=== PATIENT | female | born 1995 | race Caucasian/White ===

== ENCOUNTER 2019-08-19 11:27 | Emergency (ER) | payer OTHER ==
[~2019-08-19] VITALS: Ht 175.3 cm; Wt 136.4 kg
[2019-08-19] MEDS ORDERED: NORCO, ANEXSIA 5/325MG TABLET (HYDROcodone/ACETAMINOPHEN) PO ONE (13:15)
[2019-08-19] MEDS ORDERED: CYCLOBENZAPRINE 10 MG TAB PO ONE (13:15)
[2019-08-19] MEDS ORDERED: CYCL10TA PO (14:09)
[2019-08-19 14:18] VITALS: BP 132/75
== END 2019-08-19 14:18 | disposition home or self-care (01) ==
LOC: M ED 11:27
DX: M54.9 Dorsalgia, unspecified (principal); Z79.899 Other long term (current) drug therapy

== ENCOUNTER → 2019-11-21 | Outpatient (REF) | payer OTHER ==
[~2019-11-21] MED LIST: CYCL10TA PO
[2019-11-21 20:21] LABS: FREE T4 0.9 NG/DL (0.76-1.46); THYROID STIMULATING HORMONE 3.43 uIU/ML (0.358-3.740)
== END ==
LOC: M SFHCLERA 18:31
PROVIDERS: ATTEND Physician Assistant
DX: R68.89 Other general symptoms and signs (principal); R06.89 Other abnormalities of breathing
CPT/HCPCS: 71046; 84439; 84443; 93005; G0463

== ENCOUNTER → 2019-11-21 | Outpatient (CLI) | payer OTHER ==
--- NOTE | 2019-11-21 18:22 | REP ---
Clinical: Dyspnea . Comparison: None . Technique: PA and lateral. Findings: The mediastinum and cardiac silhouette are normal. The lung benitez are clear and without acute consolidation, effusion, or pneumothorax. The skeletal structures are intact and normal. Impression: 1. No acute cardiopulmonary process. Electronically Signed by Dakota Martinez MD 11/21/2019 06:13 P
== END ==
LOC: M LRY 17:52
PROVIDERS: ATTEND Physician Assistant
DX: R06.89 Other abnormalities of breathing (principal)

== ENCOUNTER 2020-04-13 10:15 | Emergency (ER) | payer OTHER ==
[~2020-04-13 10:15] MED LIST changes: +CYCL-707 PO; -CYCL10TA PO
[2020-05-23 11:38] LABS: CHLAMYDIA DNA AMPLIFICATION NEGATIVE (NEGATIVE); GC DNA AMPLIFICATION NEGATIVE (NEGATIVE)
[2020-06-03 10:35] LABS: BASO % 0.3 % (0.0-1.0); EOS # 0.2 10^3/uL (0.0-0.5); EOS % 1.4 % (0.0-3.0); HEMATOCRIT 40.4 % (36.0-47.0); HEMOGLOBIN 13.7 g/dl (12.0-15.5); LYMPH # 2.1 10^3/uL (1.5-5.0); LYMPH % 15.8 % (24.0-44.0); MEAN CORPUSCULAR HEMOGLOBIN 29.5 pg (27.0-33.0); MEAN CORPUSCULAR HGB CONC 33.9 g/dl (32.0-36.5); MEAN CORPUSCULAR VOLUME 86.9 fl (80.0-96.0); MONO # 0.9 10^3/uL (0.0-0.8); MONO % 6.6 % (0.0-5.0); NEUTROPHILS # 9.9 10^3/uL (1.5-8.5); NEUTROPHILS % 75.4 % (36.0-66.0); PLATELET COUNT, AUTOMATED 329 10^3/uL (150-450); RED BLOOD COUNT 4.65 10^6/uL (4.00-5.40); WHITE BLOOD COUNT 13.1 10^3/uL (4.0-10.0)
== END 2020-04-13 12:10 | disposition home or self-care (01) ==
LOC: M ED 10:15
DX: O20.0 Threatened abortion (principal); O26.851 Spotting complicating pregnancy, first trimester; O34.81 Maternal care for other abnormalities of pelvic organs, first trimester; Z3A.12 12 weeks gestation of pregnancy; Z79.899 Other long term (current) drug therapy

== ENCOUNTER → 2020-06-09 | Outpatient (CLI) | payer OTHER ==
--- NOTE | 2020-06-14 10:32 | REP ---
OBSTETRIC SONOGRAPHY HISTORY: Supervision of for anatomy. FINDINGS: Scanning through the gravid uterus demonstrates a viable single intrauterine gestation in a transverse head to the maternal left lie. A posterior grade 0 placenta is seen without evidence of previa. Three-vessel cord is observed. heart rate is recorded at 150 beats per minute. Amniotic fluid is subjectively normal. No abnormality is seen. face and profile nose and lips, four chamber heart and left ventricular outflow tract views are less than optimally seen due to position. The following additional anatomic structures are identified and felt to be unremarkable: cranium, intracranial anatomy, right ventricular outflow tract view, diaphragm, left-sided stomach, right and left kidney, urinary bladder, spine, upper and lower extremities. BIOMETRY CHART: BPD 4.6 cm 20 weeks 0 days Head circumference 17.1 cm 19 weeks 5 days Abdominal circumference 14.8 cm 20 weeks 0 days Femur length 3.3 cm 20 weeks 1 day Humeral length 3.1 cm 20 weeks 3 days AC/HC ratio 1.16 Normal Cephalic index 0.75 Normal Estimated weight 329 grams, 0 pounds 11 ounces, 43rd percentile for 20 weeks 1 day. IMPRESSION: Single live intrauterine gestation at 20 weeks 0 days by todays composite criteria. Estimated date of delivery (JANIS) by todays sonography 10/27/2020. anatomic survey incomplete regarding face and heart. Transverse lie. MTDD
== END ==
LOC: M WHC 13:52
PROVIDERS: ATTEND Obstetrics & Gynecology
DX: O32.2XX0 Maternal care for transverse and oblique lie, not applicable or unspecified (principal); Z36.89 Encounter for other specified antenatal screening; Z3A.20 20 weeks gestation of pregnancy

== ENCOUNTER → 2020-07-05 | Outpatient (CLI) | payer MEDICAID ==
--- NOTE | 2020-07-05 16:46 | REP ---
INDICATION: F/U ANATOMY - FACE AND HEART. COMPARISON: Comparison study June 09, 2020.. TECHNIQUE: Transabdominal obstetric sonography. FINDINGS: Scanning through the gravid uterus demonstrates a viable single intrauterine gestation in transverse, head to the maternal left lie. motion is observed and heart rate is recorded at 144 beats per minute. A posterior placenta is seen, grade 0, without evidence of placenta previa. Amniotic fluid is subjectively normal. Closed cervical length is measured at 3.1 cm transabdominally. No extrauterine abnormality is observed. The following anatomic structures are identified today and felt to be unremarkable: Face and profile nose and lips, four-chamber heart with left and right ventricular outflow tract views. Three-vessel cord is seen. In conjunction with the prior study, anatomic survey is felt to be complete.. Biometry chart: BPD 5.9 cm, 24 weeks 0 days Head circumference 21.7 cm, 23 weeks 5 days Abdominal circumference 19.1 cm, 23 weeks 6 days Femur length 4.2 cm, 23 weeks 6 days Humeral length 3.9 cm, 23 weeks 6 days HC/AC ratio normal 1.14 Cephalic index normal 0.75 Estimated weight 634 g, 1 lb 6 oz, 39th percentile for 23 weeks 6 days IMPRESSION: Viable single intrauterine gestation at 23 weeks 6 days by today's composite sonographic criteria. JANIS by today's sonography 10/26/2020. No complication identified. <Electronically signed by Arnaldo Mchugh > 07/05/20 [id number]
== END ==
LOC: M WHC 15:14
PROVIDERS: ATTEND Obstetrics & Gynecology
DX: Z34.82 Encounter for supervision of other normal pregnancy, second trimester (principal)

== ENCOUNTER → 2020-08-02 | Outpatient (CLI) | payer SELFPAY | LOC: M LABSMTC 13:45 | PROVIDERS: ATTEND Pediatrics | DX: Z20.828 Contact with and (suspected) exposure to other viral communicable diseases (principal) ==

== ENCOUNTER 2020-08-05 06:45 | Emergency (ER) | payer MEDICAID, OTHER ==
[~2020-08-05] VITALS: Ht 175.3 cm; Wt 137.7 kg
[2020-08-05] MEDS ORDERED: SODIUM CHLORIDE NASAL 0.65% SPRAY BTL (OCEAN) STA (07:27)
[2020-08-05] MEDS ORDERED: CETIRIZINE (ZyrTEC) 10 MG TAB PO ONE (07:30)
[2020-08-05] MEDS ORDERED: guaiFENesin 200 MG TAB PO ONE (07:45)
[2020-08-05 07:51] VITALS: O2SAT 98
[2020-08-05] MEDS ORDERED: NS 1,000 ML IV ONE (08:00)
[2020-08-05 08:19] LABS: BASO % 0.3 % (0.0-1.0); EOS # 0.4 10^3/uL (0.0-0.5); EOS % 2.2 % (0.0-3.0); HEMATOCRIT 38.1 % (36.0-47.0); HEMOGLOBIN 12.2 g/dl (12.0-15.5); LYMPH # 2.1 10^3/uL (1.5-5.0); LYMPH % 13.4 % (24.0-44.0); MEAN CORPUSCULAR HEMOGLOBIN 28.3 pg (27.0-33.0); MEAN CORPUSCULAR VOLUME 88.4 fl (80.0-96.0); MONO % 6.5 % (0.0-5.0); NEUTROPHILS % 76.8 % (36.0-66.0); PLATELET COUNT, AUTOMATED 322 10^3/uL (150-450); RED BLOOD COUNT 4.31 10^6/uL (4.00-5.40); WHITE BLOOD COUNT 15.6 10^3/uL (4.0-10.0)
[2020-08-05 08:50] LABS: BLOOD UREA NITROGEN 7 MG/DL (7-18); CALCIUM LEVEL 9.4 MG/DL (8.5-10.1); CARBON DIOXIDE LEVEL 22 MEQ/L (21-32); CHLORIDE LEVEL 108 MEQ/L (98-107); CK-MB VALUE MASS < 1.0 NG/ML (<3.6); CPK CREATINE PHOSPHOKINASE 44 U/L (26-192); CREATININE FOR GFR 0.44 MG/DL (0.55-1.30); GLOMERULAR FILTRATION RATE > 60.0 (>60); GLUCOSE, FASTING 86 MG/DL (70-100); MB/CK RELATIVE INDEX 2.27 (< OR =4); POTASSIUM SERUM 4.3 MEQ/L (3.5-5.1); SODIUM LEVEL 139 MEQ/L (136-145); TROPONIN I < 0.02 NG/ML (< 0.10)
[2020-08-05] MEDS ORDERED: GUAI400T9 PO (09:02)
[2020-08-05] MEDS ORDERED: ALL10TAB2 PO (09:02)
[2020-08-05] MEDS ORDERED: HM S0.65 NARES (09:02)
[2020-08-05] MEDS ORDERED: KEFL500C17 PO (09:03)
[2020-08-05 09:26] VITALS: BP 151/78
== END 2020-08-05 09:28 | disposition home or self-care (01) ==
LOC: M ED 06:45
DX: O99.513 Diseases of the respiratory system complicating pregnancy, third trimester (principal); J06.9 Acute upper respiratory infection, unspecified; O23.43 Unspecified infection of urinary tract in pregnancy, third trimester; Z3A.28 28 weeks gestation of pregnancy; Z87.09 Personal history of other diseases of the respiratory system

== ENCOUNTER → 2020-08-11 | Outpatient (CLI) | payer OTHER ==
[~2020-08-11] MED LIST changes: +ALL10TAB2 PO; +GUAI400T9 PO; +HM S0.65 NARES; +KEFL500C17 PO
[2020-08-11 11:14] LABS: HEMATOCRIT 36.9 % (36.0-47.0); MEAN CORPUSCULAR HEMOGLOBIN 29.4 pg (27.0-33.0); MEAN CORPUSCULAR HGB CONC 32.5 g/dl (32.0-36.5); MEAN CORPUSCULAR VOLUME 90.4 fl (80.0-96.0); PLATELET COUNT, AUTOMATED 282 10^3/uL (150-450); RED BLOOD COUNT 4.08 10^6/uL (4.00-5.40); WHITE BLOOD COUNT 13.4 10^3/uL (4.0-10.0)
== END ==
LOC: M LAB 09:42
PROVIDERS: ATTEND Obstetrics & Gynecology
DX: Z34.82 Encounter for supervision of other normal pregnancy, second trimester (principal)

== ENCOUNTER → 2020-08-24 | Outpatient (REF) | payer OTHER | LOC: M LAB REF 12:51 | PROVIDERS: ATTEND Obstetrics & Gynecology | DX: Z34.83 Encounter for supervision of other normal pregnancy, third trimester (principal) ==

== ENCOUNTER → 2020-09-01 | Outpatient (CLI) | payer OTHER ==
[2020-09-01 13:31] LABS: ALT/SGPT 13 U/L (12-78); BILIRUBIN,TOTAL 0.3 MG/DL (0.2-1.0); CREATININE FOR GFR 0.42 MG/DL (0.55-1.30); GLOMERULAR FILTRATION RATE > 60.0 (>60); LDH LACTATE DEHYDROGENASE 158 U/L (84-246); URIC ACID 3.5 MG/DL (2.6-6.0)
[2020-09-01 13:45] LABS: CREATININE, URINE 79.2 MG/DL; URINE TOTAL PROTEIN 11.1 MG/DL (0-12)
[2020-09-01 15:42] LABS: CREATININE 24 HOUR, URINE 1861.2 MG/24HR (600-1800); TOTAL PROTEIN 24 HOUR URINE 260.8 MG/24HR (50-150)
== END ==
LOC: M LAB 11:52
PROVIDERS: ATTEND Advanced Practice Midwife
DX: O14.93 Unspecified pre-eclampsia, third trimester (principal); Z3A.00 Weeks of gestation of pregnancy not specified

== ENCOUNTER 2020-09-09 11:10 | Outpatient (CLI) | payer OTHER ==
[~2020-09-09] VITALS: Ht 175.3 cm; Wt 141.7 kg
[2020-09-09] MEDS ORDERED: ACET325C5 PO (11:31)
[2020-09-09 11:48] VITALS: BP 170/100
--- NOTE | 2020-09-09 15:58 | IPNPDOC ---
Text Note Date of Service The patient was seen on 09/09/20. NOTE 25yo G1 who presents with c/o elevated BP at work and increase swelling. Denies vaginal bleeding, LOF, ctx, headaches or visual changes O: vss, AF cat 1 tracing abd: gravid, nttp cx: deferred A/P: 32yo G1 at 33 wks, normotensive Reassuring status -home with PTL precautions and reassurance -f/u at OB appt Sunday Radha Ratliff MD VS,Sia, I+O VS, Sia, I+O Vital Signs Date Time Temp Pulse Resp B/P (MAP) Pulse Ox O2 Delivery O2 Flow Rate FiO2 09/09/20 11:48 98.2 20 170/100 (123) RADHA RATLIFF MD. Sep 09, 2020 15:58
== END 2020-09-09 14:22 | disposition home or self-care (01) ==
LOC: M LDO 11:10
PROVIDERS: ATTEND Obstetrics & Gynecology
DX: O12.03 Gestational edema, third trimester (principal); Z3A.33 33 weeks gestation of pregnancy

== ENCOUNTER 2020-09-14 09:36 | Outpatient (CLI) | payer OTHER ==
[~2020-09-14] VITALS: Ht 175.3 cm; Wt 142.4 kg
[~2020-09-14 09:36] MED LIST changes: +ACET325C5 PO
[2020-09-14 10:05] VITALS: BP 134/67
[2020-09-14 10:23] VITALS: BP 126/72
[2020-09-14 10:37] VITALS: BP 140/78
[2020-09-14 10:52] VITALS: BP 132/74
[2020-09-14 11:14] LABS: HEMATOCRIT 36.8 % (36.0-47.0); MEAN CORPUSCULAR HEMOGLOBIN 28.9 pg (27.0-33.0); MEAN CORPUSCULAR HGB CONC 32.6 g/dl (32.0-36.5); MEAN CORPUSCULAR VOLUME 88.7 fl (80.0-96.0); PLATELET COUNT, AUTOMATED 276 10^3/uL (150-450); RED BLOOD COUNT 4.15 10^6/uL (4.00-5.40); WHITE BLOOD COUNT 12.4 10^3/uL (4.0-10.0)
[2020-09-14] MEDS ORDERED: TUMS500C PO (11:21)
[2020-09-14 11:41] LABS: TOTAL PROTEIN,RANDOM URINE 19.9 MG/DL (0.0-12.0)
--- NOTE | 2020-09-14 11:44 | REP ---
INDICATION: R/O PREECLAMPSIA-SALAS/EFW/POSITION. COMPARISON: 07/05/2020. TECHNIQUE: Real-time sonographic evaluation of the gravid uterus performed. FINDINGS: Estimated gestational age is34 weeks 0 days, EDC 10/26/2020. Today's measurements indicate appropriate growth. Presentation: Cephalic Placenta posterior, grade 2, without evidence of placenta previa. heart rate is recorded at 136 beats per minute. Amniotic fluid is subjectively normal. SALAS 13.2, normal range 8.1-24.8. Biometry chart: BPD: 85 mm, 34 weeks 0 days, 50th percentile. HC: 306 mm, 34 weeks 0 days, 51st percentile AC: 295 mm, 33 weeks 4 days, 43rd percentile Femur length: 66 mm, 34 weeks 1 days, 51st percentile HC to AC ratio: 1.03, normal range 0.94-1.13. Estimated weight: 2275g, 53rd percentile. The cranium, four-chamber heart, stomach, kidneys and bladder are visualized and are grossly unremarkable. IMPRESSION: Viable single intrauterine gestation as above. <Electronically signed by Surinder Morrison > 09/14/20 2003
[2020-09-14 12:47] LABS: ALT/SGPT 16 IU/L (0-32); BILIRUBIN,TOTAL 0.3 MG/DL (0.2-1.0); CREATININE FOR GFR 0.48 MG/DL (0.55-1.30); GLOMERULAR FILTRATION RATE > 60.0 (>60); LDH LACTATE DEHYDROGENASE 159 U/L (84-246); URIC ACID 4.1 MG/DL (2.6-6.0)
--- NOTE | 2020-10-04 11:50 | IPNPDOC ---
Text Note Date of Service The patient was seen on 09/14/20. S: 25yo at 34w3d presents from clinic for evaluation for elevated BP. Denies headaches, visual changes, abd pain, ctx, LOF or vaginal bleeding. O: vs serial BP wnl. Cat 1 tracing Gen: well appearing abd: soft, gravid, nttp Labs:WNL A/P: 25yo at 34w3d with isolated elevated BP, no further hypertension reassuring status -home with PTL precautions and FKCs -f/u at next OB appt. MD PIERO Quinteros KENYA MD. Oct 04, 2020 11:49
== END 2020-09-14 13:20 | disposition home or self-care (01) ==
LOC: M LDO 09:36
PROVIDERS: ATTEND Obstetrics & Gynecology
DX: O16.9 Unspecified maternal hypertension, unspecified trimester (principal); Z3A.34 34 weeks gestation of pregnancy

== ENCOUNTER 2020-09-21 10:48 | Inpatient (IN) | payer OTHER ==
[~2020-09-21] VITALS: Ht 175.3 cm; Wt 144.2 kg
[2020-09-21] VITALS (21 sets, daily range): BP systolic 128–173; BP diastolic 69–106
[~2020-09-21 10:48] MED LIST changes: +TUMS500C PO
[2020-09-21 12:34] LABS: HEMATOCRIT 35.1 % (36.0-47.0); HEMOGLOBIN 11.6 g/dl (12.0-15.5); MEAN CORPUSCULAR HEMOGLOBIN 29.4 pg (27.0-33.0); MEAN CORPUSCULAR VOLUME 89.1 fl (80.0-96.0); PLATELET COUNT, AUTOMATED 293 10^3/uL (150-450); RED BLOOD COUNT 3.94 10^6/uL (4.00-5.40); WHITE BLOOD COUNT 12.8 10^3/uL (4.0-10.0)
[2020-09-21] MEDS: ACETAMINOPHEN 500 MG TAB PO PRN ×3 (12:46→20:46)
[2020-09-21 13:05] LABS: ALBUMIN 2.5 GM/DL (3.2-5.2); ALT/SGPT 15 U/L (12-78); BILIRUBIN,TOTAL 0.4 MG/DL (0.2-1.0); BLOOD UREA NITROGEN 9 MG/DL (7-18); CARBON DIOXIDE LEVEL 24 MEQ/L (21-32); CHLORIDE LEVEL 108 MEQ/L (98-107); CREATININE FOR GFR 0.51 MG/DL (0.55-1.30); GLOMERULAR FILTRATION RATE > 60.0 (>60); GLUCOSE, FASTING 73 MG/DL (70-100); POTASSIUM SERUM 4.2 MEQ/L (3.5-5.1); SODIUM LEVEL 138 MEQ/L (136-145); TOTAL PROTEIN 5.8 GM/DL (6.4-8.2)
[2020-09-21 13:08] LABS: TOTAL PROTEIN,RANDOM URINE 141.4 MG/DL (0.0-12.0)
[2020-09-21] MEDS ORDERED: BETAMETHASONE SOLUSPAN 6MG/ML 5ML VIAL (J0702 PER 3MG) IM SCH (14:00)
--- NOTE | 2020-09-21 14:16 | HPEPDOC ---
Obstetrical History & Physical General Date of Admission Sep 21, 2020 at 13:25 History of Present Illness Katia is a 25yo with SIUP at 35w3d by 8wk u/s presenting from [facility] office where she was seen for routine visit for pre-E workup 2/2 elevated bp's. She was noted to have severe range bp. In triage she endorses mild headache, but also hasn't eaten since 0400. No vision changes, no RUQ pain. Good movement, no vb/lof/ctx. No n/v/f/c/CP/SOB. She was evaluated in triage on 09/14 for pre-E rule out, bp's at that visit were 126-140/67-78. She had a GS done that day which showed 53%ile, posterior placenta, SALAS 13.2cm, cephalic presentation. The last urine protein I see in her record was a 24hr UP done 09/01 which resulted 260.8mg. In triage today her bp's are bouncing between mild range and severe range- not sustained severe range. Labs drawn show normal H/H and plt, normal LFTs, creatinine 0.51. Urine protein:creatinine is 0.59 which is diagnostic of pre- eclampsia. Thus far I have diagnosed her with pre-eclampsia, mild, but plan to observe over a period of time for severe features. 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), Other (PCOS) Past Medical History Medical History Morbid obesity, anxiety, benign thyroid tumor Surgical History: Gallbladder, Tonsilectomy Family History Significant Family History: No pertinent family hx Social History Marital Status: Family situation: Spouse/partner home Psychosocial History: Anxiety (on escitalopram) * Smoker: non-smoker Alcohol: Denies Drugs: denies Allergies Coded Allergies: No Known Allergies (Unverified , 08/19/19) Medications Scheduled Calcium Carbonate (Tums) 200 Mg Tab.chew, 500 MG PO PRN Physical Examination Physical Examination GENERAL: Alert and oriented times three. ABDOMEN: Gravid and non-tender to touch. FETUS: Is vertex (VTX) by TAUS EXTREMITIES: No edema BLE Vital Signs/I&O Vital Signs Date Time Temp Pulse Resp B/P (MAP) Pulse Ox O2 Delivery O2 Flow Rate FiO2 09/21/20 12:59 90 161/93 (115) 09/21/20 12:50 18 09/21/20 11:21 99.1 98 Room Air Laboratory Data 24H LABS Laboratory Tests 2 09/21/20 12:01: Anion Gap 6L, Glomerular Filtration Rate > 60.0, Calcium Level 9.0, Total Bilirubin 0.4, Aspartate Amino Transf (AST/SGOT) 7, Alanine Aminotransferase (ALT/SGPT) 15, Alkaline Phosphatase 127H, Total Protein 5.8L, Albumin 2.5L, Albumin/Globulin Ratio 0.8L 09/21/20 12:02: Nucleated Red Blood Cells % (auto) 0.0, Urine Random Creatinine 239.0, Urine Random Total Protein 141.4H 09/21/20 13:35: Serology Scanned Report Hepatitis B Testing CBC/BMP Laboratory Tests 09/21/20 12:01 09/21/20 12:02 Pertinent Laboratoy Data Blood Type: AB+ RBC Antibody Screen: Negative HIV: Negative Hepatitis B: Negative Hepatitis C: Negative Rapid Plasma Reagin: Nonreactive Rubella: Immune Chlamydia/Gonorrhea: Negative Group B Streptococcus: Unknown Glucose Tolerance Test: 128 Anatomy Ultrasound Ultrasound Date: Jul 05, 2020 Placenta Location: Posterior Normal Anatomy: Yes Placenta Previa: No Steroid Therapy Steroid Therapy: No Assessment Heart Rate (FHR): 135 Variability: Moderate Accelerations: Positive Decelerations: None Tocometer Contractions: No Assessment/Plan Assessment Katia is a 25yo with SIUP at 35w3d by 8wk being observed on L&D for new diagnosis of pre-eclampsia, rule out of severe features. Her bp's are bouncing between mild range and severe range- not sustained severe range. Labs drawn show normal H/H and plt, normal LFTs, creatinine 0.51. Urine protein:creatinine is 0.59 which is diagnostic of pre-eclampsia. Plan to observe over a period of time for development of severe features (in particular, if there is development of sustained severe range bp's). Reassuring status with cephalic presentation. Recent growth scan showed appropriate growth. Plan Admit and orient. Counseled and consented regarding new dx of pre-eclampsia and my recommendation for observation Betamethasone 12mg IM now and repeat in 24hr Diet: regular with oral hydration BP monitoring and NST q4hr Group B Streptococcus (GBS) will be collected Labs and intravenous (IV) per unit protocol. Jessica Kruse MD Sep 21, 2020 14:15
[2020-09-21] MEDS ORDERED: CALCIUM CARBONATE 500 MG CHEW U/D PO PRN (17:45)
[2020-09-22] VITALS (29 sets, daily range): BP systolic 119–188; BP diastolic 58–114
[2020-09-22] MEDS ORDERED: BETAMETHASONE SOLUSPAN 6MG/ML 5ML VIAL (J0702 PER 3MG) IM ONE (07:45)
[2020-09-22 08:14] LABS: HEMATOCRIT 39.4 % (36.0-47.0); MEAN CORPUSCULAR VOLUME 87.9 fl (80.0-96.0); PLATELET COUNT, AUTOMATED 355 10^3/uL (150-450); RED BLOOD COUNT 4.48 10^6/uL (4.00-5.40); WHITE BLOOD COUNT 19.7 10^3/uL (4.0-10.0)
[2020-09-22 08:39] LABS: ALT/SGPT 18 U/L (12-78); BILIRUBIN,TOTAL 0.3 MG/DL (0.2-1.0); CREATININE FOR GFR 0.61 MG/DL (0.55-1.30); GLOMERULAR FILTRATION RATE > 60.0 (>60); LDH LACTATE DEHYDROGENASE 181 U/L (84-246); URIC ACID 4.4 MG/DL (2.6-6.0)
[2020-09-22] MEDS ORDERED: LR 1,000 ML IV ONE (08:45)
[2020-09-22] MEDS: miSOPROStol 50MCG 1/2 TABLET PO SCH ×3 (08:55→16:52)
[2020-09-22] MEDS: ACETAMINOPHEN 500 MG TAB PO PRN ×2 (15:33→22:49)
[2020-09-22] MEDS: LR 1,000 ML IV SCH (16:38)
[2020-09-22] MEDS ORDERED: PENICILLIN G POTASSIUM IV 5 MU in D5W MINI-BAG PLUS 100 ML IV STA ×2 (16:53→21:35)
[2020-09-22] MEDS ORDERED: LR 1,000 ML IV SCH (20:55)
[2020-09-22] MEDS ORDERED: OXYTOCIN DRIP 30 UNITS in IV 1 EA IV SCH (21:00)
[2020-09-22] MEDS ORDERED: OXYTOCIN 30 UNITS IN 0.9% NaCl 500ML IV BAG (J2590) As Ordered ONE (21:09)
[2020-09-23] VITALS (69 sets, daily range): BP systolic 127–199; BP diastolic 63–115
[2020-09-23] MEDS: LR 1,000 ML IV SCH ×2 (00:39→15:07)
[2020-09-23] MEDS: PENICILLIN G POTASSIUM IV 2.5 MU in IV 1 EA IV SCH ×4 (01:41→15:07)
[2020-09-23 05:21] LABS: HEMATOCRIT 32.5 % (36.0-47.0); MEAN CORPUSCULAR HEMOGLOBIN 29.5 pg (27.0-33.0); MEAN CORPUSCULAR HGB CONC 33.8 g/dl (32.0-36.5); MEAN CORPUSCULAR VOLUME 87.1 fl (80.0-96.0); PLATELET COUNT, AUTOMATED 294 10^3/uL (150-450); RED BLOOD COUNT 3.73 10^6/uL (4.00-5.40); WHITE BLOOD COUNT 16.4 10^3/uL (4.0-10.0)
[2020-09-23 05:56] LABS: ALT/SGPT 18 U/L (12-78); BILIRUBIN,TOTAL 0.1 MG/DL (0.2-1.0); CREATININE FOR GFR 0.51 MG/DL (0.55-1.30); GLOMERULAR FILTRATION RATE > 60.0 (>60); LDH LACTATE DEHYDROGENASE 178 U/L (84-246); URIC ACID 4.6 MG/DL (2.6-6.0)
[2020-09-23] MEDS ORDERED: FENTANYL 2MCG/ML ROPIVACAINE 0.2% IN 0.9% NACL 100ML IVBAG As Ordered ONE (08:45)
[2020-09-23] MEDS ORDERED: EPIDURAL COMMENT XX SCH (09:50)
[2020-09-23] MEDS ORDERED: diphenhydrAMINE 50MG/ML VIAL (J1200) IV PRN (09:50)
[2020-09-23] MEDS ORDERED: ePHEDrine SULFATE 25 MG/5 ML(5MG/ML) SYRINGE IV PRN (09:50)
[2020-09-23] MEDS ORDERED: ONDANSETRON 4MG/2ML VIAL IV PRN (09:50)
[2020-09-23] MEDS ORDERED: FENTANYL/ROPIVACAINE/NACL BAG 100 ML EPIDURAL SCH (09:50)
[2020-09-23] MEDS ORDERED: EPIDURAL/PCA KEYS XX PRN (09:50)
[2020-09-23] MEDS ORDERED: REFRIGERATOR IV KEYS XX PRN (09:50)
[2020-09-23] MEDS ORDERED: LACTATED RINGER'S 1000 ML IV PRN (09:50)
[2020-09-23] MEDS ORDERED: NALOXONE INJ 0.4MG/1ML VIAL (J2310 PER 1MG) IV PRN (09:50)
[2020-09-23] MEDS ORDERED: OXYTOCIN DRIP 30 UNITS in IV 1 EA IV SCH (13:56)
[2020-09-23] MEDS ORDERED: MEASLES,MUMPS,RUBELLA VACCINE INJ (MMR-II) (90707) SC SCH (14:00)
[2020-09-23] MEDS ORDERED: METHYLERGONOVINE MALEATE 0.2 MG TAB PO PRN (14:00)
[2020-09-23] MEDS ORDERED: BENZOCAINE 20% HEMORRHOIDAL OINTMENT 28GM TUBE TOP PRN (14:00)
[2020-09-23] MEDS ORDERED: DOCUSATE SODIUM 100MG CAPSULE PO PRN (14:00)
[2020-09-23] MEDS ORDERED: RHOGAM 300 MCG (1500 IU) INJ (J2790) IM SCH (14:00)
[2020-09-23] MEDS ORDERED: ACETAMINOPHEN TAB 650MG DOSE (2X325MG) PO PRN (14:00)
[2020-09-23] MEDS ORDERED: ANUSOL HC CREAM 30GM TOP PRN (14:00)
[2020-09-23] MEDS ORDERED: IBUPROFEN 800 MG TAB PO PRN (14:00)
[2020-09-23] MEDS ORDERED: ACETAMINOPHEN 500 MG TAB PO PRN (14:00)
[2020-09-23] MEDS ORDERED: IBUPROFEN 600MG TAB PO PRN (14:00)
[2020-09-23 14:14] LABS: CORD GAS ABE V -3.8; CORD GAS HCO3 V 20.4 MEQ/L; CORD GAS O2 SAT V 72.6 %; CORD GAS PCO2 V 34.8 mmHg; CORD GAS PH V 7.386 UNITS; CORD GAS PO2 V 30.7 mmHg; CORD GAS SBC V 20.8 MEQ/L; CORD GAS TCO2 V 21.5 MEQ/L
[2020-09-23 14:17] LABS: CORD GAS ABE A -2.8; CORD GAS HCO3 A 21.6 MEQ/L; CORD GAS O2 SAT A 72.8 %; CORD GAS PCO2 A 36.9 mmHg; CORD GAS PH A 7.386 UNITS; CORD GAS PO2 A 29.7 mmHg; CORD GAS SBC A 21.5 MEQ/L; CORD GAS TCO2 A 22.8 MEQ/L
--- NOTE | 2020-09-23 14:29 | DN ---
DELIVERY NOTE DATE OF DELIVERY: 09/23/2020 TIME OF : DESCRIPTION OF DELIVERY: Katia is a 25-year-old female, 2, para 0,0,1,0 who was admitted at 35-3/7 weeks gestation with severe preeclampsia. She was monitored in labor and delivery, was steroid complete. Given that pressures continued to be labile, decision was made to induce the patient. She underwent Cytotec followed by Pitocin induction. She then progressed to fully dilated after artificial rupture of membranes and epidural. She pushed and delivered precipitously in bed, nurse control of live male infant in right occiput anterior position, Apgars 7 and 9, weight 4 pounds 15 ounces. Placenta delivered upon my arrival spontaneously intact. Three vessel cord. The perineum, vagina and cervix inspected. Second degree midline perineal laceration was noted which was repaired using 2-0 chromic. Estimated blood loss 250 mL. Both mother and baby in stable condition. cc: [facility]
[2020-09-23] MEDS ORDERED: LABETALOL 100MG/20ML VIAL IV ONE (22:15)
[2020-09-23] MEDS: LABETALOL 200 MG TAB PO SCH (22:36)
[2020-09-24] VITALS (9 sets, daily range): BP systolic 109–159; BP diastolic 59–92
[2020-09-24 06:09] LABS: HEMATOCRIT 31.3 % (36.0-47.0); HEMOGLOBIN 10.2 g/dl (12.0-15.5); MEAN CORPUSCULAR HEMOGLOBIN 29.1 pg (27.0-33.0); MEAN CORPUSCULAR HGB CONC 32.6 g/dl (32.0-36.5); MEAN CORPUSCULAR VOLUME 89.2 fl (80.0-96.0); PLATELET COUNT, AUTOMATED 259 10^3/uL (150-450); RED BLOOD COUNT 3.51 10^6/uL (4.00-5.40)
[2020-09-24 06:49] LABS: ALT/SGPT 17 U/L (12-78); BILIRUBIN,TOTAL 0.2 MG/DL (0.2-1.0); CREATININE FOR GFR 0.51 MG/DL (0.55-1.30); GLOMERULAR FILTRATION RATE > 60.0 (>60); LDH LACTATE DEHYDROGENASE 173 U/L (84-246); URIC ACID 4.5 MG/DL (2.6-6.0)
[2020-09-24] MEDS: PRENATAL VITAMINS CHEWABLE TABLET PO SCH (09:30)
[2020-09-24] MEDS: LABETALOL 200 MG TAB PO SCH ×2 (09:33→21:18)
--- NOTE | 2020-09-24 13:01 | IPNPDOC ---
Text Note Date of Service The patient was seen on 09/24/20. NOTE Inpatient Subjective: Katia is a s/p on 09/23/20. Reports ambulating with ease, bowel movement x1, voiding spontaneously, and tolerating a regular diet. without issue. Mild cramping with . Minimal lochia. Denies headache, visual changes, chest pain, SOB. Objective: VS: Elevated BPs no severe range, afebrile General: Alert and Oriented x3. Respiratory: Regular rate, no accessory muscle use. Abdomen: Fundus firm, midline at U-1. Soft Nontender, no distension. Extremities: Mild edema to knees, negative calf tenderness. Minimal Lochia. Assessment: Elevated BPs, Day 1 Plan: 1. Labetalol 200mg BID as ordered. 2. May shower 3. Vital Signs every 4 hours. 4. Encourage ambulation and . 5. Discharge home when BPs are stable. 6. Nursing care and support per policy. VS,Fishbone, I+O VS, Fishbone, I+O Laboratory Tests 09/24/20 05:56 Vital Signs Date Time Temp Pulse Resp B/P (MAP) Pulse Ox O2 Delivery O2 Flow Rate FiO2 09/24/20 10:00 97.8 83 16 142/82 (102) 99 Room Air I&O- Last 24 Hours up to 6 AM 09/24/20 06:00 Intake Total 4347 ml Output Total 3925 ml Balance 422 ml Mirian Quevedo CNM Sep 24, 2020 13:01
[2020-09-24] MEDS: ACETAMINOPHEN 500 MG TAB PO PRN (18:25)
[2020-09-24] MEDS ORDERED: BOOSTRIX/ADACEL VACCINE (DIPHTH/PERTUSS/ACELL/TETANUS) 0.5ML SYR IM ONE (19:45)
[2020-09-25] VITALS (8 sets, daily range): BP systolic 120–169; BP diastolic 64–96
[2020-09-25] MEDS ORDERED: BOOSTRIX/ADACEL VACCINE (DIPHTH/PERTUSS/ACELL/TETANUS) 0.5ML SYR IM ONE (09:00)
[2020-09-25] MEDS: PRENATAL VITAMINS CHEWABLE TABLET PO SCH (09:11)
[2020-09-25] MEDS: LABETALOL 200 MG TAB PO SCH ×2 (09:15→21:22)
--- NOTE | 2020-09-25 10:59 | IPNPDOC ---
Progress Note Date of Service: Sep 25, 2020 Day#: 2 Progress Note SUBJECT: Doing well without complaints. Ambulating, voiding and pain is well-c ontrolled. Reports minimal lochia. OBJECTIVE: VITAL SIGNS: Elevated BPs, afebrile. Alert and oriented times three. Abdomen: Fundus firm at U-2. Soft, NTTP. Ext: neg calf tenderness. ASSESSMENT: day #2 status post . Recovering in stable condition. Hypertensionwas started on oral labetalol 200 mg twice a day we'll continue to titrate up as needed PLAN: 1. Continue routine care 2. Discharge plans for tomorrow VS, I&O, 24H, Fishbone Vital Signs/I&O Vital Signs Date Time Temp Pulse Resp B/P (MAP) Pulse Ox O2 Delivery O2 Flow Rate FiO2 09/25/20 09:15 98.0 80 18 140/86 (104) Room Air 09/24/20 18:01 98 I&O- Last 24 Hours up to 6 AM 09/25/20 06:00 Intake Total 4440 ml Output Total 3900 ml Balance 540 ml Laboratory Data Microbiology Microbiology 09/21/20 Group B Streptococcus Screen (MARIUM) - Final, Complete Strep Agalactiae Group B LEO HARRY MD. Sep 25, 2020 10:59
[2020-09-25] MEDS ORDERED: LABETALOL 100MG TAB PO ONE (23:00)
[2020-09-26 02:00] VITALS: BP 136/67
[2020-09-26 05:58] VITALS: BP 161/93
[2020-09-26] MEDS: PRENATAL VITAMINS CHEWABLE TABLET PO SCH (08:44)
[2020-09-26] MEDS ORDERED: LABETALOL 100MG TAB PO SCH (09:00)
[2020-09-26 10:00] VITALS: BP 144/86
[2020-09-26 14:00] VITALS: BP 135/74
[2020-09-26] MEDS ORDERED: LABE100T4 PO (16:17)
== END 2020-09-26 16:40 | disposition home or self-care (01) | DRG 560 ==
LOC: M LDO 10:48 → M LDI 13:25 → M OBS 09-23 16:30
PROVIDERS: ADMIT Obstetrics & Gynecology; ATTEND Obstetrics & Gynecology
PROC: 3E033VJ Introduction of Other Hormone into Peripheral Vein, Percutaneous Approach (ICD-10-PCS; 2020-09-22)
PROC: 3E0DXGC Introduction of Other Therapeutic Substance into Mouth and Pharynx, External Approach (ICD-10-PCS; 2020-09-22)
PROC: 10E0XZZ Delivery of Products of Conception, External Approach (ICD-10-PCS; principal; 2020-09-23)
PROC: 0KQM0ZZ Repair Perineum Muscle, Open Approach (ICD-10-PCS; 2020-09-23)
PROC: 10907ZC Drainage of Amniotic Fluid, Therapeutic from Products of Conception, Via Natural or Artificial Opening (ICD-10-PCS; 2020-09-23)
DX: O14.14 Severe pre-eclampsia complicating childbirth (principal); O70.1 Second degree perineal laceration during delivery; Z37.0 Single live birth; Z3A.35 35 weeks gestation of pregnancy

== ENCOUNTER 2021-04-19 15:03 | Emergency (ER) | payer OTHER ==
[~2021-04-19] VITALS: Ht 175.3 cm; Wt 129.6 kg
[~2021-04-19 15:03] MED LIST changes: +LABE100T4 PO
[2021-04-19] MEDS ORDERED: FLUO20CA22 (15:19)
[2021-04-19] MEDS ORDERED: KETOROLAC 30 MG/ML 1ML VIAL IV ONE (18:00)
[2021-04-19] MEDS ORDERED: diphenhydrAMINE 50MG/ML VIAL (J1200) IV ONE (18:00)
[2021-04-19] MEDS ORDERED: ACETAMINOPHEN 500 MG TAB PO ONE (18:00)
[2021-04-19] MEDS ORDERED: NS 1,000 ML IV ONE (18:00)
[2021-04-19 18:45] LABS: BASO # 0.1 10^3/uL (0.0-0.2); BASO % 0.5 % (0.0-1.0); EOS # 0.2 10^3/uL (0.0-0.5); EOS % 1.9 % (0.0-3.0); HEMATOCRIT 41.5 % (36.0-47.0); HEMOGLOBIN 13.7 g/dl (12.0-15.5); LYMPH # 3.2 10^3/uL (1.5-5.0); LYMPH % 25.9 % (24.0-44.0); MEAN CORPUSCULAR HEMOGLOBIN 28.1 pg (27.0-33.0); MONO # 0.8 10^3/uL (0.0-0.8); MONO % 6.9 % (2.0-8.0); NEUTROPHILS # 7.9 10^3/uL (1.5-8.5); NEUTROPHILS % 64.5 % (36.0-66.0); PLATELET COUNT, AUTOMATED 428 10^3/uL (150-450); RED BLOOD COUNT 4.88 10^6/uL (4.00-5.40); WHITE BLOOD COUNT 12.3 10^3/uL (4.0-10.0)
[2021-04-19 18:59] VITALS: BP 160/88
[2021-04-19 19:08] LABS: BLOOD UREA NITROGEN 14 MG/DL (7-18); CALCIUM LEVEL 8.3 MG/DL (8.5-10.1); CARBON DIOXIDE LEVEL 24 MEQ/L (21-32); CHLORIDE LEVEL 109 MEQ/L (98-107); CK-MB VALUE MASS < 1.0 NG/ML (<3.6); CPK CREATINE PHOSPHOKINASE 61 U/L (26-192); CREATININE FOR GFR 0.56 MG/DL (0.55-1.30); GLOMERULAR FILTRATION RATE > 60.0 (>60); GLUCOSE, FASTING 89 MG/DL (70-100); MB/CK RELATIVE INDEX 1.64 (< OR =4); SODIUM LEVEL 140 MEQ/L (136-145); TROPONIN I < 0.02 NG/ML (< 0.10)
--- NOTE | 2021-04-19 19:19 | REP ---
INDICATION: chest tightness. COMPARISON: 11/21/2019 TECHNIQUE: PA and lateral FINDINGS: The superior mediastinal structures are midline. The cardiac silhouette is unremarkable in size, shape, and position. The diaphragmatic surfaces of the lungs are regular, and the costophrenic angles are clear. The pulmonary benitez are clear. The imaged osseous structures are intact. IMPRESSION: There is no acute cardiopulmonary disease. <Electronically signed by He Nguyễn > 04/19/21 [id number]
[2021-04-19 19:58] LABS: FREE T4 0.78 NG/DL (0.76-1.46)
[2021-04-19 20:48] LABS: CK-MB VALUE MASS < 1.0 NG/ML (<3.6); CPK CREATINE PHOSPHOKINASE 58 U/L (26-192); MB/CK RELATIVE INDEX 1.72 (< OR =4); TROPONIN I < 0.02 NG/ML (< 0.10)
[2021-04-19 21:37] LABS: APPEARANCE, URINE CLEAR (CLEAR); BACTERIA, URINE AUTO 1+ (NEGATIVE); BILIRUBIN, URINE AUTO NEGATIVE (NEGATIVE); BLOOD, URINE BLOOD NEGATIVE (NEGATIVE); COLOR, URINE COLORLESS (YELLOW); GLUCOSE, URINE (UA) AUTO NEGATIVE (NEGATIVE); KETONE, URINE AUTO NEGATIVE (NEGATIVE); LEUKOCYTE ESTERASE, URINE AUTO NEGATIVE (NEGATIVE); NITRITE, URINE AUTO NEGATIVE (NEGATIVE); PROTEIN, URINE AUTO NEGATIVE (NEGATIVE); RBC, URINE AUTO 1 /HPF (0-3); SPECIFIC GRAVITY URINE AUTO 1.003 (1.002-1.035); SQUAMOUS EPITHELIAL CELL UR AU 1 /HPF (0-6); UROBILINOGEN, URINE AUTO 0.2 mg/dL (0.0-2.0); WBC, URINE AUTO 0 /HPF (0-3)
--- NOTE | 2021-04-19 21:48 | REPVR ---
PROCEDURE INFORMATION: Exam: CT Head Without Contrast Exam date and time: 04/19/2021 9:26 PM Age: 25 years old Clinical indication: Pain; Headache; Additional info: Headache x4 days TECHNIQUE: Imaging protocol: Computed tomography of the head without contrast. Radiation optimization: All CT scans at this facility use at least one of these dose optimization techniques: automated exposure control; mA and/or kV adjustment per patient size (includes targeted exams where dose is matched to clinical indication); or iterative reconstruction. COMPARISON: No relevant prior studies available. FINDINGS: Brain: No acute intracranial hemorrhage, midline shift or intracranial mass effect. Small age indeterminate low density at the left caudate head. Cerebral ventricles: No hydrocephalus. Paranasal sinuses: Visualized sinuses are unremarkable. No fluid levels. Mastoid air cells: Visualized mastoid air cells are well aerated. Bones/joints: Unremarkable. No acute fracture. Soft tissues: Unremarkable. IMPRESSION: 1. No acute intracranial hemorrhage. 2. Small age indeterminate low density at the left caudate head. Old lacunar infarct is suspected, definitive characterization with MRI may be considered. Electronically signed by: Chandu Chanel On 04/19/2021 21:48:03 PM
--- NOTE | 2021-04-20 10:00 | ECGEPIP ---
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
--- NOTE | 2021-04-20 10:06 | ECGEPIP ---
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
--- NOTE | 2021-04-21 12:03 | ED PDOC ---
Post-Departure Follow-Up certified letter sent to pt re formal read of ct head. needs to fu w pcp and [facility]. please obtain pcp name and fax. if none refer to [facility] and fax. also please refer to neuro and give name/number of practice and fax.Ryder Glynn MD Apr 21, 2021 12:03
== END 2021-04-19 22:36 | disposition home or self-care (01) ==
LOC: M ED 15:03
DX: R51.9 Headache, unspecified (principal); R07.9 Chest pain, unspecified; Z82.49 Family history of ischemic heart disease and other diseases of the circulatory system; Z86.79 Personal history of other diseases of the circulatory system
CPT/HCPCS: 70450; 71046; 80048; 81001; 82550; 82553; 84439; 84443; 84702; 85025; 85379; 93005; 96361; 96374; 96375; 99284; J1200; J1885

== ENCOUNTER → 2021-07-12 | Outpatient (CLI) | payer OTHER ==
[~2021-07-12] MED LIST changes: +FLUO20CA22
[2021-07-12 16:20] LABS: BASO % 0.3 % (0.0-1.0); EOS # 0.3 10^3/uL (0.0-0.5); HEMATOCRIT 41.5 % (36.0-47.0); HEMOGLOBIN 13.6 g/dl (12.0-15.5); LYMPH # 3.6 10^3/uL (1.5-5.0); LYMPH % 28.8 % (24.0-44.0); MEAN CORPUSCULAR HEMOGLOBIN 28.5 pg (27.0-33.0); MEAN CORPUSCULAR HGB CONC 32.8 g/dl (32.0-36.5); MEAN CORPUSCULAR VOLUME 86.8 fl (80.0-96.0); MONO # 0.9 10^3/uL (0.0-0.8); MONO % 6.9 % (2.0-8.0); NEUTROPHILS # 7.6 10^3/uL (1.5-8.5); NEUTROPHILS % 61.7 % (36.0-66.0); PLATELET COUNT, AUTOMATED 409 10^3/uL (150-450); RED BLOOD COUNT 4.78 10^6/uL (4.00-5.40); WHITE BLOOD COUNT 12.4 10^3/uL (4.0-10.0)
[2021-07-12 16:47] LABS: ERYTHROCYTE SEDIMENTATION RATE 41 mm/hr (0-20)
[2021-07-12 17:07] LABS: ALBUMIN 3.7 GM/DL (3.2-5.2); ALT/SGPT 37 U/L (12-78); BILIRUBIN,TOTAL 0.2 MG/DL (0.2-1.0); BLOOD UREA NITROGEN 15 MG/DL (7-18); CALCIUM LEVEL 9.2 MG/DL (8.5-10.1); CARBON DIOXIDE LEVEL 29 MEQ/L (21-32); CHLORIDE LEVEL 108 MEQ/L (98-107); CREATININE FOR GFR 0.72 MG/DL (0.55-1.30); GLOMERULAR FILTRATION RATE > 60.0 (>60); GLUCOSE, FASTING 91 MG/DL (70-100); POTASSIUM SERUM 4.5 MEQ/L (3.5-5.1); RHEUMATOID FACTOR QUANT < 10.0 IU/ML (<15.0); SODIUM LEVEL 139 MEQ/L (136-145); TOTAL PROTEIN 7.6 GM/DL (6.4-8.2)
[2021-07-12 17:11] LABS: VITAMIN B12 LEVEL 648 PG/ML
[2021-07-12 19:48] LABS: HEMOGLOBIN A1c 5.1 %
== END ==
LOC: M LAB 15:10
PROVIDERS: ATTEND Psychiatry & Neurology Neurology
DX: R51.9 Headache, unspecified (principal)

== ENCOUNTER 2021-07-20 15:45 | Emergency (ER) | payer OTHER ==
[~2021-07-20] VITALS: Ht 175.3 cm; Wt 134.0 kg
[2021-07-20 15:46] VITALS: BP 167/100
[2021-07-20] MEDS ORDERED: ZONI25CA13 (15:52)
[2021-07-20] MEDS ORDERED: ASPI81CH33 PO (15:52)
--- OUTSIDE RECORDS SUMMARY | 2021-07-20 15:52 | CCD | Continuity of Care Document ---
Author Author Keturah/Katia MAO Organization Unknown Address [address] [place] [id number] Phone [phone] Care Team Providers Care Stopper Maker Name Role Phone Anyi Barroso Veronica AUTM [phone] Problems Description No Information Available Social History Type Date Description Comments Sex Unknown Allergies and adverse reactions Description No Information Available Medications Active Medications SIG Qnty Indications Ordering Provide r Date Zonisamide 25mg Capsules 1 tab by mouth nightly x 1 week, then 1 tab twice a day x 1 week, then 1 tab morning and 2 tabs nightly 42caps Monserrat Parker M.D. 07/11/2021 Zonisamide 50mg Capsules 1 by mouth twice a day 60caps Monserrat Parker M.D. 07/11/2021 Aspirin Adult Low Dose 81mg Tablet s DR 1 by mouth every day 30tabs Monserrat Parker M.D. 07/11/2021 Immunizations Description No Information Available Vital Signs Description No Information Available Results Test Acquired Date Facility Test Result H/L Range Note CBC With Differential 07/12/2021 [facility] White Blood Count 12.4 10 High 4.0-10.0 Red Blood Count 4.78 10 Normal 4.00-5.40 Hemoglobin 13.6 g/dL Normal 12.0-15.5 Hematocrit 41.5 % Normal 36.0-47.0 Mean Corpuscular Volume 86.8 fl Normal 80.0-96.0 Mean Corpuscular Hemoglobin 28.5 pg Normal 27.0-33.0 Mean Corpuscular HGB Conc 32.8 g/dL Normal 32.0-36.5 Red Cell Distribution Width 13.0 % Normal 11.5-14.5 Platelet Count, Automated 409 10 Normal 150-450 Neutrophils % 61.7 % Normal 36.0-66.0 Lymph % 28.8 % Normal 24.0-44.0 Luna % 6.9 % Normal 2.0-8.0 Eos % 2.0 % Normal 0.0-3.0 Baso % 0.3 % Normal 0.0-1.0 Immature Granulocyte % 0.3 % Normal 0-3.0 Nucleated Red Blood Cell % 0.0 % Normal 0-0 Neutrophils # 7.6 10 Normal 1.5-8.5 Lymph # 3.6 10 Normal 1.5-5.0 Luna # 0.9 10 High 0.0-0.8 Eos # 0.3 10 Normal 0.0-0.5 Baso # 0.0 10 Normal 0.0-0.2 Laboratory test finding 07/12/2021 [facility] Erythrocyte Sedimentation Rate 41 mm/hr High 0-20 Hemoglobin A1c 07/12/2021 [facility] Hemoglobin A1c 5.1 % Normal 1 Estimated Average Glucose 100 mg/dL Normal 60-110 Comprehensive Metabolic Profil 07/12/2021 [facility] Glucose, Fasting 91 mg/dL Normal 70-100 Blood Urea Nitrogen 15 mg/dL Normal 7-18 Creatinine For GFR 0.72 mg/dL Normal 0.55-1.30 Glomerular Filtration Rate > 60.0 Normal >60 2 Sodium Level 139 mEq/L Normal 136-145 Potassium Serum 4.5 mEq/L Normal 3.5-5.1 Chloride Level 108 mEq/L High 98-107 Carbon Dioxide Level 29 mEq/L Normal 21-32 Anion Gap 2 mEq/L Low 8-16 Calcium Level 9.2 mg/dL Normal 8.5-10.1 Ast/Sgot 14 U/L Normal 7-37 Alt/SGPT 37 U/L Normal 12-78 Alkaline Phosphatase 96 U/L Normal 45-117 Bilirubin,Total 0.2 mg/dL Normal 0.2-1.0 Total Protein 7.6 GM/DL Normal 6.4-8.2 Albumin 3.7 GM/DL Normal 3.2-5.2 Albumin/Globulin Ratio 0.9 Low 1.2-2.2 Serum Protein Electrophoresis 07/12/2021 [facility] Albumin % 56.2 % Normal 55.8-66.1 Ykrix-4-Monxoixt % 3.9 % Normal 2.9-4.9 Qawym-8-Nnsmbyuhp % 12.2 % High 7.1-11.8 Zeiq-5-Xdnzxxxls % 6.8 % Normal 4.7-7.2 Wqaw-4-Dzajezpnl % 6.5 % Normal 3.2-6.5 Gamma Globulin % 14.4 % Normal 11.1-18.8 Albumin 4.27 GM/DL Normal 3.29-5.55 Fclfc-0-Olmcuqbrg 0.30 GM/DL Normal 0.17-0.41 Phjyp-4-Rbraojogd 0.93 GM/DL Normal 0.42-0.99 Xisk-8-Fidblfbzq 0.52 GM/DL Normal 0.28-0.60 Thbb-6-Byeaboore 0.49 GM/DL Normal 0.19-0.55 Gamma Globulins 1.09 GM/DL Normal 0.65-1.58 Total Protein 7.6 GM/DL Normal 6.4-8.2 Spep Interpretation SEE COMMENT Normal 3 Spep Pathologist Review REV'D BY Curtis PALOMO <SEE NOTE> Normal 4 Laboratory test finding 07/12/2021 [facility] Thyroid Stimulating Hormone 2.000 uIU/ML Normal 0.358-3.740 Vitamin B12 & Folate 07/12/2021 [facility] Vitamin B12 Level 648 pg/mL Normal 5 Folate 12.0 NG/ML Normal 6 Laboratory test finding 07/12/2021 [facility] Rheumatoid Factor Quant < 10.0 IU/mL Normal <15.0 1 REFERENCE RANGES: <=5.6% NORMAL 5.7-6.4% SUGGESTS IMPAIRED GLUCOSE META BOLISM/PREDIABETIC >= 6.5% ABNORMAL 2 Units are mL/min/1.73 m2 Chronic Kidney Disease Staging per NKF: Stage I & II GFR >=60 Normal to Mildly Decreased Stage III GFR 30-59 Moderately Decreased Stage IV GFR 15-29 Severely Decreased Stage V GFR <15 Very Little GFR Left ESRD GFR <15 on RIGGING UP WORKER 3 NO M-SPIKE(S)NOTED. 4 REV'D BY Curtis PALOMOONG 5 VITAMIN B12 NORMAL RANGE NORMAL 247 - 911 PG/ML INDETERMINATE 211 - 246 PG/ML DEFICIENT LESS THAN 211 PG/ML 6 FOLATE NORMAL RANGE NORMAL GREATER THAN 5.4 NG/ML INDETERMINATE 3.4-5.4 NG/ML DEFICIENT LESS THAN 3.4 NG/ML Procedures Date Code Description Status 07/18/2021 49309 Sympathetic Skin Responses Compl eted 07/18/2021 61153 Test Autonomic Nervous System, C ardiovagal Innervation Completed 07/18/2021 29260 Artery Study Extremity Mult Leve ls Bilateral Completed 07/13/2021 89417 MRI Brain W/O Contrast Completed 07/13/2021 33868 MRI Brain W/O Contrast Completed 07/13/2021 73623 Magnetic Resonance Angiography N kamila W/O Contrast Materials Completed 07/13/2021 82641 Magnetic Resonance Angiography N kamila W/O Contrast Materials Completed 07/13/2021 40030 Magnetic Resonance Angiogtaphy H ead W/O Contrast Material(S) Completed 07/13/2021 17114 Magnetic Resonance Angiogtaphy H ead W/O Contrast Material(S) Completed 07/11/2021 26260 Office/Outpatient New Moderate M DM 45-59 Minutes Completed Medical Devices Description No Information Available Encounters Type Date Location Provider Dx Diagnosis Office Visit 07/11/2021 1:00p Main office - [place] Monserrat Parker M.D. I67.89 Other cerebrovascular disease R42 Dizziness and giddiness G47.00 Insomnia, unspecified G43.809 Other migraine, not intracta ble, without status migrainosus H53.8 Other visual disturbances Assessments Date Code Description Provider 07/18/2021 G60.8 Other hereditary and idiopathic neuropathies Ans/VS 07/18/2021 I95.1 Orthostatic hypotension Ans/VS 07/18/2021 G45.8 Other transient cere bral ischemic attacks and related syndromes Ans/VS 07/18/2021 I70.228 Atherosclerosis of n ative arteries of extremities with rest pain, other extremity Ans/VS 07/13/2021 G43.809 Other migraine, not intractable, without status migrainosus Saritha Parker M.D. 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 07/11/2021 R42 Dizziness and giddiness Monserrat olguin M.D. 07/11/2021 G47.00 Insomnia, unspecified Monserrat rojas M.D. 07/11/2021 G43.809 Other migraine, not intractable, without status migrainosus Monserrat Parker M.D. 07/11/2021 H53.8 Other visual disturbances Monserrat Parker M.D. Plan of Treatment Future Appointment(s):* 08/08/2021 3:30 pm - Monserrat Parker M.D. at Main office - [place] Functional Status Description No Information Available Mental Status Description No Information Available Referrals Refer to Dr Reason for Referral Status Appt Date Created Created Created
--- OUTSIDE RECORDS SUMMARY | 2021-07-20 15:52 | CCD | Continuity of Care Document ---
Author Author Keturah/Katia MAO Organization Unknown Address [address] [place] [address] Phone [phone] Care Team Providers Care Drafter Cartographic Name Role Phone Anyi Barroso Veronica AUTM [phone] Problems Description No Information Available Social History [...] H/L Range Note CBC With Differential 07/12/2021 [facility] White Blood Count 12.4 10 High 4.0-10.0 [...] 36.0-66.0 Lymph % 28.8 % Normal 24.0-44.0 [place] % 6.9 % Normal 2.0-8.0 Eos % 2.0 % Normal 0.0-3.0 Baso % 0.3 % Normal 0.0-1.0 Immature Granulocyte % 0.3 % Normal 0-3.0 Nucleated Red Blood Cell % 0.0 % Normal 0-0 Neutrophils # 7.6 10 Normal 1.5-8.5 Lymph # 3.6 10 Normal 1.5-5.0 [place] # 0.9 10 High 0.0-0.8 Eos # 0.3 10 Normal 0.0-0.5 Baso # 0.0 10 Normal 0.0-0.2 Laboratory test finding 07/12/2021 [facility] Erythrocyte Sedimentation Rate 41 mm/hr High 0-20 Hemoglobin A1c 07/12/2021 [facility] Hemoglobin A1c 5.1 % Normal 1 Estimated Average Glucose 100 mg/dL Normal 60-110 Comprehensive Metabolic Profil 07/12/2021 [facility] Glucose, Fasting 91 mg/dL Normal 70-100 Blood [...] 0.9 Low 1.2-2.2 Serum Protein Electrophoresis 07/12/2021 [facility] Albumin % 56.2 % Normal 55.8-66.1 Bfrsj-3-Siwnntss % 3.9 % Normal 2.9-4.9 Yftbx-3-Hkapbjvxi % 12.2 % High 7.1-11.8 Pznj-2-Exfgunlkd % 6.8 % Normal 4.7-7.2 Pzcu-1-Bbzeslhym % 6.5 % Normal 3.2-6.5 Gamma Globulin % 14.4 % Normal 11.1-18.8 Albumin 4.27 GM/DL Normal 3.29-5.55 Ktzek-2-Lcmemesng 0.30 GM/DL Normal 0.17-0.41 Lvcgv-2-Zgjzbrghn 0.93 GM/DL Normal 0.42-0.99 Oamf-1-Csxgpquyo 0.52 GM/DL Normal 0.28-0.60 Pfys-8-Xbfusvaaf 0.49 GM/DL Normal 0.19-0.55 Gamma Globulins 1.09 GM/DL Normal 0.65-1.58 Total Protein 7.6 GM/DL Normal 6.4-8.2 Spep Interpretation SEE COMMENT Normal 3 Spep Pathologist Review REV'D BY Curtis PALOMO <SEE NOTE> Normal 4 Laboratory test finding 07/12/2021 [facility] Thyroid Stimulating Hormone 2.000 uIU/ML Normal 0.358-3.740 Vitamin B12 & Folate 07/12/2021 [facility] Vitamin B12 Level 648 pg/mL Normal 5 Folate 12.0 NG/ML Normal 6 Laboratory test finding 07/12/2021 [facility] Rheumatoid Factor Quant < 10.0 IU/mL Normal [...] Little GFR Left ESRD GFR <15 on SOUBRETTE 3 NO M-SPIKE(S)NOTED. 4 REV'D BY Curtis PALOMOONG 5 VITAMIN B12 NORMAL RANGE NORMAL 247 - 911 PG/ML INDETERMINATE 211 - 246 PG/ML DEFICIENT LESS THAN 211 PG/ML 6 FOLATE NORMAL RANGE NORMAL GREATER THAN 5.4 NG/ML INDETERMINATE 3.4-5.4 NG/ML DEFICIENT LESS THAN 3.4 NG/ML Procedures Date Code Description Status 07/18/2021 87400 Sympathetic Skin Responses Compl eted 07/18/2021 07947 Test Autonomic Nervous System, C ardiovagal Innervation Completed 07/18/2021 74165 Artery Study Extremity Mult Leve ls Bilateral Completed 07/13/2021 43972 MRI Brain W/O Contrast Completed 07/13/2021 40512 MRI Brain W/O Contrast Completed 07/13/2021 68054 Magnetic Resonance Angiography N kamila W/O Contrast Materials Completed 07/13/2021 27066 Magnetic Resonance Angiography N kamila W/O Contrast Materials Completed 07/13/2021 37909 Magnetic Resonance Angiogtaphy H ead W/O Contrast Material(S) Completed 07/13/2021 82293 Magnetic Resonance Angiogtaphy H ead W/O Contrast Material(S) Completed 07/11/2021 82168 Office/Outpatient New Moderate M DM 45-59 Minutes Completed Medical Devices Description No Information Available Encounters Type Date Location Provider Dx Diagnosis Office Visit 07/11/2021 1:00p Main office - [place] Monserrat Parker M.D. I67.89 Other cerebrovascular disease [...] Monserrat Parker M.D. at Main office - [place] Functional Status Description No Information Available Mental Status Description No Information Available Referrals Refer to Dr Reason for Referral Status Appt Date Created Created Created
--- OUTSIDE RECORDS SUMMARY | 2021-07-20 15:52 | CCD | Continuity of Care Document ---
Author Author Keturah/Katia MAO Organization Unknown Address [address] [place] [address] Phone [phone] Care Team Providers Care Snack Foods Mixer Operator Name Role Phone Anyi Barroso Veronica AUTM [phone] Problems Description No Information Available Social History [...] H/L Range Note CBC With Differential 07/12/2021 [facility] White Blood Count 12.4 10 High [...] 36.0-66.0 Lymph % 28.8 % Normal 24.0-44.0 [place]key % 6.9 % Normal 2.0-8.0 Eos % 2.0 % Normal 0.0-3.0 Baso % 0.3 % Normal 0.0-1.0 Immature Granulocyte % 0.3 % Normal 0-3.0 Nucleated Red Blood Cell % 0.0 % Normal 0-0 Neutrophils # 7.6 10 Normal 1.5-8.5 Lymph # 3.6 10 Normal 1.5-5.0 [place]key # 0.9 10 High 0.0-0.8 Eos # 0.3 10 Normal 0.0-0.5 Baso # 0.0 10 Normal 0.0-0.2 Laboratory test finding 07/12/2021 [facility] Erythrocyte Sedimentation Rate 41 mm/hr High 0-20 Hemoglobin A1c 07/12/2021 [facility] Hemoglobin A1c 5.1 % Normal 1 Estimated Average Glucose 100 mg/dL Normal 60-110 Comprehensive Metabolic Profil 07/12/2021 [facility] Glucose, Fasting 91 mg/dL Normal 70-100 [...] 0.9 Low 1.2-2.2 Serum Protein Electrophoresis 07/12/2021 [facility] Albumin % 56.2 % Normal 55.8-66.1 Npmpw-4-Rscjxjtl % 3.9 % Normal 2.9-4.9 Nzpho-7-Hswepfowt % 12.2 % High 7.1-11.8 Ajqr-2-Iklkrbrfq % 6.8 % Normal 4.7-7.2 Trbj-7-Wdjmqarzf % 6.5 % Normal 3.2-6.5 Gamma Globulin % 14.4 % Normal 11.1-18.8 Albumin 4.27 GM/DL Normal 3.29-5.55 Uqrmq-1-Wxdobovvu 0.30 GM/DL Normal 0.17-0.41 Quril-3-Akftuvpha 0.93 GM/DL Normal 0.42-0.99 Bavd-6-Ohhvpojai 0.52 GM/DL Normal 0.28-0.60 Pgds-8-Qvoxurwzw 0.49 GM/DL Normal 0.19-0.55 Gamma Globulins 1.09 GM/DL Normal 0.65-1.58 Total Protein 7.6 GM/DL Normal 6.4-8.2 Spep Interpretation SEE COMMENT Normal 3 Spep Pathologist Review REV'D BY Curtis PALOMO <SEE NOTE> Normal 4 Laboratory test finding 07/12/2021 [facility] Thyroid Stimulating Hormone 2.000 uIU/ML Normal 0.358-3.740 Vitamin B12 & Folate 07/12/2021 [facility] Vitamin B12 Level 648 pg/mL Normal 5 Folate 12.0 NG/ML Normal 6 Laboratory test finding 07/12/2021 [facility] Rheumatoid Factor Quant < 10.0 IU/mL [...] Little GFR Left ESRD GFR <15 on BLUEPRINT ENGINEER 3 NO M-SPIKE(S)NOTED. 4 REV'D BY Curtis PALOMOONG 5 VITAMIN B12 NORMAL RANGE NORMAL 247 - 911 PG/ML INDETERMINATE 211 - 246 PG/ML DEFICIENT LESS THAN 211 PG/ML 6 FOLATE NORMAL RANGE NORMAL GREATER THAN 5.4 NG/ML INDETERMINATE 3.4-5.4 NG/ML DEFICIENT LESS THAN 3.4 NG/ML Procedures Date Code Description Status 07/18/2021 57737 Sympathetic Skin Responses Compl eted 07/18/2021 44243 Test Autonomic Nervous System, C ardiovagal Innervation Completed 07/18/2021 63133 Artery Study Extremity Mult Leve ls Bilateral Completed 07/13/2021 15227 MRI Brain W/O Contrast Completed 07/13/2021 08984 MRI Brain W/O Contrast Completed 07/13/2021 45498 Magnetic Resonance Angiography N kamila W/O Contrast Materials Completed 07/13/2021 45167 Magnetic Resonance Angiography N kamila W/O Contrast Materials Completed 07/13/2021 09428 Magnetic Resonance Angiogtaphy H ead W/O Contrast Material(S) Completed 07/13/2021 43646 Magnetic Resonance Angiogtaphy H ead W/O Contrast Material(S) Completed 07/11/2021 21911 Office/Outpatient New Moderate M DM 45-59 Minutes Completed Medical Devices Description No Information Available Encounters Type Date Location Provider Dx Diagnosis Office Visit 07/11/2021 1:00p Main office - [place] Monserrat Parker M.D. I67.89 Other cerebrovascular disease [...] Monserrat Parker M.D. at Main office - [place] Functional Status Description No Information Available Mental Status Description No Information Available Referrals Refer to Dr Reason for Referral Status Appt Date Created Created Created
--- OUTSIDE RECORDS SUMMARY | 2021-07-20 15:52 | CCD | Continuity of Care Document ---
Author Author Keturah/Katia MAO Organization Unknown Address [address] [place] [address] Phone [phone] Care Team Providers Care Polisher Numeral Name Role Phone Anyi Barroso Veronica AUTM [phone] Problems Description No Information Available Social History [...] H/L Range Note CBC With Differential 07/12/2021 [facility] White Blood Count 12.4 10 High 4.0-10.0 [...] 36.0-66.0 Lymph % 28.8 % Normal 24.0-44.0 Leon % 6.9 % Normal 2.0-8.0 Eos % 2.0 % Normal 0.0-3.0 Baso % 0.3 % Normal 0.0-1.0 Immature Granulocyte % 0.3 % Normal 0-3.0 Nucleated Red Blood Cell % 0.0 % Normal 0-0 Neutrophils # 7.6 10 Normal 1.5-8.5 Lymph # 3.6 10 Normal 1.5-5.0 Leon # 0.9 10 High 0.0-0.8 Eos # 0.3 10 Normal 0.0-0.5 Baso # 0.0 10 Normal 0.0-0.2 Laboratory test finding 07/12/2021 [facility] Erythrocyte Sedimentation Rate 41 mm/hr High 0-20 Hemoglobin A1c 07/12/2021 [facility] Hemoglobin A1c 5.1 % Normal 1 Estimated Average Glucose 100 mg/dL Normal 60-110 Comprehensive Metabolic Profil 07/12/2021 [facility] Glucose, Fasting 91 mg/dL Normal 70-100 Blood [...] 0.9 Low 1.2-2.2 Serum Protein Electrophoresis 07/12/2021 [facility] Albumin % 56.2 % Normal 55.8-66.1 Mkvft-7-Nvbwcdtb % 3.9 % Normal 2.9-4.9 Qznqi-1-Abrauacor % 12.2 % High 7.1-11.8 Zfct-0-Atappyowm % 6.8 % Normal 4.7-7.2 Twvh-5-Qtskqfnyn % 6.5 % Normal 3.2-6.5 Gamma Globulin % 14.4 % Normal 11.1-18.8 Albumin 4.27 GM/DL Normal 3.29-5.55 Sltra-2-Ftznfobwi 0.30 GM/DL Normal 0.17-0.41 Vbrlq-9-Nzplinyak 0.93 GM/DL Normal 0.42-0.99 Zuan-1-Vmzbvgxyo 0.52 GM/DL Normal 0.28-0.60 Wxox-8-Zejlilmaa 0.49 GM/DL Normal 0.19-0.55 Gamma Globulins 1.09 GM/DL Normal 0.65-1.58 Total Protein 7.6 GM/DL Normal 6.4-8.2 Spep Interpretation SEE COMMENT Normal 3 Spep Pathologist Review REV'D BY Curtis PALOMO <SEE NOTE> Normal 4 Laboratory test finding 07/12/2021 [facility] Thyroid Stimulating Hormone 2.000 uIU/ML Normal 0.358-3.740 Vitamin B12 & Folate 07/12/2021 [facility] Vitamin B12 Level 648 pg/mL Normal 5 Folate 12.0 NG/ML Normal 6 Laboratory test finding 07/12/2021 [facility] Rheumatoid Factor Quant < 10.0 IU/mL Normal [...] Little GFR Left ESRD GFR <15 on SWIMMING PROFESSOR 3 NO M-SPIKE(S)NOTED. 4 REV'D BY Curtis PALOMOONG 5 VITAMIN B12 NORMAL RANGE NORMAL 247 - 911 PG/ML INDETERMINATE 211 - 246 PG/ML DEFICIENT LESS THAN 211 PG/ML 6 FOLATE NORMAL RANGE NORMAL GREATER THAN 5.4 NG/ML INDETERMINATE 3.4-5.4 NG/ML DEFICIENT LESS THAN 3.4 NG/ML Procedures Date Code Description Status 07/18/2021 41568 Sympathetic Skin Responses Compl eted 07/18/2021 15061 Test Autonomic Nervous System, C ardiovagal Innervation Completed 07/18/2021 92376 Artery Study Extremity Mult Leve ls Bilateral Completed 07/13/2021 91059 MRI Brain W/O Contrast Completed 07/13/2021 62001 MRI Brain W/O Contrast Completed 07/13/2021 68309 Magnetic Resonance Angiography N kamila W/O Contrast Materials Completed 07/13/2021 57555 Magnetic Resonance Angiography N kamila W/O Contrast Materials Completed 07/13/2021 40071 Magnetic Resonance Angiogtaphy H ead W/O Contrast Material(S) Completed 07/13/2021 95085 Magnetic Resonance Angiogtaphy H ead W/O Contrast Material(S) Completed 07/11/2021 59087 Office/Outpatient New Moderate M DM 45-59 Minutes Completed Medical Devices Description No Information Available Encounters Type Date Location Provider Dx Diagnosis Office Visit 07/11/2021 1:00p Main office - [place] Monserrat Parker M.D. I67.89 Other cerebrovascular disease R42 Dizziness and giddiness G47.00 Insomnia, unspecified G43.809 Other migraine, not intracta ble, without status migrainosus H53.8 Other visual disturbances Assessments Date Code Description Provider 07/18/2021 G60.8 Other hereditary and idiopathic neuropathies Monserrat Parker M.D. 07/18/2021 G60.8 Other hereditary and idiopathic neuropathies Ans/VS 07/18/2021 I95.1 Orthostatic hypotension Monserrat olguin M.D. 07/18/2021 I95.1 Orthostatic hypotension Ans/VS 07/18/2021 G45.8 [...] syndrome MRI 07/11/2021 I67.89 Other cerebrovascular disease Amanda Parker M.D. 07/11/2021 R42 Dizziness and giddiness Monserrat olguin M.D. 07/11/2021 G47.00 Insomnia, unspecified Monserrat rojas M.D. 07/11/2021 G43.809 Other migraine, not intractable, without status migrainosus Monserrat Parker M.D. 07/11/2021 H53.8 Other visual disturbances Monserrat Parker M.D. Plan of Treatment Future Appointment(s):* 08/08/2021 3:30 pm - Monserrat Parker M.D. at Main office - [place] Functional Status Description No Information Available Mental Status Description No Information Available Referrals Refer to Reason for Referral Status Appt Date Created Created Created
[2021-07-20] MEDS ORDERED: IBUP200C90 PO (15:53)
--- OUTSIDE RECORDS SUMMARY | 2021-07-20 15:53 | CCD | Continuity of Care Document ---
Author Author Katia PARRA M.D. Organization Unknown Address [address] [place] [id number] Phone [phone] Care Team Providers Care Director Of Public Relations Name Role Phone Anyi Barroso N.P. [facility] [phone] Problems Description No Information Available Social History Type Date Description Comments Sex Unknown Allergies and adverse reactions Description No Information Available Medications Description No Information Available Immunizations Description No Information Available Vital Signs Description No Information Available Results Description No Information Available Procedures Description No Information Available Medical Devices Description No Information Available Encounters Description No Information Available Assessments Description No Information Available Plan of Treatment No Information Available Functional Status Description No Information Available Mental Status Description No Information Available Referrals Description No Information Available
--- OUTSIDE RECORDS SUMMARY | 2021-07-20 15:53 | CCD | Summary of Care ---
Author Author [facility] Organization [facility] Address Unknown Phone Unavailable Care Team Providers Care Control Technician Name Role Phone Anyi Barroso DIESEL TECHNICIAN MECHANIC PCP Reason for Visit * Reason Comments Anxiety Headache Encounter Details Care Team Description Date Type Department Anyi Barroso NP [address] [phone] [place] [address] [id number] Anxiety (Primary Dx) 07/15/2021 [facility] [address] [place] [address] Allergies Comments Active Allergy Reactions Severity Noted Date Fluoxetine Headache Low 06/22/2021 documented as of this encounter (statuses as of 07/15/2021) Medications End Date Status Medication Sig Dispensed Refills Start Date Active levonorgestrel (DENISE) 14 by 0 mcg/24 hrs (3 yrs) 13.5 intrauterine mg IUD route 1 (one) time. Placed 11/18/2020 Active zonisamide (ZONEGRAN) 25 0 mg capsule 1 Active zonisamide (ZONEGRAN) 50 0 mg capsule 1 07/15/2021 Discontinued DULoxetine (CYMBALTA) 30 Take 1 30 capsule [address] capsule capsule (30 1 mg total) by mouth 1 (one) time each day. Do not crush or chew. documented as of this encounter (statuses as of 07/15/2021) Active Problems Problem Noted Date Antepartum transient hypertension, unspecified trimes ter 11/23/2020 Last Assessment & Plan: Formatting of this note might be differ ent from the original. Stable, decreasing BP medication Anxiety 11/23/2020 Last Assessment & Plan: Formatting of this note might be differ ent from the original. stable Chronic sinusitis 02/14/2019 Hirsutism 02/14/2019 Polycystic ovarian disease 02/14/2019 Contraceptive management 02/14/2019 Chronic allergic rhinitis 02/14/2019 Morbid obesity 02/14/2019 Last Assessment & Plan: Formatting of this note might be differ ent from the original. -see referral for gastric bypass documented as of this encounter (statuses as of 07/15/2021) Resolved Problems Problem Noted Date Resolved Date Physical exam 02/14/2019 04/13/2021 documented as of this encounter (statuses as of 07/15/2021) Social History Date Tobacco Use Types Packs/Day Years Used Never Smoker Smokeless Tobacco: Never Used Tobacco Cessation: Counseling Given: No Comments Alcohol Use Standard Drinks/Week Not Currently 0 (1 standard drink = 0.6 o z pure alcohol) Financial Resource Strain Answer Date Recorde d How hard is it for you to pay for the very basics Not hard at all 11/23/2020 like food, housing, medical care, and h eating? Food Insecurity Answer Date Recorded Within the past 12 months, you worried that your Never celina e 11/23/2020 food would run out before you got money to buy more. Within the past 12 months, the food you bought Never true 11/23/2020 just didn't last and you didn't have mo silvestre to get more. Transportation Needs Answer Date Recorded In the past 12 months, has lack of transportation No 11/23/2020 kept you from medical appointments or f rom getting medications? In the past 12 months, has lack of transportation No 11/23/2020 kept you from meetings, work, or gettin g things needed for daily living? Education Answer Date Recorded What is the highest level of school you have Some college, no degree 11/23/2020 completed or the highest degree you hav e received? Sex Assigned at Date Recorded Not on file Date Recorded COVID-19 Exposure Response 07/15/2021 7:29 AM EST In the last month, have you been in contact with Merry ble to assess someone who was confirmed or suspected to have Coronavirus / COVID-19? documented as of this encounter Last Filed Vital Signs Not on filedocumented in this encounter Patient Instructions * Patient Instructions* Karen Baca NP - 07/15/2021 12:30 PM EST Discontinued cymbalta due to increased headaches. Please call office if anxiety starts to increase or you would like further evalu ation. Continue seeing specialist. Please call office with any questions or concerns. Coping strategies that may help would include practicing yoga, listening to musi c, eating a well-balanced diet. Try not to skip any meals and increase healthful, energy-boosting snacks on hand . Limiting caffeine and/or alcohol will help decrease anxiety and if you are exp eriencing panic attacks. Make sure to get enough sleep during the night, around 7-8 hours per night. Exercising daily can help you feel better and maintain your health. documented in this encounter Progress Notes * Karen Baca NP - 07/15/2021 12:30 PM EST Telephone Evaluation and Management Service Patient ID: Katia Woodard is a 25 y.o. female. Reason for telephone visit: Anxiety follow up HPI 25 year old female telephone visit for anxiety follow-up. Was started on cymbalt a on 06/22/2021 for increased anxiety and not being able to tolerating SSRI medi cations. She reports today that she started on cymbalta a couple a weeks ago but noticed that she would have increased headaches on cymbalta so she had stopped taking th e cymbalta last week due to increased headaches. She reports that she is doing b rosanna off the medication but has still been having headaches everyday or every o ther day. She denies having panic attacks but is still have slight anxiety. She is currently seeing [facility]rology for her increased headaches. She had an MRI of her neck and head that was done on 07/12/2021, which results are still pending per patient. She also has an appointment to "evaluate her blood pressure on her upper and lower extremities" on 07/18. Neurology would also like her to get a sleep study done to evaluate her sleeping due to not being able to sleep well. She does not have and appointment scheduled for this at this time. Her fol low up with neurology is August 08 where they will go over her blood work and M RI results. She has requested the results to be sent to the office when they are available. At this time she would not like to try anything for her anxiety until she gets f urther evaluation on her sleep and headaches. She reports that her anxiety is to lerable at this time and feels that she is doing fine without medication. She wi ll contact the office if it becomes worse or she feels that she needs to be on m edication for her anxiety. Denies any fever, chest pain, chest tightness, chest pressure, leg swelling, vi sheryl problems, dizziness, feeling light headed, GI or disturbances, numbness or tingling, or any pain today. The following portions of the patient's chart were reviewed in this encounter an d updated as appropriate: Tobacco | Allergies | Meds | Problems | Med Hx | Surg Hx | OB Status | Fam Hx | Review of Systems Constitutional: Negative for activity change, appetite change, fatigue and fever . Respiratory: Negative for chest tightness and shortness of breath. Cardiovascular: Negative for chest pain, palpitations and leg swelling. Gastrointestinal: Positive for nausea (at times with headaches ). Negative for a bdominal pain, constipation, diarrhea and vomiting. Skin: Negative for rash. Neurological: Positive for dizziness (at times), light-headedness (at times ) an d headaches (daily ). Negative for tremors, seizures, syncope, speech difficulty , weakness and numbness. Psychiatric/Behavioral: Positive for confusion (at times), decreased concentrati on and sleep disturbance (Hard to fall alseep and get back to sleeo). Negative f or agitation, behavioral problems, dysphoric mood, hallucinations, self-injury a nd suicidal ideas. The patient is nervous/anxious (at times). The patient is not hyperactive. Objective Physical Exam Pulmonary: Effort: Pulmonary effort is normal. Neurological: Mental Status: She is alert and oriented to person, place, and time. Mental s tatus is at baseline. Psychiatric: Mood and Affect: Mood normal. Behavior: Behavior normal. Thought Content: Thought content normal. Judgment: Judgment normal. per patient observation; as patient states, Assessment/Plan Problem List Items Addressed This Visit Other Anxiety - Primary stable Recheck: I spent minutes in counseling/direct management/discussion and coordination of [facility]. Session conducted telephonically on this date due to COVID-19. Patient requested telephonic session with this race and sports book writer and gave verbal consent for session to be c ompleted telephonically. documented in this encounter Miscellaneous Notes * Assessment & Plan Note - Karen Baca NP - 07/15/2021 1:12 PM EST Associated Problem(s): Anxiety stable documented in this encounter Plan of Treatment Health Maintenance Due Date Last Done Comments Cervical Cancer Screening 1995 MMR Vaccines (1 of - 1996 Standard series) Varicella Vaccines (1 of 1996 2 - 2-dose childhood series) DTaP,Tdap,and Td Vaccines 2002 (1 - Tdap) COVID-19 Vaccine (1) 2011 Influenza Vaccine (#1) 2021 Pneumococcal Vaccine: 65+ 2060 Years (1 of 1 - PPSV23) HIB Vaccines Aged Out No longer eligible based on patient's age to complete this topic Hepatitis A Vaccines Aged Out No longer eligibl e based on patient's age to complete this topic Hepatitis B Vaccines Aged Out No longer eligibl e based on patient's age to complete this topic IPV Vaccines Aged Out No longer eligible based on patient's age to complete this topic documented as of this encounter Results Not on filedocumented in this encounter Visit Diagnoses Diagnosis Anxiety - Primary Anxiety state, unspecified documented in this encounter Insurance Type Payer Benefit Subscriber ID Effective Phone Address Plan / Dates Group [facility] [id number] 2020-P MEDICAID [facility] [place], [place] [address] documented as of this encounter Advance Directives Patient Rn Plastics Explanation Type Date Recorded Power of Soup Person
--- OUTSIDE RECORDS SUMMARY | 2021-07-20 15:53 | CCD | Continuity of Care Document ---
Author Author Katia EVNAS Organization Unknown Address [address] [address] Phone [phone] Care Team Providers Care Turn Laster Name Role Phone Anyi Barroso Veronica AUTM [phone] Problems Description No Information Available Social History [...] H/L Range Note CBC With Differential 07/12/2021 [facility] White Blood Count 12.4 10 High 4.0-10.0 [...] 36.0-66.0 Lymph % 28.8 % Normal 24.0-44.0 [place] % 6.9 % Normal 2.0-8.0 Eos % 2.0 % Normal 0.0-3.0 Baso % 0.3 % Normal 0.0-1.0 Immature Granulocyte % 0.3 % Normal 0-3.0 Nucleated Red Blood Cell % 0.0 % Normal 0-0 Neutrophils # 7.6 10 Normal 1.5-8.5 Lymph # 3.6 10 Normal 1.5-5.0 [place] # 0.9 10 High 0.0-0.8 Eos # 0.3 10 Normal 0.0-0.5 Baso # 0.0 10 Normal 0.0-0.2 Laboratory test finding 07/12/2021 [facility] Erythrocyte Sedimentation Rate 41 mm/hr High 0-20 Hemoglobin A1c 07/12/2021 [facility] Hemoglobin A1c 5.1 % Normal 1 Estimated Average Glucose 100 mg/dL Normal 60-110 1 REFERENCE RANGES: <=5.6% NORMAL 5.7-6.4% SUGGESTS IMPAIRED GLUCOSE META BOLISM/PREDIABETIC >= 6.5% ABNORMAL Procedures Date Code Description Status 07/13/2021 75128 MRI Brain W/O Contrast Completed 07/13/2021 42871 MRI Brain W/O Contrast Completed 07/13/2021 04810 Magnetic Resonance Angiography N kamila W/O Contrast Materials Completed 07/13/2021 70854 Magnetic Resonance Angiography N kamila W/O Contrast Materials Completed 07/13/2021 50751 Magnetic Resonance Angiogtaphy H ead W/O Contrast Material(S) Completed 07/13/2021 60745 Magnetic Resonance Angiogtaphy H ead W/O Contrast Material(S) Completed 07/11/2021 66694 Office Consultation Level 4 Comp leted Medical Devices Description No Information Available Encounters Type Date Location Provider Dx Diagnosis Office Visit 07/11/2021 1:00p Main office - Urszula Parker M.D. I67.89 Other cerebrovascular disease R42 Dizziness and giddiness G47.00 Insomnia, unspecified G43.809 Other migraine, not intracta ble, without status migrainosus H53.8 Other visual disturbances Assessments Date Code Description Provider 07/13/2021 G43.809 Other migraine, not intractable, without [...] Parker M.D. Plan of Treatment Future Appointment(s):* 07/18/2021 1:15 pm - Ans/VS at [facility] * 08/08/2021 3:30 pm - Monserrat Parker M.D. at [facility] Functional Status Description No Information Available Mental Status Description No Information Available Referrals Refer to Reason for Referral Status Appt Date Created Created Created
--- OUTSIDE RECORDS SUMMARY | 2021-07-20 15:53 | CCD | Continuity of Care Document ---
Author Katia Olivares M.D. Organization Unknown Address [address] [place] [phone] Phone [phone] Care Team Providers Care Work And Family Life Consultant Name Role Phone Anyi Barroso N.P. AUTM [phone] Problems Description No Information Available Social History [...] H/L Range Note CBC With Differential 07/12/2021 [facility] White Blood Count 12.4 10 [...] 36.0-66.0 Lymph % 28.8 % Normal 24.0-44.0 [place] % 6.9 % Normal 2.0-8.0 Eos % 2.0 % Normal 0.0-3.0 Baso % 0.3 % Normal 0.0-1.0 Immature Granulocyte % 0.3 % Normal 0-3.0 Nucleated Red Blood Cell % 0.0 % Normal 0-0 Neutrophils # 7.6 10 Normal 1.5-8.5 Lymph # 3.6 10 Normal 1.5-5.0 [place] # 0.9 10 High 0.0-0.8 Eos # 0.3 10 Normal 0.0-0.5 Baso # 0.0 10 Normal 0.0-0.2 Laboratory test finding 07/12/2021 [facility] Erythrocyte Sedimentation Rate 41 mm/hr High 0-20 Hemoglobin A1c 07/12/2021 [facility] Hemoglobin A1c 5.1 % Normal 1 Estimated Average Glucose 100 mg/dL Normal 60-110 Comprehensive Metabolic Profil 07/12/2021 [facility] Glucose, Fasting 91 mg/dL Normal [...] 0.9 Low 1.2-2.2 Serum Protein Electrophoresis 07/12/2021 [facility] Albumin % 56.2 % Normal 55.8-66.1 Njexa-7-Ufeknuxi % 3.9 % Normal 2.9-4.9 Ekofb-1-Wjljxhzub % 12.2 % High 7.1-11.8 Ezlv-1-Ivgsdotye % 6.8 % Normal 4.7-7.2 Bukn-0-Tpmthypuy % 6.5 % Normal 3.2-6.5 Gamma Globulin % 14.4 % Normal 11.1-18.8 Albumin 4.27 GM/DL Normal 3.29-5.55 Dzhnl-5-Foiqykjbj 0.30 GM/DL Normal 0.17-0.41 Hiula-4-Fjipdnlqz 0.93 GM/DL Normal 0.42-0.99 Tuyi-2-Qxhvedopl 0.52 GM/DL Normal 0.28-0.60 Qcyd-3-Bxkzndhvb 0.49 GM/DL Normal 0.19-0.55 Gamma Globulins 1.09 GM/DL Normal 0.65-1.58 Total Protein 7.6 GM/DL Normal 6.4-8.2 Spep Interpretation SEE COMMENT Normal 3 Spep Pathologist Review REV'D BY Curtis PALOMO <SEE NOTE> Normal 4 Laboratory test finding 07/12/2021 [facility] Thyroid Stimulating Hormone 2.000 uIU/ML Normal 0.358-3.740 Vitamin B12 & Folate 07/12/2021 [facility] Vitamin B12 Level 648 pg/mL Normal 5 Folate 12.0 NG/ML Normal 6 Laboratory test finding 07/12/2021 [facility] Rheumatoid Factor Quant < 10.0 [...] Little GFR Left ESRD GFR <15 on LINUX SECURITY ADMINISTRATOR 3 NO M-SPIKE(S)NOTED. 4 REV'D BY Curtis PALOMOONG 5 VITAMIN B12 NORMAL RANGE NORMAL 247 - 911 PG/ML INDETERMINATE 211 - 246 PG/ML DEFICIENT LESS THAN 211 PG/ML 6 FOLATE NORMAL RANGE NORMAL GREATER THAN 5.4 NG/ML INDETERMINATE 3.4-5.4 NG/ML DEFICIENT LESS THAN 3.4 NG/ML Procedures Date Code Description Status 07/13/2021 23829 MRI Brain W/O Contrast Completed 07/13/2021 19934 MRI Brain W/O Contrast Completed 07/13/2021 91380 Magnetic Resonance Angiography N kamila W/O Contrast Materials Completed 07/13/2021 21601 Magnetic Resonance Angiography N kamila W/O Contrast Materials Completed 07/13/2021 52150 Magnetic Resonance Angiogtaphy H ead W/O Contrast Material(S) Completed 07/13/2021 20891 Magnetic Resonance Angiogtaphy H ead W/O Contrast Material(S) Completed 07/11/2021 50145 Office/Outpatient New Moderate M DM 45-59 Minutes Completed Medical Devices Description No Information Available Encounters Type Date Location Provider Dx Diagnosis Office Visit 07/11/2021 1:00p [facility] office - [place] Monserrat Parker M.D. I67.89 Other cerebrovascular disease [...] Appointment(s):* 07/18/2021 1:15 pm - Ans/VS at [facility] office - [place] * 08/08/2021 3:30 pm - Monserrat Parker M.D. at Main office - [place] Functional Status Description No Information Available Mental Status Description No Information Available Referrals Refer to Reason for Referral Status Appt Date Created Created Created
--- OUTSIDE RECORDS SUMMARY | 2021-07-20 15:53 | CCD | Summary of Care ---
Author Author [facility] Organization [facility] Address Unknown Phone Unavailable Care Team Providers Care Aluminum Polisher Name Role Phone Anyi Barroso SILVER SERVICE WAITER PCP Reason for Visit * Reason Comments Anxiety Headache Encounter Details Care Team Description Date Type Department Anyi Barroso NP [address] [phone] [place] [address] [id number] Anxiety (Primary Dx) 07/15/2021 [facility] [address] [place] [id number] Allergies Comments Active Allergy Reactions Severity Noted [...] Anxiety - Primary stable Recheck: I spent 25 minutes in counseling/direct management/discussion and coordination kami [facility]. Session conducted telephonically on this date due to COVID-19. Patient requested telephonic session with this typewriter operator automatic and gave verbal consent for session to [...] Effective Phone Address Plan / Dates Group [facility] [id number] 2020-P MEDICAID MEDICAID / [email or web address]ent [facility] [place], [place] [address] documented as of this encounter Advance Directives Patient Advertising Teacher Explanation Type Date Recorded Power of Weight Calculator
--- OUTSIDE RECORDS SUMMARY | 2021-07-20 15:53 | CCD | Summary of Care ---
Author Author [facility] Organization [facility] Address Unknown Phone Unavailable Care Team Providers Care Tool Grinder Name Role Phone Anyi Barroso NP PCP Reason for Referral * Consultation (Routine) Referred By Contact Referred To Contact Status Reason Specialty Diagnoses / Procedures Anyi Barroso NP [address] [phone] Pending Review Specialty Services Bariatrics Diagnoses Required Morbid obesity (CMS/HCC) Electronically signed by Anyi Barroso NP at Reason for Visit * Reason Comments Follow-up Encounter Details Care Team Description Date Type Department Anyi Barroso NP [address] [phone] Anxiety (Primary Dx); Morbid obesity (CMS/HCC); Intractable headache, unspecified chronicity pattern, unspecified headache type 06/22/2021 [facility] [address] [phone] Allergies Comments Active Allergy Reactions Severity Noted Date Fluoxetine Headache Low 06/22/2021 documented as of this encounter (statuses as of 06/22/2021) Medications End Date Status Medication Sig Dispensed Refills Start Date Active levonorgestrel (DENISE) 14 by 0 mcg/24 hrs (3 yrs) 13.5 intrauterine mg IUD route 1 (one) time. Placed 11/18/2020 Active DULoxetine (CYMBALTA) 30 Take 1 30 capsule [address] capsule capsule (30 1 mg total) by mouth 1 (one) time each day. Do not crush or chew. 06/22/2021 Discontinued cetirizine (ZyrTEC) 10 mg Take 10 mg by 0 tablet mouth at bed time. 06/22/2021 Discontinued fluticasone propionate Administer 2 0 (FLONASE) 50 sprays into mcg/actuation nasal spray each nostril 1 (one) time each day. Shake gently. Before first use, prime pump. After use, clean tip and replace cap. 06/22/2021 Discontinued acetaminophen (TYLENOL) Take 1,000 mg 0 500 mg tablet by mouth 7 every 8 hours. 06/22/2021 Discontinued albuterol HFA (VENTOLIN Inhale 2 18 g 3 HFA) 90 mcg/actuation puffs every 6 1 inhaler (six) hours if needed for wheezing. 06/22/2021 Discontinued hydrOXYzine HCL (ATARAX) Take 1 tablet 90 tablet 1 10 mg tablet (10 mg total) 1 by mouth 3 (three) times a day if needed for anxiety. 06/22/2021 Discontinued diclofenac sodium Apply 40 mg 112 g 0 04/11/20 2 (Pennsaid) 20 mg/gram topically 2 1 /actuation(2 %) solution (two) times a in metered-dose pump day. 06/22/2021 Discontinued hydroCHLOROthiazide Take 1 tablet 30 tablet 0 04/04 (HYDRODIURIL) 12.5 mg (12.5 mg 1 tablet total) by mouth 1 (one) time each day. 06/22/2021 Discontinued amitriptyline (ELAVIL) 10 Take 1 tablet 30 tablet 5 mg tablet (10 mg total) 1 by mouth 1 (one) time each day at night. documented as of this encounter (statuses as of 06/22/2021) Active Problems Problem Noted Date Antepartum transient hypertension, unspecified trimes ter 11/23/2020 Last Assessment & Plan: Formatting of this note might be differ ent from the original. Stable, decreasing BP medication Anxiety 11/23/2020 Last Assessment & Plan: Formatting of this note might be differ ent from the original. -deteriorated, will trial cymbalta sinc e she hasn't done well with SSRI will try SNRI Chronic sinusitis 02/14/2019 Hirsutism 02/14/2019 Polycystic ovarian disease 02/14/2019 Contraceptive management 02/14/2019 Chronic allergic rhinitis 02/14/2019 Morbid obesity 02/14/2019 Last Assessment & Plan: Formatting of this note might be differ ent from the original. -see referral for gastric bypass documented as of this encounter (statuses as of 06/22/2021) Resolved Problems Problem Noted Date Resolved Date Physical exam 02/14/2019 04/13/2021 documented as of this encounter (statuses as of 06/22/2021) Social History Date Tobacco Use Types Packs/Day Years Used Never Smoker Smokeless Tobacco: Never Used Comments Alcohol Use Standard Drinks/Week Not Currently [...] on file Date Recorded COVID-19 Exposure Response 06/22/2021 8:25 AM EDT In the last month, have you been in contact with Merry [facility] to assess someone who was confirmed or suspected to have Coronavirus / COVID-19? documented as of this encounter Last Filed Vital Signs Not on filedocumented in this encounter Patient Instructions * Patient Instructions* Anyi Barroso NP - 06/22/2021 1:00 PM EDT Will try cymbalta for anxiety. New medications reviewed, discussed proper usage, expected effects, and possible side effects, all questions answered. Continue with neuro as planned. Will need to f/u with another provider for this while I am out on maternity lesydni e so will have them change appt with Karen from 07/12 to the next week to give it a bit more time for the medication to kick in. documented in this encounter Progress Notes * Anyi Barroso NP - 06/22/2021 1:00 PM EDT Telephone Evaluation and Management Service Patient ID: Katia Woodard is a 25 y.o. female. Reason for telephone visit: headaches and anxiety HPI Was having terrible headaches over the past few months and we could not identify the cause, she went to the ER, etc, and finally I questioned if possibly they c ould have been a side effect of the prozac which I had started her on shortly be fore the headaches started. She stopped per my recommendations and the headaches did improve a few weeks later, although they are still present to some degree. She does have an appt with neurology finally on 07/11/21. Besides the headaches, she was doing great on prozac - moodwise it was really he lping, she was less anxious and her was noticing an improvement in her m ood also. She would still like to try something else for the anxiety. She was pr eviously on lexapro without effect. Has not been taking anything for her BP and it has been running normally. Also she is wondering if she can get re-referred to Dr Fuentes for consideration of the weight loss surgery. We referred her earlier this year but she wasn't dawna dy yet; now would like to discuss it further. The following portions of the patient's chart were reviewed in this encounter an d updated as appropriate: Tobacco | Allergies | Meds | Problems | Med Hx | Surg Hx | Fam Hx | Review of Systems Constitutional: Negative for appetite change, fatigue, fever and unexpected weig ht change. Respiratory: Negative for cough, shortness of breath and wheezing. Cardiovascular: Negative for chest pain and palpitations. Neurological: Positive for headaches. Negative for dizziness. Psychiatric/Behavioral: Negative for agitation, decreased concentration, dysphor ic mood, self-injury, sleep disturbance and suicidal ideas. The patient is nervo us/anxious. Objective Physical Exam Pulmonary: Effort: Pulmonary effort is normal. Neurological: Mental Status: She is alert. Psychiatric: Attention and Perception: Attention and perception normal. Mood and Affect: Mood and affect normal. Speech: Speech normal. Behavior: Behavior is cooperative. Thought Content: Thought content normal. Cognition and Memory: Cognition normal. Judgment: Judgment normal. per patient observation; as patient states, Assessment/Plan Problem List Items Addressed This Visit Digestive Morbid obesity (CMS/[facility]) Relevant Orders Ambulatory referral to Bariatric Surgery Other Anxiety - Primary -deteriorated, will trial cymbalta since she hasn't done well with SSRI will t ry SNRI Other Visit Diagnoses Intractable headache, unspecified chronicity pattern, unspecified headache type improved but still present, seeing neuro soon Recheck: 1 month I spent 30 minutes in counseling/direct management/discussion and coordination kami [facility]. Session conducted telephonically on this date due to COVID-19. Patient requested telephonic session with this script writer and gave verbal consent for session to be c ompleted telephonically. documented in this encounter Miscellaneous Notes * Assessment & Plan Note - Anyi Barroso NP - 06/22/2021 1:28 PM EDT Associated Problem(s): Anxiety -deteriorated, will trial cymbalta since she hasn't done well with SSRI will try SNRI documented in this encounter Plan of Treatment Care Team Description Date Type Specialty Anyi Barroso NP [address] [place] [phone] [place] [address] [address] 07/12/2021 Telemedicine Family Medicine Order Schedule Name Type Priority Associated Diag noses 1 Occurrences starting 06/22/2021 until 12/21/2021 Ambulatory referral to Outpatient Routine Morbid obesity (CMS/[facility]) Bariatric Surgery Referral Health Maintenance Due Date Last Done Comments Cervical Cancer Screening 1995 MMR Vaccines (1 of 1 - 1996 Standard series) Varicella Vaccines (1 [...] Diagnosis Anxiety - Primary Anxiety state, unspecified Morbid obesity (CMS/HCC) Morbid obesity Intractable headache, unspecified chron icity pattern, unspecified headache type documented in this encounter Insurance Type Payer Benefit Subscriber ID Effective Phone Address Plan / Dates Group [facility] [id number] 2020-P [phone] MEDICAID MEDICAID / [facility] ) [place], [place] [address] documented as of this encounter Advance Directives Patient Gift Manager Explanation Type Date Recorded Power of Candle Wicker"
--- OUTSIDE RECORDS SUMMARY | 2021-07-20 15:53 | CCD | Summary of Care ---
Author Author [facility] Organization [facility] Address Unknown Phone Unavailable Care Team Providers Care Manager Contact Name Role Phone Anyi Barroso NP PCP Reason for Visit * Reason Comments Headache Encounter Details Care Team Description [place] [address] [place] [address] [phone] Migraine without status migrainosus, not intractable, unspecified migraine type (Primary Dx) 04/22/2021 Emergency [facility] [address] [place], [place] [phone] Allergies No Known Active Allergiesdocumented as of this encounter (statuses as of 04/22/2021) Medications End Date Status Medication Sig Dispensed Refills Start Date Active levonorgestrel (DENISE) 14 by 0 mcg/24 hrs (3 yrs) 13.5 intrauterine mg IUD route 1 (one) time. Placed 11/18/2020 Active cetirizine (ZyrTEC) 10 mg Take 10 mg by 0 tablet mouth at bed time. Active fluticasone propionate Administer 2 0 (FLONASE) 50 sprays into mcg/actuation nasal spray each nostril 1 (one) time each day. Shake gently. Before first use, prime pump. After use, clean tip and replace cap. Active acetaminophen (TYLENOL) Take 1,000 mg 0 500 mg tablet by mouth 7 every 8 hours. Active albuterol HFA (VENTOLIN Inhale 2 18 g 3 HFA) 90 mcg/actuation puffs every 6 1 inhaler (six) hours if needed for wheezing. Active hydrOXYzine HCL (ATARAX) Take 1 tablet 90 tablet 1 10 mg tablet (10 mg total) 1 by mouth 3 (three) times a day if needed for anxiety. Active diclofenac sodium Apply 40 mg 112 g 0 04/11/20 2 (Pennsaid) 20 mg/gram topically 2 1 /actuation(2 %) solution (two) times a in metered-dose pump day. 10/10/2021 Active FLUoxetine (PROzac) 20 mg Take 1 30 capsule 5 capsule capsule (20 1 mg total) by mouth 1 (one) time each day. 04/29/2021 Active methylPREDNISolone Follow 21 tablet 0 02 (Medrol, Danny,) 4 mg schedule on 1 tablet package instructions 04/29/2021 Active magnesium oxide (MAG-OX) Take 1 tablet 7 tablet 0 400 mg tablet (400 mg 1 total) by mouth 1 (one) time each day for 7 days. documented as of this encounter (statuses as of 04/22/2021) Active Problems Problem Noted Date Antepartum transient hypertension, unspecified trimes ter 11/23/2020 Last Assessment & Plan: Formatting of this note might be differ ent from the original. Stable, decreasing BP medication Anxiety 11/23/2020 Last Assessment & Plan: Formatting of this note might be differ ent from the original. -unchanged will try prozac instead of lexapro Chronic sinusitis 02/14/2019 Hirsutism 02/14/2019 Polycystic ovarian disease 02/14/2019 Contraceptive management 02/14/2019 Chronic allergic rhinitis 02/14/2019 Morbid obesity 02/14/2019 Last Assessment & Plan: Formatting of this note might be differ ent from the original. -see referral for gastric bypass documented as of this encounter (statuses as of 04/22/2021) Resolved Problems Problem Noted Date Resolved Date Physical exam 02/14/2019 04/13/2021 documented as of this encounter (statuses as of 04/22/2021) Social History Date Tobacco Use Types Packs/Day Years Used Never Smoker Smokeless Tobacco: Never Used Comments Alcohol Use Standard Drinks/Week Not Currently 0 (1 standard drink = 0.6 o z pure alcohol) Education Answer Date Recorded What is the highest level of school you have Some college, no degree 11/23/2020 completed or the highest degree you hav e received? Financial Resource Strain Answer Date Recorde d [...] gettin g things needed for daily living? Sex Assigned at Date Recorded Not on file Date Recorded COVID-19 Exposure Response 04/22/2021 12:43 PM EDT In the last month, have you been in contact with No / Unsure someone who was confirmed or suspected to have Coronavirus / COVID-19? documented as of this encounter Last Filed Vital Signs Reading Time Taken Comments Vital Sign 135/83 04/22/2021 5:21 PM EDT Blood Pressure 70 04/22/2021 5:21 PM EDT Pulse 36.1 C (97 F) 04/22/2021 5:21 PM EDT Temperature 18 04/22/2021 5:21 PM EDT Respiratory Rate 100% 04/22/2021 5:21 PM EDT Oxygen Saturation - - Inhaled Oxygen Concentration 129 kg (285 lb) 04/22/2021 12:42 PM EDT Weight 175.3 cm (5' 9") 04/22/2021 12:42 PM EDT Height 42.09 04/22/2021 12:42 PM EDT Body Mass Index documented in this encounter Discharge Instructions * Instructions* Bridgett Gimenez PA - 04/22/2021 Although you have been discharged from the Emergency Department, this does not m tu that you have a "clean bill of health". Return to the ED without fail if any new or worsening symptoms (especially if your symptoms include chest pain, trou ble breathing, abdominal pain, fever, headache, confusion, trouble seeing, troub le walking, inability to follow up with your primary care doctor, any new or wor risome symptoms, or if something just does not feel right) It is also very important that you see your primary care doctor within the next few days to follow up. * Attachments The following attachments cannot be sent through Care Everywhere.* Migraine Headache (Thai) * General Headache Without Cause (Thai) documented in this encounter ED Notes * Arlette Urena RN - 04/22/2021 12:40 PM EDT Pt here with c/o headache. Pt was seen [facility] on Sunday and was told she nee ded an MRI due to an area of low density. Pt has not yet been seen by neurology. Pt states she "feels like she is hungover, but hasn't drank". documented in this encounter Plan of Treatment Care Team Description Date Type Specialty Anyi Barroso NP [address] [place] [phone] 05/31/2021 Telemedicine Family Medicine Raul Abreu PA [address] [place] [phone] 06/10/2021 Office Visit Orthopaedic Surgery Health Maintenance Due Date Last Done Comments [...] this topic documented as of this encounter Procedures Comments Procedure Name Priority Date/Time Associated Diag nosis CBC AND DIFFERENTIAL STAT 04/22/2021 4:03 PM EDT C-REACTIVE PROTEIN STAT 04/22/2021 4:03 PM EDT MAGNESIUM STAT 04/22/2021 4:03 PM EDT COMPREHENSIVE METABOLIC STAT 04/22/2021 PANEL 4:03 PM EDT documented in this encounter Results * C-reactive protein (04/22/2021 4:03 PM EDT) C-Reactive 8.90 (H) 0.00 - 3.00 mg/L [facility] Protein Comment: LABORATORIES (Non-Cardiac) The above 1 analytes were performed by [facility] [address] [place] [address], , [place] [address] Specimen Serum or Plasma Performing Organization Address [facility] P renee Number [facility] [address] [place] [address] LUX VALERIO MD * Magnesium (04/22/2021 4:03 PM EDT) Magnesium 2.0 1.6 - 2.6 mg/dl [facility] Comment: LABORATORIES The above 1 analytes were performed by [facility] [address] [place] [address], , [place] [address] Specimen Serum or Plasma Performing Organization Address [facility] P renee Number [facility] [address] [place] [address] LUX VALERIO MD * Comprehensive metabolic panel (04/22/2021 4:03 PM EDT) AST 14 (L) 15 - 37 IU/L [facility] Comment: LABORATORIES Sulfasalazine and sulfapyridine have the potential to falsely depress Aspartate Aminotransferase results. Baseline values before medication administration are recommended. ALT 28 13 - 56 IU/L [facility] Comment: LABORATORIES Sulfasalazine and sulfapyridine have the potential to falsely depress Alanine Aminotransferase results. Baseline values before medication administration are recommended. Alkaline 91 50 - 136 mIU/ml [facility] Phosphatase LABORATORIES Total Bilirubin 0.50 0.20 - 1.00 mg/dl [facility] Blood Urea 13 7 - 18 mg/dl [facility] Nitrogen LABORATORIES Creatinine 0.65 0.51 - 0.95 mg/dl [facility] Comment: LABORATORIES N-Acetylcysteine (NAC) and Metamizole have the potential to falsely depress Creatinine results. Baseline values before medication adminstration are recommended. Patients undergoing treatment with phenindione will have falsely depressed results. Patients on phenindione therapy should be tested with an alternative CREA method. Toxic levels of acetaminophen may lead to falsely depressed results for patient samples. Glomerular >90.00 mL/min/1.73m2 [facility] Filtration Rate Comment: LABORATORIES GFR Reference Ranges: Normal Function or Mild Renal Disease,if clinically at risk: >or= 60 Moderately decreased: 30 - 59 Severely decreased: 15 - 29 Renal Failure: <15 Please note that the MDRD equation requires an additional adjustment for -Americans (multiply the GFR result by 1.210). Glomarular Filtration Rate (GFR) is estimated based on the MDRD equation, which assumes a steady state for creatinine (Linda Int Med 139/2 137-149, 2003), as recommended by the National Kidney Disease Education Program in conjunction with the National Institutes of Health and the National Kidney Foundation. The [place] method used in calculating this result is traceable to IDMS standards. Glucose 100 70 - 110 mg/dl [facility] Comment: LABORATORIES Sulfasalazine has the potential to falsely depress Glucose results. Sulfapyridine has the potential to falsely elevate Glucose results. Baseline values before medication administration are recommended. Calcium 8.9 8.5 - 10.1 mg/dl [facility] Total Protein 7.8 6.4 - 8.2 g/dl [facility] Albumin 3.6 3.4 - 5.0 g/dl [facility] Sodium 140 136 - 145 mEq/L [facility] Potassium 3.7 3.5 - 5.1 mEq/L [facility] Chloride 109.0 (H) 98.0 - 107.0 mEq/L [facility] Carbon Dioxide 25.7 21.0 - 32.0 mMol/L [facility] Anion Gap 9.0 7.0 - 15.0 [facility] Comment: LABORATORIES The above 16 analytes were performed by [facility] [address] [place] [address],[facility]#: [id number],[place] [address] Specimen Serum or Plasma Performing Organization Address City/State/ZIP Code P renee Number [facility] [address] [place] [id number] LUX VALERIO MD * CBC and differential (04/22/2021 4:03 PM EDT) WBC 9.70 4.80 - 10.00 [facility] x1000/ul LAB[facility]ATORIES RBC 4.86 4.20 - 5.40 x1Mil/ul [facility] Hemoglobin 13.5 12.0 - 16.0 g/dl [facility] Hematocrit 41.3 37.0 - 47.0 % [facility] MCV 85.0 81.0 - 99.0 fL [facility] MCH 27.8 27.0 - 31.0 pg [facility] MCHC 32.7 32.2 - 37.0 g/dl [facility] RDW 13.3 11.5 - 14.5 % [facility] Platelet Count 419 (H) 130 - 400 x1000/ul [facility] MPV 8.9 (L) 9.4 - 12.4 fL [facility] Neutrophils 67.1 40.0 - 74.0 % [facility] Lymphocytes 26.6 19.0 - 48.0 % [facility] Monocytes 4.4 3.4 - 9.0 % [facility] Eosinophils 1.2 0.0 - 7.0 % [facility] Basophils 0.3 0.0 - 2.0 % [facility] Immature 0.4 0.0 - 0.5 % [facility] Granulocytes LABORATORIES Nucleated RBCs 0.00 0.00 - 0.20 % [facility] Abs. 6.50 1.92 - 8.31 x1000/ul [facility] Neutrophils LABORATORIES Abs. Lymphocyte 2.58 1.20 - 3.70 x1000/ul [facility] Abs. Monocytes 0.43 0.14 - 0.97 x1000/ul [facility] Abs. 0.12 0.00 - 0.76 x1000/ul [facility] Eosinophils LABORATORIES Abs. 0.03 0.00 - 0.22 x1000/ul [facility] Basophils LABORATORIES Abs. Immature 0.04 (H) 0.00 - 0.02 x1000/ul [facility] Gran. LABORATORIES Abs. Nucleated 0.00 0.00 - 0.02 x1000/ul [facility] RBCs Comment: LABORATORIES The above 24 analytes were performed by [facility] [address] [facility]#: [id number],[place] [address] Specimen Whole Blood Performing Organization Address City/State/ZIP Code P renee Number [facility] [address] [place] [address] LUX VALERIO MD documented in this encounter Visit Diagnoses Diagnosis Migraine without status migrainosus, no t intractable, unspecified migraine type - Primary documented in this encounter Administered Medications Action Date Dose Rate Site Medication Order MAR Action 04/22/2021 3:25 PM EDT 1 tablet awklaiwlhw-atzomilskkhik-pwvphute Given (FIORICET) 50-325-40 mg per tablet 1 tablet 1 tablet, oral, Once, On Sun04/22/21 at 1525, 1 dose 04/22/2021 5:15 PM EDT 40 mg predniSONE (DELTASONE) tablet 40 mg Given 40 mg, oral, Once, On Sun04/22/21 at 1715, 1 dose documented in this encounter Active and Recently Administered Medications Times are shown in EDT. 04/21/2021 04/22/2021 Medication Order 04/20/2021 1525 (Given - Provider: Yoel Desai RN) sxrveqgdph-dstapxvefdagr-dazxwats (FIORICET) 50-325-40 mg per tablet 1 tablet (COMPLETED) 1 tablet, oral, Once, On Sun04/22/21 at 1525, 1 dose 1715 (Given - Provider: Yoel Desai RN) predniSONE (DELTASONE) tablet 40 mg (COMPLETED) 40 mg, oral, Once, On Sun04/22/21 at 1715, 1 dose documented in this encounter Insurance Type Payer Benefit Subscriber ID Effective Phone Address Plan / Dates Group [facility] [id number] 2020-P MEDICAID MEDICAID [facility] [place], [place] [address] documented as of this encounter Advance Directives Patient Testing Shaking Shipping Explanation Type Date Recorded Power of Telecom Manager
--- OUTSIDE RECORDS SUMMARY | 2021-07-20 15:54 | CCD ---
Author Author [facility] Organization [facility] Address Unknown Phone Unavailable Care Team Providers Care Account Support Rep Name Role Phone Karen Baca ON SITE COORDINATOR Unavailable Unavailable Karen BacaP Unavailable Unavailable BULL PARRA MD Unavailable Unavailable BULL PARRA MD Unavailable Unavailable BULL PARRA MD Unavailable Unavailable BULL PARRA MD Unavailable Unavailable BULL PARRA MD Unavailable Unavailable BULL PARRA MD Unavailable Unavailable BULL PARRA MD Unavailable Unavailable BULL PARRA MD Unavailable Unavailable BULL PARRA MD Unavailable Unavailable BULL PARRA MD Unavailable Unavailable BULL PARRA MD Unavailable Unavailable BULL PARRA MD Unavailable Unavailable BULL PARRA MD Unavailable Unavailable FIDEL, BULL MD Unavailable Unavailable FIDEL, BULL MD Unavailable Unavailable FIDEL, BULL MD Unavailable Unavailable FIDEL, BULL MD Unavailable Unavailable FIDEL, BULL MD Unavailable Unavailable FIDEL, BULL MD Unavailable Unavailable FIDEL, BULL MD Unavailable Unavailable FIDEL, BULL MD Unavailable Unavailable FIDEL, BULL MD Unavailable Unavailable FIDEL, BULL MD Unavailable Unavailable FIDEL, BULL MD Unavailable Unavailable FIDEL, BULL MD Unavailable Unavailable FIDEL, BULL MD Unavailable Unavailable FIDEL, BULL MD Unavailable Unavailable FIDEL, BULL MD Unavailable Unavailable FIDEL, BULL MD Unavailable Unavailable FIDEL, BULL MD Unavailable Unavailable FIDEL, BULL MD Unavailable Unavailable FIDEL, BULL MD Unavailable Unavailable FIDEL, BULL MD Unavailable Unavailable FIDEL, BULL MD Unavailable Unavailable FIDEL, BULL MD Unavailable Unavailable FIDEL, BULL MD Unavailable Unavailable FIDEL, BULL MD Unavailable Unavailable FIDEL, BULL MD Unavailable Unavailable FIDEL, BULL MD Unavailable Unavailable FIDEL, BULL MD Unavailable Unavailable FIDEL, BULL MD Unavailable Unavailable FIDEL, BULL MD Unavailable Unavailable FIDEL, BULL MD Unavailable Unavailable HEDY ROGEL MD Unavailable Unavailable HEDY ROGEL MD Unavailable Unavailable HEDY ROGEL MD Unavailable Unavailable HEDY ROGEL MD Unavailable Unavailable HEDY ROGEL MD Unavailable Unavailable HEDY ROGEL MD Unavailable Unavailable HEDY ROGEL MD Unavailable Unavailable HEDY ROGEL MD Unavailable Unavailable HEDY ROGEL MD Unavailable Unavailable HEDY ROGEL MD Unavailable Unavailable HEDY ROGEL MD Unavailable Unavailable HEDY ROGEL MD Unavailable Unavailable HEDY ROGEL MD Unavailable Unavailable HEDY ROGEL MD Unavailable Unavailable HEDY ROGEL MD Unavailable Unavailable HEDY ROGEL MD Unavailable Unavailable Abreu, Raul Unavailable Abreu, Raul Unavailable Abreu, Raul Unavailable Abreu, Raul Unavailable Abreu, Raul Unavailable Abreu, Raul Unavailable Abreu, Raul Unavailable Abreu, Raul Unavailable Abreu, Raul Unavailable Downs, L Anyi ON SITE COORDINATOR-C Unavailable Unavailable Downs, L Anyi ON SITE COORDINATOR-C Unavailable Unavailable Downs, L Anyi ON SITE COORDINATOR-C Unavailable Unavailable Downs, L Anyi ON SITE COORDINATOR-C Unavailable Unavailable Downs, L Anyi ON SITE COORDINATOR-C Unavailable Unavailable Downs, L Anyi ON SITE COORDINATOR-C Unavailable Unavailable Downs, L Anyi ON SITE COORDINATOR-C Unavailable Unavailable Downs, L Anyi ON SITE COORDINATOR-C Unavailable Unavailable Downs, L Anyi ON SITE COORDINATOR-C Unavailable Unavailable Downs, L Anyi ON SITE COORDINATOR-C Unavailable Unavailable Downs, L Anyi ON SITE COORDINATOR-C Unavailable Unavailable Downs, L Anyi ON SITE COORDINATOR-C Unavailable Unavailable Downs, L Anyi ON SITE COORDINATOR-C Unavailable Unavailable Downs, L Anyi ON SITE COORDINATOR-C Unavailable Unavailable Downs, L Nayi ON SITE COORDINATOR-C Unavailable Unavailable Downs, L Anyi ON SITE COORDINATOR-C Unavailable Unavailable Downs, L Anyi ON SITE COORDINATOR-C Unavailable Unavailable Downs, L Anyi ON SITE COORDINATOR-C Unavailable Unavailable Downs, L Anyi ON SITE COORDINATOR-C Unavailable Unavailable Downs, L Anyi ON SITE COORDINATOR-C Unavailable Unavailable Downs, L Anyi ON SITE COORDINATOR-C Unavailable Unavailable Downs, L Anyi ON SITE COORDINATOR-C Unavailable Unavailable Downs, L Anyi ON SITE COORDINATOR-C Unavailable Unavailable Downs, L Anyi ON SITE COORDINATOR-C Unavailable Unavailable Downs, L Anyi ON SITE COORDINATOR-C Unavailable Unavailable Downs, L Anyi ON SITE COORDINATOR-C Unavailable Unavailable Downs, L Anyi ON SITE COORDINATOR-C Unavailable Unavailable Downs, L Anyi ON SITE COORDINATOR-C Unavailable Unavailable Downs, L Anyi ON SITE COORDINATOR-C Unavailable Unavailable Downs, L Anyi ON SITE COORDINATOR-C Unavailable Unavailable Downs, L Anyi ON SITE COORDINATOR-C Unavailable Unavailable Downs, L Anyi ON SITE COORDINATOR-C Unavailable Unavailable Downs, L Anyi ON SITE COORDINATOR-C Unavailable Unavailable Downs, L Anyi ON SITE COORDINATOR-C Unavailable Unavailable Downs, L Anyi ON SITE COORDINATOR-C Unavailable Unavailable Downs, L Anyi ON SITE COORDINATOR-C Unavailable Unavailable Downs, L Anyi ON SITE COORDINATOR-C Unavailable Unavailable Downs, L Anyi ON SITE COORDINATOR-C Unavailable Unavailable Downs, L Anyi ON SITE COORDINATOR-C Unavailable Unavailable Downs, L Anyi ON SITE COORDINATOR-C Unavailable Unavailable Downs, L Anyi ON SITE COORDINATOR-C Unavailable Unavailable Downs, L Anyi ON SITE COORDINATOR-C Unavailable Unavailable Downs, L Anyi ON SITE COORDINATOR-C Unavailable Unavailable Downs, L Anyi ON SITE COORDINATOR-C Unavailable Unavailable Downs, L Anyi ON SITE COORDINATOR-C Unavailable Unavailable Downs, L Anyi ON SITE COORDINATOR-C Unavailable Unavailable Downs, L Anyi ON SITE COORDINATOR-C Unavailable Unavailable Downs, L Anyi ON SITE COORDINATOR-C Unavailable Unavailable Downs, L Anyi ON SITE COORDINATOR-C Unavailable Unavailable Downs, L Anyi ON SITE COORDINATOR-C Unavailable Unavailable Downs, L Anyi ON SITE COORDINATOR-C Unavailable Unavailable Downs, L Anyi ON SITE COORDINATOR-C Unavailable Unavailable Downs, L Anyi ON SITE COORDINATOR-C Unavailable Unavailable Downs, L Anyi ON SITE COORDINATOR-C Unavailable Unavailable Downs, L Anyi ON SITE COORDINATOR-C Unavailable Unavailable Downs, L Anyi ON SITE COORDINATOR-C Unavailable Unavailable of L.C., Medicine Occupation Unavailable Unavailable BASSITY, ENIO PCAT INSTRUCTOR-C Unavailable Unavailable Downs, L Anyi ON SITE COORDINATOR-C Unavailable Unavailable Downs, L Anyi ON SITE COORDINATOR-C Unavailable Unavailable Downs, L Anyi ON SITE COORDINATOR-C Unavailable Unavailable Downs, L Anyi ON SITE COORDINATOR-C Unavailable Unavailable Downs, L Anyi ON SITE COORDINATOR-C Unavailable Unavailable Downs, L Anyi ON SITE COORDINATOR-C Unavailable Unavailable Downs, L Anyi ON SITE COORDINATOR-C Unavailable Unavailable Downs, L Anyi ON SITE COORDINATOR-C Unavailable Unavailable Downs, L Anyi ON SITE COORDINATOR-C Unavailable Unavailable Downs, L Anyi ON SITE COORDINATOR-C Unavailable Unavailable Downs, L Anyi ON SITE COORDINATOR-C Unavailable Unavailable Downs, L Anyi ON SITE COORDINATOR-C Unavailable Unavailable Downs, L Anyi ON SITE COORDINATOR-C Unavailable Unavailable Downs, L Anyi ON SITE COORDINATOR-C Unavailable Unavailable Downs, L Anyi ON SITE COORDINATOR-C Unavailable Unavailable Downs, L Anyi ON SITE COORDINATOR-C Unavailable Unavailable Downs, L Anyi ON SITE COORDINATOR-C Unavailable Unavailable Downs, L Anyi ON SITE COORDINATOR-C Unavailable Unavailable Downs, L Anyi ON SITE COORDINATOR-C Unavailable Unavailable Downs, L Anyi ON SITE COORDINATOR-C Unavailable Unavailable Downs, L Anyi ON SITE COORDINATOR-C Unavailable Unavailable Downs, L Anyi ON SITE COORDINATOR-C Unavailable Unavailable Downs, L Anyi ON SITE COORDINATOR-C Unavailable Unavailable Downs, L Anyi ON SITE COORDINATOR-C Unavailable Unavailable Downs, L Anyi ON SITE COORDINATOR-C Unavailable Unavailable Downs, L Anyi ON SITE COORDINATOR-C Unavailable Unavailable Downs, L Anyi ON SITE COORDINATOR-C Unavailable Unavailable Downs, L Anyi ON SITE COORDINATOR-C Unavailable Unavailable Downs, L Anyi ON SITE COORDINATOR-C Unavailable Unavailable Downs, L Anyi ON SITE COORDINATOR-C Unavailable Unavailable Downs, L Anyi ON SITE COORDINATOR-C Unavailable Unavailable Downs, L Anyi ON SITE COORDINATOR-C Unavailable Unavailable Downs, L Anyi ON SITE COORDINATOR-C Unavailable Unavailable Downs, L Anyi ON SITE COORDINATOR-C Unavailable Unavailable Downs, L Anyi ON SITE COORDINATOR-C Unavailable Unavailable Downs, L Anyi ON SITE COORDINATOR-C Unavailable Unavailable Downs, L Anyi ON SITE COORDINATOR-C Unavailable Unavailable Downs, L Anyi ON SITE COORDINATOR-C Unavailable Unavailable Downs, L Anyi ON SITE COORDINATOR-C Unavailable Unavailable Downs, L Anyi ON SITE COORDINATOR-C Unavailable Unavailable Downs, L Anyi ON SITE COORDINATOR-C Unavailable Unavailable Downs, L Anyi ON SITE COORDINATOR-C Unavailable Unavailable Downs, L Anyi ON SITE COORDINATOR-C Unavailable Unavailable Downs, L Anyi ON SITE COORDINATOR-C Unavailable Unavailable Downs, L Anyi ON SITE COORDINATOR-C Unavailable Unavailable Downs, L Anyi ON SITE COORDINATOR-C Unavailable Unavailable Downs, L Anyi ON SITE COORDINATOR-C Unavailable Unavailable Downs, L Anyi ON SITE COORDINATOR-C Unavailable Unavailable Downs, L Anyi ON SITE COORDINATOR-C Unavailable Unavailable Downs, L Anyi ON SITE COORDINATOR-C Unavailable Unavailable Downs, L Anyi ON SITE COORDINATOR-C Unavailable Unavailable Downs, L Anyi ON SITE COORDINATOR-C Unavailable Unavailable Downs, L Anyi ON SITE COORDINATOR-C Unavailable Unavailable Downs, L Anyi ON SITE COORDINATOR-C Unavailable Unavailable Downs, L Anyi ON SITE COORDINATOR-C Unavailable Unavailable Downs, L Anyi ON SITE COORDINATOR-C Unavailable Unavailable Re-disclosure Warning The records that you are about to access may contain information from federally-assisted alcohol or drug abuse programs. If such information is present, then the following federally mandated warning applies: This information has been disclosed to you from records protected by federal confidentiality rules (42 CFR part 2). The federal rules prohibit you from making any further disclosure of this information unless further disclosure is expressly permitted by the written consent of the person to whom it pertains or as otherwise permitted by 42 CFR part 2. A general authorization for the release of medical or other information is NOT sufficient for this purpose. The Federal rules restrict any use of the information to criminally investigate or prosecute any alcohol or drug abuse patient.The records that you are about to access may contain highly sensitive health information, the redisclosure of which is protected by Article 27-F of the [facility] Public Health law. If you continue you may have access to information: Regarding HIV / AIDS; Provided by facilities licensed or operated by the [facility] Office of Mental Health; or Provided by the [facility] Office for People With Developmental Disabilities. If such information is present, then the following [facility] mandated warning applies: This information has been disclosed to you from confidential records which are protected by state law. State law prohibits you from making any further disclosure of this information without the specific written consent of the person to whom it pertains, or as otherwise permitted by law. Any unauthorized further disclosure in violation of state law may result in a fine or correction sentence or both. A general authorization for the release of medical or other information is NOT sufficient authorization for further disc losure. Allergies and Adverse Reactions Type Description Substance Reaction Status Data Source(s ) Food allergy No Known Food Allergies No Known Food Allergies [facility] Propensity to adverse reactions NO KNOWN ALLERGIES NO KNOWN ALLERGIES [facility] Propensity to adverse reactions FLUOXETINE Fluoxetine Headache Low [facility] Propensity to adverse reactions NO KNOWN ALLERGIES NO KNOWN ALLERGIES [facility] Family History Family Member Name Family Member Gender Family Member Status Date o f Status Description Data Source(s) Unknown Male Condition [facility] Unknown Male Problem [facility] ([facility]) Unknown Female Encounters Encounter Providers Location Date Indications Data Source(s ) Outpatient Attender: Karen Baca FNPAttender: Anyi SCHULTZ 5F-BA 07/15/2021 07:29:20 AM EST - 07/15/2021 01:46:30 PM EST [facility] Outpatient Attender: BULL PARRA MD Main office - 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 06/27/2021 01:33:0 0 PM EDT pre employ [facility] pre employ OUTPATIENT Attender: Anyi SCHULTZ 5F-BA 08:26:01 AM EDT - 06/22/2021 01:43:42 PM EDT [facility] OUTPATIENT 5F-BA 06/22/2021 08:18:46 AM EDT [facility] OUTPATIENT 5F-BA 04/27/2021 03:51:06 PM EDT [facility] OUTPATIENT 5F-BA 04/26/2021 10:47:02 AM EDT [facility] EMERGENCY Attender: HEDY ROGEL MD 2E-ED 01:33:00 PM EDT - 04/22/2021 05:23:00 PM EDT [facility] Patient discharged. OUTPATIENT 5F-BA 04/22/2021 10:51:50 AM EDT [facility] OUTPATIENT 5F-BA 04/20/2021 02:42:28 PM EDT [facility] OUTPATIENT 5F-BA 04/20/2021 09:07:58 AM EDT [facility] OUTPATIENT 5F-BA 04/18/2021 04:15:15 PM EDT [facility] Outpatient Attender: Anyi SCHULTZ 5F-BA 07/2021 07:48:06 AM EDT - 04/13/2021 03:29:35 PM EDT [facility] OUTPATIENT 5F-MO 04/11/2021 03:08:49 PM EDT [facility] Outpatient Referrer: Raul Abreu 5F-MOXR 04/11/2021 11:34:01 AM EDT - 04/11/2021 11:59:00 PM EDT [facility] Patient discharged. OUTPATIENT 5F-MO 04/11/2021 10:44:39 AM EDT - 021 12:12:27 PM EDT [facility] OUTPATIENT 5F-BA 03/11/2021 11:37:55 AM EDT [facility] Outpatient Attender: Anyi SCHULTZ 5F-BA 01/05/2021 06:54:5 2 AM EDT [facility] Admission cancelled. Disregard status an d admitted date. Outpatient Attender: Anyi SCHULTZ 5F-BA 12/28/2020 07:02:2 0 AM EDT [facility] Admission cancelled. Disregard status an d admitted date. OUTPATIENT Attender: Anyi Barroso ON SITE COORDINATOR-C 5F-BA 01:47:35 PM EDT - 11/23/2020 03:20:09 PM EDT [facility] OUTPATIENT 5F-BA 08/19/2020 08:43:34 AM EST [facility] Immunizations Vaccine Date Status Description Data Source(s) COVID-19 VACCINE Pfizer 05/25/2021 12:00:00 AM EDT completed [facility] Vaccine Series Complete: NOThis Data was Submitted to [facility] Via [employer]. Medications Medication Brand Name Start Date Product Form Dose Route Admi nistrative Instructions Pharmacy Instructions Status Indications Reaction Description Data Source(s) 50 mg 07/12/2021 12:00:00 AM EST capsule 60 TAKE ONE CAPSULE BY MOUTH TWICE A DAY TAKE ONE CAPSULE BY MOUTH TWICE A DAY SOLD: 07/16/2021 [facility] zonisamide 50 MG Oral Capsule zonisamide (ZONEGRAN) 50 mg capsule zonisamide (ZONEGRAN) 50 mg capsule 07/11/2021 12:00:00 AM EST active [facility] zonisamide 25 MG Oral Capsule zonisamide (ZONEGRAN) 25 mg capsule zonisamide (ZONEGRAN) 25 mg capsule 07/11/2021 12:00:00 AM EST active [facility] Aspirin 81 MG Delayed Release Oral Tablet Aspirin Adult Low Dose 07/11/2021 12:00:00 AM EST ORAL active [facility] ([facility]) zonisamide 50 MG Oral Capsule Zonisamide 07/11/2021 12:00:00 AM EST ORAL active [facility] ([facility]) 25 mg 07/11/2021 12:00:00 AM EST capsule 42 TAKE 1 CAPSULE BY MOUTH IN THE EVENING FOR 1 WEEK, TAKE 1 CAPSULE TWICE A DAY FOR 1 WEEK, THEN 1 CAPSULE EVERY MORNING AND 2 CAPSULES EVERY EVENING TAKE 1 CAPSULE BY MOUTH IN THE EVENING F OR 1 WEEK, TAKE 1 CAPSULE TWICE A DAY FOR 1 WEEK, THEN 1 CAPSULE EVERY MORNING AND 2 CAPSULES EVERY EVENING SOLD: 07/16/2021 [facility] zonisamide 25 MG Oral Capsule Zonisamide 07/11/2021 12:00:00 AM EST ORAL active [facility] ([facility] NITROFURANTOIN, MACROCRYSTALS 25 MG / Ni trofurantoin, Monohydrate 75 MG Oral Capsule 100 mg NITROFURANTOIN MONOHYD/M-CRYST 06/29/2021 12:00:00 AM EDT ca psule 10 TAKE ONE CAPSULE BY MOUTH TWICE A DAY FOR 5 DAYS TAKE ONE CAPSULE BY MOUTH TWICE A DAY FOR 5 DAYS SOLD: 06/30/2021 [facility] duloxetine 30 MG Delayed Release Oral Ca psule DULoxetine (CYMBALTA) [address] capsule DULoxetine (CYMBALTA) [address] capsule 06/22/2021 12:00:00 AM ED T 30 mg oral aborted Take 1 cap heriberto (30 mg total) by mouth 1 (one) time each day. Do not crush or chew. [facility] 30 mg 06/22/2021 12:00:00 AM EDT capsule,delayed release (DR/EC) 30 TAKE 1 CAPSULE BY MOUTH ONCE DAILY . DO NOT CRUSH OR CHEW TAKE 1 CAPSULE BY MOUTH ONCE DAILY . DO NOT CRUSH OR CHEW SOLD: 06/30/2021 [facility] Amitriptyline Hydrochloride 10 MG Oral T ablet amitriptyline (ELAVIL) 10 mg tablet amitriptyline (ELAVIL) 10 mg tablet 04/28/2021 12:00:00 AM EDT 10 mg oral aborted Take 1 tablet (10 mg total) by mouth 1 (one) time each day at night. [facility] 4 mg 04/22/2021 12:00:00 AM EDT tablets,dose pack 21 TAKE DIRECTED PER PACKAGE INSTRUCTIONS TAKE DIRECTED PER PACKAGE INSTRUCTIONS SOLD: 04/22/2021 [facility] methylPREDNISolone (Medrol, Danny,) 4 mg tablet 8715-9758-37 04/22/2021 12:00:00 AM EDT active Follow schedule o n package instructions [facility] Magnesium Oxide 400 MG Oral Tablet magnesium oxide (MA G-OX) 400 mg tablet magnesium oxide (MAG-OX) 400 mg tablet 04/22/2021 12:00:00 AM EDT 4 00 mg oral active Take 1 tablet ( 400 mg total) by mouth 1 (one) time each day for 7 days. [facility] Hydrochlorothiazide 12.5 MG Oral Tablet hydroCHLOROthiazide (HYDRODIURIL) 12.5 mg tablet hydroCHLOROthiazide (HYDRODIURIL) 12.5 mg tablet 04/22 12:00:00 AM EDT 12.5 mg oral aborted Take 1 t ablet (12.5 mg total) by mouth 1 (one) time each day. [facility] Hydrochlorothiazide 12.5 MG Oral Tablet HYDROCHLOROTHIAZIDE 04/22/2021 12:00:00 AM EDT tablet 30 TAKE ONE TABLET BY MOUTH MARCELLO DAY TAKE ONE TABLET BY MOUTH EVERY DAY SOLD: 04/22/2021 [facility] 400 mg (241.3 mg magnesium) 04/22/2021 12:00:00 AM EDT table t 7 TAKE ONE TABLET BY MOUTH EVERY DAY FOR 7 DAYS TAKE ONE TABLET BY MOUTH EVERY DAY FOR 7 DAYS SOLD: 04/22/2021 [facility] Fluoxetine 20 MG Oral Capsule FLUoxetine (PROzac) 20 m g capsule FLUoxetine (PROzac) 20 mg capsule 04/13/2021 12:00:00 AM EDT 20 mg oral active Take 1 capsule (20 mg total) by mouth 1 (one) time each day. [facility] Diclofenac Sodium 20 MG/ML Topical Solut ion [Pennsaid] diclofenac sodium (Pennsaid) 20 mg/gram /actuation(2 %) solution in metered-dose pump diclofenac sodium (Pennsaid) 20 mg/gram /actuation(2 %) solution in metered-dose pump 04/11/2021 12:00:00 AM EDT 40 mg Apply externally abor luis Apply 40 mg topically 2 (two) times a day. [facility] Escitalopram 10 MG Oral Tablet ESCITALOPRAM OXALATE 11/23/2020 1 2:00:00 AM EDT tablet 30 TAKE ONE TABLET BY MOUTH ONCE DA ARAVIND TAKE ONE TABLET BY MOUTH ONCE DAILY SOLD: 11/23/2020 [facility] albuterol HFA (VENTOLIN HFA) 90 mcg/actuation inhaler [id number] 11/23/2020 12:00:00 AM EDT 2 {puff} inhalation aborted Inhale 2 puffs every 6 (six) hours if needed for wheezing. [facility] 10 mg 11/23/2020 12:00:00 AM EDT tablet 90 TAKE ONE TABLET BY MOUTH THREE TIMES A DAY NEEDED FOR ANXIETY TAKE ONE TABLET BY MOUTH THREE TIMES A D AY NEEDED FOR ANXIETY SOLD: 11/23/2020 [facility] Hydroxyzine Hydrochloride 10 MG Oral Tab let hydrOXYzine HCL (ATARAX) 10 mg tablet hydrOXYzine HCL (ATARAX) 10 mg tablet 11/23/2020 12:00:00 AM EDT 10 mg oral aborted Take 1 tablet (10 mg total) by mouth 3 (three) times a day if needed for anxiety. [facility] 100 mg 11/23/2020 12:00:00 AM EDT tablet 120 TAKE TWO TABLETS BY MOUTH TWICE A DAY TAKE TWO TABLETS BY MOUTH TWICE A DAY SOLD: 11/23/2020 [facility] albuterol HFA (VENTOLIN HFA) 90 mcg/actuation inhaler [id number] 11/23/2020 12:00:00 AM EDT 2 {puff} inhalation aborted Inhale 2 puffs every 6 (six) hours if needed for wheezing. [facility] Escitalopram 10 MG Oral Tablet escitalopram oxalate (L EXAPRO) 10 mg tablet escitalopram oxalate (LEXAPRO) 10 mg tablet 11/23/2020 12:00:00 AM EDT 10 mg oral aborted Take 1 tablet (10 mg total) by mouth 1 (one) time each day. [facility] Labetalol hydrochloride 100 MG Oral Tablet labetaloL ( NORMODYNE) 100 mg tablet labetaloL (NORMODYNE) 100 mg tablet 11/23/2020 12:00:00 AM EDT 200 mg oral aborted Take 2 tablets (200 mg total ) by mouth 2 (two) times a day. [employer] [facility] CISSOID 90 mcg/actuation 11/23/2020 12:00:00 AM EDT HFA aerosol inha ler 18 INHALE 2 PUFFS EVERY 6 HOURS NEEDED FOR WHEEZING INHALE 2 PUFFS EVERY 6 HOURS NEEDED FOR WHEEZING SOLD: 11/23/2020 [facility] Labetalol hydrochloride 300 MG Oral Tablet labetaloL ( NORMODYNE) 300 mg tablet labetaloL (NORMODYNE) 300 mg tablet 10/14/2020 12:00:00 AM EST 1 {tbl } oral aborted Take 1 tablet by mouth 2 (tw o) times a day. [facility] Cephalexin 500 MG Oral Capsule CEPHALEXIN 08/05/2020 12:00:00 AM EST capsule 14 TAKE ONE CAPSULE BY MOUTH EVERY 12 HOURS TAKE ONE CAPS ULE BY MOUTH EVERY 12 HOURS SOLD: 08/05/2020 [facility] 10 mg 08/05/2020 12:00:00 AM EST tablet 30 TAKE ONE TABLET BY MOUTH EVERY DAY FOR ALLERGY SYMPTOMS TAKE ONE TABLET BY MOUTH EVERY DAY FOR A LLERGY SYMPTOMS SOLD: 08/05/2020 [facility] Hydroxyzine Hydrochloride 10 MG Oral Tab let hydrOXYzine HCL (ATARAX) 10 mg tablet hydrOXYzine HCL (ATARAX) 10 mg tablet 12/17/2019 12:00:00 AM EDT 10 mg oral aborted Take 1 tablet (10 mg total) by mouth 3 (three) times a day if needed for anxiety. [facility] Escitalopram 10 MG Oral Tablet escitalopram oxalate (L EXAPRO) 10 mg tablet escitalopram oxalate (LEXAPRO) 10 mg tablet 12/17/2019 12:00:00 AM EDT 10 mg oral aborted Take 1 tablet (10 mg total) by mouth 1 (one) time each day. [facility] Acetaminophen 500 MG Oral Tablet acetaminophen (TYLENO L) 500 mg tablet acetaminophen (TYLENOL) 500 mg tablet 08/15/2017 12:00:00 AM EST 10 00 mg oral aborted Take 1,000 mg by mouth ev augusta 8 hours. [facility] cetirizine hydrochloride 10 MG Oral Tablet cetirizine (ZyrTEC) 10 mg tablet cetirizine (ZyrTEC) 10 mg tablet 10 mg oral abort ed Take 10 mg by mouth at bed time. [facility] fluticasone propionate (FLONASE) 50 mcg/actuation nasal spray [id number] 2 {spray} Each Nostril aborted Adminis ter 2 sprays into each nostril 1 (one) time each day. Shake gently. Before first use, prime pump. After use, clean tip and replace cap. [facility] albuterol HFA (VENTOLIN HFA) 90 mcg/actuation inhaler [id number] 2 {puff} inhalation aborted Inhale 2 puffs every 6 (six) hours if needed for wheezing. [facility] Insurance Providers Payer name Policy type / Coverage type Policy ID Covered libertarian ID Covered libertarian's relationship to burnette Policy Burnette Plan Information [facility] [id number] Patient [id number] [employer] [id number] MOTHER [id number] [employer] [id number] PARENT [id number] BLUE CROSS OUT OF STATE [id number] Child [id number] [employer] [id number] Child [id number] Spouse [id number] Spouse [id number] Spouse [id number] HUMANA [id number] Spouse [id number] HUMANA [id number] Spouse 01 [id number] [facility] [id number] [facility] MEDICAID [id number] [facility] MEDICAID [id number] Self [id number] [employer] CO [id number] Blue [employer] Blue Shield Commercial [id number] Family Dependent H [id number] [employer] -PHYSICIAN [id number] 19 [id number] [employer] -O/P [id number] 1 9 [id number] [employer]IELD -O/P UNAVAILABLE UNAVAILABLE AETNA -O/P [id number] BC/BS PPO/EPO (28) [id number] [employer] Hmo Health Maintenance Organization (HMO) [id number] Fa ned Dependent AETNA-CLINIC [id number] 19 [id number] MEDICAID - CLINIC [id number] CS [id number] [facility] MCDO [id number] SP [id number] [place] [id number] SP [id number] E [facility](MCAID) O [id number] S [id number] EMEDNY [id number] SP [id number] SELF PAY ONLY [id number] SP [id number] MEDICAID M [id number] S [id number] [facility]MANA[facility]AL[facility] HEALTH [id number] [facility] [id number] SELF PAY O UNAVAILABLE [id number] S UNAVAILA BLE HUMANA [facility]AST REG O [id number] S [id number] [facility] [id number] [facility] [id number] CONTRACT CLAIMS SERVICES [id number] SP [id number] AAFES SP AAFES [id number] Problems, Conditions, and Diagnoses Code Display Name Description Problem Type Effective Dates Data Source(s) Headache Headache Diagnosis 07/15/2021 07:29:20 AM [facility] Anxiety Anxiety Diagnosis 07/15/2021 07:29:20 AM [facility] R51.9 Headache, unspecified Headache, unspecified Diagnosis 06/22/2021 08:26:01 AM EDT [facility] Follow-up Follow-up Diagnosis 06/22/2021 08:26:01 AM ED T [facility] G43.909 Migraine, unspecified, not intractable, without status migrainosus Migraine, unspecified, not intractable, without status migrainosus Diagnosis 04/22/2021 01:33:00 PM EDT [facility] Hypertension Hypertension Diagnosis 04/13/2021 07:48:06 A M EDT [facility] M25.562 Pain in left knee Pain in left knee Diagnosis 04/11 11:34:01 AM EDT [facility] F41.9 Anxiety disorder, unspecified Anxiety disorder, unspec ified Diagnosis 11/23/2020 04:29:20 PM EDT [facility] Ear Fullness Ear Fullness Diagnosis 11/23/2020 01:47:35 P M EDT [facility] Care Care Diagnosis 11/23/2020 01:4 7:35 PM EDT [facility] Contraception Contraception Diagnosis 11/23/2020 01:47:35 PM EDT [facility] Obesity Obesity Diagnosis 11/23/2020 01:47:35 PM ED T [facility] Annual Exam Annual Exam Diagnosis 11/23/2020 01:47:35 PM EDT [facility] Surgeries/Procedures Procedure Description Date Indications Data Source(s) NON-INVASIVE PHYSIOLOGIC STUDY EXTREMITY 3 LEVLS 07/18 12:00:00 AM EST [facility] ([facility], ) TSTG ANS FUNCJ CARDIOVAGAL INNERVAJ PARASYMP 12:00:00 AM EST [facility] ([facility], ) TESTING AUTONOMIC NERVOUS SYSTEM FUNCTION 07/18/2021 1 2:00:00 AM EST [facility] ([facility] ) Magnetic Resonance Angiogtaphy Head W/O Contrast Material(S) 07/13/2021 12:00:00 AM EST [facility] ([facility] ) Magnetic Resonance Angiogtaphy Head W/O Contrast Material(S) 07/13/2021 12:00:00 AM EST [facility] ([facility] ) Magnetic Resonance Angiography Neck W/O Contrast Materials 07/13/2021 12:00:00 AM EST [facility] ([facility] ) Magnetic Resonance Angiography Neck W/O Contrast Materials 07/13/2021 12:00:00 AM EST [facility] ([facility] ) MRI BRAIN BRAIN STEM W/O CONTRAST MATERIAL 07/13/2021 12:00:00 AM EST [facility] ([facility] ) MRI BRAIN BRAIN STEM W/O CONTRAST MATERIAL 07/13/2021 12:00:00 AM EST [facility] ([facility], ) OFFICE OUTPATIENT NEW 45 MINUTES 07/11/2021 12:00:00 A M EST [facility] ([facility], ) OFFICE CONSULTATION NEW/ESTAB PATIENT 60 MIN 12:00:00 AM EST [facility] ([facility] ) CBC AND DIFFERENTIAL <td>CBC AND DIFFERENTIAL</td ><td>STAT</td><td>04/22/2021 4:03 PM EDT</td><td></td><td> </td> 04/22/2021 04:03:00 PM EDT [facility] C-REACTIVE PROTEIN <td>C-REACTIVE PROTEIN</td>< td>STAT</td><td>04/22/2021 4:03 PM EDT</td><td></td><td> </td> 04/22/2021 04:03:00 PM EDT [facility] MAGNESIUM <td>MAGNESIUM</td><td>STAT</ td><td>04/22/2021 4:03 PM EDT</td><td></td><td> </td> 04/22/2021 04:03:00 PM EDT [facility] COMPREHENSIVE METABOLIC PANEL <td>COMPREHENSIVE METABO LIC PANEL</td><td>STAT</td><td>04/22/2021 4:03 PM EDT</td><td></td><td> </td> 04/22/2021 04:03:00 PM EDT [facility] RADIOLOGIC EXAMINATION KNEE 3 VIEWS <td>XR KNEE 3 VIEW S BILATERAL</td><td>Routine</td><td>04/11/2021 11:45 AM EDT</td><td> Left knee pain, unspecified chronicity</td><td> </td> 04/11/2021 11:45:23 AM EDT Left knee pain, unspecified chronicity [facility] Left knee pain, unspecified chronicity Results ID Date Data Source [id number] 07/15/2021 01:15:46 PM EST [facility] Name Value Range Interpretation Code Description Data Katlyn rce(s) Supporting Document(s) Progress Notes [facility] MGTDXn1yVlZGNlRh44/USBkxWFEgs1VwDFjmOLx7NNsgRZCcU8CvSBT6yQ0qZWJ6WCdUGsWzTxEtGYEu lbm [file] UqChEnPIU4WzUaQJ8LIm2QFyI4KYR8wJIvNk2FOxy6XiJOSwAfHL5KGId= ID Date Data Source [id number] 07/15/2021 01:13:00 PM EST [facility] Name Value Range Interpretation Code Description Data Katlyn rce(s) Supporting Document(s) Assessment & Plan Note [facility] FCQLEi6cCvVVGnWc31/PHJoyPTXak3EkPEpaHCc3OMbgEEYnW9GvAXS5xG4rEHM8UAwHUkGoRdRsMMWt lbm [file] AgICAgICAgICAgICAgICAgICAgICAgICAgICAgICAg ICAgICAgICAgICAgICAgICAgICAgICAgICAgICAgICAgICAgICAgICAgICAgICAgICAgICAgICAgICAg DQogICAgICAgICAgICAgICAgICAgICAgICAgICAgICAgICAgICAgICAgICAgICAgICAgICAgICAgICAg ICAgICAgICAgICAgICAgICAgICAgICAgICAgICAgIC AgICAgICAgICAgDQogICAgICAgICAgICAgICAgICAgICAgICAgICAgICAgICAgICAgICAgICAgICAgIC AgICAgICAgICAgICAgICAgICAgICAgICAgICAgICAgICAgICAgICAgICAgICAgICAgICAgDQogICAgIC AgICAgICAgICAgICAgICAgICAgICAgICAgICAgICAg ICAgICAgICAgICAgICAgICAgICAgICAgICAgICAgICAgICAgICAgICAgICAgICAgICAgICAgICAgICAg ICAgDQogICAgICAgICAgICAgICAgICAgICAgICAgICAgICAgICAgICAgICAgICAgICAgICAgICAgICAg ICAgICAgICAgICAgICAgICAgICAgICAgICAgICAgIC AgICAgICAgICAgICAgDQogICAgICAgICAgICAgICAgICAgICAgICAgICAgICAgICAgICAgICAgICAgIC AgICAgICAgICAgICAgICAgICAgICAgICAgICAgICAgICAgICAgICAgICAgICAgICAgICAgICAgDQogIC AgICAgICAgICAgICAgICAgICAgICAgICAgICAgICAg ICAgICAgICAgICAgICAgICAgICAgICAgICAgICAgICAgICAgICAgICAgICAgICAgICAgICAgICAgICAg ICAgICAgDQogICAgICAgICAgICAgICAgICAgICAgICAgICAgICAgICAgICAgICAgICAgICAgICAgICAg ICAgICAgICAgICAgICAgICAgICAgICAgICAgICAgIC AgICAgICAgICAgICAgICAgDQogICAgICAgICAgICAgICAgICAgICAgICAgICAgICAgICAgICAgICAgIC AgICAgICAgICAgICAgICAgICAgICAgICAgICAgICAgICAgICAgICAgICAgICAgICAgICAgICAgICAgDQ ogICAgICAgICAgICAgICAgICAgICAgICAgICAgICAg ICAgICAgICAgICAgICAgICAgICAgICAgICAgICAgICAgICAgICAgICAgICAgICAgICAgICAgICAgICAg LSRvZKHvZDDnOKg5U1mgWDYeYNSsDA0bKAf3Bc2+BJmRSqHdFGE5epYajN8MOB6ib5WpYLpbNAWzg5Xv FWx6UV6PQVAxSPasAJ7LAZcacr4WMPGtXFKwnMFPt8 ckUoHzIVM2VMEhUjnhIZ5JPQCaR5fgevQrRUVkTOKHNU2USqIiG4JbqV64OCBTTk0+DQplbmRvYmoNCj EfBVMzp5JlVVc1LG9WDXBvHlhas5RgKcPmQIKVORftHC2TOOY5YKQkFIKaWb4AQXWxD805hrQxGS3SOa 2GHuUbIJ8dhv2UCiWgXLFzUbyPIsg0LAfsKF3DmFSt DXbNo7Rar0DrUJ09GMThWNyqnxYBe6ScPVD3JWEzhbFhGTQssmB5PDCDYNVcmIGmLS2cSl5cMHWqQYFa LbMhRGFMMB3GBMRxQRLgkBMxQMJfZLXHTR1DXAtqPPZ4KqumayYjeLSlLDasRB6QOYVictJnQoXnQWOX DQo+Lg7TWP1xk6MbZJryRQGkPP5qoh4ENZaOFlVvQ5 E4mRPpZ2W8IFyhWc3KUVSfCWWjJpBcCJQVHVjrCE5DOQ4udgF0HS0UkRQcRKCwAKEwmFWkTPo0D10ttB DjASwjUN8FJXO+Eddie+Jj1QWIXmZBPoVZFxHlQuCMPAAsIzB4YfN5ULw5AzV4YvOU53lLxrgiXuRGxzUA 9LVI5nSAAnXFEMFY4KnGTkfM6jysYmShHiHHGUShQa S48hyRUsYRPyBJTkUJHvAa0EWREuR1GcpcXqcFkcmeByJZDsULWOET7QMXfafqJlwUNbjWnoYD68fFnt UR6ZHq1TSzYqLA0lvt3ZxZLgAx2PVVAvZA0TTCRsQMVoQDDrTBW2ENVcCmLuHFupZNZeESFzMNK5DNGz VCDgKK1SIdQlIAPpYNwcBgrmBCJjAFQhjc3RHZQnBZ BdQNQgKWVpSTQpTTTfUDnhHXKdKJHbMMF9ZHVfCHLnBW2SQuHnAMMbDTE0BIfzPKLrGQOtke8PLQCpAB HyHIZxIvIuYNHzXDBsBDlsCVXhJWRxNYkyJMKbHRNoYS3DIjIoVTCqBBSwMyVgDFHtSKVyih6UPGDlZK KtUyI9WzGhWHOqAUGuDRyqRESrMPJdTWO0EIEcAFWd DD1DCwBrVCAxTOO7YJWuKBCaUBItar6NPGHzSCPwXka2KWPiQMCfHIEoYOqsEWNqZGV3NFT2KHNaCLRh OQ6HEaKqDMLeFCS3SnMlVPExVVGveg8NWDQuUVItKwC2CYRjKEUdCNMvFGqvRNBsUMU5KWY1JWCfCRPu BF9ZPmKpNZHxGYoyNVHfSYPjGNOaog5EKRDoLTPlTo r9EcXfKKXyRCIrIRojLRCzAYX2JSbrDOLxHTUxOB3NGgTzDWJrSPklOCExEWDtSLIuyg2QVNFtFHIpWA u7XLBjGPVbXFRqPDkkCGUePKAuEnS9NKGsQMDpAF2NXqQhWJGqAwIpJNHkMZHdQOIrhf4EYNEtADMsNZ XqDGGrZMAtUGCuBHf4pgWjdFBxOSr0LV0WS9CrowSg SxJYSz7Hx615KBY9UJVoCc8IX3kbTm5hJDNgWCSFVv4HSCi9RqNgGmL3LOb1E3Y8EfTdGDS1UhxgMFS5 Osq4ZuUlAaL+LYbgCwEzVslqHrK4GzdaP1P8EXEeCZA0BspkWXd6QDN9RQ7mZSECDq3+DQpzdGFydHhy FOHRLoKaEky5TRweFEIYDy0R ID Date Data Source [id number] 07/15/2021 01:12:45 PM EST [facility] Name Value Range Interpretation Code Description Data Katlyn rce(s) Supporting Document(s) Patient Instructions [facility] DEOQSj6iCwVPAvHv83/JFCwuIXNcl4KhMXjgMUz9MGzuVPJsW9XiFIR0uY8dXED8DGeTQiGaBlTjMMAj lbm [file] f5ZajxD3gzGjDUyvRXArSJ6SFLBSK5CFZq== ID Date Data Source [id number] 07/12/2021 03:48:00 PM EST [facility] ([facility]) Name Value Range Interpretation Code Description Data Katlyn rce(s) Supporting Document(s) Rheumatoid factor [Units/volume] in Serum or Plasma Laboratory test result [facility]) ID Date Data Source [id number] 07/12/2021 03:48:00 PM EST [facility]) Name Value Range Interpretation Code Description Data Katlyn rce(s) Supporting Document(s) Folate 12.0 ng/mL [facility]) FOLATE NORMAL RANGE NORMAL GREATER THAN 5.4 NG/ML INDETERMINATE 3.4-5.4 NG/ML DEFICIENT LESS THAN 3.4 NG/ML Vitamin B12 Level 648 pg/mL [facility]) VITAMIN B12 NORMAL RANGE NORMAL 247 - 911 PG/ML INDETERMINATE 211 - 246 PG/ML DEFICIENT LESS THAN 211 PG/ML ID Date Data Source [id number] 07/12/2021 03:48:00 PM EST [facility]) Name Value Range Interpretation Code Description Data Katlyn rce(s) Supporting Document(s) Thyrotropin [Units/volume] in Serum or Plasma 2.000 uIU/ML 0.358-3.74 0 [facility] ([facility]) ID Date Data Source [id number] 07/12/2021 03:48:00 PM EST [facility] ([facility]) Name Value Range Interpretation Code Description Data Katlyn rce(s) Supporting Document(s) Albumin % 56.2 % 55.8-66.1 [facility] ([facility]) Qhafu-8-Bitgupyc % 3.9 % 2.9-4.9 [facility] ([facility]) Zaqg-3-Hfibdkbpu % 6.8 % 4.7-7.2 [facility] ([facility]) Swbbq-8-Hvadekrog % 12.2 % 7.1-11.8 [facility] ([facility]) Gamma Globulin % 14.4 % 11.1-18.8 [facility] ([facility]) Fjks-0-Tbrwscdup % 6.5 % 3.2-6.5 [facility] ([facility]) Clxdm-9-Qfuhotvyd 0.30 GM/DL 0.17-0.41 [facility] ([facility]) Albumin 4.27 GM/DL 3.29-5.55 [facility] ([facility]) Utsnk-5-Sqicpsbqs 0.93 GM/DL 0.42-0.99 [facility] ([facility]) Qivt-0-Jhthxbrup 0.52 GM/DL 0.28-0.60 [facility] ([facility]) Gamma Globulins 1.09 GM/DL 0.65-1.58 [facility] ([facility]) Jehq-3-Ddzyctikn 0.49 GM/DL 0.19-0.55 [facility] ([facility]) Total Protein 7.6 GM/DL 6.4-8.2 [facility] ([facility]) Spep Interpretation Laboratory test result [facility] ([facility]) NO M-SPIKE(S)NOTED. Laboratory test finding (navigational concept) Laboratory test result [facility] ([facility]) REV'D BY O ADJAPONG ID Date Data Source [id number] 07/12/2021 03:48:00 PM EST [facility] ([facility]) Name Value Range Interpretation Code Description Data Katlyn rce(s) Supporting Document(s) Blood Urea Nitrogen 15 mg/dL 7-18 [facility] ([facility]) Glucose, Fasting 91 mg/dL 70-100 [facility] ([facility]) Creatinine For GFR 0.72 mg/dL 0.55-1.30 [facility] ([facility]) Glomerular Filtration Rate Laboratory [facility]) <content>Units are mL/min/1.73 m2</content>
<content></content>
<content>Chronic Kidney Disease Staging per NKF:</content>
<content></content>
<content>Stage I & II GFR >=60 Normal to Mildly Decreased</content>
<content>Stage III GFR 30- 59 Moderately Decreased</content>
<content>Stage IV GFR 15-29 Severely Decreased</content>
<content>Stage V GFR <15 Very Little GFR Left</content>
<content>ESRD GFR <15 on ROLL OR TAPE EDGE MACHINE OPERATOR</content>
<content></content> Sodium Level 139 meq/L 136-145 [facility] ([facility]) Potassium Serum 4.5 meq/L 3.5-5.1 [facility] ([facility]) Chloride Level 108 meq/L 98-107 [facility] ([facility]) Carbon Dioxide Level 29 meq/L 21-32 [facility] ([facility]) Anion Gap 2 meq/L 8-16 [facility] ([facility]) Ast/Sgot 14 U/L 7-37 [facility] ([facility]) Calcium Level 9.2 mg/dL 8.5-10.1 [facility] ([facility]) Alkaline Phosphatase 96 U/L 45-117 [facility] ([facility]) Alt/SGPT 37 U/L 12-78 [facility] ([facility]) Total Protein 7.6 GM/DL 6.4-8.2 [facility] ([facility]) Bilirubin,Total 0.2 mg/dL 0.2-1.0 [facility] ([facility]) Albumin/Globulin Ratio 0.9 1.2-2.2 [facility] ([facility]) Albumin 3.7 GM/DL 3.2-5.2 [facility] ([facility]) ID Date Data Source [id number] 07/12/2021 03:48:00 PM EST [facility] ([facility]) Name Value Range Interpretation Code Description Data Katlyn rce(s) Supporting Document(s) Estimated Average Glucose 100 mg/dL 60-110 [facility] ([facility]) Hemoglobin A1c 5.1 % [facility] ([facility]) <content>REFERENCE RANGES:</content><br/ ><content></content>
<content><=5.6% NORMAL</content>
<content>5.7-6.4% SUGGESTS IMPAIRED GLUCOSE METABOLISM/PREDIABETIC</content>
<content>>= 6.5% ABNORMAL</content>
<content></content> ID Date Data Source [id number] 07/12/2021 03:48:00 PM EST [facility] ([facility]) Name Value Range Interpretation Code Description Data Katlyn rce(s) Supporting Document(s) Erythrocyte sedimentation rate by 2H Westergren method 41 mm/hr 0-2 0 [facility]) ID Date Data Source [id number] 07/12/2021 03:48:00 PM EST [facility] ([facility]) Name Value Range Interpretation Code Description Data Katlyn rce(s) Supporting Document(s) White Blood Count 12.4 10 4.0-10.0 [facility] ([facility]) Red Blood Count 4.78 10 4.00-5.40 [facility] ([facility]) Hemoglobin 13.6 g/dL 12.0-15.5 [facility] ([facility]) Hematocrit 41.5 % 36.0-47.0 [facility] ([facility]) Mean Corpuscular Volume 86.8 fl 80.0-96.0 M [facility] ([facility]) Mean Corpuscular Hemoglobin 28.5 pg 27.0-33.0 [facility] ([facility]) Mean Corpuscular HGB Conc 32.8 g/dL 32.0-36.5 [facility] ([facility]) Red Cell Distribution Width 13.0 % 11.5-14.5 [facility] ([facility]) Neutrophils % 61.7 % 36.0-66.0 [facility] ([facility]) Platelet Count, Automated 409 10 150-450 [facility] ([facility]) Lymph % 28.8 % 24.0-44.0 [facility] ([facility]) [place] % 6.9 % 2.0-8.0 [facility] ([facility]) Eos % 2.0 % 0.0-3.0 [facility] ([facility]) Baso % 0.3 % 0.0-1.0 [facility] ([facility]) Immature Granulocyte % 0.3 % 0-3.0 [facility] ([facility]) Nucleated Red Blood Cell % 0.0 % 0-0 [facility] ([facility]) Lymph # 3.6 10 1.5-5.0 [facility] ([facility]) Neutrophils # 7.6 10 1.5-8.5 [facility] ([facility]) [place] # 0.9 10 0.0-0.8 [facility] ([facility]) Eos # 0.3 10 0.0-0.5 [facility] ([facility]) Baso # 0.0 10 0.0-0.2 [facility] ([facility]) ID Date Data Source [id number] 06/29/2021 05:31:49 PM EDT [facility] Name Value Range Interpretation Code Description Data Katlyn rce(s) Supporting Document(s) Telephone Encounter [facility] KTSLAb7kIvTIYgFy58/DETejWFJke3FbRUsoJNn0SXsvWSIjZ6BoZCC0dD7zUWY4KKyWCyTnIjRbFUV9 [facility] [file] health care coach/VbYra/18TwJA8wtal9oxOPFpIUS9GBoHre9x3qJtubr/BvRC0+r6zp33gm3pOe4dw4qL/DPMscSF [file] 9MSNORY4PSSk== ID Date Data Source [id number] 06/29/2021 05:13:50 PM EDT [facility] Name Value Range Interpretation Code Description Data Katlyn rce(s) Supporting Document(s) Telephone Encounter [facility] BDAWUg6dZbDHQaBx07/JZAxrUMWfh9RfFDcuHLo6MFczQSShO3QjSUC9tS8oCPV9NVqVQnYpVbZrBVS9 lbm [file] ID Date Data Source [id number] 06/29/2021 05:11:50 PM EDT [facility] Name Value Range Interpretation Code Description Data Katlyn rce(s) Supporting Document(s) Telephone Encounter [facility] SFDDUm0gWhJAPlIy20/KZDzpHFLnl6WyDYlxEYj1RRenUOLwV2IlVZU0pY7yYYO3HNkSXhIjUfZcFXP9 lbm [file] ID Date Data Source [id number] 06/29/2021 04:25:19 PM EDT [facility] Name Value Range Interpretation Code Description Data Katlyn rce(s) Supporting Document(s) Telephone Encounter [facility] TMJQOr5qPqVAQeRw79/TSRkpAGOxc0QdDQnqGFu9CLrdNFJsF5WaWRI8oC3aJIM9UVkKVfTkQdWzICA6 lbm [file] AgICAgICAgICAgICAgICAgICAgICAgICAgICAgICAg ICAgICAgICAgICAgICAgICAgICAgICAgICAgICAgICAgICAgICAgICAgICAgICAgICAgICAgICAgICAg ICAgICAgDQogICAgICAgICAgICAgICAgICAgICAgICAgICAgICAgICAgICAgICAgICAgICAgICAgICAg ICAgICAgICAgICAgICAgICAgICAgICAgICAgICAgIC AgICAgICAgICAgICAgICAgDQogICAgICAgICAgICAgICAgICAgICAgICAgICAgICAgICAgICAgICAgIC AgICAgICAgICAgICAgICAgICAgICAgICAgICAgICAgICAgICAgICAgICAgICAgICAgICAgICAgICAgDQ ogICAgICAgICAgICAgICAgICAgICAgICAgICAgICAg ICAgICAgICAgICAgICAgICAgICAgICAgICAgICAgICAgICAgICAgICAgICAgICAgICAgICAgICAgICAg ICAgICAgICAgDQogICAgICAgICAgICAgICAgICAgICAgICAgICAgICAgICAgICAgICAgICAgICAgICAg ICAgICAgICAgICAgICAgICAgICAgICAgICAgICAgIC AgICAgICAgICAgICAgICAgICAgDQogICAgICAgICAgICAgICAgICAgICAgICAgICAgICAgICAgICAgIC AgICAgICAgICAgICAgICAgICAgICAgICAgICAgICAgICAgICAgICAgICAgICAgICAgICAgICAgICAgIC AgDQogICAgICAgICAgICAgICAgICAgICAgICAgICAg ICAgICAgICAgICAgICAgICAgICAgICAgICAgICAgICAgICAgICAgICAgICAgICAgICAgICAgICAgICAg ICAgICAgICAgICAgDQogICAgICAgICAgICAgICAgICAgICAgICAgICAgICAgICAgICAgICAgICAgICAg ICAgICAgICAgICAgICAgICAgICAgICAgICAgICAgIC AgICAgICAgICAgICAgICAgICAgICAgDQogICAgICAgICAgICAgICAgICAgICAgICAgICAgICAgICAgIC AgICAgICAgICAgICAgICAgICAgICAgICAgICAgICAgICAgICAgICAgICAgICAgICAgICAgICAgICAgIC AgICAgDQogICAgICAgICAgICAgICAgICAgICAgICAg ICAgICAgICAgICAgICAgICAgICAgICAgICAgICAgICAgICAgICAgICAgICAgICAgICAgICAgICAgICAg PZIxNAQlKNPpKSMjUPIfYEx7G7ieGSNhCHAbLN1tMCv8Cz5+ESiFJjDhSRT9dgBeoA2HVJ2np8CzOFdv WJXcb6FjTFo9RH1BZLExCBtnHU4WCJhioh6GXUUgVK TboHXHf0jzUnSfQAD2WSJeCxxoTY3POUEbC9mfdtHqNNJeJQCVHQ2JUkHuF9CouY64ERWJJg0+DQplbm XiNxzEHgDiWMCap1OtKQx5ID7CFMUoTikqy9MaDzJpRAJZEAqkNI5JCVE8JTWtVCJbBi7OCETeO443ux AkTX4PFe5AMuHcOS4dov9OMkNxLYDbXfiEGvk6FEct FW6JzRRxAGeYLDdsqCxbigWgBX1mr3QimUZrRLI5TD6hK70tWNPIFAK9TRN0ISMviUAjTB4vBg4dUUIu PXZ8QrB0SZBSVA2GFWDuOIRxoCJmEUKrCPXDYS7VQVciNVV0DhdnnhMjpLXjAWfxMK6TZXNkwoQdBtUw MCBSDQo+Dv3YVZ2sx1ZfIJsaSIFlPA3atl0TQWqHNc AlL2N4vGOrX7E5CButXn1XMVFjEUEbLlGbBJYVFFgsYQ0ADQ9fghQ3GI3AnNRpEXGhTKMscTWkLKr0N3 2ruOVhCCalID3ACDE+Eddie+Vz3LTWYzXAJiNSNpKtWhNGNZNkCdN5PhF8RZl9MzT3WnGM86wPybqsDiQH qwMD0FNR2xIGQlUDKQIG0OcBExyC1bzaPhOuJzLJJF DpIzJ36vbNIxYHDuRVKqNHEwAt3QMKMlR1OfspEfjBxnwiPyEXGqXRNMTU8BSCythxCboWPoyJreRS24 qWihJN9GTa6EHeQgIZ7qmp6NrWThPi1FYZUhCV2FOZNyUEViJLXjRMC0ASEaZbNuKVqrZYBfNJEsBMJ5 JXMoNKYtXO9QYfCdJRHvBEl9CAlkXRXqXKIfsa8XTX HnECKzQPfrLhWhQBBxNXBgATxzNRBbQCSxAEJ0VJAtQQLuCF6DTeIjRYVlZFC6TcJrIJFoCBEfln8WMF DcVOWtRLccWGYqLDHzCMBaGDlvAOIpEKFzVwowBUTvBLHpMV2ZPwJsMCCpLQO5SILkSDUzQQWopd5URX KvMDSpRiB8VUJpHVIqUSBlRUuqFNPnGSE7NRQ6PKVd CTOvIG6ERsPcFDLmVOFpLpHuDBUzYPIhdw0HWPExPCZpJXQkApYhEXKsJUDdVQxoYQMqLHN9RdH9TTQd JAHjVY6CVyOiYBYhJMbhQjDfFJJdXHIvkc2MAUUpXZMaEuJ7TDEmKQIvNHEwTKjgXTHhJYO6YNCtFLYt QYBqUJ2RCpHyGKKmPSr5VxvoFAVwGRGqzw5PLBCmTF EhVSVuDSZkKJPwYZGrGLbrHZCyFHW8Tuy0EHJpGYIaSV7HGxEcXJEpRJq8DrzkDSEdPMTlub3CFJGgCM JvPBD6HzLsRDMkDBImVIwuCFYgGICxEQWfMQXoIVXvYT5CZgKfDWFzTnI6LCWtDDVwYGRlvl2WMBLhWH TyHHW8UREnSKOoFBXhNYe8xaVjqXKiNFc8ZX8UA4Nq cxVbLzORAx7Wt354NGT2NRGgVe6YN9vjEq4nJPHlMMBVMv4ORDb8JhQ2TLM1THZvRwK8TWPyGsWqQpp8 OZSmVDB5RoS1PpZ+GLvyPNO4BYGlPZXcTmh5MeEwCLWcCoF9AaH5PRM2CvFiOD8wYEEISf0+DQpzdGFy qZklCXHMDdRtHxg5BRynEWQZZr5D ID Date Data Source [id number] 06/27/2021 03:39:00 PM EDT [facility] @06/27/21 1532: UA W/ MICRO added. RFLXG = UMIC.Method of Collection:: Voided @06/27/21 1532: UA W/ MICRO added. RFLXG = UMIC.Method of Collection:: Voided Name Value Range Interpretation Code Description Data Katlyn rce(s) Supporting Document(s) Hemoglobin [Moles/volume] in Blood 13.4 g/dL 10.7-15.4 N [facility] Hematocrit [Volume Fraction] of Blood by Automated count 39.4 % 3 7-47 N [facility] ID Date Data Source [id number] 06/27/2021 04:02:00 PM EDT [facility] @06/27/21 1532: UA W/ MICRO added. RFLXG = UMIC.Method of Collection:: Voided @06/27/21 1532: UA W/ MICRO added. RFLXG = UMIC.Method of Collection:: Voided Name Value Range Interpretation Code Description Data Katlyn rce(s) Supporting Document(s) Glucose [Mass/volume] in Serum or Plasma 89 mg/dL 74-106 N [facility] ID Date Data Source [id number] 06/27/2021 03:55:00 PM EDT [facility] @06/27/21 1532: UA W/ MICRO added. RFLXG = UMIC.Method of Collection:: Voided @06/27/21 1532: UA W/ MICRO added. RFLXG = UMIC.Method of Collection:: Voided Name Value Range Interpretation Code Description Data Katlyn rce(s) Supporting Document(s) Color of Urine [facility] Appearance of Urine CLEAR [facility] pH of Urine by Test strip 6.0 5-8 [facility] Specific gravity of Urine by Refractometry 1.026 1.005-1.030 [facility] Leukocyte esterase [Presence] in Urine by Test strip NEGATIVE Above high normal [facility] @DO MICRO!!!! Nitrite [Presence] in Urine by Test strip NEGATIVE [facility] Protein [Presence] in Urine by Test strip NEGATIVE [facility] Glucose [Mass/volume] in Urine by Automated test strip NEGATIVE NEG ATIVE [facility] Ketones [Presence] in Urine by Test strip NEGATIVE [facility] Urobilinogen [Presence] in Urine 0.2-1 EU/dl [facility] Bilirubin.total [Presence] in Urine by Automated test strip NEGATIVE [facility] Erythrocytes [#/volume] in Urine by Test strip NEGATIVE NEGATIVE [facility] URINE MICROSCOPIC ADDED Microscopic Added [facility] ID Date Data Source [id number] 06/27/2021 03:55:00 PM EDT [facility] @06/27/21 1532: UA W/ MICRO added. RFLXG = UMIC.Method of Collection:: Voided @06/27/21 1532: UA W/ MICRO added. RFLXG = UMIC.Method of Collection:: Voided Name Value Range Interpretation Code Description Data Katlyn rce(s) Supporting Document(s) Erythrocytes [#/volume] in Urine by Manual count 1-2 /hpf 0-5 [facility] Leukocytes [#/volume] in Urine by Manual count 3-5 /hpf 0-5 [facility] Cells [Type] in Urine sediment by Light microscopy [facility] Bacteria [Presence] in Urine sediment by Light microscopy NEGATIVE Above high normal [facility] ID Date Data Source [id number] 06/27/2021 02:28:00 PM EDT [facility] Patient Name: DELONTE Woodard : 1995 Sex: F Pt Unit #: [id number] Location: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 Accompanied by: Self / Same as Patient Is patient in pain?: No Allergies No Known Drug Allergies Allergy (Unverified 07/01/18 12:02) No Known Food Allergies Allergy (Unverified 06/27/21 14:36) Is last menstrual period known: No Post menopausal: No Patient : No Fall Risk History of falls: No Ambulatory Aid:: None Gait/Transferring:: Normal HIV Testing Offer - ages 13-64 HIV testing Offer: Yes Requirement for HIV testing offer been met?: Patient reports past refusal SBIRT Annual Questionnaire Are y ou currently in recovery for alcohol or substance use?: No How many times in the past year have you had 4 or more drinks in a day?: None How many times in the past year have you used a recreational drug or used a prescription medication for nonmedical reasons?: None Coronavirus Screening Screening Are you currently positive or on isolation for COVID ?: No Do you have any NEW signs of one or more of the following?: no symptoms Do you have NEW signs of at least two of the following?: no symptoms PFSH Social History Does the Patient have a Healthcare Proxy: No Does Patient have a DNR?: No Does Patient have a Living Will?: No Hx Recent Travel (where): No Smoking Status: Never smoker Review of Systems Const Denies chills and Denies fever(s) Eyes Denies change in vision ENT Denies abnormal hearing, Denies dizziness, Denies nasal discharge and Denies sore throat Card Denies chest pain, Denies syncope and Denies palpitat ions Resp Denies cough and Denies wheezing GI Denies abdominal pain and Denies vomiting Genitourinary: Denies difficulty voiding Musc Denies arthralgias Skin/Breast Denies pruritus and Denies rash Neuro Denies abnormal hearing, Denies dizziness and Denies syncope Psych Denies anxiety Endo Denies polydipsia, Denies polyuria and Denies palpitations Johnny/Lymph Denies easy bruising Aller/Immun Denies urticaria and Denies wheezing Exam Const General: cooperative and healthy appearing Orientation: alert and awake [facility] Head: normocephalic and atraumatic Ears: external ears normal, TM's normal bilaterally and EAC's normal General nose exam: external nose normal Mouth: oral mucosae normal and oropharynx normal Throat: posterior oropharynx normal Eyes General: appearance normal, both eyes and all related structures Neck Neck: full ROM and no lymphadenopathy Thyroid: thyroid normal Chest Chest: normal inspection of the chest Resp Effort Inspection: normal resp iratory effort Auscultation: clear to auscultation bilaterally, no rales, no rhonchi and no wheezes Cardio Rate: regular rate Rhythm: regular rhythm Heart Sounds: S1 normal, S2 normal and no murmurs GI Inspection: No abdominal distension Palpation: soft, no hepatosplenomegaly, no guarding and nontender Musc Cervical Spine: cervical ROM normal Thoracic/Lumbar Spine: thoraco-lumbar ROM normal Skin Lesions: no lesions Rashes: no rashes Neuro General: patient alert and patient awake Cognition: normal cognition Speech: speech normal Gait: normal gait Motor: muscle tone normal throughout Extrem General: capillary refill normal and no clubbing, cyanosis or edema Psych Appearance: grossly normal Speech and Movement: speech and movement normal Mood: congruent mood Affect: normal affect Attitude: cooperative Thought Process: normal Insight: insight good Judgment: judgment good Office Meds tuberculin PPD Performing Provider: DAWSON SHAW Administered by: Sharri Lyon on 06/27/21 15:11 Dose Route Admin Location Lot Number Expiration Date [facility] Manufactu rer 0.1 mL intradermal left forearm [id number] 12/23/22 48415-231-52 [employer] 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 Orders: Orders INJ - TB intradermal test Today Z. - Encounter for other administrative examinations Coding Level of Care Code Occ Med Physical Exam Detailed Diagnoses Encounter for physical examination related to employment Z. Additional Codes Intake - Is patient in pain?: No ([id number]) <Electronically signed by ENIO HELLER [facility]> 06/27/21 1528 Name Value Range Interpretation Code Description Data Katlyn rce(s) Supporting Document(s) ID Date Data Source [id number] 06/22/2021 01:30:33 PM EDT [facility] Name Value Range Interpretation Code Description Data Katlyn rce(s) Supporting Document(s) Progress Notes [facility] ODCWPi6vHnOODnKi14/NUEghULKms6CcANgvZQb4VLyuESFcW7ChAPS8xQ5bEXD8XMbCMuPrWdYuHCFi lbm WyEljIIbWsGLYvEblCHgBwUSeiYlzshACwRO2XcBP9KKDsL41zXOIsWLTuM7PxOYZzCYZ+Eo2XGMLttK ZaMP4ZDjdT5D0EltxRJH4WvV/Tm5eLYvBrt/BwJEFjalnTcW3fPnDV4TxY3rcyM3OsUtUC7TyamLIaIL 40KxAUuO66dYIQvl7h1fg1lsoi0c6posQDescd/O/+ 0pyc2aQV/bmK7lEWJ/syv29ML/BM8ygGls2dc/r6/vrhzW1IoV5fnyQCXjI2Ia4D3OSnayupx1lTsLwi cnyrTT2+cJ24FS8R6NfdM1AzZEUumD0iLq05xkksp8bkreByj1+jtHgxgA9jN7pihiExc7hbnPuU7oti Fte3SU9oRVwItRwEPjpSgRhxuxTweUgethYgVslt7w 9wfTm5ceIj4pNOjUyxLLPqJpdVbVug+qAzlxVKVP8Y4urLTPdvhpwK2pQQw+RaFSWw5lUqKuqvqEElCh eOIpDGtP7dV/MgUDoQI+GBAuKj3t8LiE8pmptBJBvbrhQkFyCZji9Fnq+H5LmuHepQw20ZX/q4e7ahnz 7ecgzpi72tT+OQUvJYpNrrZM6g8n/Ui/Gwcwsiaw+w R3TAPzH1FonpniOIn5kHjyIqLdq1FgeOZQC7dr3DSCKkAAPeM0y//t3z3ph//EtNfhyOftboiPOGmuze kW5LVTe8pBTeUnizv9mgodywoeyvQ+afSOvvCHK174V8fjXB+2MvOAyvvTOT/lYkZB3bv4uvNUc1EKJK +GwM3IH87OFr5Uw0mfxOplEV4bPLvT6JmyVO37foLl m9YHtzr/Gurwinder/GiJBn72DZczLDGbQnqqlCQmODmHKBlpyGFhZtD446s5zNvCjQASyx/JpM953S2rILxHvU fezx7Ll+6uSP0v0XjnfEgE7XySE+Xnu4ueJcC9J3eT3AqEfTvjwNhoaNJbEH/Oz6PCjItv06C4BfLTbH rgReCJirWEDIr2Yyw6ubJMPpxomCA9kbHaJ9gPmiTS TVoOrHUoAlE0mD0oZPfSOaSltbCWaHSESvTlEovwwFOQMuq97iFi8QJXchW/UWTioNQINpvTHmA/VRAe O7Oe9qdnu8gq1QkBGPBpanJx2FOmyzI+QOLl5XLqcuR1HRlR+/OrpxD122eCpImbuwbmMEwqyhOB3eXU 8k590hCWj5Oe7kwcALjj25TlVc5IpQDWif0dOqVeYS BNqMozVEWYkCiFyr2+PdqZ50qIFS09eNjxcswpME0F6xAm+LXuSXWN4cVPf6BcHoBWSZ0lwCqFEwW2pF 9s1WfVmKFoR9Ilx0RkZI/ydk6CKFlKMnSFGdImvrqYWwJrqddX2DQtxfZk6e8gWHmLCqWkIrrr6+MfHI znMDfVBkIGrrc1uM/NNwaBaGHE7wbampZ3JIGeWXxp ztARR/Chiqui/e6bt5YVnyNvTuPlkpo+tuENcFcQNDvtNqVKf1BWL7YMjy6tCoMwmTVTyGmDCtYuEl22HB2 [file] K2FLLdZfPlYgAwUHK2Mt8uUPUECg4+URabsNNlbOpaWGHJXbV7OLf9DPirQTLWGk7L ID Date Data Source [id number] 06/22/2021 01:29:33 PM EDT [facility] Name Value Range Interpretation Code Description Data Katlyn rce(s) Supporting Document(s) Assessment & Plan Note [facility] CBCIPj5aHlYADeSj85/AJCirZOMfi5VyWVygHJc3HPjtLUHpB6QxZKB5uA5eZDE4DVpZHaFbRvLlIOZp lbm [file] lxN6caDgYYquZHy5Vv9FEOAOW4DIBx== ID Date Data Source [id number] 06/22/2021 01:24:56 PM EDT [facility] Name Value Range Interpretation Code Description Data Katlyn rce(s) Supporting Document(s) Patient Instructions [facility] MXJEZd7zJlUCGoEf70/CMGsbFHAty8KaOAesGJn5ZXceGMNxX8SfBXX7hN8bMRP8CIcKYkDmDvIgBYXj lbm [file] TUBIUf2Z ID Date Data Source [id number] 06/22/2021 08:18:46 AM EDT [facility] Name Value Range Interpretation Code Description Data Katlyn rce(s) Supporting Document(s) Telephone Encounter [facility] BKCDVs0kSdDGFcQn45/KDMlmSCDsj0EfGYhoYZq2AXtrOPDbO4DiLOP2sH6zMZA2LKpAAoPrGuVdJMFi lbm [file] YqBDHdRpUR2GORt= ID Date Data Source [id number] 06/09/2021 11:00:42 AM EDT [facility] Name Value Range Interpretation Code Description Data Katlyn rce(s) Supporting Document(s) Telephone Encounter [facility] VTTGWf6zPoVQXbZf90/AYUxgXWUvb3CiMAqdBTt9WWisZUNtZ7KbEDR9eT1oNZF6BZaJIeAhNlNwSDZ9 lbm [file] ICAgICAgICAgICAgICAgICAgICAgICAgICAgICAgICAgICAgICAgICAgICAgICAgICAgICAgICAgICAg WUPlRKFhVSVuPEGjMUBuDU0WVGAqHLIfASXiNWJnEKZkUTEhELKpDDLlGKQpQXBzFSWmVJKdBSAkBCDb ICAgICAgICAgICAgICAgICAgICAgICAgICAgICAgIC VbDRVxTIFaVZYoJZXfSOSeRAYuFBEhRQOtZD5HSXNyMPRgVGMrLVLnPKDlERHfJNHnZBJmLPHvCXQaMV AgICAgICAgICAgICAgICAgICAgICAgICAgICAgICAgICAgICAgICAgICAgICAgICAgICAgICAgICAgIC NgJCCqHMHwMU8NRHKaVAZcWTLcKAYrZXRvEHSkVRFl ICAgICAgICAgICAgICAgICAgICAgICAgICAgICAgICAgICAgICAgICAgICAgICAgICAgICAgICAgICAg NPGjXYBoZEPvEUPqIXQqEJPrMT4HIMAyKIBcACZzELNsAVNaMJDnIOTdRJQeFWBeOBPkKJZkMKPvOIKc ICAgICAgICAgICAgICAgICAgICAgICAgICAgICAgIC CnHRSjOVQwFPSbMIGmQLPpGODtSZYaEIEmFNZdJB0LQJLbMPXvVJBaZELvAOHeOFOvPZIfGHUlIAZcDR AgICAgICAgICAgICAgICAgICAgICAgICAgICAgICAgICAgICAgICAgICAgICAgICAgICAgICAgICAgIC QoRCHeTRSdPXJoBB2NUEGoZRUxZLAkVITkHGDfNFYe ICAgICAgICAgICAgICAgICAgICAgICAgICAgICAgICAgICAgICAgICAgICAgICAgICAgICAgICAgICAg IRDcMJFyPMQyPFByJSPkGDOxLIZwUH8FTSHiOUJxDBKaDLCmAZMdIMUzNAFiVRGbTPKeWNSzMMKpJUAa ICAgICAgICAgICAgICAgICAgICAgICAgICAgICAgIC SbGIReEUCiWPAxWJAeGUZaGOHrXIBaWPNzLKJpYAHbIJ5SWGZcQKRjOOSnWANtJVPsLIMnHGRbHRZhYI AgICAgICAgICAgICAgICAgICAgICAgICAgICAgICAgICAgICAgICAgICAgICAgICAgICAgICAgICAgIC QmECCcVSQeNRTkMWKqJQ0ZSWArRYKoPNBaJLIaHCZo ICAgICAgICAgICAgICAgICAgICAgICAgICAgICAgICAgICAgICAgICAgICAgICAgICAgICAgICAgICAg HPRnGPJqVUXtYJEmKUAfNOUrCANyOOIqIT1IHW69kHIpx0R9THLxGU3tnfc/Ld3LMQydgsDbwWZxIB6A ByOcBI6ivh1QEcCcTI8fvz6LWRzWXrQfS2I7oYWbVN LyDNEXAuVxW80tJRayEa10QMixLVYlVdBqIBw5Be5RAxIeV2drFLHgJgH7EMFsPnHdEQjvJG7Iz1ZroT AxDQo+Tv1MCV5le3IkVCzjJfWcZB8btl3WITbATpBbX5ZjstB8SBQfSNDpGm6LTZKoZGGtfVVjKdStHY NHGuByD0EmvH41EFDEPs4+DQplbmRvYmoNCjIzIDAg r0SpJXx2QM8BFFYkUFq0tPXfBZQfHHQwc57pFFBsC112mqIsicQlzGFXXA6ssDHTo5HiXS1wWYZsVOWt Ak4pAHSvJJVbNyL3VXSDTU2RHXTkBQUnbPCbLVUqJSDXCJ6MSImfNXZ6IderkxOuyPVzUXnzAI0LDHSe bnQgMjIgMCBSDQo+Bd2DAU7cx6JpRLooNWUfIP8mex 9OJPdJKbJvY1X7bCTaE0S0CHrwMu8ECZKoUDXyMcYfWGSUTNtzDI8FKW3qbtX0SM0BmZDeGAGpZDWuzD HcAGn0G54nqBZcCUebLI5LSWX+Eddie+Vq5MDEXaRIWiCCKdAeGrOLXATwNyP1YbA6MKq5GlX0KfZR64mP oqtnJsLPmyRU6MVO4wOUTzQTKPKY2CmRJeyP0jdpFa BrZoKBWDMlXhI99ygBCrJSCzBXXjLHTzVy0CRBIvV0DtodPvvHbjpfQyWCPrJDWHVW1DUPedqcWtpDSf mBwlWM60oDzxJA0WYw6CPcMeQT4clu1PgGQfUk8WLKOmOI7PKOFfHJXoQFZxZIY2QYRzUmAfQPzuITSo TNNtCWZ7TYZeTTOrAV3DSvYcKWOrBNr1FRVvEVCoWK Eyaw9HIWYsSBViRZMrJFJoLPMbERAbVJzkTAXlECHjXRM2AVPzLTXdUO3YBlZrCIWeHLEmGeakSQTvVN Kvzh2ODKCaZWMgSROwGoHaVSFhJQHcPSnfFSQwKOLwBwaxLGQoZOGgQT3QDsNwKOZmSLU1GRVmDDQlIY Nbke0WMCQsOAYzRzp6XiMvPGLfYYXnLLueLZCkNPMf YlG4GNAkVAGvUE6LRyMhVKYdLZT6WzOsUENcFXUffv5EOOBrJOUmKEWqHFIpRLHuWEPyJPpiAPAsUDM6 VBCmYSXpDCVyLR2HEqXgLZEgOAC2XjewVKDrIHYuwc6JVDRwFYGgZrz2YBOsNPGpUZVaAQgeOIJpZCC0 KgH4RBKqKCLtMV6KNlIbIWVjBStgCmQpAENgTXKeyw 6CBJOdRGMnCXByWsOuQZJwPCHjJRmfKPJwXHP4BPKiWBZqCWShLT8ZXyQrHLKyOKt4FgFdEHKmJDBehc 3PRZJtAGKdBYO9EFBxKHGqMBBeHIvyFYSuNKYcFLR4QPZqOZXlHN3SPwRwLQHcCcG7RZexKJNtAEQemx 8YGLNnZCNjBZa0UlHpMKKjBNIqMSm1zoLpfQFnMWa4 VD0XE7AlqjWpLyQTLf3Fp605AGX7HRUoXa6TI9ndNj8tIPLtLRUMPs1HNQi0DzKpH5C8XkhnGtJeTQpg VCW8HSY4ZrYpUOVcPIFiNpA+QAxhMER6VxPvYVZdABJ4DKPhWlD5IDVfLVSzXPQyJWW4SE8qFFMBRi9+ CTsmeDAnxLwyZWQZIpWtBWzyRUreAGZKLf5P ID Date Data Source [id number] 04/28/2021 05:50:23 PM EDT [facility] Name Value Range Interpretation Code Description Data Katlyn rce(s) Supporting Document(s) Telephone Encounter [facility] ELMASa5eAzWDKkGc50/NGFsvZZMlm8IgLYbaTWu0PXhoESNhB4GpNPC5eY3xSJL3OMyRBcQrEoMyUZL5 lbm EdHqaDVgBkAZHaAdvEVvLiAMqkApvzkVNwOW0NuSE0YMOtN45pPZTjJVKoE4YiGJyrGW3+SIqfHRH2qj BhqB1ILXG5HO5Q4tFNxl+0/+QuPlToisx4RXCT7o+TBVlMLuRtmz0NKoMcvZChGsu/uv2oPyqvB8lT+5 Un9ed6m3/SowBA1xrKPFwXCXEha582PspCU7y2Rdfb l69R3bgaRY4fGQA/WqBvPXp/wSDwfCaMSzoDJTkc+FvL7HFGDxW9zZXIaZCvlfBeuFwO8XsvOsEhXTDa B5GNPyvXYMUvXqqGSKJkwo3kEjpQSPYoS1cQHFFjnZiRGDDszHTMa3Z4micVwMAI32dfco483GAuWVul D12YmuP0UmASul5gBY3anlXiYAYNDqQ8WmvC5HXroH JybnOOsNOQYeKUG+eZBDfs1I3I8cqnaIVhXHgtlURYrr6Iu4FuvVRonipxoz5ruU9FNe4POBx2hSc9SJ jVh8I1Oeix48WO0oWu1SEO851F/HNQrtSTDIz4zIFk5ifHfB5ZXQ/o4NiWWwnDPZETqaKw/ynSNvxB9P iFzNn6C8AnW7gqk0j16LTcr05ousV+65fIvii3gNsv Z0mgvh3utQciLsJduki8tYzppm1oTFKxqlbx2Mw0E4uUhkll8ZlqipEMjWaxlccN7CwtCGhOe8dkyyId [file] MpHOpiSXdgTU9UCMOHN4NIRp== ID Date Data Source [id number] 04/28/2021 05:34:10 PM EDT [facility] Name Value Range Interpretation Code Description Data Katlyn rce(s) Supporting Document(s) Telephone Encounter [facility] GXIKLj9cLhFNErDh43/GQGsaFOZyh7EpOOugTGw3MJdcJKEhI5OkPCC7xS1lGNG3VUeYCyTzQnOvRQW5 lbm [file] P5BirkOVB0KbX+TV1jCRa+Lf2Uj6EsdeD3ncQfNOdfIPz8Sk8ROWYLY2BWXn== ID Date Data Source [id number] 04/28/2021 05:28:49 PM EDT [facility] Name Value Range Interpretation Code Description Data Katlyn rce(s) Supporting Document(s) Telephone Encounter [facility] KXMDSw3aPmETLlTz38/IGDpoHOFbf7BpJVuwFJo0VUrcGARzD8WbJVP0cR9pTMZ4KKoUZuQrQkMdLBV1 lbm [file] h0YosiI6ukRpXXphWKMkGk5IFOYQE6JDSm== ID Date Data Source [id number] 04/28/2021 11:28:53 AM EDT [facility] Name Value Range Interpretation Code Description Data Katlyn rce(s) Supporting Document(s) Addendum Note [facility] LADKDw9dKjZKFgLe56/LVOdeORVab0GoDQdfWRi4NAhtRPBtX8FcGGW8vQ9mTVW4CIsGAnQfVbZyOWD8 lbm [file] CpBdkaMCHdUop6BRB4AvkvHjg0H1CfXIM+IF0gDQ o+Bu4Cx4YnhxO6suXsUWqxDONkHj6FGJUDR9DYOm== ID Date Data Source [id number] 04/28/2021 11:28:28 AM EDT [facility] Name Value Range Interpretation Code Description Data Katlyn rce(s) Supporting Document(s) Telephone Encounter [facility] FCQUYx3bHwXZMxIp08/SJAbyTTQui3XsVVmeHUk3OIklUMZwV8DlOZM4aQ1kRYK4SMyWXvYdZaSiCOD1 lbm [file] NCR8QkLvYPlsVPA6RAT+MN5uWQt+Nm0Mq2NdjvM7dfQyNElzJOT5JF6UHZPTQ9FMWh== ID Date Data Source [id number] 04/28/2021 11:03:07 AM EDT [facility] Name Value Range Interpretation Code Description Data Katlyn rce(s) Supporting Document(s) Telephone Encounter [facility] NJBESm0kNqPYKcBy56/VYIjgNYQeu2WlJKzyMCp6GVvvZUFpO1BbKKN7yI8kJYH6NNzMNjBoDoVjHDL2 lbm [file] ICAgICAgICAgICAgICAgICAgICAgICAgICAgICAgIC VeDXAoVDJjCVAbDDXqTOIyREEpITKpFI6CSPDiFHUnTLCyGEKfZXRvBLHuJAQwLTYeHFCcPRXuBFVaLL AgICAgICAgICAgICAgICAgICAgICAgICAgICAgICAgICAgICAgICAgICAgICAgICAgICAgICAgICAgIC OcLYTbQS5RWYRjCEQuUJPoHJRiSMJlATWlXNMsUOVx ICAgICAgICAgICAgICAgICAgICAgICAgICAgICAgICAgICAgICAgICAgICAgICAgICAgICAgICAgICAg RNQoUKEyBDNpWWZlMLUuFZ6KJVJtJQWiHHPgQOFvMTXmAULuMGMtHITwLUGyISFwGRJbUQQqOKGuIKWn ICAgICAgICAgICAgICAgICAgICAgICAgICAgICAgIC CqCTHkSXLrSSPyVAOgZTSiFXFlTHHxCAFrHJ3XTPFvDFPpNHOdPUSsBBSwTZZaMSYoAEPvKMGhOGYdFW AgICAgICAgICAgICAgICAgICAgICAgICAgICAgICAgICAgICAgICAgICAgICAgICAgICAgICAgICAgIC ElGGJsLNMlLJ9JWPRlGCGsREGyXBVsJDXoXJKgTNMq ICAgICAgICAgICAgICAgICAgICAgICAgICAgICAgICAgICAgICAgICAgICAgICAgICAgICAgICAgICAg RATbXUPvIILnAWRbVPTaNCBvOK6VIQDpXYAlPTYwMORqJSXdWPOyUQGvOFQeLQUdKRNkHTRnVOLyQKCi ICAgICAgICAgICAgICAgICAgICAgICAgICAgICAgIC LiAMNvVNCeSJFkYAZuZOEgGJBaOIPzLRYhVUHtNJ3WGEOrSWRzWOJmIQXeRSGjFWMcARMdEVGfMNEgLJ AgICAgICAgICAgICAgICAgICAgICAgICAgICAgICAgICAgICAgICAgICAgICAgICAgICAgICAgICAgIC MkTZGyZBByWZCvYA5ENOXtKJBaQABoDVZkEYGnJBKq ICAgICAgICAgICAgICAgICAgICAgICAgICAgICAgICAgICAgICAgICAgICAgICAgICAgICAgICAgICAg GGVjUREjPIRkYSNmVIEzAXYyXSAcWH5PGWFeHFMoENEiXJDqVZTzHQJbFBLlTPZoTGMmVPEjTHSmIOUt ICAgICAgICAgICAgICAgICAgICAgICAgICAgICAgIC HzWJWwGPNsBWZgBPAjTHEgOPCwIVSzGNFvZJAbOCXjJW2NQT71eYObe9I9HBGnKV8iecn/Iq1RVDwdci YelCLgEG8TViCbMY8ykq9JQtDoGR0yai6VRZbZPpBhY0V8bCHnXHYsHXOHXqJoW70kTEnfZb70GLcsBW IwYlHlOFu6Au0URiYbB7ecVGMeAdT2LVFbNsWcSBjl CY8Lm7RccIOvBPb+Vy9PPH2wp0PcFFytCkWbKN7byj8NTChHWpLpZ6EaqjU7WPKyUPZoTe0DPKDoNASo sAFbFvAeHIMEJqVhN7LnpK12BPLYTq3+PGbqglFsGloKTvTfSSQmi9AvUNv6OX0YNYRgZGo6yKLiKKKz HBJxg56mBZJsR404xoQpccQtmKBRPDUhDRdtLb8jVN P2cgrxKz9aQCAcLS6lHi9sQDFzQUSdLuR2UZNPHK8GZNPgIRWgcTGbAZEsPAKPZB0GFUojTBZ0Ghgbjh VedMYwTGcjYC5PRCZzikWsPnTyZSANUFh+Xl6HKW3oq7ReFTaiPGUxLC2nwk9ILBrMXsUyZ2T9oQHlP2 Z1CTdsAi7YIHEyFEUyTtGvHQYNVOrqVK5NPU2ixvS7 JT4PeIDiTHQdOWYjjTIeAIr5K14jbPSoQOjyPV1TENS+Eddie+Dk9ULAMiOQYgGFNaCgUbTUJIXyHjI0Vq L7BOe9LcH1GbEX93zUugqiOqBDknEQ2SLQ3mNIUpSYUFKF1FcGMpoZ9tkkIsMwKpFATUMpEeL04uoTBg HBAdBRYmFLQrHe2HFMUaJ9NxdwRtnMuveqOuMJIhFY EGAI7VRGkkpfAgyIXgvLlyPB71kQxeRS5YHj7PYeHgNH4phr7GaWHtNn0LBHDzWF8KXIXbNKQaUFKkFN A5STNbSyUiDUsiBNReXLLpSIR3OFBlFKXnSW4YKiFrBOLeTQw6FBRqMWObECRggb1AQKOaNVZzRZKgWO MiOMXpTLPxGUeqUVKrUCXiNDB5PIInMZCdVU8CVtEb ATKxTBG9GcNcSEOiULSpmu5RXGYzTLNqCwFxLgVsNCZaTXIgSAdeZDOcWTLkNIn3DAQsWEOaPL6MVgAl SXNgBAMvTWGvCENbGXHudu7NGCAdQVCzAuL0DBNwDRPtUCZrJTaxVSVwIUD3ZQAqCCWsFHReZG7QTjBb OTVbDQN7BqpjGISvELLlne8GQJLhAUDgXNcmPGXnAO LqVHZaGBuyIIGqTPK6GSQ5OSLmKMGyQA7XOaVzOHGqZJq8DIWbZGImGCMtvm3NEVOhDXBcPoJ3TuNvIT OgEGTyQScfHHImXWP2JWXyJGMxCDPeTU4IMrOoVFTyBVdkEusgSWVsBRNlki3DROYvETAaKYEsTGOcFA FdYKQmQSjzIQSwJIG3TaX1HKKyWIRlEA8EJlAsCGXq TGjgWraxSQNtAOIxbz1CFUYuAERyQPp6UTDiHXBiUVHgYUaxXXYtGDFmMuEzCOGfCAVgEY3VWuSwOALe HkUnRQKtOUTtEXKzpo1VYXJuXVXsNVO0BPMzEMOrXGMiKBp6jcQcyTKkNUg1YE1NA9QkroUkJpUIBw4G o652SQW5YEJqNw9UV4ouEt7bWJXbMRDPKf6XXYy4Qk S3LFK9VICrQQGvQCh8FWJ7UdE8PTR1NULwXUD5BJR+GKinDgpiZtSmRjEaLxPtIND7JKc2WZO2Bhx0TH U3YJPtKA8oDJMZLt1+UIzylCKoeCrmJBQPBaEwLeCnCPkmLCSXIy0T ID Date Data Source [id number] 04/27/2021 05:32:24 PM EDT [facility] Name Value Range Interpretation Code Description Data Katlyn rce(s) Supporting Document(s) Telephone Encounter [facility] ZBDXPw6eTmEWPrXr88/SPKusQBHvm0WsIYkvDMv6USraQXUjD8GpRRL7fD1wEFF1SBhPMxZwAiVcSBT5 lbm KlEgcKXhDcNJQvObhWVaPbWMfeTaipfCVtQL1YpUR7BCZeA33mREVaEOAkP5GpMTVvHMN+Lk9FKTBnhC CkXJ2WFmeAtWrKe6ONVD2f7R/tXcC5nyp22xfZkDR7SKUgzcbtJIvjhQnTrAxsFgh2y6rkEGbB4IP4pt O7yOp9uwwd5h9x8XgT/bkGk9IVOgIbx9jYDyORC0k5 IawhwbuBnd7QRHVEMosU0rq76gK/46UniqKS9TVujez94XsQOVx4BMIXwhKF2FuE+iJjfFi1MeL5PGoX Oz7RIG2IaBh1EmQjlqzSoXZDEXAn5/KOoU1IYfD3dq2ZrhFvp3tgQeHM4sZfz7K4g+rRxAPFg5yHSi84 6xDfSnAWLGxWmkHoXERamqFxLekK+9leF3QdaDLI0Y pLODynIFKdyURz0X5bCm/N1BtQdg1D8SpILenRblrCb0OmqwOe83xenRL96KNNi8eFOPRKXnh54MWStB 9mHIxGTAjlgV1khyM0W2UTHykRdERJxkbzXyeksFtJIH6+0ifsDXSRSsq7HRB4fbRzqZO5ixAELOEUUN M/AqlBNAdX06hJ/OhdkV2trB3mRBP3gOrXUVNhEbfs TxLYt4Zaza2W8GXhQtDPB4vD9CpJ0z+UJYMg2txvid1+mZo98ozdDgPLKwTe93C+QDM5XxfHXbqcvBMl oJhyMIdMk1F2ItRiWUG96VNouHcEs98MwOnct/CeQseX4L5FiKfJXjPQ/Vylu0BehDCLqtTPNspwCfeX EozxsUyqChJElXfXTElr4tvJKRWq1n6Pu6HRk8lV1J Nnde3jVa+vQNf6ia4lrhMyuLmup/8G9rTlWoIN/lSFQq/5kqIADN2lf6dnstPQXM3KMAQ88p7ZAixviu 9ZLC6NmwDQAm7d2vZVkv8B6qQIlXcxjZz9omUpIVcqLZLcD8jLNtUGk4Wd9zmwX/YXIkndG8mT4tAUOv IyvLfxUzJPWFOasNcfcNXVBBH6PYWQQsYjYCHSBzei [file] 8O7sdi1Q+v2BpjGf1PKn35VZIWCqXx39ge42X9+silo 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 [file] AgICAgICAgICAgICAgICAgICAgICAgICAgICAgICAgICAgICAgICAgICAgICAgICAgICAgICAgICAgIC AgICAgICAgICAgDQogICAgICAgICAgICAgICAgICAg ICAgICAgICAgICAgICAgICAgICAgICAgICAgICAgICAgICAgICAgICAgICAgICAgICAgICAgICAgICAg ICAgICAgICAgICAgICAgICAgICAgDQogICAgICAgICAgICAgICAgICAgICAgICAgICAgICAgICAgICAg ICAgICAgICAgICAgICAgICAgICAgICAgICAgICAgIC AgICAgICAgICAgICAgICAgICAgICAgICAgICAgICAgDQogICAgICAgICAgICAgICAgICAgICAgICAgIC AgICAgICAgICAgICAgICAgICAgICAgICAgICAgICAgICAgICAgICAgICAgICAgICAgICAgICAgICAgIC AgICAgICAgICAgICAgDQogICAgICAgICAgICAgICAg ICAgICAgICAgICAgICAgICAgICAgICAgICAgICAgICAgICAgICAgICAgICAgICAgICAgICAgICAgICAg ICAgICAgICAgICAgICAgICAgICAgICAgDQogICAgICAgICAgICAgICAgICAgICAgICAgICAgICAgICAg ICAgICAgICAgICAgICAgICAgICAgICAgICAgICAgIC AgICAgICAgICAgICAgICAgICAgICAgICAgICAgICAgICAgDQogICAgICAgICAgICAgICAgICAgICAgIC AgICAgICAgICAgICAgICAgICAgICAgICAgICAgICAgICAgICAgICAgICAgICAgICAgICAgICAgICAgIC AgICAgICAgICAgICAgICAgDQogICAgICAgICAgICAg ICAgICAgICAgICAgICAgICAgICAgICAgICAgICAgICAgICAgICAgICAgICAgICAgICAgICAgICAgICAg ICAgICAgICAgICAgICAgICAgICAgICAgICAgDQogICAgICAgICAgICAgICAgICAgICAgICAgICAgICAg ICAgICAgICAgICAgICAgICAgICAgICAgICAgICAgIC AgICAgICAgICAgICAgICAgICAgICAgICAgICAgICAgICAgICAgDQogICAgICAgICAgICAgICAgICAgIC AgICAgICAgICAgICAgICAgICAgICAgICAgICAgICAgICAgICAgICAgICAgICAgICAgICAgICAgICAgIC ClQSMfUWPrZAXcXIZjPHKhYUSzXNf1I3zxUVFwOHLd CW5uCHm9Vm6+ENlMOiYcOBF7rmKzqS6JSG1rl6TaNTceVWFqs0OfTMi0EB2NUMAhRVyzFT1JFGqdyp4Q FFHrKEMktMVHv2avGmMtXKM6RVHvEybpJV1OJHCuT5fegnCqHJNeBLIDBG2PSyNpC2WqaC73HKRGRy2+ INsejnXaFznLFrGkMHXer6WvNXm6QE8TJXPiKjoxz4 SuAgKzYJKEGDlxMA6XMSS0MGHpQTUdJa1CUWXsC090ozCiKV8KKv5AYiZuPQ8agl3CExMeEXYyYbpCGz o4WRylLZ8HqNBrFRqVSCdxuAfqzrAwJL9cf3PxrMUoWWU4YEInTOYimMFSo6xskvxlSrUbYASlIW4uPN 4cILGxCKT7XfUaLUACMD6AYKKeOUDnrGNxWHEpOIEZ LH8CZHibRIQ0AwlzkcQtlMBfXLswYY5XGBKynmRtQxHdXZSHAMu+Is3BJG8jd7LzCNwmFSReOB1yni5P GUjIFuQsZ6X2uAHdA4W7VWzyCe4ASCAlBTJqHqEeTKQHJMlkSQ8RYI8pzqO2VS4EvWCvYDJmOJDncBPx IOx4V32jvUVcTKxvRV6LXCO+Eddie+Ce9MGBMzSVApSW MeTvLfUPQMJqCtM1CkF8NMh6XwS9ZwCM77mVfbqxVzCYcwMV7EMM6uWRDmWAWSLU0QkTUfyO9sdvViHu AvEAZBPzKcU23ocJOoEZVlLDQdBTPcGi1ZACZgM2CeheXyzBhnwzLmNZMmSZVZXE8HYPluzlYytRAxcF fwLI83oHssBW8EXe5UInDpJC1jtf4ZoWBmTr0CCQFa LK8HFXZuWYGgOQIpOMG7FXGaJrYgXVitLRBiFLTxASD6YNDsRICiTY5DGmFqVZWpGAu6NURrKQAtQNXp hx9UQNWuPHSjUVCoXsEtWDGkDBUlFIjvJRTwWMUnEOA7AAZqZWVgLV7WQaTcXSUpHUF2HfGrJPWaPSCn sg7NRBEqDCPlPKRdSBDnLAMuMJYpROptCGUnRRHiUQ t3HWQkKRYrVP5DIoVfZPApMMU0IJunSFDrPUFkbm3SAESoCYVkWlt0WtLpIRXpDSFuXZkwIJXtREVeTS HhDWQoVZNfSI6DEoVfZFSnRQIhGilnEUPeHPUfhz0AGMJtOPAtEYImOYCoTRYfAEHlYIcjJCWmJRL5Kr V4IXQaZQPeDJ2RGnOfCLJfSZD4BPKtFILzIMBbvh6S YVHkBEZrTlE8OPEuHKBdIQTtDAkwMMLhAHM8AIR1ISBdJXKuYO8LZoHlWHZcIZe2WRXwSGHxAUAyir1J CVCmNPQpCBSdYtPqNNYgHUOfTLluDZLxRPF7EhR1QEOpDKKcTX4VTsLjAKTqPRl2PXDwUKVjPOGqum7P PPZnNESuTXG8MwXxBRWjGAYvCQdwSQCiZKHhTbI1MJ XlCFMdKW4XAfTdYDBoFxG4QUKoRKAcTTGbvx8YCPXlOEPyNOc5GvPeYGExTBKnMVj1pbZpmZIwWHu7TD 4OY3QysoRxJtAUPg0Eo654GAG7QDQrHp8CL9ktZa2dLUByUGKINj6QCUw1IRzbJbJdLSFqLWLdFXFpLR MxBLPkEmtsRym6XwrsQcG+ANnkREVsKlA4ZTZgFEUr M0ZfIZH6EpIeFLZgJBJbZ8I5AS4sQRYUXi5+SKfznVEmiHidINFCQeMpGeQkRAnnJYJSSs4G ID Date Data Source [id number] 04/27/2021 05:16:01 PM EDT [facility] Name Value Range Interpretation Code Description Data Katlyn rce(s) Supporting Document(s) Telephone Encounter [facility] OANYYi5xRzWBEfNl19/PBPuxUQIxn1MaIGlqETb6QMaaIABiZ1LqLPI3iQ2kUMT4BDsOCsNrQsFiTFY9 lbm YyOheIZzLbLBIcMsuMWqCwUJztVvketLBmMC9QjXH8HBKoL36aGGGlVXNdG2WoWIa5XP9+YUscYYG1gr HhuO5SWDGVDF6C41ZMc6+0/2NiUpG2r7wvA5H7rL0mEosL0mj6SOtzXtvyAwkDhDt//I9B5kHaaFkiWQ 0emp/s88/51E9pbUHxS2S5VYuM/f530CDB2K00iPA4 [file] DXE0OOViLUU6YSR5QJb2QTa+VX1nOTw+Nh9Ih0XbnpA6hpTqVKleQNe7Vr1MOQWEM3LMLf== ID Date Data Source [id number] 04/27/2021 03:51:06 PM EDT [facility] Name Value Range Interpretation Code Description Data Katlyn rce(s) Supporting Document(s) Telephone Encounter [facility] TWFFFb2oNvDQMbPc10/UDXtgJZFzk1BdYQaySZd2AUhxYXRuU0LzVGF2gE5aLEE3RApKMbAnOdGrWZT5 lbm PdAtbVVfMhPZMlQguRDhCjTNkkIencfFAlKE6AiUL4TZHjT39qAMFgGUBaY7VwLIGcTMD+Wj3AUUUpaO NrGY7CDlcG4CdUB5bYNC1N1j+ZH9cy5Q313bJbWgPTaKYqFcSYB2FJKScAqsLMa9Z/Xz/jzLAasLOhPQ CHeLTz+LM1LpmEpAl8xwWAHqxx/ikFHiZgebPKB3Xr G9CJgM8lXWyQHEcKXXP/BvK+zMGAyFXhG1RXJjoqthrGPgaiFIrLn0lfKJ829pwHCubAQi4GkQ4c86JU 2q8WoxK/tKeQ9xYVq5ReAFz/Mq3LqotQmRwEAdZATBGVDpvNU88YX7r4CwPoJL9HF2Dg8AuXIwFQXAHM BxwWve0WHzUHMRyISEWN1AKblodPAsk4e8ZEOKwXG6 KNw4f6ou7gCZyRYa052vQwBPmZ7QBVODF0LZhBNKdUwrYQbvRahIJYyYx3XQIVfS/yYbVBeoSKrN3X/a UpZmwunGEi28xj42Tu+PB5APxXKf49dNYukobYQSQTDZt6tP2gbg3RIocALStMAb+XyWg+PiNglW0Ivz rn2udKcGtP0Vz+L7kIyAVxn647Vw86n7Xq8zXSZIL2 5ashBP28TitWfOmU7dzDeOt2NyL72K7/bTQOSW2M2r7dW4FX0yQkCcV189tvOy5VbG9AnrnOs7HkGrsk 9e3Hg2uvIXKyaUDZmihDNeHhV4+urdwWQRFu4TLj6/THoX6LMsokgewemsUfKbnBVrPybe9MFRkyVy9Q 93l6majkj2EQ1JDLN7qc9eszuRPyp/oGoFTruGLUVE qzrbmillHcacy1nowmczjvrqtOgwKCJ4U7US5T1ZlWnObzizfSpfaadNAMLrsRBJFir8Y2X5dICH1agR [file] ICAgICAgICAgICAgICAgICAgICAgICAgICAgICAgIC AgICAgICAgICAgICAgICAgICAgICAgICAgICAgICAgICAgICAgICAgDQogICAgICAgICAgICAgICAgIC AgICAgICAgICAgICAgICAgICAgICAgICAgICAgICAgICAgICAgICAgICAgICAgICAgICAgICAgICAgIC AgICAgICAgICAgICAgICAgICAgICAgDQogICAgICAg ICAgICAgICAgICAgICAgICAgICAgICAgICAgICAgICAgICAgICAgICAgICAgICAgICAgICAgICAgICAg ICAgICAgICAgICAgICAgICAgICAgICAgICAgICAgICAgDQogICAgICAgICAgICAgICAgICAgICAgICAg ICAgICAgICAgICAgICAgICAgICAgICAgICAgICAgIC AgICAgICAgICAgICAgICAgICAgICAgICAgICAgICAgICAgICAgICAgICAgDQogICAgICAgICAgICAgIC AgICAgICAgICAgICAgICAgICAgICAgICAgICAgICAgICAgICAgICAgICAgICAgICAgICAgICAgICAgIC AgICAgICAgICAgICAgICAgICAgICAgICAgDQogICAg ICAgICAgICAgICAgICAgICAgICAgICAgICAgICAgICAgICAgICAgICAgICAgICAgICAgICAgICAgICAg ICAgICAgICAgICAgICAgICAgICAgICAgICAgICAgICAgICAgDQogICAgICAgICAgICAgICAgICAgICAg ICAgICAgICAgICAgICAgICAgICAgICAgICAgICAgIC AgICAgICAgICAgICAgICAgICAgICAgICAgICAgICAgICAgICAgICAgICAgICAgDQogICAgICAgICAgIC AgICAgICAgICAgICAgICAgICAgICAgICAgICAgICAgICAgICAgICAgICAgICAgICAgICAgICAgICAgIC AgICAgICAgICAgICAgICAgICAgICAgICAgICAgDQog ICAgICAgICAgICAgICAgICAgICAgICAgICAgICAgICAgICAgICAgICAgICAgICAgICAgICAgICAgICAg ICAgICAgICAgICAgICAgICAgICAgICAgICAgICAgICAgICAgICAgDQogICAgICAgICAgICAgICAgICAg ICAgICAgICAgICAgICAgICAgICAgICAgICAgICAgIC BdRUChIFWyZDCaSMGiVXKcYCTyESPkMKGfZOKaDTTmONEfZJEhVEOvMOLpNNCrFLVhUBs1M9wyBKDgZE PrNA9rKKk0Ak7+FTgKFkMgHCC2iiJpsJ1FSO7kf6GzKEzdDDLdx1SyELp6GS7QDZPoTOsbUX8WGRubbz 0XFBAsMMWgyTSUu3pnXsFpQTF8KURbCssoWA2ZTQBp N0sddaNrWRPzAXBPCF6KJoAtK8ShwM39BVFPNb5+AUummaRmVktNVcCvGBFpx7NmPOy1SW8UWKVdDfkl t6OwGzKwQTHGUOqvQN2OXOO7HWZeBICmVl9VGDUzL429wwUwEE3HFl6UBkKsWP0umf2SIyMxQHCzAnmO Fxv8OZamUG8ZrEDfFYzIHPlpqCgyplAiJP0vg2OrcW GhZRC0JT6uY52cFHTIKRF6VYW5JCCspNN3JnZ9WlZcYoHpLGV1FKtbRK3lKJmgEW9DWES9FKgeIYVaQL EeF0sYDfApJQdkQOKuvVykXV8DMyPgA7NgoqFklIYqKlOgCGFOVm5+KBccwcKiVmbHGtA8TWYmw5GgRS y5XL9BOHFbIYerIC5TAUEzsT4zDJyqOS6DHvNrYGZk ITPWVtBbE72yrXNkXCn1L1GzJnCdRTXfKjrrORIgWEclFtLpEQFpIxAiAIdzHG9+ID4+USivCV6CQWga xoSfMUSxYb9PESPcYWXkEI0zNCQjAUVcZ0S9wRoxUVKBNiNxO3tlbamoED4sNTIcZ925yQfodhGqZRTs LXCmDh3HXWEhTVH5CWQitKTcIoFlFFPVCIyaAT5LoP ItSOX5mD2oMGtaKHZlRBLfX5mWAeAmzEsbMU52gVxzygLdlMAsHMq+Mm3CPQ5vk7HpEWv9hyMkADamAC Z9IKzaTRYbXJXgNIKuLVA3FPM5PQNCDyBpOSKtRTCsVJzgPHIwQLDaqb5RLIUlHETaUDtkVpJsACRxKU TlYNvjVLUtXJNtLFI0JGOgTHAsAV5XAzNsBKQzLWFm HLhuUJLhGYNdoh8RYYVkONSvPGB4VNXxZNObQVYhKXgnAHAxWHOrTSL0ZOOaFLCcAM7HWkTtXLVkXKO5 NMViCZXvFTOwxf3SJKIeUGXsOvvuQdYtBCKvODQzAOahOCXhCQMwCIbvEZOaRAKsUJ1RAgYfVGPjBAG8 XFVvBQXyMBQlpx2PJSXsZABjEXQ7GGLzNXJfTMPzYX zaEMNiHMC9EsUoWNUkXZHgZV6JGrRaLTZiIWS7ImyxRVWrWUJzaz0DEYUeDXAkBut5EBCaUVMjBCRjEO kaEINtSTQ6FHN2RIEiJBRgGB2GPqFtYZChZCwcWAAfAFPpLSBgdu9XXADnESZpTqU5LORkAPLlAXScXZ yuDAPkYNO1MTJoHPYaSAIgLK7BEjEhSKBuATi4DJan LZXkPYRcnj8FKWGqOMJnZMx9MBXqDEUwCOVgBAbfRUCtARH6DlA7AFKcZQJyUZ2ZHlWxJMHaRjH2KCXc ZMNjTHWpix4WZEKtUJVwGNhrYLRhWKVbUUDcENvfJGFeETMgUXN2BCKcDDJfQJ9SDgXgGWugARGJDrk0 PYfyS8p1CZAbSO7VR1Uux4RdYvYeUYTAUZxgXK4ycm GlVCNqBg2EM3wXOgg8NdCgYDMjLBLeDVSaY3EsGDLjKWRqWcB8VWToDDDmRT4uICrdOdImDBI2DqXjMC R5L5E6HfA2UcItXGtwZNQjEVZpEhEtLH5OFg5LNcU8DWQ0gGFmDc9ZNwWdXOWKZzNxVE0ZKVb= ID Date Data Source [id number] 04/26/2021 02:30:39 PM EDT [facility] Name Value Range Interpretation Code Description Data Katlyn rce(s) Supporting Document(s) Telephone Encounter [facility] MKDABd0vVnRTTfYc94/CEGqwHSMuu2RxHXyfXXs3JClnKELoW0JoJQG2wX9jGFI7NEkFXdOoXdOkERM6 lbm GqTclKZoJjKCByHubRHhVySFzoAcaxjKWcWO8UgLQ4VYGuM24kKNLoKGPvI5VqNKe2EV5+QIqtXQO3no YydN2IGORuXNru90SXwkowx7fbasIm9CG09MZUZawqSOhGnD1RVzC2rDWov9HvC2oqii++UQpy5xlz0w ASNyWsX4oViS517b0CyR36tSLdLAXr/t+27iyY5S67 4FR3yKAvdWhNJeQQyFAdxpst77G+c7Qnu4za7QY9FpTL9irOGHfuTFPWEfYy1IzDogXjwEq7GyTiV/Db vOwIJNYweBOKDYoyiVQNUe2pWxR3+Hn8jsZ/neWt8nOXyBBxlWZgWLRsCW2k7VtvH6wMeirWLYhAuZPE o3h1mXYrc4XfiuF08YmqQ+QcHUKG0lm2mFLc3YBLCW hAdsezlMsKLlA24hQNHWq0ZoMNnDbvrHOwlkFtgeCYKMyUmPTVhjLbgDTxSGvxdjroV93B88WToxBt/N CQh+BbweubI5VIVZoyva3qeCdOv8p5VEzC2h2EcxvnVp49VoQ+lisHURiVqkdqxCmMUg99KR+gwOg3wt SL1/Dg9bD9wFzOsSEzd8Aqd33m8D/AtscukVmGqgkL 61wjcd1Ky1WkdKx//HTNjty9V06JTn6+NpsY49DOq2zqgRIsT6l2GOwnchrer2N17X4m3FETHgJFmt8T Qv8CJnfqQoxBdw9Y5DcOXfNZEo/RD+eXi/O1SY9hQNQiDHm8kgb7JdaRkts3dZuqajbdHYtj+cF3EmEj Ny1K71kN/DdSETZky99trfy83FM09hA1Un36qp471f [file] AgICAgICAgICAgICAgICAgICAgICAgICAgICAgICAg ICAgICAgICAgICAgICAgICAgICAgICAgICAgICAgICAgICAgICAgICAgICAgICAgICAgICAgICAgICAg OIMkBK3DRANsQZKwUKQrSHWzPDVnAXJxTHSsHGWsZVXmCEFfODQlRBIbQQZzNTYgTLFjQEVyBOThNBYk ICAgICAgICAgICAgICAgICAgICAgICAgICAgICAgIC PeZTNfZDDnMWGmXHPqOZ9JNXUzRSKsCUFzYBZyYQAeXZRuMUXtVOWlISGmVZTfPYXtBUXvNSYuKMJpSH CgBTEpKWZpEUXyYGHhSZHkPKEdQEQzLESoNWApWACsXYXoUZKxGQQqENKcLMIlKMJoOYZoYXHpIM3IWU AgICAgICAgICAgICAgICAgICAgICAgICAgICAgICAg ICAgICAgICAgICAgICAgICAgICAgICAgICAgICAgICAgICAgICAgICAgICAgICAgICAgICAgICAgICAg CNXrVDIpBW6SQEXvMJYqKAMtRDCiOLElKMGtSMPhMZIgEIGdIAIcJHReSUByGSDhBINdPEBgLEMeKFYa ICAgICAgICAgICAgICAgICAgICAgICAgICAgICAgIC MsXRFdTQXuVQVqBZNvSWHfRS5LOHSuOGEzJGBvKXSqRQBmLCYzZLDjPEGpWPUoARRaUZAeBCQfIXPtMS AgICAgICAgICAgICAgICAgICAgICAgICAgICAgICAgICAgICAgICAgICAgICAgICAgICAgICAgICAgIA 0KICAgICAgICAgICAgICAgICAgICAgICAgICAgICAg ICAgICAgICAgICAgICAgICAgICAgICAgICAgICAgICAgICAgICAgICAgICAgICAgICAgICAgICAgICAg AUOhZKSiCUBiQE9GVJXwMJFlCAQyKNPwPFDiEMVxZQIyKNEkTTZfVEVfNBUiTGPmHGZiQXDzQYPqPHHn ICAgICAgICAgICAgICAgICAgICAgICAgICAgICAgIC ThDDNsVXCaBFNfKZSxUCKwVRMyAZ4HJCEwCSAhNBGsMUQsVHYlNJGiORLvEILtEGJrVYDpQPGcELGcVF AgICAgICAgICAgICAgICAgICAgICAgICAgICAgICAgICAgICAgICAgICAgICAgICAgICAgICAgICAgIC VrPA7URJReFVHdMTKwSRObGESfYDIbAEIyQEUvFQRl ICAgICAgICAgICAgICAgICAgICAgICAgICAgICAgICAgICAgICAgICAgICAgICAgICAgICAgICAgICAg KJJdWTVxFYMcVEXnMY4CFA05wELue4E1HZLsJI9kpww/Oc8GGIokcaKajFXuWS0KWhIgKF1qse8VJvSo LH8mkh7IFGeNEgCzB5N1gOAjKQKjRKKJLrIqB50yVZ yhYc07IJrbPTLfPpAcUOh7Dc8WBnDtN5vwDLXlUxX6CYNpFsLvGQpvNM1Dn9YtcRGlWCw+Uu5UHJ7pw7 GoQMpvNlMmGA5ygr0KHNnXKnNpU8DdzcS8XMBvGHSwAc0OLWPtEERreKUlMzFpYUKBMcMlQ5PimY28UT ENCj4+OLzlovXuOczSHhZkAKLas1QvFJn4HX5ENIDw GTv0sIHwJLObPMBzy80qKREfI205zyTaxjWuhLIUZQ4noVUHw0SlHT9mXOWwGF9bYB8fMFJyKNPwBfJ5 AQIRSG2SGZEvZEEfwGIpUNCrYZPOGL4KJFsbKQK0XtbbmlRbmFWeALrbKZ6AZICtdeCxBrGcFJULKVq+ Cm2FYL4fy9UbEOqmYUSgMT4wtn9PDBvIZqCbA2L1jJ EzT3H2CMbaCb2CUHAiNYOgSuZiPNWILNpmIH7IED6jrqU6ME2ThIWqFHLcRHRtbGWjIRk2M62vkJBcOG mgXT8IHAS+Eddie+Nn4XQIPvPJJyEMZoQjImNFFFRbLwQ2HkN9YAj7JkI2NxMN28bAnfwfQzPUpnKG2JPP 2fYYYqPOQNPM9NjESclF5ilwMyIiWpIHGKZiDyB45t xDOrKYLpDZPlSUXwRw7QMHBoY7NqaqTncNfiamDuFXIzBQCYNQ0PPNtdvfSsuQWmrSkbOQ21qCmnMM6A Nc0VYnBwKS4jmo2LeNMnPl8PXADmFA9QLQNeHQHjWXJmEPH5LIEdWhKzEAxzQLNrPCOlBNB4WEPgXFZv TQ8XKtHtKLArLXo9DQZaEAAeMSDajz1CANPhWYAfWE PpCASvLREgMUCiTMnwCPSsLWPmNOD6DIJnODFrVG0XCpZiAZRdMGWdBSSmWWLmSYPspw5FMJEkAEDgCJ KuJUTuHWZdKLGsHPpsZAJrFKMfWqk1UAClFOWcGI7KMkDfQYKoJYG2RwyoHJVtJFLplx2ETVMjAZEuMu p7QJBwBFKcUGPfOOrnUPWxEGOpEhRmMINyYWFxKN4I ZtFgPORvQNX6ZaNtAFSlCCGleg6PWMErWXEaDFVtJiRqNPJdPEDoNEmdAXJyHMA0BYGgKLOhGOUsYH1N QlPcJNScMBW9AefyRQZjRNIrbk6ROCLxOSIgXpq3WiYuRIKnFEOnEYblCRKlTDY4IsD9CFCcEBFaGX3O TcByUZGbXBaxMdRxAEMoAIEvao7LSLAyZFLqZIGcYS FwDFYsACZfWLxhWOAdTVP1OYt6GRYcHLQmWF8KCuGqRPMqCWh7LaZcLUPeJSNklb8DDNGlRYOwIFB2TB VcIWInNEAqCFmiOKIgAMHqGBM2QMHaJQWvDF8RGiAxZVUzWbS6JQjuHHEvLZQgir2TDZLcRBHdCRffPO IkRTGqLZSpSRj5rzCktHWuHRn7UU5KH3RwvfYqMfAJ Ff4Nl401WXJ7WETpMk2ZH6ntYt5nUOIvNYLWYt5SQXe2Gxf2GbiqFjJgWvEbAUNiZzNnGlg3VdSdDQc0 YyT5PLr+XQnnHTesPBXyOdYyNRMwSqHgTfP0NbTvFfVlYThoVJZzSa2uXVSXOk8+DQpzdGFydHhyZWYN GiSfEUf2PMzfKASTPx0R ID Date Data Source [id number] 04/26/2021 10:47:02 AM EDT [facility] Name Value Range Interpretation Code Description Data Katlyn rce(s) Supporting Document(s) Telephone Encounter [facility] HFWZIv6xLwCWLcPv16/QDAhhVVZsu2OdXGrhRYz9VUwbFXIzO6TkYHD4eE4iKZQ4VIjYLoAxFrSvLHM3 lbm [file] ICAgICAgICAgICAgICAgICAgICAgICAgICAgICAgICAgICAgICAgICAgICAgICAgICAgICAgICAgICAg ICAgICAgICAgICAgICANCiAgICAgICAgICAgICAgIC AgICAgICAgICAgICAgICAgICAgICAgICAgICAgICAgICAgICAgICAgICAgICAgICAgICAgICAgICAgIC AgICAgICAgICAgICAgICAgICAgICAgICANCiAgICAgICAgICAgICAgICAgICAgICAgICAgICAgICAgIC AgICAgICAgICAgICAgICAgICAgICAgICAgICAgICAg ICAgICAgICAgICAgICAgICAgICAgICAgICAgICAgICAgICANCiAgICAgICAgICAgICAgICAgICAgICAg ICAgICAgICAgICAgICAgICAgICAgICAgICAgICAgICAgICAgICAgICAgICAgICAgICAgICAgICAgICAg ICAgICAgICAgICAgICAgICANCiAgICAgICAgICAgIC AgICAgICAgICAgICAgICAgICAgICAgICAgICAgICAgICAgICAgICAgICAgICAgICAgICAgICAgICAgIC AgICAgICAgICAgICAgICAgICAgICAgICAgICANCiAgICAgICAgICAgICAgICAgICAgICAgICAgICAgIC AgICAgICAgICAgICAgICAgICAgICAgICAgICAgICAg ICAgICAgICAgICAgICAgICAgICAgICAgICAgICAgICAgICAgICANCiAgICAgICAgICAgICAgICAgICAg ICAgICAgICAgICAgICAgICAgICAgICAgICAgICAgICAgICAgICAgICAgICAgICAgICAgICAgICAgICAg ICAgICAgICAgICAgICAgICAgICANCiAgICAgICAgIC AgICAgICAgICAgICAgICAgICAgICAgICAgICAgICAgICAgICAgICAgICAgICAgICAgICAgICAgICAgIC AgICAgICAgICAgICAgICAgICAgICAgICAgICAgICANCiAgICAgICAgICAgICAgICAgICAgICAgICAgIC AgICAgICAgICAgICAgICAgICAgICAgICAgICAgICAg ICAgICAgICAgICAgICAgICAgICAgICAgICAgICAgICAgICAgICAgICANCiAgICAgICAgICAgICAgICAg ICAgICAgICAgICAgICAgICAgICAgICAgICAgICAgICAgICAgICAgICAgICAgICAgICAgICAgICAgICAg ICAgICAgICAgICAgICAgICAgICAgICANCjw/eHBhY2 vbuVFqogH9W7qlIs4BQb2JMD8av5DuFTCcRVntohUkDubIAuRnECYhUkhTNcj3SQbzFZ8JnQHfN0ZfU7 UlEEypNZ3HBPYePNQdoAYzCRGsBREoRgP7TAJwBVnxXH3JzMNsDAzdQKQnKCPuYP3ZVGEaV720obSnZG 7LVa1WYqIvLY3nkn6DIfCySNCaQmkACbs3FSpoZG6P aGQssGAiZxQmHZFFQeLxX1npw6YhSrRfAMIXBWlqBI7Do8IhuPVwKJj+Fk6LBK1nv3AlPWytDpKxZZ4f lp3NUVqNOwHwD3LlwEteNRRkjGSilZ3xOODVsbIagD13AFOdXulzDaKbh9qmTWN8xO0xs2dhOCAbHI1d TR3nMHEwRMQxBoD9BAIUQM5UAKJzDFLneYZkGSZfZE YVSV2YKGvlXRU2BjzovuVhlHCfKEvbVZ0GFCDcqmLzZiPiYNTJKJz+Af1EOX9jc7XgENzmUENwMI3spl 4VLUoVOkZmD3T5zFZqG6G3XWweYm6EFAVmZPCgUjYyWKJIHWoiXB0RHL2koiX5MN1MsGImYHKtSGLleZ PgWIh5F94vrEPkKOfsTZ9NQPK+Eddie+Zn4TGNBiPOFu BZEsJfTzTXGXOpDsQ0OaW3GYt8IbU5FyTP54zBqqhbDgRRvgUF9YBY4aDGZnAXNLME7CpFPwmF5sqcVe HiTgQEQAPrWlG50qgZTkCWPaDOGtBYEtBp5ZZFHgL5YgscEscCsmbiPzOWEpDIBSGV5NGGbwwbSzbSOh wFjqOA99mTfrXR3HVu3FGwByXM5umu0McROmBv2LRT JcBQ8NNDUyMUVtJLFsASO1FRUqZeWbWZaeEHVvNGJtUYC6JQNcBJNxGV5FPwEhXPYeVJg9TZOsATNvYF Bsoe6DHCRcHRCvIPZ7XULtUYOgPECpKLxkCTTcADRoAJY4QZNtZEVaHG7GIhNyLGLnHTM8HXOhQSSbGO Qpcj5LJUTwLWFsPSX0BvBmUIOtXYMrPKmxUYWmKCKe UIP0WCHyULHdIS3AXiRwZMEuSDErAQMdDZXiXYYdje6ZXGCrBMIhPpArWOTdNFHyHNIoEExsPKEaMGYl FYvvEPMuSAQjUW6XUdYhOECyJJL9IXkaJULaQAKljb7PHXHvSYGqBss1ITVkZDElINCtEMcyMJCpEVQ5 UnF8QILuSKLjAM3NEyXkHCXnKWW9IvReAGUkJCJnlw 0TVVMnINSlWpl6YqAyZCHdVEDlOMgaGDZuWFR9SDvsDROhTESvOB0YPmLcTBQsOFuyGkhbHFAtCMLndj 4ACRZkAMPwAPW9WHNzUUMxEVAjRElyWXHsJKP6ZmE0DYLkQEItFG0WSrZyQFRxODp8WyctONKyTJSwwo 5VMHNkYLVcSWf2WFYlLYTpQVZxMDptEKIhXIWnGcvp FLSaAJIrSZ6ONzIgEZUgIpHbRCJdNEKzTHEimz7DQZSsNCNrFNBbPJLsXNEyRWVhPSe1okXcyCCqAXn2 MF0GV4OuqiRwSrEGNx3Xr848HPD7OYQyIa3YV7pxOq2hKPHiONVNZr7VMDf9GNXtHCV4TRIqBkOzIKJ6 TfOnK0SaA9T9TWY4EIaoRtD+EQgmQnG5NUL1A1G1QC C0KkTgZDDvAkKrAus9QyvdKWL7DK6fTTNVPf2+GSrvfNCraAhaVBAKEdTdEmB5BXsaLODVZj5M ID Date Data Source [id number] 04/24/2021 07:01:58 AM EDT [facility] Name Value Range Interpretation Code Description Data Katlyn rce(s) Supporting Document(s) ED Provider Notes [facility] KXKGHb5eFfQJPjPt45/AKQboRZKyf3QyDLezRWl9IEqxWMRsA2TlYYD0pB8hFGI0VNnQRpUoQsKbSCLk lbm [file] 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+ip+cO8cj4krfS/TP/SoGN0vLpyIdcnwGDannzBy1idlI3bxxGwBcz0qDO2FcADUnCkb2cujJAr [file] s6ig6boFUH5/YRM9dpVdHbG2wTNkOVynnohXRe/FIELD TAX AUDITOR [file] AgICAgICAgICAgICAgICAgICAgICAgICAgICAgICAg ICAgICAgICAgICANCiAgICAgICAgICAgICAgICAgICAgICAgICAgICAgICAgICAgICAgICAgICAgICAg ICAgICAgICAgICAgICAgICAgICAgICAgICAgICAgICAgICAgICAgICAgICAgICAgICAgICANCiAgICAg ICAgICAgICAgICAgICAgICAgICAgICAgICAgICAgIC AgICAgICAgICAgICAgICAgICAgICAgICAgICAgICAgICAgICAgICAgICAgICAgICAgICAgICAgICAgIC AgICANCiAgICAgICAgICAgICAgICAgICAgICAgICAgICAgICAgICAgICAgICAgICAgICAgICAgICAgIC AgICAgICAgICAgICAgICAgICAgICAgICAgICAgICAg ICAgICAgICAgICAgICANCiAgICAgICAgICAgICAgICAgICAgICAgICAgICAgICAgICAgICAgICAgICAg ICAgICAgICAgICAgICAgICAgICAgICAgICAgICAgICAgICAgICAgICAgICAgICAgICAgICAgICANCiAg ICAgICAgICAgICAgICAgICAgICAgICAgICAgICAgIC AgICAgICAgICAgICAgICAgICAgICAgICAgICAgICAgICAgICAgICAgICAgICAgICAgICAgICAgICAgIC AgICAgICANCiAgICAgICAgICAgICAgICAgICAgICAgICAgICAgICAgICAgICAgICAgICAgICAgICAgIC AgICAgICAgICAgICAgICAgICAgICAgICAgICAgICAg ICAgICAgICAgICAgICAgICANCiAgICAgICAgICAgICAgICAgICAgICAgICAgICAgICAgICAgICAgICAg ICAgICAgICAgICAgICAgICAgICAgICAgICAgICAgICAgICAgICAgICAgICAgICAgICAgICAgICAgICAN CiAgICAgICAgICAgICAgICAgICAgICAgICAgICAgIC AgICAgICAgICAgICAgICAgICAgICAgICAgICAgICAgICAgICAgICAgICAgICAgICAgICAgICAgICAgIC AgICAgICAgICANCiAgICAgICAgICAgICAgICAgICAgICAgICAgICAgICAgICAgICAgICAgICAgICAgIC AgICAgICAgICAgICAgICAgICAgICAgICAgICAgICAg ICAgICAgICAgICAgICAgICAgICANCjw/uQTeE9kmcNTbvnW4M3kuIg1AFb3WAC5ss4EwPHFlMLfekpJi BvtGAfFiEDNdZouNRyr7SHmrOK1JzNJvC1GxP6SjPLxdTW3KGMRnUVNldVYnDSIjJWQnPuF5SDCfOUfg QY8ImVZcAKvjTRInGJUaFzEqFUXoOEOdMNBzJPZhFF LKTPXuGGTuOhZzHIKwNSPoCH4AKJHuQ379cwDyYt3EVj8JXnTaFA3aka2FEKCfGYOiXlfPMiz7YVtdVV 9BzWQzxWI9NgByJTABFuRjF9pcx3RqQAToDZINVXmyWR7Gr6MphJQlMMf+Qo4DKO1bl0YfIJl6ViAeXZ 4izt1RKLkXMaRoQ8ZajUgwEYSFAMRwu2IjIVEzOY6q rSNwUIT2GNHfSJ9yh17tXgjkgzGpprNtSZWKTWH1NEjqJoQwJuRkRINbTrezCgDIVFfFYmTmL0Ykk9Vp EkJ4EAFnRaMhYIodZZUvIhF2DA65pJgyKV0KUDJjHEQsPC50OBZbTWYfIr4INy8BZaIxOO2osh8GQUSj PFNzIzfOLzc3ZBxqHF1UiVNcV1SuzJXxv2cZSqFnX8 NZBVT4UNKuBb2FAHNwBtKnIJLgZSvcQJ9bMBVaQLDAqKxvfhH2DT9MWB0ggdIfTK8QQbQjYe2sKs8NUw EmR5IkZ7RcLPRsRHPXIDuwVI3IYMjaAW0mNI4Ng7ZTwWYiuZ7rda3WYWFiIVWeCjtmfq5WIdwmZ7P7jG ngXOWuJCPsVDJXJXpcSS1XOZSrQGQ8SXA0ISOwSJVG GdIpU48mUF0GE8Dzu62lJiY2PKPhReBkBPnpAQ90qCupluRglFSzjTqwYV3EYl0+DQplbmRvYmoNCnhy FTWHUtZaWPKWNdJaVQEnEFKcQERuZmE6DiWdXe7BMSQuLSWnPUVsGeYsSMSdVSReXVibDFEjYEL7Tejf HCBoROOcDV6OHrIsUMOxKwx9COCyEGUoBXRlog2XAH NcYFQzVTF2SwPuFSQdWCEhOCetYMIcIGPsQAXlADIxEUSoNK0WZvFlHPMoJCUzQvUvXNOzTUFkyz1UAR FfYTWwYOI3AVTqDYVqYTNoHHmjRACdECH9AKk2HFSzKDWmLI2HTzFhSIHvBNd1EDUnYUXrFYRsyw6LVA AdFPEsICp2MfJeEMTmWUJtAFnaEIGpTWRmHdywUOOf HUOvKC2WCtYcCZIbZVY1CvJwBHXyZVQdcd1PYPSgGCIlZXO1EdLmTVZeQDStITwhGEPgPFG9GNLmIRJq TYNiRK0ORrWgOEFkKFIyIQPqJMOrUSPmlb1BUXBxIBVnTzYiUVKkKTGpUJGgEQeqKBUoYYN2Apt8LYVc WPKtOJ4ERyVgSSWaGMf0FUDwQYRiZFMxym9ENNMhYF VkJxJ6YAAfTEGsBAHjJEmySSPsVIN1NqB3ZPBwIGZoQF8EIfFcDQCqSJq7OhImOPQrUVZeiz1AXCQxGV GeBXVkEVFnVPZrAJTxDDckFIFaDJI6XEK9UTLpVCRdWY1TZhSzACGoVaUoNxHpTDTbBDZmgt9CURFoQD KjDCI9SCChOQPnFRHnAMbjBBFnWVTjDuI2ICYeOOCz SE5CRoOuMKFyMhC6BBIeOPOkTXWqub1BOOEhUECdQMzjLEBdMAAvPVTkZNluRRVeTXHxDaLiKXPjZTIu LW2DOwGbMACpHpQ4QiPrKPErZGNbmd6ZLFCqAYHlDmB3PVQpNKJlCWCmBJviXJYjJKI9ZNJ8WXTjVXAu LC3ZBlAxXAEbTdR1ANQgMBRuWXVtqp4FPSSfPDPaAU e7URZmJVUbXKFoZLpoJFMnESK7HXxoAJZgOMCmDQ9GIsSeUWPkYrJoDzqcPXYmATBgzn1XEGRuHMKkPk J9KhOvNXHwLJVhYBotOAIpSBA8WZhuJXQdDWSmVS8DEcYbLAOdBag6EHafOASuJMUzpj4CGOGqHMElZO EkYVSxGLPcFDJdLOotUGZdAVL0CSd4MPUlDEJsAS4K YfGhXFXuOyy6IXHkGVPhKMNjwu0RXLQrJSFpWQijKCLuLLTjINOcQFp9zzPheXSmNEt8AE1MY3MolmMb CINXMm9Ug583LHLvOQZbFy3WJ6rfGc1wENTlYMEXHh4MKRd6SzOcPGR2U3J6CXZ3VkQ2WQY7NEltYXZ1 Qwt6SYKuYMK+ATl8PXI1IGzzLgauHly7UWTjJxi6EK R3DoQ7GwTnDDOkDm9fLOINBm8+PAdhmSOcyLhdRHAGVqYjYAH4WZyvYEABNb2H ID Date Data Source [id number] 04/22/2021 04:39:00 PM EDT [facility] Name Value Range Interpretation Code Description Data Katlyn rce(s) Supporting Document(s) AST 14 IU/L 15-37 Below low normal [facility] Sulfasalazine and sulfapyridine have the potential to falsely depressAspartate Aminotransferase results. Baseline values before medication administration are recommended. ALT 28 IU/L 13-56 Normal (applies to non-numeric resul ts) [facility] Sulfasalazine and sulfapyridine have the potential to falsely depressAlanine Aminotransferase results. Baseline values before medication administration are recommended. Alkaline Phosphatase 91 mIU/ml 50-136 Normal (applies to non-num donaldo results) [facility] Total Bilirubin 0.50 mg/dl 0.20-1.00 Normal (applies to non-numeric results) [facility] Blood Urea Nitrogen 13 mg/dl 7-18 Normal (applies to non-nume marilu results) [facility] Creatinine 0.65 mg/dl 0.51-0.95 Normal (applies to non-numeric resul ts) [facility] N-Acetylcysteine (NAC) and Metamizole lambert ve the potential to falselydepress Creatinine results. Baseline values before medication adminstration are recommended. Patients undergoing treatment with phenindione will have falselydepressed results. Patients on phenindione therapy should be tested with an alternativeCREA method.Toxic levels of acetaminophen may lead to falsely depressed results forpatient samples. Glomerular Filtration Rate >90.00 mL/min/1.73m2 [facility] GFR Reference Ranges:Normal Function or Mild Renal Disease,if clinically at risk:>or= 60Moderately decreased:30 - 59Severely decreased:15 - 29Renal Failure:<15 Please note that the MDRD equation requires an additional adjustment forAfrican-Americans (multiply the GFR result by 1.210).Glomarular Filtration Rate (GFR) is estimated based on the MDRDequation, which assumes a steady state for creatinine (Linda Int Med 139/2 137-149, 2003), as recommended by the NationalKidney Disease Education Program in conjunction with the National Institutes of Health and the National KidneyFoundation. The [place] method used in calculating this result is traceable to IDMS standards. Glucose 100 mg/dl 70-110 Normal (applies to non-numeric resul ts) [facility] Sulfasalazine has the potential to false ly depress Glucose results. Sulfapyridine has the potential to falsely elevate Glucose results. Baseline values before medication administration are recommended. Calcium 8.9 mg/dl 8.5-10.1 Normal (applies to non-numeric resul ts) [facility] Total Protein 7.8 g/dl 6.4-8.2 Normal (applies to non-numeric re sults) [facility] Albumin 3.6 g/dl 3.4-5.0 Normal (applies to non-numeric resul ts) [facility] Sodium 140 mEq/L 136-145 Normal (applies to non-numeric resul ts) [facility] Potassium 3.7 mEq/L 3.5-5.1 Normal (applies to non-numeric resul ts) [facility] Chloride 109.0 mEq/L 98.0-107.0 Above high normal [facility] Carbon Dioxide 25.7 mMol/L 21.0-32.0 Normal (applies to non-numeric results) [facility] Anion Gap 9.0 7.0-15.0 Normal (applies to non-numeric resul ts) [facility] The above 16 analytes were performed by [facility] [id number] [address], ,[place] [address] ID Date Data Source [id number] 04/22/2021 04:39:00 PM EDT [facility] Name Value Range Interpretation Code Description Data Katlyn rce(s) Supporting Document(s) Magnesium 2.0 mg/dl 1.6-2.6 Normal (applies to non-numeric resul ts) [facility] The above 1 analytes were performed by [facility] [id number] [address], ,[place] [address] ID Date Data Source [id number] 04/22/2021 04:39:00 PM EDT [facility] Name Value Range Interpretation Code Description Data Katlyn rce(s) Supporting Document(s) C-Reactive Protein (Non-Cardiac) 8.90 mg/L 0.00-3.00 Above high nor mal [facility] The above 1 analytes were performed by [facility] [id number] [address], ,[place] [address] ID Date Data Source [id number] 04/22/2021 04:25:00 PM EDT [facility] Name Value Range Interpretation Code Description Data Katlyn rce(s) Supporting Document(s) WBC 9.70 x1000/ul 4.80-10.00 Normal (applies to non-numeric re sults) [facility] RBC 4.86 x1Mil/ul 4.20-5.40 Normal (applies to non-numeric re sults) [facility] Hemoglobin 13.5 g/dl 12.0-16.0 Normal (applies to non-numeric resul ts) [facility] Hematocrit 41.3 % 37.0-47.0 Normal (applies to non-numeric resul ts) [facility] MCV 85.0 fL 81.0-99.0 Normal (applies to non-numeric resul ts) [facility] MCH 27.8 pg 27.0-31.0 Normal (applies to non-numeric resul ts) [facility] MCHC 32.7 g/dl 32.2-37.0 Normal (applies to non-numeric resul ts) [facility] RDW 13.3 % 11.5-14.5 Normal (applies to non-numeric resul ts) [facility] Platelet Count 419 x1000/ul 130-400 Above high normal [facility] MPV 8.9 fL 9.4-12.4 Below low normal [facility] Neutrophils 67.1 % 40.0-74.0 Normal (applies to non-numeric resu lts) [facility] Lymphocytes 26.6 % 19.0-48.0 Normal (applies to non-numeric resu lts) [facility] Monocytes 4.4 % 3.4-9.0 Normal (applies to non-numeric resul ts) [facility] Eosinophils 1.2 % 0.0-7.0 Normal (applies to non-numeric resu lts) [facility] Basophils 0.3 % 0.0-2.0 Normal (applies to non-numeric resul ts) [facility] Immature Granulocytes 0.4 % 0.0-0.5 Normal (applies to non-nu meric results) [facility] Nucleated RBCs 0.00 % 0.00-0.20 Normal (applies to non-numeric r esults) [facility] Abs. Neutrophils 6.50 x1000/ul 1.92-8.31 Normal (applies to non-numeric results) [facility] Abs. Lymphocyte 2.58 x1000/ul 1.20-3.70 Normal (applies to non-n umeric results) [facility] Abs. Monocytes 0.43 x1000/ul 0.14-0.97 Normal (applies to non-nu meric results) [facility] Abs. Eosinophils 0.12 x1000/ul 0.00-0.76 Normal (applie s to non-numeric results) [facility] Abs. Basophils 0.03 x1000/ul 0.00-0.22 Normal (applies to non-n umeric results) [facility] Abs. Immature Gran. 0.04 x1000/ul 0.00-0.02 Above high normal [facility] Abs. Nucleated RBCs 0.00 x1000/ul 0.00-0.02 Normal (appl ies to non-numeric results) [facility] The above 24 analytes were performed by [facility] [address],[facility]#: [id number],[place] [id number] ID Date Data Source [id number] 04/22/2021 01:29:23 PM EDT [facility] Name Value Range Interpretation Code Description Data Katlyn rce(s) Supporting Document(s) Telephone Encounter [facility] CHCMQc9jOrTABpCx31/UNYkcIOLyj1UfRMupVNm6JHmbCVQrN6LmYPG0bS4sXHY2TTiFNjKiKuErEGRt lbm [file] ID Date Data Source [id number] 04/22/2021 01:19:54 PM EDT [facility] Name Value Range Interpretation Code Description Data Katlyn rce(s) Supporting Document(s) Telephone Encounter [facility] BEYLPf9sLzAYHuHf06/XZZcuUWHzf1DhEJpfHVh7TVshVSUhJ7CqVIX8qW1aWLJ4DClDTrKlMtAhGIGz lbm [file] Category Director+wBA5sjOx0VIgpLv0Abq9zWqe6d5qJ/YqM8dtq7jzT6K8tPk4WMj8cJB5A21oES/WHdxt6EvwVP+NE a9gRiOAvu8EHCMRa2ps3GHUhelw/1dyOgYumNKW85g eJCRjdgyafFW05TsNtoutjSbnIFw9w4Wt85zBD3arLPb+/1hwP0Ccd5QmM5BOfX6gSh5fBVFLfll6b2c Dok4zLF1eZUusdu13MVsS6DeoDh6Ag7dlB30qHK4gd6sp9RwmoJzbI3bhHWpTrSAYCJ/Wxd5cTSJoK2R L0mNp624oBK3lNOD5FyltWLsV1aMubfhOnCv7iSXCZ 0nE2hAogSzWiLhvMO04U7dLLdGa/1jK2rVoM7sDsh6egDAcYBpf+QWjGPWw6/UMYlcd1csEzL+5Mx96G G50jNHRaUpS68t4dFwysamQiA5JeGRO9QoGgPooLHOmjLucgsXQcifEoeddJMU1rg85D0xe74jV1W8Ie WLQ1Kyt6dPQ+i40APo9dJrIsK7XiilyYgeawRLvK9l tTFSdxkNutFnlW4wMyQ1umjX0F19B06FX4bt1u6xRD6su1rx3SBUMwI6S5KO8uIdTNMTsv7d87WuM2HF 3uEl2glcL4bSqg+7rWp066RvToLV/SHwxFM0+MxjHilAz4yzwCq2uQBNXi1E7kVTcsKY68zsYjUoEQu8 5afxbwNONmKpvA8SQC23Kh/pipo/zDoQGEyNZ0lknzL [file] ICAgICAgICAgICAgICAgICAgICAgICAgICAgICAgICAgICAgICAgICAgICAgICAgICAgICAgICAgICAg ICAgICAgICAgICAgICAgICAgICAgICAgICAgICAgIC AgICAgDQogICAgICAgICAgICAgICAgICAgICAgICAgICAgICAgICAgICAgICAgICAgICAgICAgICAgIC AgICAgICAgICAgICAgICAgICAgICAgICAgICAgICAgICAgICAgICAgICAgICAgDQogICAgICAgICAgIC AgICAgICAgICAgICAgICAgICAgICAgICAgICAgICAg ICAgICAgICAgICAgICAgICAgICAgICAgICAgICAgICAgICAgICAgICAgICAgICAgICAgICAgICAgDQog ICAgICAgICAgICAgICAgICAgICAgICAgICAgICAgICAgICAgICAgICAgICAgICAgICAgICAgICAgICAg ICAgICAgICAgICAgICAgICAgICAgICAgICAgICAgIC AgICAgICAgDQogICAgICAgICAgICAgICAgICAgICAgICAgICAgICAgICAgICAgICAgICAgICAgICAgIC AgICAgICAgICAgICAgICAgICAgICAgICAgICAgICAgICAgICAgICAgICAgICAgICAgDQogICAgICAgIC AgICAgICAgICAgICAgICAgICAgICAgICAgICAgICAg ICAgICAgICAgICAgICAgICAgICAgICAgICAgICAgICAgICAgICAgICAgICAgICAgICAgICAgICAgICAg DQogICAgICAgICAgICAgICAgICAgICAgICAgICAgICAgICAgICAgICAgICAgICAgICAgICAgICAgICAg ICAgICAgICAgICAgICAgICAgICAgICAgICAgICAgIC AgICAgICAgICAgDQogICAgICAgICAgICAgICAgICAgICAgICAgICAgICAgICAgICAgICAgICAgICAgIC AgICAgICAgICAgICAgICAgICAgICAgICAgICAgICAgICAgICAgICAgICAgICAgICAgICAgDQogICAgIC AgICAgICAgICAgICAgICAgICAgICAgICAgICAgICAg ICAgICAgICAgICAgICAgICAgICAgICAgICAgICAgICAgICAgICAgICAgICAgICAgICAgICAgICAgICAg ICAgDQogICAgICAgICAgICAgICAgICAgICAgICAgICAgICAgICAgICAgICAgICAgICAgICAgICAgICAg ICAgICAgICAgICAgICAgICAgICAgICAgICAgICAgIC LfQOVhREOlZQGaDYKxAOz2K0awCNSgXJGfEO3qUOp6Ul1+ZWpXYgXjXQC5doAxdS2GFT7xm0TwULdzWX Kkx4EfNXh4BH8DDCAgMEnwTL1YYRwdur6IFZEpTCHrxPPBj9ynThQbJEG3FAYyWoaiJI1APNAzA3wenh GwEYQfKSPCHD4AFnJbB6DxmP61JESFKj5+DQplbmRv IcnJDrFxXJTii0FbRJc9OD1EMYQoVzzir1JxHcYkHWLACHcqBV4CTFU1NGYxFNVzVj3LZKKpL933kmNd AL0JCf1ZHpSdUE1lnc4REdYeCKGiKaeKKca8TOwvZG8UkYGhTOaNGJzcyGfugwZiUQ8un8KfxCOrPHD5 KYzmup7zCOBJVE3eIOW5VRXOPiPdVNCwAG1lXE1uUC IjCUBcWgW0AWRDUY4BGDKdMKJfdWCfFLKzHGETMZ5CALliCJD4DnmyorZcwIAiISxgUI2MVEThcnLfUm IgMCBSDQo+Kf9FYP0yu6LlXYebXHUgIY5cbb6GQWwECkYcR1J7qVIkF8M0PKphNd5AGUXqHZTwMxFqXB UDWCpwEY3DDQ7qmeV4HK5DrHWgEDOzIFNvnFOhRYr2 T65ohYKaFFucPB3EOWS+Eddie+Fl9WXEFyRSEyBWEgJcYaZLNJFyKtU6ZjR0RYb3FnH6LwJA81dUiasqEx TJzeBL4LPH4wDNVwRRQURH6OpSJeeT1bimMwWwPvDTLKDmUtD53hvBWdTLGhSZNhZVHuEd4MNZWfT0Qe sdWeuTcgnnLrOKQdTVGILR1YJRsibfNwqLSgeVpoTK 31kXbuBK8RFa2GEaUbNO0unq4JkOSkMi9DOESxDF1JOSSaSNJvAKKzEBP9LSKuCbLlFOjbRZZbJWUtAC C5IRKuSSMbNF2QNpIhIWPvSId2FkDtLYMgEPWmnt7NZCMlFDFyHATaHmGhDAOvXBKlPDftUPCkVQMhBO P2BRJwIHXuSC0SOlXwGTLaAGDqXDPcBPKtYUIgou6Y ZMOrHWSjTJNwIPAuAZZmEAJeMDygHZCoQQMsDJI1TBBlYQVkQJ7LXiYgMXQtMPZoCxkcUMDnRJYbyr8D YOTlPFDkNdE3ImYmIWHqFAPwJMuqPWTmWPQdCGEfMYVgTMGaCV0VCvTpFSPyXYJ0WZwhCCNmHLAhcq1F PZGyLZXwYwd4HJBgCIUqFDSoOVhhBAEbGGO4MmYhKD PaFZBiMM7UYlBqWELeUMO9VQIoQROgHWBsui0PZOXfAXChPts7BGXlBXPcHCKxUFvyNLZbCHM2AMC7KW MuINKzCK7MUlTjMUVlKFwuWSOuFCZwNGXtgq8TMKVdPCPuSFC8FuVuEBAqEHRrPWjpYIXqDQM9Ulg4HM UgKWXnCI3MHtTnQKRoOZn5ODAkLDMrBDMzja9PJCDz VIVzRMv8XnVuJNDhJRFqWEejUCKjOHElQuV6JEIqHHZoGR5CVxGlNQPaGjDoHyDmDUBpFKGkfx0USBDf SAPbAHQsXVTmZGCfRSEkSDn6vwAqvBGoIWl4DG8VU2QcmzWyAsIOBo1Rx272ACK5OQSbDv7ON5fiRm5q DZKxKRUJCu5YXNp2ZTVdGgW5EVN5WHWgFOBwDmycJt McU2YgEPxwJnn3KnZ+GDleBvF6SRC3KAb2FtEdO6FsPQEoOmQ0NWBfQYYpIED0WR6rBLGDHp4+DQpzdG WugGrcDDJPIyRgJnm9QZifVVHODe8B ID Date Data Source [id number] 04/22/2021 12:42:22 PM EDT [facility] Name Value Range Interpretation Code Description Data Katlyn rce(s) Supporting Document(s) ED Triage Notes [facility] AFRGTz6zSqCVFiXt80/ONEkxGMThu4NtKFigPSx8DBlzGLSvC8GhDZR7rB2sZMS6DPzHUoNbYaYjSEAm lbm [file] t3I1I9CFC2XGSaUV5kQNDFYt9+NYpneMXiuZaoRHMJEcq0MQSLYjXlHB1EVOa= ID Date Data Source [id number] 04/22/2021 12:32:20 PM EDT [facility] Name Value Range Interpretation Code Description Data Katlyn rce(s) Supporting Document(s) Telephone Encounter [facility] FJDOIt4vYtQNDyCw94/TPWrmFAAqa5GeXIzcJGj4LYbcRWVlK4NhVPE1zJ5hXYV6TBwPBkYzDvNaLUGb lbm [file] gqn01E798byO079Rl4Mb6QvQBjCf8At6mdyo202sNX GWUbNXNDlIHWP0IwSkosXZLV3WWfEwjSQYD9OdSP3zaNuKkfx9MVUusaeExsPRicdQdc5E4vH/V99K3+ ASs4MXpcBlmAy+VWitRGCVS0PExjGj61IGmP5lY+KD14UkbMvwlcsYrcBQ7cWbBl5YDZJWXqw6Az9wOx DotW5aCWZ/HmhOgpAuRLE2oNMcAvbPVKuhNz9uC6QA ssldbBbpV3Yy6/Tzq5LOLO0TPB6zu7GfZxy6VZ8gKUVh/SCXpVuC26gUGgDj76zC5SP9xR9vR0kw59NZ 1LU8TVPZgw1s0B8Oruj2my/tdyEjaBLHiByjXQ74n9uHaUOiHuOYOLMTI/RT29yQagG6PkC31aUZbrO5 l1nqzVcceitPYa6WjVaMgEcpnC58rjZH2jzEsp+celluloid trimmer [file] 4QKjA1GcsSVcXqPP3ZANk= ID Date Data Source [id number] 04/22/2021 11:49:06 AM EDT [facility] Name Value Range Interpretation Code Description Data Katlyn rce(s) Supporting Document(s) Telephone Encounter [facility] DXDVHa2pXmLWCdFt43/CFSczPBUtk8KfHRbcHDi3XNkgOUPoI9GePZL6iK3eBTU5PYeCIoFeDrVwZYJy lbm [file] 0gDQo+Xj2Df7QuotY2tzHsWUueJKq0YK9UPQHVU9AXNs== ID Date Data Source [id number] 04/22/2021 11:11:48 AM EDT [facility] Name Value Range Interpretation Code Description Data Katlyn rce(s) Supporting Document(s) Telephone Encounter [facility] RPZBJa1kNoDZWkUj29/STAcsSRGoh4ScUShvIHk6AZbbFBJeK9GuNKA5vE7nERR1AAwOZaEbQbFzLBVd lbm [file] OzMLHaOoGzSM1RXr7JXrM4QRI8lVZpVc3YTcA4WERXRfCsIW6FVRj= ID Date Data Source [id number] 04/22/2021 10:51:50 AM EDT [facility] Name Value Range Interpretation Code Description Data Katlyn rce(s) Supporting Document(s) Telephone Encounter [facility] OYNNOi6rNtLCIxFt14/GOCayFQSxm2SuHElgMUf0ZBsuGHLyI7FrYAD6cJ4wRTU5ZLtMLjNuWoRyWEUt lbm [file] T4EFCwVqGdPZ7DHt3SPcS9NDS1gUKiZv1LAoHtQaBCVoMuEH1PYYx= ID Date Data Source [id number] 04/21/2021 05:20:43 PM EDT [facility] Name Value Range Interpretation Code Description Data Katlyn rce(s) Supporting Document(s) Telephone Encounter [facility] RXMWLf5xUeKXHjUy81/NRNewJWRgi7HwJOovBIs7JQkhANVxD8AePMR3gD9bJYO8RTxWTcDuBaBeIYR7 lbm [file] x2OSH0WuMiHjHgMCZnIQwaAIImNZD+DL9bGYv+Jq0Fn4YwwlQ3zdYaDXlfCZUfAw1IJMMVG5PMWc== ID Date Data Source [id number] 04/21/2021 03:26:13 PM EDT [facility] Name Value Range Interpretation Code Description Data Katlyn rce(s) Supporting Document(s) Addendum Note [facility] YXLUZc6iXuUECrPx57/EYKyzYYEod7FhOHxhKLo3XFyrOUBrS5HnVLT2cU1mEEP0VOqXGjCfRkYgHQC1 lbm [file] AgICAgICAgICAgICAgICAgICAgICAgICAgICAgICAg ICAgICAgICAgICAgICAgICAgICANCiAgICAgICAgICAgICAgICAgICAgICAgICAgICAgICAgICAgICAg ICAgICAgICAgICAgICAgICAgICAgICAgICAgICAgICAgICAgICAgICAgICAgICAgICAgICAgICAgICAg ICANCiAgICAgICAgICAgICAgICAgICAgICAgICAgIC AgICAgICAgICAgICAgICAgICAgICAgICAgICAgICAgICAgICAgICAgICAgICAgICAgICAgICAgICAgIC AgICAgICAgICAgICANCiAgICAgICAgICAgICAgICAgICAgICAgICAgICAgICAgICAgICAgICAgICAgIC AgICAgICAgICAgICAgICAgICAgICAgICAgICAgICAg ICAgICAgICAgICAgICAgICAgICAgICANCiAgICAgICAgICAgICAgICAgICAgICAgICAgICAgICAgICAg ICAgICAgICAgICAgICAgICAgICAgICAgICAgICAgICAgICAgICAgICAgICAgICAgICAgICAgICAgICAg ICAgICANCiAgICAgICAgICAgICAgICAgICAgICAgIC AgICAgICAgICAgICAgICAgICAgICAgICAgICAgICAgICAgICAgICAgICAgICAgICAgICAgICAgICAgIC AgICAgICAgICAgICAgICANCiAgICAgICAgICAgICAgICAgICAgICAgICAgICAgICAgICAgICAgICAgIC AgICAgICAgICAgICAgICAgICAgICAgICAgICAgICAg ICAgICAgICAgICAgICAgICAgICAgICAgICANCiAgICAgICAgICAgICAgICAgICAgICAgICAgICAgICAg ICAgICAgICAgICAgICAgICAgICAgICAgICAgICAgICAgICAgICAgICAgICAgICAgICAgICAgICAgICAg ICAgICAgICANCiAgICAgICAgICAgICAgICAgICAgIC AgICAgICAgICAgICAgICAgICAgICAgICAgICAgICAgICAgICAgICAgICAgICAgICAgICAgICAgICAgIC AgICAgICAgICAgICAgICAgICANCiAgICAgICAgICAgICAgICAgICAgICAgICAgICAgICAgICAgICAgIC AgICAgICAgICAgICAgICAgICAgICAgICAgICAgICAg ICAgICAgICAgICAgICAgICAgICAgICAgICAgICANCjw/vPGvE3inaKRwiyO6E4trSe4LVs1WXF2wg0Ln DMCvQIuwkhSbKwmXVnPkYFEyCrbYZsw7EUciPQ3CcYUpB6HcM8UcNNpbYR8PAPJfCNQefZUsGFHcAHKi KoS1ETOoECbeVM8VuRAzLIreVIKxXWAzED7KKLGfJ2 21knMuSR5IJu4DAgFzPA5hfq8KFCrgQEIyOvrKIhg9RQccER3PsILtaLRuIVQqVXIQVzMmJ6bvo8WlPr IjWFHYIZfhOY3Kw6MtpIJjDKh+Ks5YZC4nt3LkKKycCPGuQD0ggb5ZUMpVAhPwW5FotQniRRWaJUJgFL PoQI6uxQFsIwakDXMkZ3T6OVFwd39wYXILYPMfjWN2 HhN5MgLzTtCpVPY4FxAqFH6tAPkzVJ5LXEH9MZknBLSaWUMtH6vWWbZzCWcoHSNqeAhyKQ2TFgYaL6Io cmVudCAxOSAwIFINCj4+DIgyiqJmNtxEWxMiIDVxg6AnUFb8YG6WUGPcHPayBV5UCJSzbD7uMSvtMT8Y KzYwIiWfMMKICbVqA56zgCYlWEg2O2XgMnHoFFAsRc lsZXMgPDwvTmFtZXMgWyBdDQogID4+ID4+VGpfEU3CYDkmfcYoCZWoFs4JIJFhZULhOB6fQNLlFGCnS5 S4fAofQSPPVuFxR8mgbpugBQ3uXJRpI004uKcewySaDNO7NVWdMs8ZBVXqFRK2IIWrnNBbMUfsTUPXPI zbIT8AbFIkAEN4iZ4dDIciVYGuVMEdS1aBGhEywNta RP33vXuhamNbxIQkHUs+Vi3PHJ4vn1WfQWo0iyXmHGnrILSoAOkvDRWhXRYkLXKgGUI9FBG1GMVQSmWi AHJtZWIzRWgvSSIrLPNmwn3IHGMrJCHkKmY9RBFjJROyEQBhDDxzXMWyYWW6PDL5MYSuAAToVC3ZDyXa LJRkOZUkNExzJQZzMQBqcw0QLJOlIYGkHNq9XnHzST QgZOYdYRoxFEKkBTRjQUe2IZRzVKNdGF6MJhEsCPKkWYIqDaIpFVTjUDMlgj6LSNKlHGAvJcVzCsGnJX UbNVDgNSdnMKJwPZZhEXLkDAXqZMSkRU1JCeLlFZXnQRU0GAOgIUIfJTFzhp7CSFQwBFEqLxK6RcVtKP ZpPMVzXVkfQPRcQEJaXEO8YYVpYBBvJU9VSsXbPBOn OTOaPZfpUTMuSPZrwq8EKQRuPIKrLwQuZFTiXZXgLLMlBTfqBHHyRBA9HqOdMHZwCKGnBH4ECoRaXZUh XEW5WaJvWWPkLJMhvx6PGXOzXGUdUwVfEBBeCXTlENJiIPvaIMCmAGB8IJG5MMVlZEHmBG5EVzCeJBUh VNn6RNhpVPJlJFCedz0OZWHrWJZcMDEuOFViJTMnCW DfRWjsCELuQLH9MHt9ASMxNEGyWN3FYgSzGLmmDZQEGgx1GYvyU8y5KTTcTn2SG9Whu8NdImRaIWLXYQ dgYS6ajsOeHRCaEv7KM8fJGnjwT5VxJCS6THPfHJSiOIDuFXN2PTcbXnD2InoiBiRwIf9zXRO6NuP4IT Z8P3N9NtKbLVL2FnE7WPK4XWC1ZAPkPHPhWcAzDS 3EOd2KHoV8LBD1hCIqEb2JHIf9EOvJKqUnZP8UPXs= ID Date Data Source [id number] 04/21/2021 03:26:08 PM EDT [facility] Name Value Range Interpretation Code Description Data Katlyn rce(s) Supporting Document(s) Telephone Encounter [facility] BRIRXd0zUlVZFbYy58/LHTleCLTrw5QvEQcyCWe2ZEmbBZLtX4PaZEA5jI6zJZG8JZxCEmNaPgMiENV3 lbm [file] ICAgICAgICAgICAgICAgICAgICAgICAgICAgICAgIC AgICAgICAgICAgICAgICAgICAgICAgICAgICAgICAgICAgICAgICAgICAgICAgDQogICAgICAgICAgIC AgICAgICAgICAgICAgICAgICAgICAgICAgICAgICAgICAgICAgICAgICAgICAgICAgICAgICAgICAgIC AgICAgICAgICAgICAgICAgICAgICAgICAgICAgDQog ICAgICAgICAgICAgICAgICAgICAgICAgICAgICAgICAgICAgICAgICAgICAgICAgICAgICAgICAgICAg ICAgICAgICAgICAgICAgICAgICAgICAgICAgICAgICAgICAgICAgDQogICAgICAgICAgICAgICAgICAg ICAgICAgICAgICAgICAgICAgICAgICAgICAgICAgIC AgICAgICAgICAgICAgICAgICAgICAgICAgICAgICAgICAgICAgICAgICAgICAgICAgDQogICAgICAgIC AgICAgICAgICAgICAgICAgICAgICAgICAgICAgICAgICAgICAgICAgICAgICAgICAgICAgICAgICAgIC AgICAgICAgICAgICAgICAgICAgICAgICAgICAgICAg DQogICAgICAgICAgICAgICAgICAgICAgICAgICAgICAgICAgICAgICAgICAgICAgICAgICAgICAgICAg ICAgICAgICAgICAgICAgICAgICAgICAgICAgICAgICAgICAgICAgICAgDQogICAgICAgICAgICAgICAg ICAgICAgICAgICAgICAgICAgICAgICAgICAgICAgIC AgICAgICAgICAgICAgICAgICAgICAgICAgICAgICAgICAgICAgICAgICAgICAgICAgICAgDQogICAgIC AgICAgICAgICAgICAgICAgICAgICAgICAgICAgICAgICAgICAgICAgICAgICAgICAgICAgICAgICAgIC AgICAgICAgICAgICAgICAgICAgICAgICAgICAgICAg ICAgDQogICAgICAgICAgICAgICAgICAgICAgICAgICAgICAgICAgICAgICAgICAgICAgICAgICAgICAg ICAgICAgICAgICAgICAgICAgICAgICAgICAgICAgICAgICAgICAgICAgICAgDQogICAgICAgICAgICAg ICAgICAgICAgICAgICAgICAgICAgICAgICAgICAgIC OmNRMfFXJnLLIaUTPxPDNoXTKhKWDkOIJdBJDdGFEcYNZyADPsEMEcDPIdVLHoYLUtKYDePFRkSVq5K2 rcGVBvLWEjAU1bUOb2Ta1+RBwHFzKyJIA7bwEcwD5CAU0qe4XlNLoiPJKwl9OsEPc6IT3YWJHyHJccKT 6TFJouow2KKVPwBTRcyJTEv2coDiRhZFT0CNUqDvrg VI9EFVJzR4emvbHxJTRjUWGGDB2AHaHfF8LwhZ21YHURBa3+LXhkuuCqSiaPUkImOLKld8WvDKl4EE2J SSFjLtclh5YmQmWcDUKEOWgcQZ4TRFY9LXYvBYJwVs4MLWMqX174mvDyIF9GKv4NYkUaUQ8yyj4JGsWw XUAcSshYNgs0JSjwUF8LaMFgYYjLXVfmmPbewaUuOQ 9ia5MvkWJgAZL6OHYoNRPgdCXHn3dascroRcPmVEJgZM9iYV2mKPSiKXPsXnC8FNFNJI3IBWTxYTWdeM HmFUBbRNKDPF2GHLzsOGB1NhswejRfcDKeRFqhXZ8ZUISaoqGyThXeMTQWQRg+Nh4LFJ8fd9DjZUmiAW UqUS2uaz8HNBfRQyVrY6P6aZJeX3P4SYruYd6KTJIi IOAjJgYnUABXNEqqIB8DND5eocQ6ZK5JhCAlMGRoRTMkyDAzUDb8B19bvKLcTRotIR3ARVC+Eddie+Pg0K FZKbDZSaYCAhLiOfNNOOGbXyA0IhX3LZb1LpG6LzGP36vJfjtgXrITmkXD5RJN8wBEWrQVJDQZ2DjXNo yG5qeiXnZlEiIREOTaDxM56iqMMhPUGiNWYcJGTdNv 0GYRAdW8ZsuzOnkXistxOtOWVqLAWWBG5UNFbfxhKvfNGhsAjnRX87xHgmYH9NIi1HCdMaFI3ort9VpR TvPr6SIMNwSR2WRLGmXHHxXVUoHQS9JOIsUpAgERjeTSVbKIAmKOF2PIPbSHSjUL8ZDiTeUXKhHOi9UE NpXSXpTJFewz3OTYEbXGYfZZL1FUKtXVXoRRChXBnq EDFlOTCmSNA6ZFLmQYZcGR3YVeYnGHHuHLJwKMkeVSQuTXXlsk9AWOOjISFgJEO4GVReGYAnDQXmRQhi PDAdXMMaUpF9HYLbMSAoXM8RUuYnPHUeFHA8VXYmOGMeVNWmnm1FHKXcHPHlQxE5PWCsKZFbDDPvJZmf FHXwIQXpZPO5TLYiJVIbAG6KGxMqIAAaWAU8GHDiQG DgIUIriw3XVWIuGEHmGosgWqFpHMQrNTCrYQuzCJUmUJU1PdodPCXsKJHdIB0FXmJzAECgQIK3IHrfRN IuXCWmwd7HWSGwLIGbNwgwIvWqBYUoVKEcMBmaRRIsREQ1WKF5VSYjEAQiVV4IQcHhBCDnMBdeKYWxFA LgFMAqlj5KPMVyHKWhDLZkNGWuCRChTQSnHJaoRINa VKK0FxKgXNRdPEYiUO0HQaHhIMGzECs2QYHgEUIyWSIfno0JEAZfMHWhUMftIQYpSTUsUUNnZMdlRTUs ELXiAaD1RGXeGEAvAQ4VAzIsKRWgBoJ3QLvkULFdSJWrhs7ASIKfJEJjLYH1PUKzRMJsLNTpMTo8bgPy qLPhQFw0NC3MU4JcaiKiXqSLYz9Zi713PIH5ZQGlAf 2SA9alMh4aRDNoTSKHEk8ZQUa5QNS5BEN9OGBcEUFaXmwgSKU4NDngMTNmVZAjRMR6HtW+IDxkYTdkMD vlNxS3OjHzHVC7EZF7ABA6XQA7YsJ8ULw5MQ0qXUIPMk3+GFduhHBsoXliLWPMDwEbRGZ6TOkkGQNAPk 0K ID Date Data Source [id number] 04/21/2021 03:10:01 PM EDT [facility] Name Value Range Interpretation Code Description Data Katlyn rce(s) Supporting Document(s) Telephone Encounter [facility] HETLLc6jMcMAUoPl79/BMMxsYRByx1IzUDspHLo1FQsrAXShN2QdFCD6fO7tXLR1PGeHTbUxCuAsRRX5 lbm [file] ID Date Data Source [id number] 04/21/2021 03:07:15 PM EDT [facility] Name Value Range Interpretation Code Description Data Katlyn rce(s) Supporting Document(s) Telephone Encounter [facility] MTYLXz1eMuGSGvLd48/NUPedYVVxy5VnMNrkTHr4PJmrTHEcE7NgSVJ2pP5wZCN5NLbCFxBjZrWeTDD3 lbm [file] YBZuKDOyClO1COftR7PfZSu+KX1nMGk+Cd2Jr4ElyqL9mjNgORnoDFP3Lw3HCYWTK9ZNAo== ID Date Data Source [id number] 04/20/2021 04:33:45 PM EDT [facility] Name Value Range Interpretation Code Description Data Katlyn rce(s) Supporting Document(s) Telephone Encounter [facility] UZVGRs2lPcKGPaGp75/EQVprREAkx7PjHJyrPKc2DDbvCSLkQ0MbFVA3cF3cGWI7AMaDWuKhKzAkOUV5 lbm [file] DQogICAgICAgICAgICAgICAgICAgICAgICAgICAgICAgICAgICAgICAgICAgICAgICAgICAgICAgICAg ICAgICAgICAgICAgICAgICAgICAgICAgICAgICAgICAgICAgICAgICAgDQogICAgICAgICAgICAgICAg ICAgICAgICAgICAgICAgICAgICAgICAgICAgICAgIC AgICAgICAgICAgICAgICAgICAgICAgICAgICAgICAgICAgICAgICAgICAgICAgICAgICAgDQogICAgIC AgICAgICAgICAgICAgICAgICAgICAgICAgICAgICAgICAgICAgICAgICAgICAgICAgICAgICAgICAgIC AgICAgICAgICAgICAgICAgICAgICAgICAgICAgICAg ICAgDQogICAgICAgICAgICAgICAgICAgICAgICAgICAgICAgICAgICAgICAgICAgICAgICAgICAgICAg ICAgICAgICAgICAgICAgICAgICAgICAgICAgICAgICAgICAgICAgICAgICAgDQogICAgICAgICAgICAg ICAgICAgICAgICAgICAgICAgICAgICAgICAgICAgIC AgICAgICAgICAgICAgICAgICAgICAgICAgICAgICAgICAgICAgICAgICAgICAgICAgICAgICAgDQogIC AgICAgICAgICAgICAgICAgICAgICAgICAgICAgICAgICAgICAgICAgICAgICAgICAgICAgICAgICAgIC AgICAgICAgICAgICAgICAgICAgICAgICAgICAgICAg ICAgICAgDQogICAgICAgICAgICAgICAgICAgICAgICAgICAgICAgICAgICAgICAgICAgICAgICAgICAg ICAgICAgICAgICAgICAgICAgICAgICAgICAgICAgICAgICAgICAgICAgICAgICAgDQogICAgICAgICAg ICAgICAgICAgICAgICAgICAgICAgICAgICAgICAgIC AgICAgICAgICAgICAgICAgICAgICAgICAgICAgICAgICAgICAgICAgICAgICAgICAgICAgICAgICAgDQ ogICAgICAgICAgICAgICAgICAgICAgICAgICAgICAgICAgICAgICAgICAgICAgICAgICAgICAgICAgIC AgICAgICAgICAgICAgICAgICAgICAgICAgICAgICAg ICAgICAgICAgDQogICAgICAgICAgICAgICAgICAgICAgICAgICAgICAgICAgICAgICAgICAgICAgICAg UEXwNHWrDNExMWXkYSMnXFOtTPMiAAIzEAFhVCIfAZZzTOLnEFBxLAGxKVFjIILwODSrMEp5K1cqPLJj MMPvBN5rBDd0Cg5+EVtBFwMcZYR0otBiiM5VQI6ub4 GySZrnCZWxu8TyUGz5BJ9UTQOdSSteAB5EBTekli5IBCMfQYZgxYFEy5fwPySaLLM9NBObJovvRQ9JIZ UcS2altyNjNRYbDYHZKB1XVlAhR3HfhK48OPPWGc5+USsyucTtJhbNEoDlEIUue1XtFLb6AZ2QKQOmMd gnf5JkFcOsCIGMBMgcRT6OBIS6AANeBQWkUq9NAQKm Z402ttVzOA5DMl1SJgDdBJ0anf0CBlHvKCLrRczQKuw6IRirKN5EeAVsJPiKDOdnhQvszbPeTH7hk5Tj iZDjYSH4FBAcBZFksIVEa9inyaagJdJtIAGePW1vRZ6qZDSqPJQ1WgXpWQNLRC8DDJSvACNltKZuMPDp CVOKIR1LDLzgXGH2TdpvmtVmuGBbDTwpED9HIFGphm QgMjIgMCBSDQo+Vh7AIA8wq3DbWTuiMAOtDU2nid2LAGnRWtKwD9V2bCIaQ3V3SLijWh6EYETlYUGhZr QfXFGCNQjgLP7RCD3nufQ0IR6CxFWjAMYjSVSgjFSgMZj2K41ygXNeBIysCO2QCZG+Eddie+Vc3VPYDiNF HyTTCzKzYcIMMBNzIbP1UjT0VGc5NhC8WnEL69gBco pxFwZPpzOS6WKQ5mHMZtPXXLMH6MvRJepG8xiqHoKsFlTBXRVzEzE44fvNWoXTZrEGYwHKGpRd7CQOBu Q8EtjcMhcQoozwVfFPTfMJBAKW3TXYqijzBojFWdiMnoWC34aNgxGW4ANd4KIxQbDN2kla1MtWCgHu7F DPSoCC0DWHCmMQInQEWbVSF5WXRpRjKaYBtuSPKrDI UgUSG4PYKeDVNbNP5QNzSrIPUtRXs8PUjtLYQnZXQfao2BDSZjJPUsATT8GqVsGIAfSELcWCwfYUWqZH MsWBF8RBGaALLlNU8CPgKmZMZgPOG6WJXfKKOkJRLdtp1ZJCAkNAUxBWY8WXVrIKUdUTXdVQrrBGRqDU NdPPYgYWVcYRPpYV0TPoMoEHPfWQJyNQKmDFViJHUt xo1PRYNlIIKvNeN3BPAdCVBuPIQoZFybPNQpGTBtTKU2NRFhJBYyAI2MOmZtFJXzHYJ7RZJeNYRrRQNj lh9ZDDUnAXQaMnbrCzXmVKTgODWiQTyfYGWeGJC1LEc9WTCeDMStSN5NUoPiKFDrGUJ9XARoJNPnZRBk gp6UZNKjKMBfRwpfXLYzNGKvKADhEAdjCUAmYNA1SX InIKOkKTYrFD8KJeFjJUQzAQevTAtkNSFxRRIwih4ZVFPpBSGhQWSpZZKwZWGnLSEyJLdpNTJbMNT2Ud X9IZQwHSSlEW9ZSfIcOHJvLOblEEprHFFwPGSwjy7AZJArYBUnMJsoGoBvAXHlHIHiHFldMXFqCFWxGo UrQEIsPHXdRF5ZLkOsXQBiHzDhOnMcKIJiLMRiuu9A ZHVoOVMgUAF4XPLgUNXdKFPyOZd5kfPrlAWhTKc0MJ7DE1YqisAbLiQKJd6Ih537GBU5XXNxPv3OV5ia Vq9rTZZsSRZSIq0SJYo1Oqp6BCU5GEFdXOOlTtVfKWOgRYOoFLT7PtMzTHBsLGL+XWs4FhigGBNnXAS5 QsV8NKGyGOUtBNV1MlGfUiE4TRAfAO6cIBECPm7+AArrqEJvaCxgKDTJPnWuXnD3YGptMKDOBm5C ID Date Data Source [id number] 04/20/2021 04:17:24 PM EDT [facility] Name Value Range Interpretation Code Description Data Katlyn rce(s) Supporting Document(s) Telephone Encounter [facility] ZWKZCg6tVbIKGdIb91/GWEgqKYUyj1CtWTezCDq3JEvsQAGfE9IdVAS1jT8dZJV8XQzDFnKzIoKgVQO9 lbm [file] T9NcNyKoCFNuYbAdWELyBpAjAD1XDd2RIqC1WVI0uFMeQq5LCqZzFYsHXuSqUZ7JDBs= ID Date Data Source [id number] 04/20/2021 03:51:45 PM EDT [facility] Name Value Range Interpretation Code Description Data Katlyn rce(s) Supporting Document(s) Telephone Encounter [facility] SOKUPz9aPsNUYfOt50/UXDthKHAbz7StETuaUOe7RNicYLCrQ2PlFWS0oW2oXYX2VKzUAlEeAzOuGAD3 lbm [file] BkF2IYW9KXoxNEO1ILJlZpL4LoZbYN3YPq6FRnF8VYN3tEShAi3LFzVgNfDZLhSsIH0DLTg= ID Date Data Source [id number] 04/20/2021 03:51:14 PM EDT [facility] Name Value Range Interpretation Code Description Data Katlyn rce(s) Supporting Document(s) Telephone Encounter [facility] OUXXTe8lVxMHGaNy96/EJUzqUGJqi3SaOGnnQVz7ULhzPMWjN4GkHVG9iQ0xWYI9HBfVDgEyFtZtDKL3 lbm [file] ICAgICAgICAgICAgICAgICAgICAgICAgICAgICAgICAgICAgICAgICAgICAgICAgICAgICAgICAgICAg CBLoPOReMODbGYUfCHEqCBZiGUHsRLBkMM8QMRYqYQVqDWImGEXqBWZvWCBfOWWdVFXaAVOfOOAuTDHz ICAgICAgICAgICAgICAgICAgICAgICAgICAgICAgIC PkBJNzJQPgEVLgIOMqGJDmJYLjBVAlHTUyDFUzYXHlDWXmCY9QDHCbNGJqRXIwVSQzRQItVOOaFZHtYX AgICAgICAgICAgICAgICAgICAgICAgICAgICAgICAgICAgICAgICAgICAgICAgICAgICAgICAgICAgIC NiYACiBBTcXQAoHCKoCAFeJC2DFWUmSRIoNEToNIQw ICAgICAgICAgICAgICAgICAgICAgICAgICAgICAgICAgICAgICAgICAgICAgICAgICAgICAgICAgICAg BLHkVXGhURNmGSDtJXFfALSvHRCbZPBjSCAqMJ7QEJGcIIVeRSYeOZSeHLSrSFRvKQJyPBBqNEAkYHQd ICAgICAgICAgICAgICAgICAgICAgICAgICAgICAgIC JpMRLeNUShAZIrYFRoQPWtIKXvFGJqURLmJUMiSVOpPTFjYGRuCO5DPSAfKQAsFDSiLEBlDEIuZSRmSW AgICAgICAgICAgICAgICAgICAgICAgICAgICAgICAgICAgICAgICAgICAgICAgICAgICAgICAgICAgIC VbAIXmJTLkMTOoZZAjGDDbAKEzGO9ZMJBvSJTlZRSo ICAgICAgICAgICAgICAgICAgICAgICAgICAgICAgICAgICAgICAgICAgICAgICAgICAgICAgICAgICAg WUPkKAZsSUUrTRLpXKTzMIBnWXVyUNSoAQGdJNZyZA6VFVXvDFAjBENdAEVuGHWiRLPrCGAuQUBcKJGj ICAgICAgICAgICAgICAgICAgICAgICAgICAgICAgIC IcQLShQPVjAINrHTMoLDMpTQRfXRKxJCPtQEKmQJCqXVNdJVZiFRBxOM3IHMVjBIVzUFUjAARlGTOjPO AgICAgICAgICAgICAgICAgICAgICAgICAgICAgICAgICAgICAgICAgICAgICAgICAgICAgICAgICAgIC RoCPEnAHKsMHMcMNXyJKHhOVKzKVUiLV3OUSKiWZCh ICAgICAgICAgICAgICAgICAgICAgICAgICAgICAgICAgICAgICAgICAgICAgICAgICAgICAgICAgICAg VFYjNFIdTEEcNYVeMZKcWJXxVWZyCBHuQJZbRFWrTVJxYO8INA18fJFev0P2WOZvCU0nceh/Sb5XKNvm ocEpzRFwOK7OIhBiVD8hwi5STxZtQI2ivz4REOfELx NtE7I5uNZsAOPcUAAUZqOwT52zBYdsNv94BHvbKXVaGoEbWGr0Xt8SSnYbM0rhCPUbGvP1JCNtXlQzSD fmRW3Mm7TueOAoHEj+Oh2PPJ6pb2EeTWceEvZuZO4cue6ZVXvDIvKrH9GwmfK8PGVnNAEsVi6RHEVoIJ DgsDFdJlSuEDJIGsKcD0PdkJ26OAROYd2+DQplbmRv PuiKNfRqUJWkj4AgMKc4PB3MGYNiDOj3pWHxSSClZZFmf28xAPYmA261zaAqxgUvbUOYQM9yvQDEu6Yz MQ5lXFSrYJ8aDt5lCWWrSHEeIdD1HIQUYZ8UQLAhDOOosEKvRAHiMKJJHX4SGUimRPC7FhazoaPveLRl OQijIT5VOLDklvTjGyFaQRSCVAm+Kw0DHA4uo8MzXL srHWUbMQ0iyb9JNSiBLaLzW3S4oRHrK2G2QBatJb0IJOHxUXVeVnJyIYPNQKoqRR1YZE2dqfU7GS6TwG SbGCLsKNEsbVYcGLa8G95ieJOnEYrwTX5ITZG+Eddie+Ju7RDMDyGLRxWTPxKlLmUIJRBtOeW7MmD6YHt6 VgR6MhBQ07lMwenuNwMKmjHL9PMV3pGFCiOFWSWL8L pBInmC8swySmNpEcUHWNOhXfC24lrIQoSTHaQLDkSWHwQg0BGBYpD1PbfcLogBerunCrWTSlHUYVJK3L VCpkrsGbmJNkoXmdAF53dJnrTT3JQp5MJtCpJQ0itj8NyHFpUf4CYHTpZN2EJCQjKHKvBKDmMPP3OWNf JvQxYXtxQTOuVIBiNNY2RENcJDNwNH1PCxMvYVPoJD bwFYoaGTRbBBJrzi1ILXCaBFGcHAc0OzSyKXNdGUDjHBewKKBwOOUcTXP0UJOzBWKaVM9UNfUmLSFmUX F2HUZkQNWtHZHett0XVKXrMLSdQVe5YUCsWBIiEKIwWYdzXKSlIFYlJgFaIFVjFPKyRU4YFsYbMRTaDG Y9HVQzVFPjXQYpck1CBDIvBSOqOvV8DDXhXSZxXKYn GRdfBOWhXCZ4WCO7GVMgIQHeLP9LBrJeBSGmLYWyOVTfYVWvJNDxno8PDZGqMBFnXPVnRhSwUIMdVPLf NJvyQBEpIQS3Isy7QSRkWZXaWC5OSnCiWEPpGKkuYHIcTDOhNAZgvr2ONULaWFSsLmZmSIUsXBJsSBLi CJclMDQoEYF8VBWuAVXnXOZsNU4SVbYzUKTiGZe0CK PfWCKzIWPizg0GKLSqLZItNZNpSDVhJDBjRXZsLZjbNMHrEID3IIOjIBOlLZRaYJ4EWjEiCOTpSPv6ZM MiZGUfHZWjbf6TDQXeRPQiOZUjReSiGGBsKFMfVNqyQZTzSUBqPEVlEKIxTQTyTS9GUvCvFWIgBuK9MM VqNJHvSEIinf8DBJLmBIVqGUK7ARHkANQeFCSgYBj9 xzAvlZEgQKm4YQ5FN9SyagMlJnJMIs4Qs339AEH8PDYaYi5AN2wyQk0mEQSdFNCNGv4JLIw0VbJjRyL9 DXc9YVW2LgZxVFknJRilAfCnTtHqXYApCGE+MMenSZWpYzCsRXGqXIweRxL3BMM8UCAyRLNpJBPvHSU8 WI4qSJCXCc4+CBcdmBRulTbrBLIYIjLjSaCkNEwgXIHXMv4R ID Date Data Source [id number] 04/20/2021 02:42:28 PM EDT [facility] Name Value Range Interpretation Code Description Data Katlyn rce(s) Supporting Document(s) Telephone Encounter [facility] DBXDFm6bIlWQJrEm97/OGLsgXFOet3VqTNvrKIj4BUzxMXReV4UfRHE0kJ7eJLJ4DPiCUfWiTyTsDAM3 lbm [file] 7TPSV2GDGtLk3LITJoUQ8GCHLrNPSsXPNCVzVkBZSo ViJaITKyYGYLNDxcLZVrG3XzZJI2XOOcAy0+JFbtCG4LC1AyRBW8AZe2WF9+JJxhTZ3EuDOGP8SdnQXa ZSnnR8GFLD7QJVI5AY8DhHQwAM2DhMLBC3KyvFOjOw1fNJUea0KqYt3yS5UXEHAGSIIuQPmzVWmqJJXm ANw4X3D4HRRdV3FNI585vNUbfTn4Yg6lZ7YWQKkTKb GjZXqfSGluKIYxTAh6D9M2LOEkA1BCV5DzWkNipmTwJ6G+JoMzEAWRHN1KJTCLPAj0L4C2bAQvM1Y6yP fXuQJ4DY5LBZ7DaYYesUYzy74+RnVVOfIsX9ILB3RRBE5ENVk3J4E3qOVrG3F5vEbNwKA7TD6LMF8EmW ktrWNrMm7mVXhjJWG+Pd7XCp7NFfKpUU7urv1YIlKj XZWaNhpXCge2C4lbgpp6qZGfOiF2L2H2BuU7bMOmLB7FU5A3fAUoNDT1HTGitAK+Bg7Qo2XkPZLfHWy3 M1txTKDfICUnPhInbS70Z++2mzyypJN1H9g7TGJZcWSkbJjGfbSaT6gLLVI7o6J4BQf/Xa9RQDT4vPy7 gLFtPQQuEMv7bB6qlDf3MdFtZV36EYKkFPqulA2aKp x8G2Oxp5AsNc3nMx5sdGDmSy8FTdUsQQY7flGoGpLMDsL5aZkllikvHBU5T8n6kLY0Ha42c9xhatPje7 QkDoR6ZYrhCKUnQeXhmfPcCHG1boVtjK6npdYnSm6OAMIvKTadjzFbPgNXKi5CHpEtIH38EtwbdQ0jlE E+DQogICAgICAgICAgICAgICAgICAgICAgICAgICAg ICAgICAgICAgICAgICAgICAgICAgICAgICAgICAgICAgICAgICAgICAgICAgICAgICAgICAgICAgICAg ICAgICAgICAgICAgDQogICAgICAgICAgICAgICAgICAgICAgICAgICAgICAgICAgICAgICAgICAgICAg ICAgICAgICAgICAgICAgICAgICAgICAgICAgICAgIC AgICAgICAgICAgICAgICAgICAgICAgDQogICAgICAgICAgICAgICAgICAgICAgICAgICAgICAgICAgIC AgICAgICAgICAgICAgICAgICAgICAgICAgICAgICAgICAgICAgICAgICAgICAgICAgICAgICAgICAgIC AgICAgDQogICAgICAgICAgICAgICAgICAgICAgICAg ICAgICAgICAgICAgICAgICAgICAgICAgICAgICAgICAgICAgICAgICAgICAgICAgICAgICAgICAgICAg ICAgICAgICAgICAgICAgDQogICAgICAgICAgICAgICAgICAgICAgICAgICAgICAgICAgICAgICAgICAg ICAgICAgICAgICAgICAgICAgICAgICAgICAgICAgIC AgICAgICAgICAgICAgICAgICAgICAgICAgDQogICAgICAgICAgICAgICAgICAgICAgICAgICAgICAgIC AgICAgICAgICAgICAgICAgICAgICAgICAgICAgICAgICAgICAgICAgICAgICAgICAgICAgICAgICAgIC AgICAgICAgDQogICAgICAgICAgICAgICAgICAgICAg ICAgICAgICAgICAgICAgICAgICAgICAgICAgICAgICAgICAgICAgICAgICAgICAgICAgICAgICAgICAg ICAgICAgICAgICAgICAgICAgDQogICAgICAgICAgICAgICAgICAgICAgICAgICAgICAgICAgICAgICAg ICAgICAgICAgICAgICAgICAgICAgICAgICAgICAgIC AgICAgICAgICAgICAgICAgICAgICAgICAgICAgDQogICAgICAgICAgICAgICAgICAgICAgICAgICAgIC AgICAgICAgICAgICAgICAgICAgICAgICAgICAgICAgICAgICAgICAgICAgICAgICAgICAgICAgICAgIC AgICAgICAgICAgDQogICAgICAgICAgICAgICAgICAg ICAgICAgICAgICAgICAgICAgICAgICAgICAgICAgICAgICAgICAgICAgICAgICAgICAgICAgICAgICAg SDUtMIVaAWDnXDBzUBHiDLSyJELyOTb0R0vnYPPaZFKqHC5kIUg6Cp0+JGzQUnIqSZE3spOshR6ZEW4u x2DmCVkxBRHps1TeHUr9FW3OLAIiXDdqZW5IIGllro 8OGEHiNRGncPEWy9oeDaJaWCK9NNAmRpmtPW2JTQDgO3vwhoInFTPpVZJQNG1KKtXqU4XopI16MWYKUv 4+FNimwvZjEooMEpLyKDAnz8RbSTa7TE0FBTIjFnain5ExHpWsLHOPEOstOR5ALUS7CWBwGOGyGi4XNX NvK345wcIcRG2QBp7BEqVwRO4mxm6YPiRxSTCgIjgK Fjz3KGobWC3PuZOrLXtVPNpavKeiqqOnTS0gt3DumCAlHZM4SMVvxedhnZReUBOrfzasqgvyERCmPS2o IA8iJTIoQPDnOyTmBDSXYC7CXPRlCCLenMJuBPTtGSLCVS6LOHqtQFQ2WjzcaaYalZCrNWzyVE3VGMEs bnQgMjIgMCBSDQo+Te3HFY9yx6WqNBheSTHeWE2oot 0YLBrAKiUyP4E8dEVwP1E5GXonNk1FNYOsVJJoQvFnACKTEGymLN2GCV6etcA1HL5UaMJfONTsFBWhvD TjXYo4Q39fvZUzQMupXI0OZGX+Eddie+Tq8MQKSeBDXdBVNpMuSwQDUHHgYjH7YbW4IFn5EbP2TlJN73cD qufiRbTElyCY1PAE5pAPYpLXSYOC1MnZMknC9bnqMg ErQtAHVEBqNyU61hnOVeMGVoRUKfYHXpPj8PLMCmV6BwqyMbzIhvpyIcFRXsTNKMPJ8DTJcpcrLpaYCj sPxrFQ34jIksSP0CFr9JUoCgXP9rlo3AjULgUc2IBODkNY4YUYHnRLBaOGVcDTO7CBCbMrElKGtrDAQg MYTkYQA2JXKjYXDtYD0MNwIbPRImSRt6JQQbKEDvUY Fkeb3UYRGkPUMlVVIbJuHsYYBxCYKkFDopGMFpXZMoWSM9ALSnKJWdOM1FOeOyHHDvDAElEnEeCQDjSL Qtvg8ZSESbFVWaTYHmXXVeGNDaAINcZWvoHXEoFRJfRsl1SFBiZIExIS9YIlExXRXzJSR0TLumBULeGW Reob4BVAXuBRBmKcg4JrCmJFPjYTGhTHflIVSkZWLb DeLnWYMyWTOeWC2YDmHpDDVcHQV6HjkvYGEiCNPbax2ECHFmNYGfQEVnNPLoMJUuFNDrKOfqHHYjBOA1 EIV5YODkSIIxGV2AZnCaLQGyGNC6KwVgKEVcFGGazo4WEMBzOJQdMmo5RKTzZLLoGHJwWAvwULQqNQQ7 LrU1SWMoDUCgRT3PNoFxFCUnHKhdNqRuSWIiFKAjat 7FRKGqBSNwYHZhRqIoSFUiTPKbBNddBQSrZFG4ELa5ELUaIZTcCT3KGeHjEYKwXPo3BjZzFYWeMHQbjf 7BYBPuABOkMNC2XcJnOMFcPMYuJHhvHVDeUQYfGZS4UUJoTOVsAX9DVaSjPJItGwB3BVIbGDLzZMEhji 9SVDVrGRQqTEa5RvAyABFeBXTcYCb8ffItdBFmFEc5 LC7LH7OmwpZrZiNCWz1Pb907TXG4XYRcNt9EK9ncRs3aHFAxWSPCJk1YGFh4OvH9JIJgGYYrAEB4Viqf E3ThCoYcHNU4ISG7U6N0TeR+NAgyYmTnAzM1LtLjBGYrBmZ8UUC4EbR4ELf9AoR4DFohMP8gXSHLCe3+ ZNapdOXszIghYDPOEwUcRRuvNHphNYOPCt5I ID Date Data Source [id number] 04/20/2021 12:38:26 PM EDT [facility] Name Value Range Interpretation Code Description Data Katlyn rce(s) Supporting Document(s) Telephone Encounter [place] [facility] NSWGWn2qAcOGJjJh47/VIYagITQjw4NzKYksQOb2CKjyPXRtN6DpWRT8dH8eQAO0RJoKWeZoSxYhKHG7 lbm DyQgbODtOwYVSfYyhORnRnMNhcJgmpcRTcIM8UdTL4KZUaU99dVAKcTCBiH6UpWPQrMfI+Xo8EJJBtcX JoFX1PRcaCfCkVi1cYVY8A1O+BDeL38n9RSK1hWAp5vvjScHsJHbWjgtDy7fQoTfrR3KK/fUktKepNFx NLoZMcpMHOzpvPtyMThX9/02GeKaWo/b/3hozGf4t0 +xol4ILcMVh+MmI3OYMGwzfCxQ76/y8c+jN9WpoljupRfV5gVvAeBMt82NsQTLPOT4Qdr2q10z9N+wH8 RDNsP4oylVGuxqrD7s4hon5Px0eGII9P5DTK/aUvOYMhNGsjyi9Yb6ID3mqoL0m5a+TTgFGBKwD8JWzQ Zs37m4pZSjPC3epL2wHqrbFZl6yMG8omZAyTm7KUVs HsFDFZMMwjEeYkHKZpNA+HUoxjPA6AuXTCykVfXYBFiXlgq6APxXLyL6LtLZI5OUowCCHxkaYskRYXjo YTszuaSBRucaP4uxQMT/Mendoza+7yO7DJ5upfPDRbTVNLMY1r7FUdCj8bk899Q7yR9nOilh2BtcQioqRiM/ [file] LAc5NKidtP0C7IAS8qCmcm4U+xesg+VIYebbqpY2AlXPbMtIlaRKfXmoC3ZteM0HyOz+SV7IWi+nK+[employer] [file] AeCC9DEy6WOnF0NZA6bJPlIg5DMwReWolIThNhBV0ATDk= ID Date Data Source [id number] 04/20/2021 10:50:27 AM EDT [facility] Name Value Range Interpretation Code Description Data Katlyn rce(s) Supporting Document(s) Telephone Encounter [facility] KVBGVt7wIkRZNiJh95/MRRlcZQAle9LyGMbsFJp8IHwiCIOtX9UiRYD2gC1rXCP1DGxASdKlFtPkWMM0 lbm [file] ID Date Data Source [id number] 04/20/2021 09:07:58 AM EDT [facility] Name Value Range Interpretation Code Description Data Katlyn rce(s) Supporting Document(s) Telephone Encounter [facility] TTMQBo7nMzOAEiNx94/TPJfeTYNmm7SmOUcvUPg8RLrqGGCqK1AqQAR5sH8dZOP5JYyKMpCgAqOjUPD8 lbm [file] ehAbJYegPFJqYp7XVNNKS1KSMk== ID Date Data Source [id number] 04/19/2021 06:32:00 PM EDT [facility] Name Value Range Interpretation Code Description Data Katlyn rce(s) Supporting Document(s) SARS COVID ANTIGEN NEGATIVE [facility] This lab was ordered by DAVI king nd reported by [facility]. ID Date Data Source [id number] 04/19/2021 03:00:10 PM EDT [facility] Name Value Range Interpretation Code Description Data Katlyn rce(s) Supporting Document(s) Telephone Encounter [facility] XSPRIp1zRhSBKbSa51/OQNijZXLrf9ItLKfkANo5GCyrLLPaC8NtNWP8kM6cBWP4UYnGAsXcNkMsJSF4 lbm [file] 9YWmf85+0wC5yjIHStAa6j271EqFx2C0+g2PP81M4C OQ+op24e/I5smhecIQkEo7f5g+puIrlYtQ8Ffp8NZT+r9sG7pXo4RC5j2EP7Bx6j/C2PoGwLZpvd1D9g U5jSL0799iZShfe9envzHpelQKT5oW45mw0X5ciHBAuhaEuAaelTs1SwS6nUwUdH1bwKpCrzDuittpja P71jifzmkRZXfyTbUA0fCU8wsCUb2QPFbRToxb8XOW z+nHydT4VYCmMj2mJ/d/gfCTur+wCL7oo0a+6R9i3W4aTurLm8LA7dV4R/8EnM8zTkgNzDT/5IejvoTN counter stacker+6RsIWkyKXQnX6rGEe7+33/8PNQibIOHjo8T816mbCektQ0rXOeB/riO0ypBy34+e2EY897hZu8jI [file] PcC1JPlOAyKrTW5ZZEw= ID Date Data Source [id number] 04/19/2021 02:24:59 PM EDT [facility] Name Value Range Interpretation Code Description Data Katlyn rce(s) Supporting Document(s) Telephone Encounter [facility] ULFJKg7bWrPWRtOf87/ICMckZZYhj5JlRXqyWVh6MHgvYOFkJ5XsBYF0zX9fKBM2TNkZPnMpAeLnIEW9 lbm [file] FRH1IARvHUEzNMB5JIC4QyGvNI4WKc2OYgM8REA3lLUrOb4DJqU2WSLSSbStPB3CPUb= ID Date Data Source [id number] 04/19/2021 02:11:49 PM EDT [facility] Name Value Range Interpretation Code Description Data Katlyn rce(s) Supporting Document(s) Telephone Encounter [facility] HDNMKh3aKaYPUsVm42/JTYniJKGuu9AjZBrfGAf7ULcvNSTbH7OqSRH9cK3oVVN2TYyYEkMxFsCdTWP3 lbm [file] CSA0TWY7HAZdLgFeKlBnXN0PTw5XLcW0SYM4tVKeMj5HLpA0EFGEGyHxXH7STYu= ID Date Data Source [id number] 04/19/2021 01:33:22 PM EDT [facility] Name Value Range Interpretation Code Description Data Katlyn rce(s) Supporting Document(s) Telephone Encounter [facility] OHUKPa8qAjTWHbLq62/SGVdkRRKkc3EqXVgkKUo4TIiwFUFsQ3PvTJK1gA5kUIC6IBsNLkAgGqFgEXI4 lbm [file] 2ZZoD9RVW4cRXaZb0WDqV2ECTJIvVnNC7HAWy= ID Date Data Source [id number] 04/19/2021 11:06:20 AM EDT [facility] Name Value Range Interpretation Code Description Data Katlyn rce(s) Supporting Document(s) Telephone Encounter [facility] TIGZYe3hFjFNVfQz13/KYPpiUCDbe3IiBDtdEPf0IUqmCBFpH1YeGUB0lK7mWZE3HJoZXtUlSzDzJAD0 lbm [file] c1WT9VHGQ3LNOmPm7BGMDvGJ7CPRBeLWSuBFWVZfJn VELhAbDiVLRzICICFMobOFIoK2SzCGI8BSRwDj8+XLyeCA4PY5EaFIT3AQs8IF9+CEuzXI5UkLWVS2Mh yHGtOVflI5PPDR1GVQP3TW1HhHHkSJ6WyGIQB4JryBIvKl3qOPDvg9WsEw8cF1ASZWBACYSlZVmzSVqk QZAyUYu3T4W4WMQtI2ESU071qLFyyYd5Aj4xW6JZPR gSZpIjGQuyDBxyPBAhTRw0M0A3ENIxJ0SPQ9DuWeHqnbRoF6X+VxBpMBCAGW6EEQUAIOc6N6W9tLJyN6 I2hWzQiNT9GY7GBT6ZkPZcaUXmc81+ViQJYxBhG8SFU5NAZD7CVFd7B7V4jAKtV1T8cCjFjOK5YT6OSV 6SpRczyGZnDu7aWSryKFY+Xh9TNc4VBwMrUA5vqe5K AkDjTPQjUkmLFec8G5kchyp5bBGyWpT3S9I9FuY0iEInAB1HQ1K8dMHvBDQ7CGOhyJE+Rv0Cr1JgXUEu BOp7X2dvUYCoJCPjAeAibD82V++0utxoeGY5L6g5XMVYoULouPxPhhJiZ8tJUOW7z9V0NUo/Oe1AZJA7 lLz7rQQhJKIcMPz9oB6wnQn0KyOfID33ZCAkGKxyeI 5gHgz0H5Eeb3FyAu6bZu6qiKLbSw3NUrVyAGF5noKmXrJLOmT0uDqggmoxFOC8F7a3dQO7Ev98u0nrze Ivb9YxIiN7ZVwwZLQgSiAebgWkYCG3tyKdsA1ffsXaRv8EEFUoLNhfvbYnVtGDAz8JBrHbVP62IhpadM 1ldGE+DQogICAgICAgICAgICAgICAgICAgICAgICAg ICAgICAgICAgICAgICAgICAgICAgICAgICAgICAgICAgICAgICAgICAgICAgICAgICAgICAgICAgICAg ICAgICAgICAgICAgICAgDQogICAgICAgICAgICAgICAgICAgICAgICAgICAgICAgICAgICAgICAgICAg ICAgICAgICAgICAgICAgICAgICAgICAgICAgICAgIC AgICAgICAgICAgICAgICAgICAgICAgICAgDQogICAgICAgICAgICAgICAgICAgICAgICAgICAgICAgIC AgICAgICAgICAgICAgICAgICAgICAgICAgICAgICAgICAgICAgICAgICAgICAgICAgICAgICAgICAgIC AgICAgICAgDQogICAgICAgICAgICAgICAgICAgICAg ICAgICAgICAgICAgICAgICAgICAgICAgICAgICAgICAgICAgICAgICAgICAgICAgICAgICAgICAgICAg ICAgICAgICAgICAgICAgICAgDQogICAgICAgICAgICAgICAgICAgICAgICAgICAgICAgICAgICAgICAg ICAgICAgICAgICAgICAgICAgICAgICAgICAgICAgIC AgICAgICAgICAgICAgICAgICAgICAgICAgICAgDQogICAgICAgICAgICAgICAgICAgICAgICAgICAgIC AgICAgICAgICAgICAgICAgICAgICAgICAgICAgICAgICAgICAgICAgICAgICAgICAgICAgICAgICAgIC AgICAgICAgICAgDQogICAgICAgICAgICAgICAgICAg ICAgICAgICAgICAgICAgICAgICAgICAgICAgICAgICAgICAgICAgICAgICAgICAgICAgICAgICAgICAg ICAgICAgICAgICAgICAgICAgICAgDQogICAgICAgICAgICAgICAgICAgICAgICAgICAgICAgICAgICAg ICAgICAgICAgICAgICAgICAgICAgICAgICAgICAgIC AgICAgICAgICAgICAgICAgICAgICAgICAgICAgICAgDQogICAgICAgICAgICAgICAgICAgICAgICAgIC AgICAgICAgICAgICAgICAgICAgICAgICAgICAgICAgICAgICAgICAgICAgICAgICAgICAgICAgICAgIC AgICAgICAgICAgICAgDQogICAgICAgICAgICAgICAg ICAgICAgICAgICAgICAgICAgICAgICAgICAgICAgICAgICAgICAgICAgICAgICAgICAgICAgICAgICAg SLUpNRMeIDXzEQZgPVVaVWVlSRRhIAGnKZr7N3zbJMEhWZXuXH5jQMr2Ad9+TYfDLaKvILS8ylOpwT9J PG3jx8KjTLgfIISpl2KxEOb2AD7MXFHwCIhsCN9CUW cizk4YUJJwCGCqeGLZp0qrTaEuZDE2HFPqImbbNG1KRYSuO3epsqWqBCHcCPTCOA4ERkAtV2KjeS03MM ENCj4+ONvphpYnXevRGjVbEZTka3HmAMa0WA4TLQYnNoxkx3OjCtNzKRHWCGvwAZ6ARTZ1QBOxVSPcSl 3FBPFiQ857vvTdLZ5FAu6CAmFaYR6xcf8VZcHrXVDp YplONgj2WLmpIH7XnYHfIYcNYMzqoSusscYySH4mw0TykOJkQDC1YLIcWDDmkVDJz1wkleuuUpMzGJSd QF6yIp4oYRIdSRGoBlM9URJXVA9UINTxNWXvkKBeEBIbUQKLFC4FHVxsYVM8WwapxeDzuINlMZdsXF0K YXJlbnQgMjIgMCBSDQo+Op1KQC6uq0HnOIiqDGPpSJ 1mhg0MPFuXXeThN7O9cYBnI1H7HGdwMv6HVYZaTMAuFsBrXLMQKMicVH1CKF4tncH6FG7XhQYqHTOaTW EdcFXlCWi3O27ruTPrDWzdVH2PESH+Eddie+Xx2GGYOmMWAxMZEnYwBhHUVGVzLbA0ZwN8TWx1QaX2JuVK 82jBskzpKjCQayQQ9REV6eAUIsLWDLSX0WoTAorQ0v htZuZxEuGOBSNxEuW35ajIGeWOXqAWBhTZItVh7KZRZiA2SttfSszEeprgSpDNAwLDDQRL8NJNbjtiRh iUSgaNhpNW16qDhnFL7THa0XBnSfNA3lqm8HlBNcFr6ZTLKxMC0UJTPeFIOdHGHbQPQ1HLTwRvVhCXmu WTZfUJQcWGA6DEIzKYPtQU6JQiSqANYxUZf9QLKuJN FzUIXvww5XSLFsCORfSUWsGIAgIAXsVNQfGSdyFQXsUUAiFWR4LWZkWXXxKP3DBbOrGHBrJLVuCrooRY MyNBShce0BVFFxPRVyIKXjXCMfIHFiXTEcYZezODYoKSOzIlg0UJBcWRUeJG9RYwHgNDKhDKN3BWVrFX KpABXasp2EJGZtPOHjMug6FQKzMXCaXMJbCUnkFEKa BDTdCdD4NDInZNTiQF9SAkKvIOJjXAB8GsCwXSVxEUQyle8KVRJiOHJhEKRxGqOkOMKvYRDrRValNVDg ZOG0LTZyCPCiRXLpNC4BQhPxRAIqMYZ7SuasOFOlMUSzlz6ZWXEeQDJqVtv3ZdKnBOFnLWWaZDjvGBXt SBR2DoE6ZOLxLFIjGT7CWjFfHJOgUHyjZxEpCNYfXB Nfgz0KANKmILFhTEIyVHGtSXVvJQOyAYnlKWDmWIE9TDNmMGXfHOIpYA4AGoRsKMPrQAg5BtTaNBLcKT Ssct8WTQXcFAOaOCJ4QSPlWPDwPPZcRHctLAQuAPTtBRC6VBJkSVQqNL4MWxCjJACxBtX4THljASFkMK Rpod8MOEQdKKDqJAf0KBNrGCZgBBPfGRz7vlJudWOz ZAb9NW1RE4IlhtUoCqHDFf4Ub390PEH7VTRpVk5OI3dcJj3qIRFqFEUMQs4OFUb2PKUnPGHvX3P9LTI1 IzO6DxXaNKTaY8R9ZSMpXXncJBT+FYz8O8BoIZCzQja7HyrdWCcfELZoL8QiRZaoW0D9M5Q8NP7wNLEZ Cj4+KUcfwIQqrNreBVYPUzBhKBl9ZDpzRNPXLi3Q ID Date Data Source [id number] 04/19/2021 10:53:08 AM EDT [facility] Name Value Range Interpretation Code Description Data Katlyn rce(s) Supporting Document(s) Telephone Encounter [facility] CKHWIh1mZvPSNfZe74/VYRffPDNhv3FyIKhcNUl8ADgvEVMvG0KwTZA0nV5zHHC1GFoULyPgInHaFWL7 lbm [file] TRh3I7ChFAU6EJIzRZWkVHOzQdC+BD4qLHl+Lh1Bi3QxrxP5fdFlZYryCLQ4Bi4XQXDEQ1NGEl== ID Date Data Source [id number] 04/18/2021 04:15:15 PM EDT [facility] Name Value Range Interpretation Code Description Data Katlyn rce(s) Supporting Document(s) Telephone Encounter [facility] DMMAMn9cGxNQIsJk18/FYLmwTWBwt1SgYMbtFWj2ACvgPIZpX7PoAFH4xA1nLXP5UGmFXoCkKaGqTUO3 lbm [file] AgICAgICAgICAgICAgICAgICAgICAgICAgICAgICAgICAgICAgICAgICAgICAgICAgICAgICAgICAgIC AgICAgICAgICAgICAgICANCiAgICAgICAgICAgICAgICAgICAgICAgICAgICAgICAgICAgICAgICAgIC AgICAgICAgICAgICAgICAgICAgICAgICAgICAgICAg ICAgICAgICAgICAgICAgICAgICAgICAgICANCiAgICAgICAgICAgICAgICAgICAgICAgICAgICAgICAg ICAgICAgICAgICAgICAgICAgICAgICAgICAgICAgICAgICAgICAgICAgICAgICAgICAgICAgICAgICAg ICAgICAgICANCiAgICAgICAgICAgICAgICAgICAgIC AgICAgICAgICAgICAgICAgICAgICAgICAgICAgICAgICAgICAgICAgICAgICAgICAgICAgICAgICAgIC AgICAgICAgICAgICAgICAgICANCiAgICAgICAgICAgICAgICAgICAgICAgICAgICAgICAgICAgICAgIC AgICAgICAgICAgICAgICAgICAgICAgICAgICAgICAg ICAgICAgICAgICAgICAgICAgICAgICAgICAgICANCiAgICAgICAgICAgICAgICAgICAgICAgICAgICAg ICAgICAgICAgICAgICAgICAgICAgICAgICAgICAgICAgICAgICAgICAgICAgICAgICAgICAgICAgICAg ICAgICAgICAgICANCiAgICAgICAgICAgICAgICAgIC AgICAgICAgICAgICAgICAgICAgICAgICAgICAgICAgICAgICAgICAgICAgICAgICAgICAgICAgICAgIC AgICAgICAgICAgICAgICAgICAgICANCiAgICAgICAgICAgICAgICAgICAgICAgICAgICAgICAgICAgIC AgICAgICAgICAgICAgICAgICAgICAgICAgICAgICAg ICAgICAgICAgICAgICAgICAgICAgICAgICAgICAgICANCiAgICAgICAgICAgICAgICAgICAgICAgICAg ICAgICAgICAgICAgICAgICAgICAgICAgICAgICAgICAgICAgICAgICAgICAgICAgICAgICAgICAgICAg ICAgICAgICAgICAgICANCiAgICAgICAgICAgICAgIC AgICAgICAgICAgICAgICAgICAgICAgICAgICAgICAgICAgICAgICAgICAgICAgICAgICAgICAgICAgIC AgICAgICAgICAgICAgICAgICAgICAgICANCjw/fSArX4jzmLSacaD3I2dwGi6BJc1YSV9vr2LiBZGjDL cjqfHsDcgQKyCyRAHqVkwACpf6LZumNS8BiHSzK2Zn N1AvEXfoSD2PCNIwRINpqWEzFRYzNUApTcA6HJJlJAylQN6GpXOnTJiiRZOzPSPlMQ7KGKKkK523kxZq RG6IEk8TXmUyWU9nrm8ANwRxSIYdTcvOPlr2MSndBU6PhPUniLGsVvAnZCWRScCpV8rvp3KdHqLeRBZL KLvxRG5Tb4DbwVLjHLm+Qm6XIO4ps9GgLSkdWjPeOY 2dgs7SYHhSHoNnQ2LmnIarMUZnjQVqxX8tKVQTjkFyqV18GYXmIbazER6tKS3tJ5vcgFjjsIUeEHLsUD 2yNi7rVHJgWUF7TlSfKDKZWF8IQTTbPEKfoIErZMOlBCNKQI8AOUgxUGU6MqmhizCuaDIqOZdiEM7FIH JlbnQgMjIgMCBSDQo+Tt4AJP9iv0UmACobKCWeMP2g mz9SAOuJKgJyB8Z7dADxZ2Y7BKsoOe4LZEYoOSYcUhKpVVSCLLqpEK3IHY5yppI6ZN7TiWBdCJGuWCGt ePXcSGx3U30yhLNmQEbiHQ0VUMB+Eddie+Bn6CAPIlBNYeVZZyQxUvYNHKTjFhI1AoL5IFd9IrY5MyPV64 fIvianNrZCqzUH3BCI8dRWBaGKBWNG7KcRUtiB1uig GpTzBuEWGBSaCaS65xxIZrEYNtLXMfCZFnRr9AULZbS4FupbHebLndzgVwOBCvQYDGJI4HPErbjzIegN SuqPllQZ83oIwzQM2DXe9PZvOhMF3qtj0BeYUxXx0KFMArJL8OGTVsUTOhTIKkYLC9LQIyPjHvMRklEM BvYFLrDPA2LGHpCDIaVT8MBcDaGMMuQOp6LXBlITXs DWUndx4TQNBsLLFyCQT2OILiTBZmZBHdKZbtSJYoQFDcXGD1DRPlHMUvCV5XYiHaNVOlJXKqHwQdECNl MEWuax7ZWEDyGQEoJGC5DQVcLOMyEJQhMQbcINGrISKsSzC9NFLdIVHcDO7OBqRoKAUtYUR2FtvaUQDf HGLpjc6DUJRzWSJxAvWwHAPkRJDoBRNnYBpkHPHzIZ AhCXowINKbPFEqRO9YDeFeXIOqTET2HQCmJGHbQSTobl0KJWDzEFHgHgs3QjXaLBJvVIUhYSbnGWFbLM Z4DiDeUUQbXXKiCH7MMpTkNFVkPIR6MipvBACgWCXmnl2RKRBdBRDzLerzCxXdEHHvIQKtDDigWFFzHO D1LFl4DBVcEGOjRE9NUlXpIMXjCKzcDaWbIHOdQIBy hi8ZLPVrKUPoKEI7TCWlTRApYNGaRQhtVWWdHWY7FnP6IRJtKQYxNQ9QKzRcCOIiCCs8MwNjDIVsZNUj xc5DRNShCJNyBGkmJNHvTUQvRIOxYVssMVKzPXLcRac5ABLyHRSvTN0NWbQgFOIqWdA3CPanDWWtBTSe xy9QPVNlWCUsHNL1EdMzVTRzEVBmUXt8knBalJWiCH t3HT3PV9YpgaJlPsMHKk7Pk922IDP1ANFaIi6VP4ikQb1zDNOjCCDFMh4HUIu4WelsX2RbPJVbHZRyVD OvKAOsF1JzByC8ACAjKkkxBMD+HQlwT2DwVgGzKBFtCmW8XLSmJsCnSeBmDqmyNPBbVQEyVT2mGPPRZa 4+INvcgQSsnNmxWJEZMePbTUPmYXpiOYWWUx9N ID Date Data Source [id number] 04/13/2021 02:47:06 PM EDT [facility] Name Value Range Interpretation Code Description Data Katlyn rce(s) Supporting Document(s) Progress Notes [facility] TGTOFw4nCxMGVgOx89/TGFmwSARgl7EhTBqeNQa2IByvOLUkO4SlUXF6eH3fTEO7QZwNMsNcUgRuVGYk lbm [file] AgICAgICAgICAgICAgICAgICAgICAgICAgICAgICAgICAgICAgICAgICAgICAgICAgICAgICAgICAgIC RfOAQlUAOfZMJmXKEhRCSuKIGqPCKkZTKyZNDuTEVeRRXzZD7TNQPxFNMkBCVuRCOfQYThQNIzKUFsKU AgICAgICAgICAgICAgICAgICAgICAgICAgICAgICAg GXRlBYPkGOEyZEOgBHTtIHUiINWhESYhDDSaJVYrOMZzTQWyLQBqHJVsMRKlUM9ZENYyOZRhFOCbFTBp ICAgICAgICAgICAgICAgICAgICAgICAgICAgICAgICAgICAgICAgICAgICAgICAgICAgICAgICAgICAg XYGlKUEjFUWpBGDbFYCpIWLbWAVsNAQwRRSkGB3PDZ AgICAgICAgICAgICAgICAgICAgICAgICAgICAgICAgICAgICAgICAgICAgICAgICAgICAgICAgICAgIC KzABPaWZHiEOCiABXrEVMsRDFcENWyQMPqOLJxXXTzOXOgNFPqIC9KDAVvCRGxDLPqAJIkKRFmRRIjUC AgICAgICAgICAgICAgICAgICAgICAgICAgICAgICAg TNEqXQQmUCVhGFIqFSSoHEGjJTQjGSGbQWSwOLVsBMYhSERfOQHiFEJzUHCaQNQyOT8DURJvTWUnWVYs ICAgICAgICAgICAgICAgICAgICAgICAgICAgICAgICAgICAgICAgICAgICAgICAgICAgICAgICAgICAg ICAgICAgICAgICAgICAgICAgICAgICAgICAgICAgIA 0KICAgICAgICAgICAgICAgICAgICAgICAgICAgICAgICAgICAgICAgICAgICAgICAgICAgICAgICAgIC PiSQSsZWXzNJOvGOYhRRVmKEPgHCHaZXBiXXHaCEAfKQNpVQJvFZNsIN6GANJgGBJtAHQjTNWdVTQqVZ AgICAgICAgICAgICAgICAgICAgICAgICAgICAgICAg HJLlSSKqITKdTKScFKVmQMLbPYDvKAUiECUlCQCoCGAfRZAnCMZyVUMxAEPhBKKvLEAdWJ0RZYYzBNCj ICAgICAgICAgICAgICAgICAgICAgICAgICAgICAgICAgICAgICAgICAgICAgICAgICAgICAgICAgICAg ICAgICAgICAgICAgICAgICAgICAgICAgICAgICAgIC WrOY0YADXqSZEhXURaEOYkGSDcRLRhZUGxOTArPKYhGNRvYMQeWGZeAPGmHQNuHWRpRKWaIMEqYKPbYD SbRXJnMNSsREJhWEGpAFIjHJNmBXQcOCAzZIQwSRMvIMKdWAKsXTEoESPoBA2QYC87wXTyw1Z1FPJsNP 0ndyc/Mj2WZNfztzXyzBSfXA8DTmRmJH4kjc0ADfZw VI7dzl6KUEnSYzEeT9X4sBDuKIHzYDFZKzYxA46qNDgwBt40GUcsDWRbHqRfXIs7Yr2NKrEcB2tcECAd CxN1FYFvLqK4SPVbZnQoLXsbHG2Ea2BncVDaIQg+Om9IBT5ht6KpEGdpELPwBG8hmv5LUXsJGmEcI4Kk jtR9YLUiLYUhIf8JNSAnMONikGFzNKCbKLXQVmCvL8 YnqK32KYGMJg4+EZapgyUbDrkSNpWiCDMyp0QpUOz0GZ9SLWGnMKa1qTJmWAPsR2Voe9FeUx99IPBbGv nsLURwA0H5IVWag11oXWYCBMYlpEC0OdHmNoBcVuWqOFH2ZVQhTO2yTLwxWK5QALN6UAwnIJRwPJOzP0 gNUaIqWWwmJCUchWbpLV4BFpSdO5TaffKptDBlSWRy IFINCj4+AZpldtBkGtbAEvBiWSIhv6SgWWa2XF9LDNSqZKbvXY8XEQAoaP7nPFfoRW1VGpHnBEPgWCIJ LxQmU47blUZuNFm4M1JrTdFyQYSzXutaVZYbOKleLnTxYVXlNeOrFAyaBR7+ID4+RGwqYA6GRHmblaEt PWLeFc4WWZFnGUNhEB7xDXVcOZQaX2J2zEwnRALDOe XmH3sliwrnPM0sZHIkP884sIfkwsAzZYBsUZBeTi4TXZZqIPX2XJMimORxOcveIXRSKFcpYS7KpGRpQE Y9pD6oPQglHVEqIDKyP2dYQcDbmUseUG36bKzripEdwJUvQRn+Mt7FHI1jm2ClBVa4ttElCJjyDCVmOB voRPZqPRDnFXXyBYF0JQA0VWPBYvBmSKUdCDOmCBar WUJxGDLzvw5XHROpWYBoVYN1XXYxNQQhKNJxQQrfKTUcWJJ1HqP3ZGVpODQqCX1NCwYfFMAbYAGoBNcp QKUlEJDcwz2RBSAxRYFyFeF6FZPrTJMtKKLtPQyxPQMvCDWyKxhvTRHqLUDjQO8WNdAvPXFlRFA3CLnj NEDyLPLkkv8UKJGxUEPkHSbsRvRzQEQbDFRgADdkUZ PxKHT7ZfbqJZOiZUVvAX4STlXxEQTfCLL3AiRmRRPfFKMpmp9MQLFuNBFpRgI9KhBsSOCsLTHiTVxrHS UyHNG6VVL1MJIzUUJkPG2GVbIkGVYaOWtbNCYhSVEiYVQchs3XNUDpZCGuIwG7FdTjWBZgWHNpBYmeNC UfLCI8FiQ6FWBzSEObVP6HHhDeYNFtYdYfDtNxITLn ZNTtna5HRWOaYLOiGEI1IWBgXXXfHYWyPUvrTPRpWFKzEBYlXFYjPCQmOP1SSlBnSDJpZlI4FZhoHBWd AYMfkf7MYKVvMRRoUHZjMJTgQDIrNCBeDQeaQTCvGRFhYsoqZGYhVACgUU4RJoNaXYLwVsT2QgfqCODd LNXvmw3QSUJmZOXbSffxRQObSLMfKPIzWWsgCLGaFZ YgVGy4LXLaBBZfWI4PVbMoNBQwIzEzToapEMYpOGTmmz8WYGAiDGEsCJNjVQRnVIRqSQShARtrOPPrMS W2Oct7SPChBJNsZB7EZjHfCWGyJbC4HtmmORWlGGRnqk4OEPTpMNWxOUVaMLLzPFOuLAVhHTthOJOrVD S9RDWdOOEtYDGzBI9UOxAcTTWjQbI2MlQnDEPkLKNa hf8CAXDlTEAiKmW2MDMtILXzPDSaWYb7yiLygSXaGSt3OW2SQ7XeawSiHkBLJl3Qt390WIXrXGUyPp5D U3jgPg4wYJYoJQNIHa8FMCv2VCVhHWLxHLMqNgZqWQLpCkO3XLmbXIikUJWoITT1IMG+TVptRKF4RRI8 IXNqPmKxL7DlEJW1F8OgSHS2EbU5HLm3Vz7bOLFUXg6+LExtjXCaaDqzERXCLvZ7CXS9TIsxZRRAPu5Q ID Date Data Source [id number] 04/13/2021 02:46:36 PM EDT [facility] Name Value Range Interpretation Code Description Data Katlyn rce(s) Supporting Document(s) Patient Instructions [facility] VQWEBz9pMqBJNwSz51/PNNloCUPkk6XrXZicRVm4HUujJHGwU9MqDNZ1tO1wODC4EQdCNuGzYyHvKRAv lbm [file] CK8OCn3KCgG8EGS5zJLyJm2GArB8ARZXQqBhDO5AOJm= ID Date Data Source [id number] 04/13/2021 02:45:51 PM EDT [facility] Name Value Range Interpretation Code Description Data Katlyn rce(s) Supporting Document(s) Assessment & Plan Note [facility] XCLBZz2gDrGBLvRj44/KIPjbCFGod3OoARspIFq9XZkzUZOnB4SlBUM6lI2mEAL4NMmIVfKvOgIoDHHj lbm [file] ICAgICAgICAgICAgICAgICAgICAgICAgICAgICAgIC AgICAgICAgICAgICAgICAgICANCiAgICAgICAgICAgICAgICAgICAgICAgICAgICAgICAgICAgICAgIC AgICAgICAgICAgICAgICAgICAgICAgICAgICAgICAgICAgICAgICAgICAgICAgICAgICAgICAgICAgIC ANCiAgICAgICAgICAgICAgICAgICAgICAgICAgICAg ICAgICAgICAgICAgICAgICAgICAgICAgICAgICAgICAgICAgICAgICAgICAgICAgICAgICAgICAgICAg ICAgICAgICAgICANCiAgICAgICAgICAgICAgICAgICAgICAgICAgICAgICAgICAgICAgICAgICAgICAg ICAgICAgICAgICAgICAgICAgICAgICAgICAgICAgIC AgICAgICAgICAgICAgICAgICAgICANCiAgICAgICAgICAgICAgICAgICAgICAgICAgICAgICAgICAgIC AgICAgICAgICAgICAgICAgICAgICAgICAgICAgICAgICAgICAgICAgICAgICAgICAgICAgICAgICAgIC AgICANCiAgICAgICAgICAgICAgICAgICAgICAgICAg ICAgICAgICAgICAgICAgICAgICAgICAgICAgICAgICAgICAgICAgICAgICAgICAgICAgICAgICAgICAg ICAgICAgICAgICAgICANCiAgICAgICAgICAgICAgICAgICAgICAgICAgICAgICAgICAgICAgICAgICAg ICAgICAgICAgICAgICAgICAgICAgICAgICAgICAgIC AgICAgICAgICAgICAgICAgICAgICAgICANCiAgICAgICAgICAgICAgICAgICAgICAgICAgICAgICAgIC AgICAgICAgICAgICAgICAgICAgICAgICAgICAgICAgICAgICAgICAgICAgICAgICAgICAgICAgICAgIC AgICAgICANCiAgICAgICAgICAgICAgICAgICAgICAg ICAgICAgICAgICAgICAgICAgICAgICAgICAgICAgICAgICAgICAgICAgICAgICAgICAgICAgICAgICAg ICAgICAgICAgICAgICAgICANCiAgICAgICAgICAgICAgICAgICAgICAgICAgICAgICAgICAgICAgICAg ICAgICAgICAgICAgICAgICAgICAgICAgICAgICAgIC AgICAgICAgICAgICAgICAgICAgICAgICAgICANCjw/oWIsE0isfPCkiiS1I9ysMm6CSv1IBY4kx0SwFF WnZMasqpMuGctHXbXmWHAaZgwRXwi1MMeyGQ9GhBVxS1XfS5NlOFsaFJ9YLYSnVZZfmMEuZSTiEZVdJk V3ULDnPXfbEK5NcLDjAUpaKFHzJNMePZ5JLDKwM122 mfKnEL7OYr4KZvKwKP5qch4OOcTgPUEdUhmSLmv2GDggPL3UiEJpxEKrUpKzBGRHDrStQ2ppn4UxVgNp IAQRZUtgDZ0Ze6JmkSXsZIc+Pu0HFO3os5FtTJbyZtFdYE2vbh7KZZiYVoIxS0MuhZsfCUHks2Fzm30e ouQuCrLMmUQjGX4onEByCheqVRGqJ6W9MMLpy63dSK GZRIPbyFZ3QfZcVlEeWwYlBGE6NSTqYM6aEEnfXB2RNBR4KOcsZMAxHRJbV2dZPjWmYPyzCTXokBcxKV 5ZThKaT2QfinQvyHAmMsOlOJUZVe1+IPhlnxKhNwyVLiJ0PPMsg8EkLJa0BN8PYAQgIJwjRO4ZJKOkyL 1vPAsyVO5DJhPnYNVgSXNYHlSgS37zwLIzDAw8G5Zp YmVkZGVkRmlsZXMgPDwvTmFtZXMgWyBdDQogID4+ID4+HQlmCX7MXNbmtyOkJQWuEh3NUWJvUOKyAC0y HGSkNYFaE5H6iRqbLHGUVbLmF1tzfvkpFN1pMPKzP926lMkowgTfBRQwZJCnFq0KZNGeZHQ7XWBlsNXm ZhElCNRZDIfzNE3UbFKwZRH3oB1dQQfyVOLdFQLlE7 tFQfHhpLryHO95cRprmlYyhOYhTVu+Om9FID2jj2WjGHb2ybTaWBedCOG0DNwvZHIlKQXoOIZgSYR4VO G4FRQLZfHnUNKlICOeVByqEJNtJOSktv3EYYMjKMSoGMN1XySyQSDuNXLgQZegTSTcRNEnNpQxHGZhVZ WcVB5QIsRnVRTfKTZcXJpzUKHxYWRjux5SOVEpMQQs HYHlEGRuEOFpFITuHIloPMCoYXZnMnPeRQPxTREdJH9XIxNdVENjIMRpRNTzHZIhBSWnxh4ZANSpAVQu KuL2CxRkKGPvWYDkIQesKMTzFTBpYBN6MVPuNCMfWT3CUuJtDPQpGIL7LgNgMOCmAFXxgr1WRXHsHXQt IrppAqKvICDlDYQpWDanDUNyCHZjGNY1QWChHCPkZX 2FTyMcNUIyRGEzVPMvNMJaKVQmnz6LIZUgVLDhUyS6FTGeQSYyUPCrHKigXSEyLBH4Sup1JKMzQQKrBH 5YStZzMQHmSXyrJAfrOBIbJGTenj0XNUBuWDXaHuS1DMUpIXEdLXDpARyxVHLwOMK7QYQ3KFTrLJPnXK 6SAcIcRMUpQNpaNJSqQSXlSJSqxz8QAQPdIRJwYQI8 KVCsKVJhAMQkFYosFODeGSJ3UWksMAKhDCTgPI4FVmDqMIZnZrSvGSugGYJhACYsfr1RAKNcTNVnRER3 AIBpVJSrLNCwOHhiDVDhCDIvSFP3GVQzPLIiQT6VXaJrSTpfDARIPyy3NUurY0n9RCSsOH9PL2Hyt2Qw WgKrUGOUNMzyPA8jrtOrPPMdFw2JI6iBDegkRCCgG8 JxHWH6TWF3FAXwDiVrRPGfZ7MhKKv0MeB1GR0wZGD1LqRjPLBpWeXdDruhCXI4YZT6XOC1MDBzSyX2WL W3PdCgIE3YWy8OEwZ3QLD4oMNrWd3YRrD3TOmUEuPcIK0KUGg= ID Date Data Source [id number] 04/11/2021 03:08:49 PM EDT [facility] Name Value Range Interpretation Code Description Data Katlyn rce(s) Supporting Document(s) Telephone Encounter [facility] HIRPZn6yGyRAQnQe85/UDKstSUAoo9CfRLxrISe7FBfaDAIzE1AeQFT9lE4lGXL9TElNVrXjEkVjCPN5 lbm [file] AgICAgICAgICAgICAgICAgICAgICAgICAgICAgICAg ICAgICAgICAgICAgICAgICAgICAgICAgICAgICAgICAgICAgICAgICAgICAgICAgICAgICANCiAgICAg ICAgICAgICAgICAgICAgICAgICAgICAgICAgICAgICAgICAgICAgICAgICAgICAgICAgICAgICAgICAg ICAgICAgICAgICAgICAgICAgICAgICAgICAgICAgIC AgICANCiAgICAgICAgICAgICAgICAgICAgICAgICAgICAgICAgICAgICAgICAgICAgICAgICAgICAgIC AgICAgICAgICAgICAgICAgICAgICAgICAgICAgICAgICAgICAgICAgICAgICANCiAgICAgICAgICAgIC AgICAgICAgICAgICAgICAgICAgICAgICAgICAgICAg ICAgICAgICAgICAgICAgICAgICAgICAgICAgICAgICAgICAgICAgICAgICAgICAgICAgICAgICANCiAg ICAgICAgICAgICAgICAgICAgICAgICAgICAgICAgICAgICAgICAgICAgICAgICAgICAgICAgICAgICAg ICAgICAgICAgICAgICAgICAgICAgICAgICAgICAgIC AgICAgICANCiAgICAgICAgICAgICAgICAgICAgICAgICAgICAgICAgICAgICAgICAgICAgICAgICAgIC AgICAgICAgICAgICAgICAgICAgICAgICAgICAgICAgICAgICAgICAgICAgICAgICANCiAgICAgICAgIC AgICAgICAgICAgICAgICAgICAgICAgICAgICAgICAg ICAgICAgICAgICAgICAgICAgICAgICAgICAgICAgICAgICAgICAgICAgICAgICAgICAgICAgICAgICAN CiAgICAgICAgICAgICAgICAgICAgICAgICAgICAgICAgICAgICAgICAgICAgICAgICAgICAgICAgICAg ICAgICAgICAgICAgICAgICAgICAgICAgICAgICAgIC AgICAgICAgICANCiAgICAgICAgICAgICAgICAgICAgICAgICAgICAgICAgICAgICAgICAgICAgICAgIC AgICAgICAgICAgICAgICAgICAgICAgICAgICAgICAgICAgICAgICAgICAgICAgICAgICANCiAgICAgIC AgICAgICAgICAgICAgICAgICAgICAgICAgICAgICAg ICAgICAgICAgICAgICAgICAgICAgICAgICAgICAgICAgICAgICAgICAgICAgICAgICAgICAgICAgICAg ICANCjw/wCQlU1czaLDediL9D2pwXc7AIn7ETT8yr6CeBPVoKOmjgmJtXkeQZcHiDCAfTqqSMnv7AGzq TE5UhHQrS1QcO9DrPOhkBL3TWZDjZPDljVGxTDCzXG ChViE8RIUfIUnhUW9GoAXqEQmgXJRaXUDyGG6SOVQfM875slYrVX5TIl0SUwMiOG4xwl2XIiRuTJRyQi vTAub0GOzoZW3PyRYcgWFcAyHhPBFGYaAuL7ffq7KwWmQzZCCFGUznYA8Aw7EhjCVtOLu+Uf0EOF9eu1 GfRNxeFhJiIM2kaq2COFuABxOjT0RvnFdnYUBlgKBh wC1xDFTVoiKqvQ09AWZtDjiyP1WnYGrhAy7nKFMfUDP6HUoxLC9dBHWrGXIdHuZ2KUAQDH8VDJEyBYSx bMByJZGvXDYMPT3TIWtrXGD7MpdpndTdnCVnUJqjNG1MRRUvqfQjPuZcESCPPAx+Bb1RLB7ze9EjBTwg KNVuAI2qfm5YGDwTFtOqE5X2vZNeS8A6LVkxIf7MAH DzUQPkIjZaEVLKHXmyCQ8ICU2dgqY3NN0EyMEtVKAgCWXdfBTfONi3P71qqVSzZJskSV5EWNO+Eddie+Pg 7RTNJaRHHhKCHnRyUhUWFYUxXxP8RqD5FGr3RpP0QwQB97fEyswpDwNYtqCF2TQS6nIGOwVQDDAH2BsS ImlK0qraRdMqAzQVOUVjFnX82zaTXaHBCnLUHhTHHz Jh4HBUCiT7DzuwEkmVkqoeNpPYInPYOPMU9PCGvesvGeeYHayYwmBD82eYjkLZ9TBw8KRrSaKC7ilt7K dLSbTz5QVQYxOK4UBQDfZIVjHPAiBFL8RXEoNnQrHSibIRXeRYZuXYF1JIWjDGRvZK6WZsZrLCNmNZr6 JcEkLSUsOTKnto6YYTVmAWVxEYDbSbIoNMJtBXIlNX yeGJBmRZVhCEZ0PSDuMKVrXU3ONzJmIMNiXLGpFFAsIIKuPMGblp3ROPKiUKAvKBStUDSzIKPpCUOuGO woDVUxQQPzVrR5NWXjTKOqGU4TMfYzAPHxEVW1ByqiZTGoXOZcer9QLQWtHUMoFsm8PkLlDQWbEZFrUJ rdSORxWYIfLnUxTMViBQFmUY2UMzShFPCkXVO4NBhz CRJsRUPytp7NGNAuJOItNCD6GUPdDJAmVDDeDDhsQTBeFBH3JZRvYWGmPMLnPY5CElJwWQFbACI1SFQq YOTiKTFokv1JCDSkBBDcFye3LAQkQACkHLBqCFcpVKMnOBS6JpI3VALyCEFvCB2YIjBnQAEsPVhcLGLd NAXxGLOice3SXJUtLQAqMLU0VjUjCLYcYLGfLIzrTK RjHVL9KWg3VVHvMOJoOY6SHgKqTIFgXZk9KCXkZGWcEKNvon9RYKFpRGSrVDW3GjTvOJEbPHDvTNjiVY DwUCPiFVF3PVKlISMaLS3YPlRwBOGkQbP1EaReUUHnIZWysp5JWXYqKDUbYAtiXhDsIATkSQTaARw3bo UrjHOfJCo8UE0TJ9WuopKzJaRXVv2Zk023DFA6UYPp Vs2AQ4htDq4wDBQzUYPZPi3MTTo4HUFjWEknXdBvY7WnVnHjPDYoEeRhICEbBIH1KWUjXag+BBp6NlR1 ETLnHgSpHwJmFgQ8ChLjMuNpN3T4XfFcICD3SX7vJGSMSh6+SMxjsVVqdJtgBPJRXuBvJSS8GPytXOHR Rg0K ID Date Data Source [id number] 04/11/2021 02:03:43 PM EDT [facility] Name Value Range Interpretation Code Description Data Katlyn rce(s) Supporting Document(s) Progress Notes [facility] YDVSDw3pHrCCTgCa35/MVRabIMMgr4FkIGxnPIv4GTihPLNjY7MxJTK2lQ4cZLH1BVaRUjGuCuQfZFD8 lbm HlPgwIBbXjLSIwOdcSUjDkBSkfCokoyPUwOA9HoHU3GWMnH90lSIJdREEvS1ZqNFMrBIE+Fh9CJLZjbQ MfSF5BEyfL7I8ee0jTQR1p4W7zmVQTnr3phRrLLni64CtreK6luWsdJ8tEkqgDqIiW4mveh9WIk1YIzO CUF3oWuqEDQgB0557nAOjD9+9/4iLwpJRi+d/6zyCy xehO/PlPYjPNsdfTNn+rJyJHS4WmwC9FzkmK6cydPN3kf+jtzQyCw9A8NMyprMGkUCoBTRw5Xt1Hep3n 9ik4E5Y7GFb9JB6uHUADRm7oTY1sFEx9hpKsno7sabnrm32J8w+E2KfiRGWz3sNYXbO8iWoidYRIo3Ka 9it1sVDEkmNad30eoB97S071N0rZF/1eUoR41Ke94N [file] NITQU7JKWd== ID Date Data Source [id number] 04/11/2021 11:58:02 AM EDT [facility] Patient: DELONTE WOODARD : [birth year] PACS System: [employer] [facility]St[facility] CentereIQnetworksProcedure: XR KNEE 3 VIEWS BILATERAL Provider: RAUL COXBilateral knee x-rayHISTORY left knee pain unspecified chronicity.3 upright views performed.FINDINGS: No joint space narrowing is seen. No fracture or dislocation is seen. No effusion is seen.IMPRESSION: Unremarkable bilateral knee x-ray.Electronically Signed by Dr Marino Mack MD 04/11/2021 11:58 AM Name Value Range Interpretation Code Description Data Katlyn rce(s) Supporting Document(s) ID Date Data Source [id number] 03/15/2021 12:06:07 PM EDT [facility] Name Value Range Interpretation Code Description Data Katlyn rce(s) Supporting Document(s) Telephone Encounter [facility] FGXCLy4jYaGVKcLf64/HKIbkGUZbk0KsCWoqPNb9VPyvVLWtR7WnVPP5cE2pKLL2FZiGYzMpPyQeYbTx [facility] AmPrzOPgIxVOIxGdkRWrOfMJldUgnotASrZQ0ArOP0ILPvY99iVGWnCKKvR2EwYGv4WK7+MXzhDSY1ty TgzY1CCSP4HUvj9FIOceRrA1ti2eP1wiDOZmPObY+pPyzmioHIgkz964LxFsnOVUw4vsfXP5bATlQdqm 9njaik79g9YW2U+/wcKbyfsGO7c3xWtTJZBfl4Uh0D IDZi/NxNXjjIsbMpUhQa1P9KHkFkZCGgVU6lagJxAUstyPQx5kvMEdRI16Ot72bH+0Dp5BeaRdD7CTPJ Xbk7uNtMOTAJB3sHQSFV5nC3kFtZUpFnKLXVIc7esDhbUM0E08m6WpPYtaAWEgFQxMzBEI4PKSEvDVbl amMJkXmXqA3T2mMZAmqe2HXDm6WC85IknPQpR/EmGH pSBgxI4BDVMocYVzlFDnUxaj13XPtm7EYduhqA+YWBTuKKfxPoxya0rd5jNMsT5IQ3seh1VbIDh+1uNr k4d1YHEoqot0BfdbBAAXGz5bSpp0Hh0uUSueqT5b6uq0H9OSSfYWcWtlm7U8NagVOIGvonURNdZolbGU LrmH1byZddsbdYu85CqCZmcNyzhg1eM5qLVpqyv8PG mRkRfeSWimrHTJv2XbJ7emt7rzFk3Y9NTf+zMRskDrkaNMgyK2+sbzBn4UDzGInZnQRYVbwhvhxnF0pW YH3V1hSTkKdZrYpPe4hrj3XzqU2kgQX1zIh6rqYxuZrh1NU7sYG98wmzNaGrgB4FIxgh72hdh8UU7sd7 SqROoiDu51Z15eEQmscu/2mekC3GZEl1dv0TthuAsd 1l8T0kTXqqqutJatjWtZEhvMBJPm5bwA+5v7GrCuDr63o6vdpPWCD1oGgFKxAf8kg4xYRcv916OieVNB AqqN0O9ckcP4X+2WQgnntbhVfDKzGjx5fJZllSNfE8rHEaMzy86bTrievJYiOsuFwYVx/EUK68NEeWH9 yesRxheCDZUkI0zUjTDntzs4xRTAQC5zQLqlm+/ARINA [file] AQu6BC1TZYN6MKFsBg2AUZXkGM2YARYhRTQwKQMVYf UaMIHqSjCwEPIrFZYXBWklSBJzY1PlTSU7EERzQe5+ZFbuNV7FA4UmOBC5WUu9RT2+XKpwVZ2JdNKEI4 RxnNOpJUpsN4ORPH5JVFA0BU8ZcVFbIQ6EcOMPR7EfvYKwTe0iFBNfu6XaWp4vJ9RQJVVISLIcAIlmWF riKCJzRLw6D7W0CIOuG7WTA586tVFvqSu2Qr3jD5UZ NJmEGhLzYQmoHMyqVNAqQFe2D8G7DBJhY8YWR7UlBnMulaXkV7V+VfMjAFVZML0HHUBURLl4X2L3fULj L1E8yTmYxQT5CY8CUW4VsEBbkPWzb07+QqZKTtKwH2NJI7ATON6HYCn1C1X0gTPcX4T3vOwCpXK6GS3E QS6KmKatjYJfRu8oHPudPPB+Tz2KYq7WLqTrYX9tko 1PLcZpPODeDmpZFqe0N0tvjbr2aDEbFkD4X8R9MsV8kNOlWL2CA2I9fNVhUYG9TSZeeZK+Rv4Jd9YlZL TbICm0F8dwGNRsEDFdAdUgpW69N++3stadyVN3T1c4CDCXdAXmwKuFcfJmT3wOBQR4k6C2SYp/Pg0KIC K3wQq1gAWyOQKdSCr9cR6bfWy0TeEtRD83VYFnZJtq yL6cAvi7K8Hhd6HiLo8wSf4mbHLeNp7ZIbLrIGD2gwCdSiMGWpD7fTuiqfemLTI8N5p6sMV4Ha84o5xb ktOfh0SyIbV0MInkPNKiRiDbhrZlLGB8wtBgxC6oneIdUw6OYGNeSXaumuJzXfOSAu0WZrSpJD43Wjsu dE1ppCV+DQogICAgICAgICAgICAgICAgICAgICAgIC AgICAgICAgICAgICAgICAgICAgICAgICAgICAgICAgICAgICAgICAgICAgICAgICAgICAgICAgICAgIC AgICAgICAgICAgICAgICAgDQogICAgICAgICAgICAgICAgICAgICAgICAgICAgICAgICAgICAgICAgIC AgICAgICAgICAgICAgICAgICAgICAgICAgICAgICAg ICAgICAgICAgICAgICAgICAgICAgICAgICAgDQogICAgICAgICAgICAgICAgICAgICAgICAgICAgICAg ICAgICAgICAgICAgICAgICAgICAgICAgICAgICAgICAgICAgICAgICAgICAgICAgICAgICAgICAgICAg ICAgICAgICAgDQogICAgICAgICAgICAgICAgICAgIC AgICAgICAgICAgICAgICAgICAgICAgICAgICAgICAgICAgICAgICAgICAgICAgICAgICAgICAgICAgIC AgICAgICAgICAgICAgICAgICAgDQogICAgICAgICAgICAgICAgICAgICAgICAgICAgICAgICAgICAgIC AgICAgICAgICAgICAgICAgICAgICAgICAgICAgICAg ICAgICAgICAgICAgICAgICAgICAgICAgICAgICAgDQogICAgICAgICAgICAgICAgICAgICAgICAgICAg ICAgICAgICAgICAgICAgICAgICAgICAgICAgICAgICAgICAgICAgICAgICAgICAgICAgICAgICAgICAg ICAgICAgICAgICAgDQogICAgICAgICAgICAgICAgIC AgICAgICAgICAgICAgICAgICAgICAgICAgICAgICAgICAgICAgICAgICAgICAgICAgICAgICAgICAgIC AgICAgICAgICAgICAgICAgICAgICAgDQogICAgICAgICAgICAgICAgICAgICAgICAgICAgICAgICAgIC AgICAgICAgICAgICAgICAgICAgICAgICAgICAgICAg ICAgICAgICAgICAgICAgICAgICAgICAgICAgICAgICAgDQogICAgICAgICAgICAgICAgICAgICAgICAg ICAgICAgICAgICAgICAgICAgICAgICAgICAgICAgICAgICAgICAgICAgICAgICAgICAgICAgICAgICAg ICAgICAgICAgICAgICAgDQogICAgICAgICAgICAgIC AgICAgICAgICAgICAgICAgICAgICAgICAgICAgICAgICAgICAgICAgICAgICAgICAgICAgICAgICAgIC BqSQTcZKVdFMYnMLNhXCLhELOyGYIdBBQtUVl0K9ooNEBuOQWcGO3zDYm4Yx8+DWpCDyXxAJG3uvLldZ 2RSJ9ti5QmFKqyVIOww8RjVSz4MF2MDHJzWSqnLY1O JDnvwi7PCXAkHRUnyPRJu0lcDrEsGKS7SCTaSshlHF4RPNWwP3zushWiUVEjUGXZTO4GNaWiH5JxeZ02 IDENCj4+TNethfNsZvnJOuXjRGQop4HiASz3YV2LHMHfXnuwj3FyNmWrSFNWVOyhZB1NYTT1UQHpFHIn Ho9OXCNgQ294baXgJT7KNo8CHnVhQZ3atl5UJkQnAD GwWaiPEya7SSryWD4BkIRjUPjGZCxtsKsmsiWyDI3xu1ExgKHzMAJ5JIVkbulbyYTrYHIzwiypnnbwKA YdYj3iOc8iGJWrIVSkGxX5QRITGG9OTTEwTMPzuZKaWRTnWMRGQB5KQBtyOPX0EwtdccHjzNYnAQduOG 9QYXJlbnQgMjIgMCBSDQo+Sd0WEP1ex6DeMKavMMRf TI5neb4SFNrUKbByW3Z2kILcA8K3ELbuGm4WUYGeUBRcLbBsJSRGQLhpRT2BFQ8bsuJ9MA8HySDgLMIh GJLmqPZtCQx1B15uhLWeQRgwRT0QUSJ+Eddie+Id1IDVNwRAOnGTQyUzXnRKIZHwLtB8NlF0MMd1PkX1Ax GG36kXzatrBbFXrcMK2MPK6lQESbTLYVFY6WpZYlzJ 7uuhQeYaBiYNOQPjSbR58haJLzSEZxASJkNQThIi7FMDEeO2OwnuFccZfoguNrKCTlCKGHKJ0ITItybu OyxEHgwAbjHL82xVewHZ0TJm9TKiUxUZ1msv7QcJUnBi4CRZSeJE9MOMZrLCTbBFZwOSO9BQJpTaJzAZ zoDZIzYBJbCEI1MQKlICCtEG9XYaUiCQLbLYu2STOw FVTtQDRori2URIMfLALtOYY3XFEhKOZnGWPmPDjbZFWjZLXgPSG1UPDkMNPpND0AAwZoZVLsSKPiCydk FTRrRYDfzo9OLMJoIJUxKMB1TQQnWNHsGFGzNMxjOKPhCGLyUqN2OPWjJLXqIR9JStKhZNCsIWH8BFIf ZTPgZFHogi9EKFYsNRPhOxOlARVaUXSmEZBkIQlzIE DgKHEmLHv5WJXmVZHiNU7YSvPnZZHfWKJ4MDIzMIPjIPRspu5XGLFgYTBjUsd6IpSmJTKbDYFxNYgcIG XmXLL7KeXhMXYjLMXyTF4TLyGkYOTiTIE2YzsoUOYtDMJogb7VGWFuCRPoEizaFqSeCRRrMBHhFEkoWZ KwWEL4TOw1ZODvESKoUH9ILxKpNBKzKPkjGpIoKBFf AVOfiw2SVMFcDDTyWVH9EFRrUOCbRMSrRZgbWGUvQXE0PoWrUUJrYDGgXB7CTrLfDXDqAWo9YoTkZDLj XXAdes0RIHFnPYAoCZzcJKKqMGSgPEAjZEyxVSBsFCTiQcn9ODEuNWOhUM6LBdQtEXArFyN5ABzmNTPb SCQwyx9PZUKjPOPpPUMgXIAzQGHlHNAdFYp2ilVpcW MuBDd1MA4TF4ThirPrLtCHTj6Fg393RUV5PPUiOp7FI1vwSh3fVNIhEBEHSj7UQLc8XDMzWOg3UnkbFE P8ReE4OkqlZWYeDJIlHKM8PbHvDYY+ORl1PeKkFaRyUKQlSsOgFKF3HUSiZMK4YdL9PmkrY8AhTp1gYQ ANCj4+AFkeiKIbmZgpJOZDCkKtSBG2HHidAFRBCb9H ID Date Data Source [id number] 03/15/2021 11:11:10 AM EDT [facility] Name Value Range Interpretation Code Description Data Katlyn rce(s) Supporting Document(s) Telephone Encounter [facility] RTVFUk4xRuRMLnFj30/NDOgsLNWux2YuLMfpLOv1SFszXPEtD0CcYMU4wL0uRRL3JKiYMeWmCcUlJsTh lbm [file] ICAgICAgICAgICAgICAgICAgICAgICAgICAgICAgIC AgICAgICAgICAgICAgICAgICAgICAgICAgICAgICAgICAgICAgICAgICAgICAgICAgICAgICAgICAgIC XdIQBpZN7VVCBnQCKmKWSjCRKcIIOgQTSbJHTxOLPmWXQtFHJdYHDtEDXuMULwZLZuMWCxGVHaFFSaMV AgICAgICAgICAgICAgICAgICAgICAgICAgICAgICAg SJHdAAIrTQPaBABrWEYjGV5EVCOjZPTiKFKhNCBlLDRmKCHbPUMqUQPzTUXtLJKfIKVhVGWjAQPxHWJm MBHjIIEzYIHzHMYfKNZdYPEeGONiXMVbQCWgIUHxSGSmGEKbRCPwAHKeFPEvJNEtUSQbWMTlBGEkUL0A ICAgICAgICAgICAgICAgICAgICAgICAgICAgICAgIC AgICAgICAgICAgICAgICAgICAgICAgICAgICAgICAgICAgICAgICAgICAgICAgICAgICAgICAgICAgIC PdIFEvUBRmPZ5PIMVuPIRkWFJoFNGpPPVcOUNzVDAvVTCoFMKqBRBjTRMwYFWoFZPpQSXzRBAhWREtPD AgICAgICAgICAgICAgICAgICAgICAgICAgICAgICAg VCSaRUHgIBQmTAHlNMIkCWWsRU9OCTUyPIBvFMNaZTOeBNDjEYUbCDRlWAYmIAMmPLMzJHUoLYGsDEJa ICAgICAgICAgICAgICAgICAgICAgICAgICAgICAgICAgICAgICAgICAgICAgICAgICAgICAgICAgICAg WS8DELKsEPBsYJVtYTBjEBMyBIXnVDToUHKyPFSgQN AgICAgICAgICAgICAgICAgICAgICAgICAgICAgICAgICAgICAgICAgICAgICAgICAgICAgICAgICAgIC EoJTCnSMXuKONmZE5UITVyJDMsZPNbOCBbZXXlPJDjFBEuMBQnRMHoCUCnYSNsQDRwEHTsMQElMEYvIS AgICAgICAgICAgICAgICAgICAgICAgICAgICAgICAg DAZhJIOyJBWaKZLwSKWjPMDgARPjCI3OTKGuKSWkZTGeGAMtBOKzYBUvWXKxMUInCHWcNGJwZIZfLYVm ICAgICAgICAgICAgICAgICAgICAgICAgICAgICAgICAgICAgICAgICAgICAgICAgICAgICAgICAgICAg QQIhCF2IVPGpHZNuPWIeCHWjADYoCWHlAZKgXEViGF AgICAgICAgICAgICAgICAgICAgICAgICAgICAgICAgICAgICAgICAgICAgICAgICAgICAgICAgICAgIC EoGWCyPYLqRFCwOHNdCV2SZJ81nODbc2P2AMMpOY6egoe/Nr9VEGnybpTmdBZdAJ7NUoGfQC2hgq7CMw CrWH7ixn0AGYcZFzOsP8H8oNQqCVXkEJUVWbDfU95d GCqiSr33YXhiRZWdKoJhHHs1Rg4YYjNdW3fwQRLzYsH0OYSjFiBoYVlnWY9Qo6MhiWUqCZo+Tw7LVA4u d3GlQTezXdIrZN0ozb4GFLmEFkCvQ7WxdjB6QHPlMUIdZh0UAUKmNAFehWYqSkTnELRIIuLtK5UmfV15 IDENCj4+GOkuxbZzAvfMKxIoACCoo9KjVIw2AW1NFE IyXXe1zBIaWYQcNGJcw99xZREzM692pkTvalEpcMEJrCHktZQjOVTvuDK2mTVqIUMmIi2qEt3hHJPqMF PbFgH8TGJDDC2CRJYcIEVefCDnBCFgDNOTRH6DIJajLTX0XcarucBsqTYaEJqsIG2YTNIkkfMwXqTmSO BSDQo+Oj7HCI4nm9QgNZuuFBFeMA2lan1SGKcNUkEi H5Y8jVMyH4G7PEinNc8KQLSoCVJgGcNgVVDXCFycUF7TJW8aedJ3XH3DrEJgDVWkGTQdqSYpUAb3I42g aMTbSCzgCF5QPGG+Eddie+Wy4TYWOeFNRzROEiYoAyCVMCWuRwA1HuZ5BSh5LsN5FwLT07zEvzoaQeJYbt EE8RYM5qRHNcUJCONZ6UwQKecT6acwAaDkVaQEMZVk JzR90wgPRwPWDsNZUrELSoNh4SWDAoW6RdvwHjbYlvhkTxDXThTNZLNP1RPRhoevPcyUKstJyfIB31yH ipIV7ECe7REmMqUM2sjf1YiOReRi0OZHPmID1VIXRqJUYiVFZfPLV1MGJlSfObJKjvTTMgTUQvBAH2CO WqOMWxGR2CVlIkTTMyDKw4LiFkUYFtSCJncb1FNJUb EKKcTPB1ZDEgMWZmVACaZAbaCXUaSJMcERG2BBZyXPXgTL3VJrBgWMJzNQJoGsLyQWUjROMyty2HAMCn IKSaKOV4LDBxLNGdDXDmJWfvSREbJMMtTqL4YKWsONElHX9TRhWwOOCdWQQ1HojgZBBlRZAtym8IEKQk MDAwMjYxNCAwMDAwMCBuDQowMDAwMDAzNTczIDAwMD JnHV0MFjOcLCCzFLG0TeRaVLDvTXBzjz5LLITpUCMqLje7EvYpVFFlPLTxVTlvXWDaWWF6WbOhUJKcNF GuUR4PYeZxNYXwQHR6QHovOJXiFRMtxn9IRNXwOZBkUqeeIjRnMUNrRCZwHTyaNJMhFMG1BCM0LJEwUO PzFR0TFmEdVAGrMAwzGXFhLSKmPUKrzu8SHUAlKBJc VCH0JJPxKDReEYGuFXisXGIrZQI8FlE0DSCxPWWfNB0EFdEmQWQtJTi3ZACzKULcAHMkes6EVYGtQUIb MZlmTELgGGUfSFAqHLllQIYmGLVlEpZ6CQBoPZHuHR3MBjOqJFSuEzR5NzjsEWLyTYSgpp9VJFAcXPVl EKW3BLIlUJYwYFZxPOb1mkPdbZLkESt4SQ8VP6Ogus GgBhUFNp5Wn964ZFX5UKOzPl2LE3mhUg0xLGMgEFTECk1IHOq5LmP3FPo9DrYgUFcxSqX7MsK1BtXdSQ d1SKyuLvLsHQM+DMwnQNg7VUYaRgRuBCBrNyk8Jbx7UVE8PXNnSuTsGoGqWj5bHVQUNi9+DQpzdGFydH zdBJPTTuWoWLIkPHzxQXAOCt4O ID Date Data Source [id number] 03/14/2021 02:54:22 PM EDT [facility] Name Value Range Interpretation Code Description Data Katlyn rce(s) Supporting Document(s) Addendum Note [facility] YFWSWf4qCoSVZpGg20/HNMdlGKXei5RrPZktQVr2AZjuIXIjZ7TiKOV2aG0kZOH9BJvHLdXyUeGqGaDl lbm [file] y8P8KzDBMsEkArACRcVzksPTK9GUu+JA2jVRz+Lg6Ff1RqcsM0kbSsPCwvEZYxNT0SZJCYU9BJNw== ID Date Data Source [id number] 03/14/2021 02:54:17 PM EDT [facility] Name Value Range Interpretation Code Description Data Katlyn rce(s) Supporting Document(s) Telephone Encounter [facility] NBAFBj2yJtBDBpMy87/AWEdrKMUxf1AaMImoIVe2APipHTWxP2KfWNP5xT6xFRW8EEoDKePeEwWaJiCu lbm [file] ZDZiZWExMjBkZmMyZjUxNWM+VZ8hUCg+Vh0Ay6AyvuG0liGzGHcpUSp1Yq3MLRYGX8XLMa== ID Date Data Source [id number] 03/11/2021 11:37:55 AM EDT [facility] Name Value Range Interpretation Code Description Data Katlyn rce(s) Supporting Document(s) Telephone Encounter [facility] ARRAFy7eRgLXGiTf30/HMOzwXDWyn2CbWVvgLDy0YCldBTOyA0NuOEL7vF7eCEA7OVoUDqQgElFpJpX3 lbm [file] NzlmZjkwYmUxMzExMGMxNjEwYjI+PY6lGTz+Vm4Cn7QhguV9ycYuVZqmUBz4PX2WOXNMT5MCSb== ID Date Data Source [id number] 11/23/2020 04:45:05 PM EDT [facility] Name Value Range Interpretation Code Description Data Katlyn rce(s) Supporting Document(s) Progress Notes [facility] YTIKAk7nJnZRZzEm24/YMXmwOMTdf7UuEKoqAMz6NWpzDRZzD6CcHKA0aB2qANY2BElGHaTbJzUoWzMf lbm [file] Sun'Aq/c/quDm7uz+NVTVnNXNOGla0+bo6fNBZU7Qmlpw [file] AgICAgICAgICAgICAgICAgICAgICAgICAgICAgICAg ICAgICAgICAgICAgICAgICAgICAgICAgICAgICAgICAgICAgICAgICAgICAgICAgICAgICAgICAgICAg OOYtWR8URITzGMQsQXEvLDVkKKHlOMTrZRLlNBGuXEPsZUUlAXMaGYWhPHZbKOCtQEWlMYRzTOWxLAFp ICAgICAgICAgICAgICAgICAgICAgICAgICAgICAgIC UhGVGqIOAsKJWuXXXjEL8RWTJbGAXjCONvQJRjYSJkPGRfHTYjJFJpGNFsQFAwIQMiJIRrNIKmKJUxZU AcXSCmIVRjDJCfJZKgMLHpSAAbSSEyBWBbPPShQACeFNKuGQUsEECyGXVmRXPpRCHmDADxSYFoNG4XNR AgICAgICAgICAgICAgICAgICAgICAgICAgICAgICAg ICAgICAgICAgICAgICAgICAgICAgICAgICAgICAgICAgICAgICAgICAgICAgICAgICAgICAgICAgICAg VQEkPHVeWT6IREFmEBQpHZQfAPGbALKwWAUkEEDyGLRgOTWfRUHpIQKuNEHzUKEcEYSoQZLpMWEyEPOn ICAgICAgICAgICAgICAgICAgICAgICAgICAgICAgIC VeWNFpIHVqRSIlCAHtGUQvBD4NXGHpXERgCELnVWWjXBKnTYPrQSDcDVMgJYRhLFCqFHYqUGNnWZEeYA AgICAgICAgICAgICAgICAgICAgICAgICAgICAgICAgICAgICAgICAgICAgICAgICAgICAgICAgICAgIA 0KICAgICAgICAgICAgICAgICAgICAgICAgICAgICAg ICAgICAgICAgICAgICAgICAgICAgICAgICAgICAgICAgICAgICAgICAgICAgICAgICAgICAgICAgICAg IFRoQTQxCAUnAK7YCULdPSKxIKZwMSOqCYQzOBNeHZJzZJAwRVQzZFKbNWJnITJyPXSaMLEzJQMkBYOd ICAgICAgICAgICAgICAgICAgICAgICAgICAgICAgIC OxNWBgRAIxZAXbPDEbPYVuLMToAM8HAIKbQUMdCXBzBTNdUPMqMFGkLTElZSRtXKCdYMNpBDTlNPKoYD AgICAgICAgICAgICAgICAgICAgICAgICAgICAgICAgICAgICAgICAgICAgICAgICAgICAgICAgICAgIC MgLI7OCBYjIPFiEENqSYWyQPAgPOQsCYNkXKVaGUOt ICAgICAgICAgICAgICAgICAgICAgICAgICAgICAgICAgICAgICAgICAgICAgICAgICAgICAgICAgICAg GXSqFUOkFAJfICFmRB7PCQ01hNIvy2J6PONyDN6ffzj/Mj2PXUpbmbHxlWQgVL4IKxSiCW8zlx4YBfDp HJ7ouy9VHSrJWsHqE0M0yETjTTImNBUKEoJmL78wEC ltOl69NYrfJRTrTvKpJAy0Cc1OCgDwI5veCQVnZdJ8GARxSsC4KGXpYqG0TBFxUyWgMMYpVLNbRI6TKO AyI396bhQvPF6TDk5SFvIhYH1aty3LQqdiVMSzNyeOEum1NEjuYY2XaTJihMJ0GSRlJKOZLwDiD1bgf4 IqUKBeNRMMLYdiQK6Bb4TvhZNmHMs+Kq4IXZ6gz7Sv CIo6KKZcRN8gat4XKQvSKeAjB1AhwMoaVOQas3rcQZSnCU2lfUNkVQP7BMXeEZBgnZXWc1muouykBmFm ICKvZp7nCl5fTVEgBSUiRiOcRTDNPC3BIUKpQTYbhLHyZSAsRRLPDZ7TUVahPEL8IwnzasBdvYTkAGbq LR8OWMUfobMbWuofYJPNIYt+My4NQU7gk3DnRQc7NV StBS6rvs9TFBcHHkEaV1Y8tGFwH1I8LLekYh2DWALoMSTeQozhWSNDIWyfIA8EJT5avuI6HE5BcMYlPM IlJAQqcSOiQTe7B35kyHFdHAjlOU4JPPA+Eddie+Io1ZRKZrQVHtKMLpIyRvTIMUBoLuK0CqK6BNm2FaB1 WrNP02lYixcgQkNTzwEK9TIN4qJOUaDTATPU7OsOQq dX4cilTkJOHgXZZXRjPpW07vdLShBWFgYTA9ZGBlSj0GQHNxY0RxcjRkbBafkiTyXNBhWTMNQA8XFXam wjHafLTdyXltSB04kDmxYH0WEs7FNsGnZD0lje8KgQJrDk2SASG9El4HILDtRIQnKXOfNLQ2XAGcYxMe ZVtvTOLsNYBuDRV9QENgBXRwAV3VZtQeLISbTJP2XG CfKRKaXLUiwp5RQMBsXIZ0LDP7DOGaXSKcNOPbEMsmVNRkBLIhBPY1BXYfNZGiIE0AAqGpVIUkHXA3Be TuKWGjVZFvam1WKNPuMIGxKyM4BLWqQXQlMQYySXmlPWDpBTI7FQtfKXWnZJUqJC0FDtLkPRWpLOqvLt MpWVMxXCXumu0XDHXvYNSpXKQfSWOeQAWpXYAvIAwg HBSdUHOhNdA1MDSlBBSeQV8PCxClVFNhQTQaYhExAFCgCIYlme2FUOSzNBFuTdE0NMAaFOKkVHXnVKub JGDdWRVpAoVkEFQvOYMnNQ7BLnDaSBSqOGP4OjStFWGzKNSwsh8TAXNoITHqOezeHTBcGDVzDTLuIFav WILmOUC3MsdiGKDqQJQwSD2ZTbJsYDEmFJN9XhrjQQ PvWYJxyz6EMZNhOIYyPST4HHJpVQPmRQIvBYhaZZJuTKC3JOB1LQZpVCQxDR8EMrVgOSHgGkf0IbTsXY XpIHTlgx1BOFXoOZFnArhzSGPbXNPeTPIrBXedYBQrENZ4MBn2LVXsLZMrLO6URtXdIIIyTyfsVtPtYB OeKNRegk2FQWTzPTNuCJD0MsUcBTPkMTVrFZagIHLs BEA9BMK6OHMbVEQjSZ8OTfDuYCRlHpz0DvWcVJLnIDUcwx8VOGIvIIHgOFK2HGErBTJyTEXiDGwdQQWy GILqRkD2WQNqWEYaDL0MXzJtYHQoXoV1KfSrDSIoJNBznb1QSIBtZGI5AVC0EeSkSREqRPDyRPyiMIAa WTY8RVcrNIZiSTChMS1FFvOmDMBnQIA0WADzNCKyKE Hfyn5LBGJtFUH5NQDnCqArSSCoPGLeMWnmMPNeBJO0UFh7BWGaYNOqMQ2ZZvPiKENrQCQiFJrrRPVpFZ Luzl0YFGFxHDE9EbBwQEGuPYVoXZZlDSzwXZVoSBA7BEq5TJUdYCLoLD0CPfYvFULjRGX5UKAvODMoWW Ueyo5XYOVlGVM3KEFaWREhCPDjKBXgEVdhAGSdKPU2 LMhkQFQlKOHmIL9ABoPfWAKbHLl1ZqczQNYsVDXwfu1SvZNsmErniz9KGUyBWo6RqOjjEZExPFmjRx7g cXP7PNTjXUFCAf9DlzMrPUJpJGMXJKeoKESfSIGdVEJvM3D1PgnjHFJsQXK8GaL5OzY5IZD4YWMhJ2Nz BqV7NuAhQTBlMNygLQZ5DwDwWDm6UeUbCFUnTtWpWg EzZmE+NV8cBWh+Vp3Sx9JfgxP7ysByLUv3WVb7Oj2KWYHZP3UUDr== ID Date Data Source [id number] 11/23/2020 04:43:55 PM EDT [facility] Name Value Range Interpretation Code Description Data Katlyn rce(s) Supporting Document(s) Assessment & Plan Note [facility] PKVFHn1qRxNJDjUh08/CMPfnHVMjh7PpQPehVJa4KVwzKCUkT9NhNPL2aM2cXWJ1QOyKWgSdKbRoJkWk lbm [file] IrM9JGP1bLTiWy0XUtN7XeZRXrTkJH8YMNt= ID Date Data Source [id number] 11/23/2020 04:33:51 PM EDT [facility] Name Value Range Interpretation Code Description Data Katlyn rce(s) Supporting Document(s) Patient Instructions [facility] NJTJDn1nYcYZEhBy86/ZDVvjXOSzs5PrKDhaKAq1PQmbUUSuC0VvKOP9yZ7oKWX1RTiFRkDfWcHbEhAu lbm [file] CLASSIFICATION COUNSELOR+Fg4YYFPpFWb0D9B8ZLToUVd3J7ENK4VWTHGaVCqyISpgJOIaEAd4H0Z2SESaL9GGO0Ltwctrdf7+ GF9CE25FADWmXXi5N6C1qPAtE9I7mWhZlYC9HB8ZVW 9DiXk4hWSnmT6+VU6KQ1QAHjYlBJt6R2J8oTRiV9H3yXlUsKW2YS3IZP0LrQCoVVParbQbZl3eK7FKEY kGSpWGTDZ8YN2GlCHtTV7EeBCJF1BzuARvSs0eIDoczFHctZ3hRf4yCRnkVA5UPxVZYNrDPCC2DL6WfY KqPS8HpMETN5MmmHYtZu2dGArrjHXxsg9+SS8SOJQf Qv9YKv7+TEbzmyVcAxyUBuEmCVMvi4ZeEPm8XQ2MJZ2mhIjoTJJ1Vk0EtUL5uIHjU2rSVA4FeCKpD87j pPMjBQIkYk6GFvA9ylCblV9XJM78hJXxh8Y5QGKnT9euQJckz53mKFmcDDiCLQ3cTKYVHMazSSrdHCH6 PqCxlkocEDAhWm0CNoBwTDw3gN9qdHI8TPX8KhxqlV MlWVtcWnFeMmYpOyP2uYckxmk0YBoyAP1jKEtgiwanFHItFlm+AVxmETUtNHFxNgvRDLZxfQ2tsyD9xj KpIThcyOIfMz8ky4q0QrgaQz1qOz5vLUw3BmKbJiHdIOPrWh9bvQ80LCcsflBrXs0ZEuWyGVY3D0SgZg pSREY+GRbiDXtzyYi0gAAsQWCoUi2JFYAnGXRsIHOv ICAgICAgICAgICAgICAgICAgICAgICAgICAgICAgICAgICAgICAgICAgICAgICAgICAgICAgICAgICAg ZDBnXSKnQKCnOTMrJDYhSFOuCYUvRFCrJXUpCBDdAH1BSWJkTTGrRZFsELPnHHDwLPAmTZDyQGZsWSWd ICAgICAgICAgICAgICAgICAgICAgICAgICAgICAgIC UlEWYsWIXyDHJsOOOcYOGsASGjOJYiHRXqEYBuSJUbNGRaVNAvBDFtWB7YVFSxBJBbPOPmOPKgEZCoVH AgICAgICAgICAgICAgICAgICAgICAgICAgICAgICAgICAgICAgICAgICAgICAgICAgICAgICAgICAgIC VmBMZsHWMuKJXdLACsSGVyKJMiQQSxAR5APGEoTXPq ICAgICAgICAgICAgICAgICAgICAgICAgICAgICAgICAgICAgICAgICAgICAgICAgICAgICAgICAgICAg HIYqYFKnDEGlGKEvIPBjJFVmOOLzPGIjEKKuXYJuQVOoOF6EGRPiQQDhTGKuTPRnNVOvGOZkKDKpGWCw ICAgICAgICAgICAgICAgICAgICAgICAgICAgICAgIC AaZZDvJPQnCBThQHRxXIWqJUWcXPIcCHDwFEDfVPOsFTFzENQlQSInVCPpKF1HBRNxUWFdPUYnXHGpTM AgICAgICAgICAgICAgICAgICAgICAgICAgICAgICAgICAgICAgICAgICAgICAgICAgICAgICAgICAgIC UhNRGuSVQdPSAjDGDzBIArQDMbZOOdJEVhWZ0HSZOm ICAgICAgICAgICAgICAgICAgICAgICAgICAgICAgICAgICAgICAgICAgICAgICAgICAgICAgICAgICAg BFTcTYInCHRjJHUzCYLdLYUsTFCvABAvUJOiHRThFVAmDMKlJR6JBLRuLJWqBBXbKMHpZKPiFKYsFNTt ICAgICAgICAgICAgICAgICAgICAgICAgICAgICAgIC YrAQVyOSExBNRsHVUeZBUeKCTeUTKpWEFuLFJlTXQeSUXyADYtHSIsZVArVWYbBZ7EJHOfOSMkLDAcCK AgICAgICAgICAgICAgICAgICAgICAgICAgICAgICAgICAgICAgICAgICAgICAgICAgICAgICAgICAgIC MfRGFmLKRvUKApANEyVUDuVUBcOXRbOVJyAWYzHF2B ICAgICAgICAgICAgICAgICAgICAgICAgICAgICAgICAgICAgICAgICAgICAgICAgICAgICAgICAgICAg HWWzKXPgWSBcSBZwAXNgXUXpTXCvDBVlSUGjVYHdFNIiVVGtLAMlRU2ATG20xBScv4U2ANJyBM9smaj/ We7CVUialaJvmFFzFE8CWgQkHH9tht3GAnCpOH4hgi 2JATzLIuYpD7O1bJDoVIUkUFVPJpLgP61oNCceKo37WPhxIPJjUsVoTLi0Gs4QCjDyO0xfJBNkXpH4BQ CnFmXyLEauVX9Gs2PagEDiDPo+Qq9TYX9hp5LvSKkeXkCsQM1ezl7GDUkFFnLvZ7WcsrO9KTFiABYoEx 7QESZnDJTmwSYwHiHvJCRREtYfL4YggK98MOTJEt7+ BJxmlcDtVabMWxBlOKJca2GzHWj8LR4WSRUwIAr6xNZuTFC0pQMhuZNVdwK3yvZvoQzpyoUbVjdeYYRn K4T0KWCof23uOMCXGGFglCDeYwQhLhJcJmPxRLD8FUBoTX0xCUnwPH1DVZD6YGowZAQnCQKoF3nGOgOt RRpiLUQwqUtdKN8GWoNwQ0OkjrLrwCPqXiQbCDWBOy 4+NTzzjdKbUwmSZuI3JMHql9InIZu1AY6BGOXlUNrbZP2NMUNxbQ0wBZikZM7CDnLcBILuOKBNBjLqK1 3cpCEdMMl0U4EbQlMgPQJzBviaKFOyNDqiCaJxFRZlHzTaWCekYW8+ID4+WEtaWT5IIIerxfUjFPEhTk 0LHRFbKLElUE5eGESuXUXnN3R5mBqaEHGSEcYpS1ua bqjhNT9yNWPbD678tJrplwNsOVJgFHAhKl9PFTCwBOE7LLKhpMObYuBcRIIICNuaDW8JuQMeZZN8hA3n MAwlWUJgZSXcC9kVBzUakGhqTJ38nKhbjqAhgAHqKRp+Jr6YNZ0dg4DbGXm9ezWfBIgkUGE4JEsaUYTx SGIjBIDlVSM1ADS7PFQUXfFoLNPtGTNgJRmcGMHvDP Hovn7OYLTgLXBaXNykPdRoQTBmARZkBMmhFAQaJLQtWnQ5LCTuXIChHI9ZIxKnSNOpHNXwKAdsRSBsOI Fkla1DDEZrVPPdZqF7UXJbAYLfFKBaJOpqMDEeLUDyNaK5DPVqYWNlCJ3EEhUbDGLyMPO7WNfsXGWiYU Wucj8QLNOyOBWnIdsuCPFmDMJxQQIlTRenSPXrGEK2 WSBnVBUuGLMqRG3SRzNcIMAmWBI9BrMdQDDnJPPhnj6MGSWlSVXuUGD5BSCkOQKzUICuSUnuVAShKBJ8 MfPbHSQgUXGvUX1JHzLuDSLuFYd5HANqRHNvXIBxoj6KKPIlREOgQEByXiPdYMMkILAvAMswXNMwDXE3 RzJ8RMXuTDRoRB4BPfOqNKTxPLl1OKWjHHZlLBWdfu 8BQZHyWUXfQHOnOJQsANVwWNFkISuoXCFxYTQ3WRUeQCXyGRUpHH1LGsHxKFVtFCs5SgmsNJJoPOLqag 8TAIDpYRLzFJpbXTZpUSYyBVXpZRegSEXiBEOnGcS2OVVfBLZiTG7PCrEeTXLbQaQ7BDUtDGTvNRNvpq 5QUTWcOJYuEKkpIsDmABIfSGXfNReaYLBoZAOlFEe5 RRCdVTHrOQ7GPjWuHHuyJRREDoo0IKraC9a2VZGuNO5WI6Oil9NuUqHtXUHIMNvgUW7jyuTdGZTdXn1V X3fOBdfgVGNmJOJ3QRGeUCChWVT8TUI8XWP9FNCgSQX9HyBdDi9wGSL2GFDbTky4DXN0QuE8XlV3Swn4 QzTyCqHxVYfmKlHwKhDgOT2PHj0XOeQ1MGB3vPFzSd8ESzClEdLUJrRnEI2PAZa= ID Date Data Source [id number] 11/23/2020 04:29:40 PM EDT [facility] Name Value Range Interpretation Code Description Data Katlyn rce(s) Supporting Document(s) Assessment & Plan Note [facility] CDOJTt7qJzYYDaGt20/YHLzdOCPjj3MxMHltFDy8MDxvJIQgX7VeTOU3mH3oZMP3ZSdEQxOhWdVnPxQk lbm [file] ogICAgICAgICAgICAgICAgICAgICAgICAgICAgICAg ICAgICAgICAgICAgICAgICAgICAgICAgICAgICAgICAgICAgICAgICAgICAgICAgICAgICAgICAgICAg ICAgICAgICAgDQogICAgICAgICAgICAgICAgICAgICAgICAgICAgICAgICAgICAgICAgICAgICAgICAg ICAgICAgICAgICAgICAgICAgICAgICAgICAgICAgIC AgICAgICAgICAgICAgICAgICAgDQogICAgICAgICAgICAgICAgICAgICAgICAgICAgICAgICAgICAgIC AgICAgICAgICAgICAgICAgICAgICAgICAgICAgICAgICAgICAgICAgICAgICAgICAgICAgICAgICAgIC AgDQogICAgICAgICAgICAgICAgICAgICAgICAgICAg ICAgICAgICAgICAgICAgICAgICAgICAgICAgICAgICAgICAgICAgICAgICAgICAgICAgICAgICAgICAg ICAgICAgICAgICAgDQogICAgICAgICAgICAgICAgICAgICAgICAgICAgICAgICAgICAgICAgICAgICAg ICAgICAgICAgICAgICAgICAgICAgICAgICAgICAgIC AgICAgICAgICAgICAgICAgICAgICAgDQogICAgICAgICAgICAgICAgICAgICAgICAgICAgICAgICAgIC AgICAgICAgICAgICAgICAgICAgICAgICAgICAgICAgICAgICAgICAgICAgICAgICAgICAgICAgICAgIC AgICAgDQogICAgICAgICAgICAgICAgICAgICAgICAg ICAgICAgICAgICAgICAgICAgICAgICAgICAgICAgICAgICAgICAgICAgICAgICAgICAgICAgICAgICAg ICAgICAgICAgICAgICAgDQogICAgICAgICAgICAgICAgICAgICAgICAgICAgICAgICAgICAgICAgICAg ICAgICAgICAgICAgICAgICAgICAgICAgICAgICAgIC AgICAgICAgICAgICAgICAgICAgICAgICAgDQogICAgICAgICAgICAgICAgICAgICAgICAgICAgICAgIC AgICAgICAgICAgICAgICAgICAgICAgICAgICAgICAgICAgICAgICAgICAgICAgICAgICAgICAgICAgIC AgICAgICAgDQogICAgICAgICAgICAgICAgICAgICAg ICAgICAgICAgICAgICAgICAgICAgICAgICAgICAgICAgICAgICAgICAgICAgICAgICAgICAgICAgICAg QONuKRMoAAVuSVLeIDVfTZGgRWg5L2zjLAXqPECrNH0gDDr1Sr9+MZvEUcGpTXT4nvCrsA1FOW3mx6Ek WGdeENTzw8UtDRz0ZJ6BEDJaBHzdYC0IFFvjdo8IDZ AhHSEsaZJSy8hvWnXlVGT7NUDbCgirTA8NKWNdY3dnzbRnYALuINOGLM7JSuYuQ0SkzO59MXPXVn3+DQ jwnlEuIpaQLrUkGTNqr0JcUMl4SH2PKCVjGmivv3TmQxToQXPUREeoVB4BWDH6YYUmTKAkTd0GXMEbM4 98qsQcXN9EAd6HRsJfCC3qvs4DSfOhNLGgYrxPTpi3 OBmmML2DmVOeRVvRq0Efl4UxKP15SBMrKJgqlxVRq8NcSDR1YURxAKPmpSGDy6ahhuuvYrUtETHvTd7z Zo8uGIDnKSB3CjG4QYHCZJ5HDQTpPLRpnNKkZIWbOWYKMV7NBCjcYVQ3KivertYjhWKxDShwHK4CEWKn bnQgMjIgMCBSDQo+Jf3MJE6bx7FvUUrkKNCqFA5vrg 4HDDjUUjRkQ3O8rWTmC9J1FIfjZh7RDCHsSCKbLvMuNEGDOShaFG9CDC2qetC8UW0EaAAzOMQbWUHcpU QhNHj7O97ztPCoFGzdLC5PUHP+Eddie+Wz2XEFMuSXKoBONkGuCqQNJBZmSsK8NwB8PYm5LwX3BtWI99oO lsilRhBOiuHJ2XAH2dAPEcCZUCJQ3DwNLcxE0eenOh ClNsRLIYLxCdL41anAXgQTEqIXHeRIPqMo9KITPvG3BxkbTjjYuewwLaBDKrDDMFSA0NZRntdyDofKRu sGcfOE90eJjyYV8LDb3IYvPwDO8ibm6KpBGpFx4IMHRjGP7ZDUYdGEPgNKFuNUC5IFQaHdQqMRtgOTMn HYIoQUG2RGTlUAQzEM8QAmNgZPUoJXloLPRfTJRdQF Zcno5FIFXzPKLbUHAwHLHbBTZoTAXnYSjrIZWvILAgQWN6NQZbPSLkMF1DKbXmRYTxITN3QWhwPSYqCE Zxme9IRQVkCVQvHNHjNkTvFTDmLEJnDWahYKFeISMcICdaOYXdOICoWV6OArPhWDWbQWDbASUsRPWgYF Khql3AMPZvIQApUxH1TwNzQRBpLFOoGGvxZZPvLIAy PAM8QLGtDDEjAD1AJsWxCNSfWRR6CxZrXXMgOUZgdq4NYAUvEOLmYuxsSVZhMGLnDJEjAUbhIZPhJYP8 DYQqQSMcWNYaFY5CZrSnNMNbKUJ7RjjuBWKyGWVspg3ELTJgLSGoLwF2SHPlCNMpRNKoWRirQBJaDYD0 ACS7OLKbENSuLH9KOhKxSOVrLXzkOsCwSCPsKEOsei 2TKDMdWXQmVYLmKjWrEDXySBWvQIbaWWGpEEW4TTrwIFGzJAYcQN9MLbJbRSTdQFetFwCiQHBnKAWqtt 2ZMTTkNQQcFXe7DAVeTJQbIEOrQFuvVMDaUJYgQbW1JUXfVJMqAF1JOpKhOOAqJcSwKErdDDAnEAFvxf 9YCWIrALTeBWT0VSKiPYDgYTBjHZw3faRfoHXeURj3 KF6VU1BviaLeFqZNUf0Vg969SCQ3WXLzLm6PR1jdPn1xSNAeGCPGBn1UWXn4ZJmoUYGcOIL6IMP6IGSa HKJjUnQ0VRFjBDBgRCZcJaQ+BPp3MPR9Y3P1LEHcIYX0LrYbRsAfVqvuSeXrDJMnKSZgSB8sJLNTDk5+ TUbmaSPbhEohSUERRxEeCqf0FLjzPUZAZq7K ID Date Data Source [id number] 11/23/2020 04:29:09 PM EDT [facility] Name Value Range Interpretation Code Description Data Katlyn rce(s) Supporting Document(s) Assessment & Plan Note [facility] HUGKYe9dVcQPIuXe50/HOWoyGKJap5YxTTkzHUe7KImkZVRrF2XaDBZ7tW6oSEU7HZgGMtMqJkZlXkSn lbm [file] ICAgICAgICAgICAgICAgICAgICAgICAgICAgICAgICAgICAgICAgICAgICAgICAgICAgICAgICAgICAg ICAgICAgDQogICAgICAgICAgICAgICAgICAgICAgIC AgICAgICAgICAgICAgICAgICAgICAgICAgICAgICAgICAgICAgICAgICAgICAgICAgICAgICAgICAgIC AgICAgICAgICAgICAgICAgDQogICAgICAgICAgICAgICAgICAgICAgICAgICAgICAgICAgICAgICAgIC AgICAgICAgICAgICAgICAgICAgICAgICAgICAgICAg ICAgICAgICAgICAgICAgICAgICAgICAgICAgDQogICAgICAgICAgICAgICAgICAgICAgICAgICAgICAg ICAgICAgICAgICAgICAgICAgICAgICAgICAgICAgICAgICAgICAgICAgICAgICAgICAgICAgICAgICAg ICAgICAgICAgDQogICAgICAgICAgICAgICAgICAgIC AgICAgICAgICAgICAgICAgICAgICAgICAgICAgICAgICAgICAgICAgICAgICAgICAgICAgICAgICAgIC AgICAgICAgICAgICAgICAgICAgDQogICAgICAgICAgICAgICAgICAgICAgICAgICAgICAgICAgICAgIC AgICAgICAgICAgICAgICAgICAgICAgICAgICAgICAg ICAgICAgICAgICAgICAgICAgICAgICAgICAgICAgDQogICAgICAgICAgICAgICAgICAgICAgICAgICAg ICAgICAgICAgICAgICAgICAgICAgICAgICAgICAgICAgICAgICAgICAgICAgICAgICAgICAgICAgICAg ICAgICAgICAgICAgDQogICAgICAgICAgICAgICAgIC AgICAgICAgICAgICAgICAgICAgICAgICAgICAgICAgICAgICAgICAgICAgICAgICAgICAgICAgICAgIC AgICAgICAgICAgICAgICAgICAgICAgDQogICAgICAgICAgICAgICAgICAgICAgICAgICAgICAgICAgIC AgICAgICAgICAgICAgICAgICAgICAgICAgICAgICAg ICAgICAgICAgICAgICAgICAgICAgICAgICAgICAgICAgDQogICAgICAgICAgICAgICAgICAgICAgICAg ICAgICAgICAgICAgICAgICAgICAgICAgICAgICAgICAgICAgICAgICAgICAgICAgICAgICAgICAgICAg ZEQbXSFnIFVhSPUvJTCxAFk7D5axZXTwEMLlSU1lVJ d3Jz8+OEkNUhAtUOR8zvHkmV1YEK7ox6YkAMvaTTKlw6RaUMm9QM1SNPCmNLzpIY0ZDMfdri7CWIVfWC HqlLNLz0zbZwZrPIY3MFRcKelrAT5RWOLgL2vjvoMeEAVqXVXABV6BCpYbR6DujM96VFLJXi9+DQplbm LrRehKLwDnKURdd3UcSDp8KW5XGOLdFleol3JdAjAg IORSGUwjCD6OHKY2IUOzOSDdFa3QYVIwQ898ttXnKY3UQn6RYlGuJK9ovn8XAhNxHUIlTtyVJyw2PNeb BT5RmPMeUUcBr0Zww3EoEA25GRQbSSjrlpEDc1EuUIY2JETvQBKdpAGRr6gdykluDvYiAMAbUz7bPr6a BIIpYNY5TxI8UMCRKF0EXLBoSHIcgUUaQZAvPZSGNS 2PIIafQYK2HpqgfeBtoJJcXDxkIO3AJUIhcpBuUuVkHZIVSBr+Gd0KON6uh3HzVRrqMKAqTS3lez1ALC uKGaThJ5K3rFIjN6M9FJxsMi5RKSXnLOTgKnWyAWHZYXfoNM6MBN2bnyA8XO1HiTKdHBOeAXJsiJZrBX w1H42emIGqKCkzGG2YHHM+Eddie+Xd2IMQJuQVGcHYMh YgLfXLFRGkFjF0MqY7NRa6EeQ2NjNN79qSbgtlItLLynEQ1ZCI4hTTVuDLSXFZ1TnRCpjC5gdhAoPdMw SBYDFaQuV48sfLAhEFLsWIJxJNQiIc4YZPNoO8MobtZcxFagcbTqXNKmQLQKHS8AQGnreeCmiJUzuDpg SF27sCwoNT7TLc6OPuWeKO4dst0HlPBoAd7EIQCgVM 9FXWYcTIEoRHXkZJQ5JRUsYaUdCPkdUVOyGWLpENN4BKViRYAeOK5GPoRuLDJdSWf6NJZoDQLyLKFphi 0FNPAgCXMsZQI4ApDrRPXwPIEnBKgbHFEnSHIuPIC7NBQrCBJxAO2ERqAeIXDpQGV2QgCnBNPjGMWcsb 4AXNFdHHSwJIH6NPUnHPRqAZHbPWukTGDfSHQaOAU0 CVJnBSIaPU7CArAoOKZdVKTdPhlwRCJxYAEggm3RQCBxSXZnPkQzNpRsYGOjRHAaSAqoAZFhDLTkYXeb ENKqRAWpFX5JCjUkBFAyHAC4MsgqGQLcPUIedt7JGWRaMZAeOyf5MHIoIHCjWJMsPPvzILRmATY4MoAd TVYeEIYvTO7ZXyZmYWByQWG0NkIxUJHqWIRtgs9FMG BsPPSeChcuCCTeAKMxFSFbENzrVLDnHMP3TPm1CIAfEEGgCI8YGlYqDZZmXCaiKcSgJPFvNZYcub6ENX EkZCLhRFD5ZvQoVJQrCNTrSWuvPNXhBUH3IxQ2GCZnWPAhPE4AEyLnYXSlKAr0UbNuDEBaNHOjez5WPD QfDWZsAWqaUuNcVPUqZRYbAAowMNMqGWWjDla4QLUj DFVjRJ7TTbKuYFLvQkHuWFJuHWEgLYHeeu5AYLIrGCKvESHbZYIzHSThZCWjXHu9eyTuhLAqXJo6HU3W X1SqwvWmZkNLUw7Zu379TYP2FIVdEs8CZ5uaEo2zTWUvLSGXNm5TEWp2Wmt0FAF8E1FjVjYeMFY6Vpdu CMp3Qnd0U3XiQZAdAiH+PCjtVsmcCbr4SWO5NtOhLJ XsFsWsIBPpGgcrFOW6BTG9XX2uEKNZDx9+IQpwmAOsjDrwBHIWTvTgDxL5UIbnWKYSRm8C ID Date Data Source [id number] 09/16/2020 01:00:00 PM EST [facility] Name Value Range Interpretation Code Description Data Katlyn rce(s) Supporting Document(s) SARS coronavirus 2 RNA Not Detected [facility] This lab was ordered by [facility] and reported by [facility]. ID Date Data Source [id number] 09/07/2020 01:00:00 PM EST [facility] Name Value Range Interpretation Code Description Data Katlyn rce(s) Supporting Document(s) SARS coronavirus 2 RNA Not Detected [facility] [place] This lab was ordered by [facility] and reported by [facility]. ID Date Data Source [id number] 09/02/2020 03:30:00 PM EST [facility] Name Value Range Interpretation Code Description Data Katlyn rce(s) Supporting Document(s) SARS coronavirus 2 RNA [facility] This lab was ordered by [facility] and reported by [facility]. ID Date Data Source [id number] 08/24/2020 09:00:00 AM EST [facility] Name Value Range Interpretation Code Description Data Katlyn rce(s) Supporting Document(s) SARS coronavirus 2 RNA [facility] This lab was ordered by [facility] and reported by [facility]. ID Date Data Source [id number] 08/19/2020 10:48:38 AM EST [facility] Name Value Range Interpretation Code Description Data Katlyn rce(s) Supporting Document(s) Telephone Encounter [facility] KTSBJw0tFgEXWuDx01/XTRkgLZIzv8OnJFqxOZd6YOnzOXJnL2YvBDQ1aN5eMIY7DWvKSaBuTlKiEcZ2 lbm [file] YY1EZCr= ID Date Data Source [id number] 08/19/2020 10:42:31 AM EST [facility] Name Value Range Interpretation Code Description Data Katlyn rce(s) Supporting Document(s) Telephone Encounter [facility] WYSTXy1mOiKZDzAl18/GFHabROWyo7DbSXxjMZl1GTbpGEUbC2GmAMO9uW5wLQU5AOkXRtDfJzGnZtS2 lbm [file] ICAgICAgICAgICAgICAgICAgICAgICAgICAgICAgICAgICAgICAgICAgICAgICAgICAgICAgICAgICAg ICAgICAgICAgICAgICAgICAgICAgICAgICAgICANCiAgICAgICAgICAgICAgICAgICAgICAgICAgICAg ICAgICAgICAgICAgICAgICAgICAgICAgICAgICAgIC AgICAgICAgICAgICAgICAgICAgICAgICAgICAgICAgICAgICAgICANCiAgICAgICAgICAgICAgICAgIC AgICAgICAgICAgICAgICAgICAgICAgICAgICAgICAgICAgICAgICAgICAgICAgICAgICAgICAgICAgIC AgICAgICAgICAgICAgICAgICAgICANCiAgICAgICAg ICAgICAgICAgICAgICAgICAgICAgICAgICAgICAgICAgICAgICAgICAgICAgICAgICAgICAgICAgICAg ICAgICAgICAgICAgICAgICAgICAgICAgICAgICAgICANCiAgICAgICAgICAgICAgICAgICAgICAgICAg ICAgICAgICAgICAgICAgICAgICAgICAgICAgICAgIC AgICAgICAgICAgICAgICAgICAgICAgICAgICAgICAgICAgICAgICAgICANCiAgICAgICAgICAgICAgIC AgICAgICAgICAgICAgICAgICAgICAgICAgICAgICAgICAgICAgICAgICAgICAgICAgICAgICAgICAgIC AgICAgICAgICAgICAgICAgICAgICAgICANCiAgICAg ICAgICAgICAgICAgICAgICAgICAgICAgICAgICAgICAgICAgICAgICAgICAgICAgICAgICAgICAgICAg ICAgICAgICAgICAgICAgICAgICAgICAgICAgICAgICAgICANCiAgICAgICAgICAgICAgICAgICAgICAg ICAgICAgICAgICAgICAgICAgICAgICAgICAgICAgIC AgICAgICAgICAgICAgICAgICAgICAgICAgICAgICAgICAgICAgICAgICAgICANCiAgICAgICAgICAgIC AgICAgICAgICAgICAgICAgICAgICAgICAgICAgICAgICAgICAgICAgICAgICAgICAgICAgICAgICAgIC AgICAgICAgICAgICAgICAgICAgICAgICAgICANCiAg ICAgICAgICAgICAgICAgICAgICAgICAgICAgICAgICAgICAgICAgICAgICAgICAgICAgICAgICAgICAg ICAgICAgICAgICAgICAgICAgICAgICAgICAgICAgICAgICAgICANCjw/rBXmW5iojLPcmbK2L9gcZj6Y Ti3CCX1bg8AcARFcQCblkqQfNrcWZgBsHACqSlzFIq n2QUrgDB7KkMDvP0ZzI7BoCLxcHI3NJMIiAEVzoGLlPWZcMFOsYqF8RZKuGGszBI7TzAGwZMnsAKOzUT LoXT7PYIAqS142iwLbCX9ESg4SIfBiSX2ssl6LJeXiEHMxWyxAEhv2OEknKH0YgRXaoGDjWwNaVAIIQz HhJ8tmb6UhApEfTOIEIYaeDG3Dk0NdqEReDTc+Pg0K CJ8tp7AtXHazRnPnIU3nxs8NNOrXXdXxS6UkbHtnYDElbXQhvB9yMLYCqxUnvK13HIVyDjbeTXKrC4R8 SMOxr57lANEYCHZpnPCcKx4lRc7wOPUrUQVeIfDiCPJKNC2LHIVpFPKhcPEsUGKpBOFHAM2JDUqhYJW3 YevqpmAkqCJkLEpxDB8LMCCmzbUsDgRdYURBQLj+Pg 8ADN7wi7LtHTehGHSkJX5ewb8DWEmUNpIjU3Q3cLXqR5X1EFgkZy4NROGbQAWnJrGkJYPADLguBT6UYT 6gjrX4PH4IrIKeHKEeVQPjaWOrTKb0G69hhHIxPPsnGV2UTSB+Eddie+Oz9NGQFiPOFyCNCuDqCwGHHKLt DzU7WcI6ZSv5YhX4NvMP46sKpvxtAcUPwvJS9JCT6n EWCbTNSJDI6ZgQKrfK6xpfTfGbQrOOLNAyLfJ93oyDRoFOWdXVMlBWNtDa2ONDXxP0GrsoVqqUrrpsQr QUDyKNOLXB3SHFdixqOiaBKncVxvBV86hQysDG5ZCq8TXmQwTS3upr9JkVXlDx5JBOWhOR2IMBMpCKCx ODLpGWX0NOHhOkNyVCwgKBIySEThZLO0ZYVcVPLpXN 3XYkAjHJMzUWq4JTuzRAXcSECnpg6BGESaHCMvQPW6VkOlHGYjYBZhYBjaQCKkFVHxJYE3OVWjYVSmOH 1IJbFwOYGyTDFtMUHcZWWhCYRxxy6NNZMhYLXrUHR6PAKgYQKqGDXdXKukUZDaJJHyHFWxWSGlYRCqVE 3XNeYnZUYzOQR3CWNwUAQrJBAikm2IQTRrWINjJzx4 UPKxYKGzHTVxBVvcLBKiTMWnCpU3OOEkUNVuWG6MZkVyHIRuXBY4RSYzOTPtRSKedv5GKGFdTKIwVKAi FiAqUYVjBOCbRYgyWOIbSYI0FOi9OKBxVOIoTL4WSePhDFUiWGW3INZiXJLxTXElmr5TQKJhOUJiThSa WOKjRAQhXDUhDZepHESrVDS7LgJvKYGbYPVwAZ6LHe DaWUKeIProGFooMGLwYSBweh0AWHKlEUNvIQIxOKJwSSUiWIZaGBraJGGmTHD8FWP6XEOvCSGyZL8CAf UvAVUdEPx3ZEjgYTLlPGNzjh3ZLEWwJWMyAEWcWpVlRBFjRHFfINqeOEUxTMPqHFVgYABqBGXpNU9AQj YmYPDiZzM8UOSmUTMqCZHeaz9WTYSvWRXbPJm3DFVj JICbQYYtVEj6lyWbjRLbUFo4DU5EL7CadgWmGwIEKg1Cq338UYF7ZNJnUj4LW7suGs8oJYQmWBHGCg6B ZUy4K5P3H5F8NxX8EQdvTmT0SlFoPhH8NPNfYtH6QHCbT0O+TZgeGFU4SIFeGQI0JBBmATx2POMwXdl8 F5K0NBOpERB1Ux6pSFNDKb1+WRrqnMUenCnoDAFOCuTlMRJ8FQptNRLSLt0Q ID Date Data Source [id number] 08/19/2020 09:07:12 AM EST [facility] Name Value Range Interpretation Code Description Data Katlyn rce(s) Supporting Document(s) Telephone Encounter [facility] JVHKQn7hBjLLGrSu20/QDOodLGUbc0CoDBfdJGs0GSfzETDaM9JaQML0mL1kOEL4AUdGAeRdGuJpYlM0 lbm [file] PWMnDAnuLVngJBVxEBK9EsMkRpXeMzFyCM8MHb3LZxA7RQI3bJXvWk0POdMaAwGJShXiTT5NAAb= ID Date Data Source [id number] 08/19/2020 08:50:31 AM EST [facility] Name Value Range Interpretation Code Description Data Katlyn rce(s) Supporting Document(s) Telephone Encounter [facility] ENDZRb5xJjPZTlAl17/URXhxFRPht4RmUUmoARx7WItlFWUgU0QdLAO7hM4tQNC8GPtVBqEyPoVoInM8 lbm [file] ICAgICAgICAgICAgICAgICAgICAgICAgICAgICAgIC AgICAgICAgICAgICAgICAgDQogICAgICAgICAgICAgICAgICAgICAgICAgICAgICAgICAgICAgICAgIC AgICAgICAgICAgICAgICAgICAgICAgICAgICAgICAgICAgICAgICAgICAgICAgICAgICAgICAgICAgDQ ogICAgICAgICAgICAgICAgICAgICAgICAgICAgICAg ICAgICAgICAgICAgICAgICAgICAgICAgICAgICAgICAgICAgICAgICAgICAgICAgICAgICAgICAgICAg ICAgICAgICAgDQogICAgICAgICAgICAgICAgICAgICAgICAgICAgICAgICAgICAgICAgICAgICAgICAg ICAgICAgICAgICAgICAgICAgICAgICAgICAgICAgIC AgICAgICAgICAgICAgICAgICAgDQogICAgICAgICAgICAgICAgICAgICAgICAgICAgICAgICAgICAgIC AgICAgICAgICAgICAgICAgICAgICAgICAgICAgICAgICAgICAgICAgICAgICAgICAgICAgICAgICAgIC AgDQogICAgICAgICAgICAgICAgICAgICAgICAgICAg ICAgICAgICAgICAgICAgICAgICAgICAgICAgICAgICAgICAgICAgICAgICAgICAgICAgICAgICAgICAg ICAgICAgICAgICAgDQogICAgICAgICAgICAgICAgICAgICAgICAgICAgICAgICAgICAgICAgICAgICAg ICAgICAgICAgICAgICAgICAgICAgICAgICAgICAgIC AgICAgICAgICAgICAgICAgICAgICAgDQogICAgICAgICAgICAgICAgICAgICAgICAgICAgICAgICAgIC AgICAgICAgICAgICAgICAgICAgICAgICAgICAgICAgICAgICAgICAgICAgICAgICAgICAgICAgICAgIC AgICAgDQogICAgICAgICAgICAgICAgICAgICAgICAg ICAgICAgICAgICAgICAgICAgICAgICAgICAgICAgICAgICAgICAgICAgICAgICAgICAgICAgICAgICAg ICAgICAgICAgICAgICAgDQogICAgICAgICAgICAgICAgICAgICAgICAgICAgICAgICAgICAgICAgICAg ICAgICAgICAgICAgICAgICAgICAgICAgICAgICAgIC CkLEHrXVPlLZCdGHTpSLRuNPZdFPPiKLCdKCw9Q6zpWRSpXNXqDF2jFIt9Uk9+VHuDYwUpATM6gyRloT 6MOH3mu1NqGZerINTvf4TbSEf4IX0GQNNoHTikFA9HCKiamb4FNTDaTKOmiKKKo8ouLfKbLSX6OPIaXd fqWO2RMBUwT4wrodCwCQIrPNNCCO1DYvXlI4BojM83 IDENCj4+DQvradJrLjzYMzWuXGHvw2VgFNf6KF3WHZByHnrry5WzPxUuVBRFKGquLC4UBWI2ITWmXTGo Zl0BWDPbL583toHcHM2NKr4HCiHiOB6iib4FQtFwGTOdRogEDxt3OPobIL8EkCXiUZfGJCzreVhltgKv UP5ot2BhcXGaVPD0DM1gT44dFTKUGCA7GCA4ZYOxhP TnBi2lLl3nNBPkTHV6PdUbGWJXZK6NDNWzGHIkcWTgNRTjSDVTOC8VQLcpBMZ4BjyybsCphNIyEFyiNI 9QYXJlbnQgMjIgMCBSDQo+Tl1RSP8ul4UyUZloJIYcHC7tvn5MWAbMYiIyC7W3hKOtC9K8ULbcSu0PWN BdRUCnYeAgYXZFSCxkCW6SWK8cpiD0KK8JsXNaHBJz OEAcbBCpKMf6P33ydQMtJPbdUH4HYZJ+Eddie+Gb0VQDMzJAEiFOFgErSnJREUDhIhR6BwN2OAm1IgP6Ya AH23eDnutdRfNWpfXP7UJQ0eSHApIOMUKA2RgDQimL4zmdSbLbPeUVMKTtQaS55bmGUgMANuWNVwTWEz Ot3VWQUqT0YfczYllVfulfGrXQNwVDELEG5LFHhvol IfbMZmwZaqRN25pPzePQ0ITt7FQvThWQ3zml5HtDOgYc5HXFZwTM3IMAAeEJCdBMQmCDC7QYNuNuErUE diDZUeEINxUOU4JDMiJZDwCJ1IJsKjXRFsGQr6TIrwQMGfUQXhae6VDGUgBJVkROEnRqQtKLViIXLwAA tsERTySJOmUPT9AHVmNTReHP0RDlBtBHCuYQLyPeGn FHWsPKVmdh1KHNGyPTZxOOKpUUMrGSHkRAQpQAbbWGDySHQfLWaiFBAhLCZcYW3JIvOnCISxPCL1AVIk DNAlUSLsed6HGBQjOFZvQfo9TCWkYGXeWCFeYOakBJXuFZHxVCZ2BYErGTJwJF1FPtSxNUFqJAPbJeWz IWNmTOZksv6ZDXBqZOUdWXOjIlEwKZJtARXrPNksKF XdKWR5WPV2VDEbBRCnZB6FDlXkMTHgWLA0EsEnIRVrAMVgyq3NWBQgSWBeGkE4PLDlTEMaWNKiXAkpDP JrJJN8DgPbYWWkLEZtNL1HRdAgYLLiTNf3IjOhEOOrEQAuey4OUVJpWXTiETWjWCXrLPQdSQNmIPszNN PgXNK5MDepBUNgRWMxIY7WDsDpDPAdNRr6KvIxZUOw SVTtrq5CYAPbSATvLYE9PeNfHSZwXHOzKWmpHQJtIVEuXhQtJAAgAWXaMO0PWgXqKXCdWyE7HQBgITPd SLEubx3OUOEjJAToKLs5ExFcVSGlQFCfQSb4gsTlfLVnTYl3YL2BG7RxftYpLfVDLp2Zd241PUE7ZXDi Wp7AD0kuDd2vLXIkDPTPPn5DJCy6KqBpACVrUVNvGb HpZrV4WVt9DjbfMEU9AfHvNmLvPoT+IBitMkBzVSN2RrHsZLVlEUxbGvZ5QcR9ZnSuThJsNYNdKN6dSW ANCj4+LPqzpDGdnDfdVODUOcRuSNj5KXfkHKEALh2T ID Date Data Source [id number] 08/17/2020 11:00:00 AM EST [facility] Name Value Range Interpretation Code Description Data Katlyn rce(s) Supporting Document(s) SARS coronavirus 2 RNA [facility] This lab was ordered by [facility] and reported by [facility]. ID Date Data Source [id number] 08/10/2020 10:03:00 AM EST [facility] Name Value Range Interpretation Code Description Data Katlyn rce(s) Supporting Document(s) SARS coronavirus 2 RNA [facility] This lab was ordered by [facility] and reported by [facility]. ID Date Data Source [id number] 08/02/2020 12:00:00 AM EST [facility] Name Value Range Interpretation Code Description Data Katlyn rce(s) Supporting Document(s) 2019-nCoV RNA XXX GALILEA+probe-Imp [facility] This lab was ordered by [facility] and reported by [employer]. ID Date Data Source [id number] 07/27/2020 02:00:00 PM EST [facility] Name Value Range Interpretation Code Description Data Katlyn rce(s) Supporting Document(s) SARS coronavirus 2 RNA [facility] This lab was ordered by [facility] and reported by [facility]. ID Date Data Source [id number] 07/20/2020 07:30:00 AM EST [facility] Name Value Range Interpretation Code Description Data Katlyn rce(s) Supporting Document(s) SARS coronavirus 2 RNA [facility] This lab was ordered by [facility] and reported by [facility]. ID Date Data Source [id number] 07/13/2020 10:30:00 AM EST [facility] Name Value Range Interpretation Code Description Data Katlyn rce(s) Supporting Document(s) SARS coronavirus 2 RNA [facility] This lab was ordered by [facility] and reported by [facility]. ID Date Data Source [id number] 07/06/2020 09:20:00 AM EST [facility] Name Value Range Interpretation Code Description Data Katlyn rce(s) Supporting Document(s) SARS coronavirus 2 RNA [facility] This lab was ordered by [facility] and reported by [facility]. ID Date Data Source [id number] 07/01/2020 12:41:00 PM EDT [facility] Name Value Range Interpretation Code Description Data Katlyn rce(s) Supporting Document(s) SARS coronavirus 2 RNA [facility] This lab was ordered by [facility] and reported by [facility]. ID Date Data Source [id number] 06/22/2020 03:30:00 PM EDT [facility] Name Value Range Interpretation Code Description Data Katlyn rce(s) Supporting Document(s) SARS coronavirus 2 RNA [facility] This lab was ordered by [facility] and reported by [facility]. ID Date Data Source [id number] 06/17/2020 02:53:00 PM EDT [facility] Name Value Range Interpretation Code Description Data Katlyn rce(s) Supporting Document(s) SARS coronavirus 2 RNA [facility] This lab was ordered by [facility] and reported by [facility]. ID Date Data Source [id number] 06/10/2020 12:00:00 PM EDT [facility] Name Value Range Interpretation Code Description Data Katlyn rce(s) Supporting Document(s) SARS coronavirus 2 RNA [facility] This lab was ordered by [facility] and reported by [facility]. ID Date Data Source [id number] 06/01/2020 06:00:00 AM EDT [facility] Name Value Range Interpretation Code Description Data Katlyn rce(s) Supporting Document(s) SARS coronavirus 2 RNA [facility] This lab was ordered by [facility] and reported by [facility]. ID Date Data Source [id number] 05/25/2020 02:14:00 PM EDT [facility] Name Value Range Interpretation Code Description Data Katlyn rce(s) Supporting Document(s) SARS coronavirus 2 RNA [facility] This lab was ordered by [facility] and reported by [facility]. Procedure Social History Code Duration Value Status Description Data Source(s ) Alcohol intake 07/15/2021 12:00:00 AM EST Ex-drinker (finding) comp leted Ex- drinker (finding) [facility] Tobacco use and exposure 07/15/2021 12:00:00 AM EST Never used co mpleted Never used [facility] Smoking 07/15/2021 12:00:00 AM EST Never smoker completed Never s moker [facility] Alcohol intake 06/22/2021 12:00:00 AM EDT Ex-drinker (finding) comp leted Ex- drinker (finding) [facility] Alcohol intake 04/13/2021 12:00:00 AM EDT Ex-drinker (finding) comp leted Ex- drinker (finding) [facility] Alcohol intake 11/23/2020 12:00:00 AM EDT Ex-drinker (finding) comp leted Ex- drinker (finding) [facility] Vital Signs ID Date Data Source UNK Name Value Range Interpretation Code Description Data Source(s) Systolic blood pressure 135 mm[Hg] 135 mm[Hg] [facility] Diastolic blood pressure 83 mm[Hg] 83 mm[Hg] [facility] Heart rate 70 /min 70 /min [facility] Body temperature 36.11 Jena 36.11 Jena [facility] Respiratory rate 18 /min 18 /min [facility] Oxygen saturation in Arterial blood by Pulse oximetry 100 % 100 % [facility] Body height 175.3 cm 175.3 cm [facility] Body weight 129.275 kg 129.275 kg [facility] Body mass index (BMI) [Ratio] 42.09 kg/m2 42.09 kg/m2 [facility] Systolic blood pressure 123 mm[Hg] 123 mm[Hg] [facility] Diastolic blood pressure 84 mm[Hg] 84 mm[Hg] [facility] Heart rate 87 /min 87 /min [facility] Body height 175.3 cm 175.3 cm [facility] Body weight 129.275 kg 129.275 kg [facility] Body mass index (BMI) [Ratio] 42.09 kg/m2 42.09 kg/m2 [facility] Systolic blood pressure 128 mm[Hg] 128 mm[Hg] [facility] Diastolic blood pressure 76 mm[Hg] 76 mm[Hg] [facility] Heart rate 84 /min 84 /min [facility] Body temperature 36.78 Jena 36.78 Jena [facility] Respiratory rate 18 /min 18 /min [facility] Body height 175.3 cm 175.3 cm [facility] Body weight 131.543 kg 131.543 kg [facility] Body mass index (BMI) [Ratio] 42.83 kg/m2 42.83 kg/m2 [facility] Oxygen saturation in Arterial blood by Pulse oximetry 99 % 99 % [facility] Patient Treatment Plan of Care Planned Activity Planned Date Details Description Data Source (s) zonisamide 50 MG Oral Capsule 07/11/2021 12:00:00 AM EST [facility] zonisamide 25 MG Oral Capsule 07/11/2021 12:00:00 AM EST [facility] duloxetine 30 MG Delayed Release Oral Capsule 06/22/2021 12:00:00 A M EDT [facility] Amitriptyline Hydrochloride 10 MG Oral Tablet 04/28/2021 12:00:00 A M EDT [facility] Hydrochlorothiazide 12.5 MG Oral Tablet 04/22/2021 12:00:00 AM EDT [facility] Magnesium Oxide 400 MG Oral Tablet 04/22/2021 12:00:00 AM EDT [facility] methylPREDNISolone (Medrol, Danny,) 4 mg tablet 04/22/2021 12:00:00 A M EDT [facility] Fluoxetine 20 MG Oral Capsule 04/13/2021 12:00:00 AM EDT [facility] Diclofenac Sodium 20 MG/ML Topical Solution [Pennsaid] 04/11/2021 12:00:00 AM EDT [facility] Hydroxyzine Hydrochloride 10 MG Oral Tablet 11/23/2020 12:00:00 AM EDT [facility] albuterol HFA (VENTOLIN HFA) 90 mcg/actuation inhaler 11/23/2020 12:00:00 AM EDT [facility] Labetalol hydrochloride 100 MG Oral Tablet 11/23/2020 12:00:00 AM E DT [facility] Escitalopram 10 MG Oral Tablet 11/23/2020 12:00:00 AM EDT [facility] albuterol HFA (VENTOLIN HFA) 90 mcg/actuation inhaler 11/23/2020 12:00:00 AM EDT [facility] Labetalol hydrochloride 300 MG Oral Tablet 10/14/2020 12:00:[address] [facility] Hydroxyzine Hydrochloride 10 MG Oral Tablet 12/17/2019 12:00:00 AM EDT [facility] Escitalopram 10 MG Oral Tablet 12/17/2019 12:00:00 AM EDT [facility] Acetaminophen 500 MG Oral Tablet 08/15/2017 12:00:00 AM EST [facility] fluticasone propionate (FLONASE) 50 mcg/actuation nasal spray [facility] cetirizine hydrochloride 10 MG Oral Tablet [facility] albuterol HFA (VENTOLIN HFA) 90 mcg/actuation inhaler [facility]
[2021-07-20] MEDS ORDERED: SKYL13.5 IU (15:55)
--- NOTE | 2021-07-20 17:46 | REPVR ---
PROCEDURE INFORMATION: Exam: CT Head Without Contrast Exam date and time: 07/20/2021 5:24 PM Age: 25 years old Clinical indication: Pain; Headache; Additional info: Confusion, aphasia TECHNIQUE: Imaging protocol: Computed tomography of the head without contrast. Axial and coronal reformatted images were created and reviewed. Radiation optimization: All CT scans at this facility use at least one of these dose optimization techniques: automated exposure control; mA and/or kV adjustment per patient size (includes targeted exams where dose is matched to clinical indication); or iterative reconstruction. COMPARISON: CT Head without contrast 04/19/2021 9:21 PM FINDINGS: Brain: No CT evidence of acute intracranial hemorrhage or acute territorial infarction. No significant mass effect or midline shift. Basal cisterns patent. Cerebral ventricles: Normal in size and configuration. Paranasal sinuses: Near complete opacification of the left maxillary sinus. Mastoid air cells: Grossly unremarkable. Bones/joints: No acute osseous abnormality. Soft tissues: Grossly unremarkable. IMPRESSION: 1. No CT evidence of acute intracranial pathology. 2. Additional findings, as above. Electronically signed by: Luther Wadsworth On 07/20/2021 17:45:50 PM
[2021-07-20] MEDS ORDERED: diphenhydrAMINE 50MG/ML VIAL (J1200) IV STA (18:17)
[2021-07-20] MEDS ORDERED: KETOROLAC 30 MG/ML 1ML VIAL IV ONE (18:20)
[2021-07-20] MEDS ORDERED: NS 1,000 ML IV ONE (18:20)
[2021-07-20] MEDS ORDERED: METOCLOPRAMIDE INJ 10MG/2ML VIAL (J2765 PER 1) IV ONE (18:20)
[2021-07-20 18:44] LABS: BASO % 0.3 % (0.0-1.0); EOS # 0.2 10^3/uL (0.0-0.5); EOS % 1.7 % (0.0-3.0); HEMATOCRIT 41.4 % (36.0-47.0); HEMOGLOBIN 13.8 g/dl (12.0-15.5); LYMPH # 3.3 10^3/uL (1.5-5.0); LYMPH % 22.7 % (24.0-44.0); MEAN CORPUSCULAR HEMOGLOBIN 28.4 pg (27.0-33.0); MEAN CORPUSCULAR HGB CONC 33.3 g/dl (32.0-36.5); MEAN CORPUSCULAR VOLUME 85.2 fl (80.0-96.0); MONO # 0.8 10^3/uL (0.0-0.8); MONO % 5.7 % (2.0-8.0); NEUTROPHILS % 69.2 % (36.0-66.0); PLATELET COUNT, AUTOMATED 449 10^3/uL (150-450); RED BLOOD COUNT 4.86 10^6/uL (4.00-5.40); WHITE BLOOD COUNT 14.5 10^3/uL (4.0-10.0)
[2021-07-20 19:10] LABS: C REACTIVE PROTEIN QUANTITATIV 1.08 MG/DL (0.00-0.30)
[2021-07-20 19:11] LABS: ERYTHROCYTE SEDIMENTATION RATE 1 mm/hr (0-20)
--- OUTSIDE RECORDS SUMMARY | 2021-07-20 20:24 | CCD ---
Author Author [facility] Organization [facility] Address Unknown Phone Unavailable Care Team Providers Care Marzipan Molder Name Role Phone Karen Baca GEOLOGICAL TECHNICIAN Unavailable Unavailable Karen BacaP Unavailable Unavailable BULL [...] Unavailable Abreu, Raul Unavailable Downs, L Anyi GEOLOGICAL TECHNICIAN-C Unavailable Unavailable Downs, L Anyi GEOLOGICAL TECHNICIAN-C Unavailable Unavailable Downs, L Anyi GEOLOGICAL TECHNICIAN-C Unavailable Unavailable Downs, L Anyi GEOLOGICAL TECHNICIAN-C Unavailable Unavailable Downs, L Anyi GEOLOGICAL TECHNICIAN-C Unavailable Unavailable Downs, L Anyi GEOLOGICAL TECHNICIAN-C Unavailable Unavailable Downs, L Anyi GEOLOGICAL TECHNICIAN-C Unavailable Unavailable Downs, L Anyi GEOLOGICAL TECHNICIAN-C Unavailable Unavailable Downs, L Anyi GEOLOGICAL TECHNICIAN-C Unavailable Unavailable Downs, L Anyi GEOLOGICAL TECHNICIAN-C Unavailable Unavailable Downs, L Anyi GEOLOGICAL TECHNICIAN-C Unavailable Unavailable Downs, L Anyi GEOLOGICAL TECHNICIAN-C Unavailable Unavailable Downs, L Anyi GEOLOGICAL TECHNICIAN-C Unavailable Unavailable Downs, L Anyi GEOLOGICAL TECHNICIAN-C Unavailable Unavailable Downs, L Anyi GEOLOGICAL TECHNICIAN-C Unavailable Unavailable Downs, L Anyi GEOLOGICAL TECHNICIAN-C Unavailable Unavailable Downs, L Anyi GEOLOGICAL TECHNICIAN-C Unavailable Unavailable Downs, L Anyi GEOLOGICAL TECHNICIAN-C Unavailable Unavailable Downs, L Anyi GEOLOGICAL TECHNICIAN-C Unavailable Unavailable Downs, L Anyi GEOLOGICAL TECHNICIAN-C Unavailable Unavailable Downs, L Anyi GEOLOGICAL TECHNICIAN-C Unavailable Unavailable Downs, L Anyi GEOLOGICAL TECHNICIAN-C Unavailable Unavailable Downs, L Anyi GEOLOGICAL TECHNICIAN-C Unavailable Unavailable Downs, L Anyi GEOLOGICAL TECHNICIAN-C Unavailable Unavailable Downs, L Anyi GEOLOGICAL TECHNICIAN-C Unavailable Unavailable Downs, L Anyi GEOLOGICAL TECHNICIAN-C Unavailable Unavailable Downs, L Anyi GEOLOGICAL TECHNICIAN-C Unavailable Unavailable Downs, L Anyi GEOLOGICAL TECHNICIAN-C Unavailable Unavailable Downs, L Anyi GEOLOGICAL TECHNICIAN-C Unavailable Unavailable Downs, L Anyi GEOLOGICAL TECHNICIAN-C Unavailable Unavailable Downs, L Anyi GEOLOGICAL TECHNICIAN-C Unavailable Unavailable Downs, L Anyi GEOLOGICAL TECHNICIAN-C Unavailable Unavailable Downs, L Anyi GEOLOGICAL TECHNICIAN-C Unavailable Unavailable Downs, L Anyi GEOLOGICAL TECHNICIAN-C Unavailable Unavailable Downs, L Anyi GEOLOGICAL TECHNICIAN-C Unavailable Unavailable Downs, L Anyi GEOLOGICAL TECHNICIAN-C Unavailable Unavailable Downs, L Anyi GEOLOGICAL TECHNICIAN-C Unavailable Unavailable Downs, L Anyi GEOLOGICAL TECHNICIAN-C Unavailable Unavailable Downs, L Anyi GEOLOGICAL TECHNICIAN-C Unavailable Unavailable Downs, L Anyi GEOLOGICAL TECHNICIAN-C Unavailable Unavailable Downs, L Anyi GEOLOGICAL TECHNICIAN-C Unavailable Unavailable Downs, L Anyi GEOLOGICAL TECHNICIAN-C Unavailable Unavailable Downs, L Anyi GEOLOGICAL TECHNICIAN-C Unavailable Unavailable Downs, L Anyi GEOLOGICAL TECHNICIAN-C Unavailable Unavailable Downs, L Anyi GEOLOGICAL TECHNICIAN-C Unavailable Unavailable Downs, L Anyi GEOLOGICAL TECHNICIAN-C Unavailable Unavailable Downs, L Anyi GEOLOGICAL TECHNICIAN-C Unavailable Unavailable Downs, L Anyi GEOLOGICAL TECHNICIAN-C Unavailable Unavailable Downs, L Anyi GEOLOGICAL TECHNICIAN-C Unavailable Unavailable Downs, L Anyi GEOLOGICAL TECHNICIAN-C Unavailable Unavailable Downs, L Anyi GEOLOGICAL TECHNICIAN-C Unavailable Unavailable Downs, L Anyi GEOLOGICAL TECHNICIAN-C Unavailable Unavailable Downs, L Anyi GEOLOGICAL TECHNICIAN-C Unavailable Unavailable Downs, L Anyi GEOLOGICAL TECHNICIAN-C Unavailable Unavailable Downs, L Anyi GEOLOGICAL TECHNICIAN-C Unavailable Unavailable Downs, L Anyi GEOLOGICAL TECHNICIAN-C Unavailable Unavailable of L.C., Medicine Occupation Unavailable Unavailable BASSITY, ENIO FUR DRY CLEANER-C Unavailable Unavailable Downs, L Anyi GEOLOGICAL TECHNICIAN-C Unavailable Unavailable Downs, L Anyi GEOLOGICAL TECHNICIAN-C Unavailable Unavailable Downs, L Anyi GEOLOGICAL TECHNICIAN-C Unavailable Unavailable Downs, L Anyi GEOLOGICAL TECHNICIAN-C Unavailable Unavailable Downs, L Anyi GEOLOGICAL TECHNICIAN-C Unavailable Unavailable Downs, L Anyi GEOLOGICAL TECHNICIAN-C Unavailable Unavailable Downs, L Anyi GEOLOGICAL TECHNICIAN-C Unavailable Unavailable Downs, L Anyi GEOLOGICAL TECHNICIAN-C Unavailable Unavailable Downs, L Anyi GEOLOGICAL TECHNICIAN-C Unavailable Unavailable Downs, L Anyi GEOLOGICAL TECHNICIAN-C Unavailable Unavailable Downs, L Anyi GEOLOGICAL TECHNICIAN-C Unavailable Unavailable Downs, L Anyi GEOLOGICAL TECHNICIAN-C Unavailable Unavailable Downs, L Anyi GEOLOGICAL TECHNICIAN-C Unavailable Unavailable Downs, L Anyi GEOLOGICAL TECHNICIAN-C Unavailable Unavailable Downs, L Anyi GEOLOGICAL TECHNICIAN-C Unavailable Unavailable Downs, L Anyi GEOLOGICAL TECHNICIAN-C Unavailable Unavailable Downs, L Anyi GEOLOGICAL TECHNICIAN-C Unavailable Unavailable Downs, L Anyi GEOLOGICAL TECHNICIAN-C Unavailable Unavailable Downs, L Anyi GEOLOGICAL TECHNICIAN-C Unavailable Unavailable Downs, L Anyi GEOLOGICAL TECHNICIAN-C Unavailable Unavailable Downs, L Anyi GEOLOGICAL TECHNICIAN-C Unavailable Unavailable Downs, L Anyi GEOLOGICAL TECHNICIAN-C Unavailable Unavailable Downs, L Anyi GEOLOGICAL TECHNICIAN-C Unavailable Unavailable Downs, L Anyi GEOLOGICAL TECHNICIAN-C Unavailable Unavailable Downs, L Anyi GEOLOGICAL TECHNICIAN-C Unavailable Unavailable Downs, L Anyi GEOLOGICAL TECHNICIAN-C Unavailable Unavailable Downs, L Anyi GEOLOGICAL TECHNICIAN-C Unavailable Unavailable Downs, L Anyi GEOLOGICAL TECHNICIAN-C Unavailable Unavailable Downs, L Anyi GEOLOGICAL TECHNICIAN-C Unavailable Unavailable Downs, L Anyi GEOLOGICAL TECHNICIAN-C Unavailable Unavailable Downs, L Anyi GEOLOGICAL TECHNICIAN-C Unavailable Unavailable Downs, L Anyi GEOLOGICAL TECHNICIAN-C Unavailable Unavailable Downs, L Anyi GEOLOGICAL TECHNICIAN-C Unavailable Unavailable Downs, L Anyi GEOLOGICAL TECHNICIAN-C Unavailable Unavailable Downs, L Anyi GEOLOGICAL TECHNICIAN-C Unavailable Unavailable Downs, L Anyi GEOLOGICAL TECHNICIAN-C Unavailable Unavailable Downs, L Anyi GEOLOGICAL TECHNICIAN-C Unavailable Unavailable Downs, L Anyi GEOLOGICAL TECHNICIAN-C Unavailable Unavailable Downs, L Anyi GEOLOGICAL TECHNICIAN-C Unavailable Unavailable Downs, L Anyi GEOLOGICAL TECHNICIAN-C Unavailable Unavailable Downs, L Anyi GEOLOGICAL TECHNICIAN-C Unavailable Unavailable Downs, L Anyi GEOLOGICAL TECHNICIAN-C Unavailable Unavailable Downs, L Anyi GEOLOGICAL TECHNICIAN-C Unavailable Unavailable Downs, L Anyi GEOLOGICAL TECHNICIAN-C Unavailable Unavailable Downs, L Anyi GEOLOGICAL TECHNICIAN-C Unavailable Unavailable Downs, L Anyi GEOLOGICAL TECHNICIAN-C Unavailable Unavailable Downs, L Anyi GEOLOGICAL TECHNICIAN-C Unavailable Unavailable Downs, L Anyi GEOLOGICAL TECHNICIAN-C Unavailable Unavailable Downs, L Anyi GEOLOGICAL TECHNICIAN-C Unavailable Unavailable Downs, L Anyi GEOLOGICAL TECHNICIAN-C Unavailable Unavailable Downs, L Anyi GEOLOGICAL TECHNICIAN-C Unavailable Unavailable Downs, L Anyi GEOLOGICAL TECHNICIAN-C Unavailable Unavailable Downs, L Anyi GEOLOGICAL TECHNICIAN-C Unavailable Unavailable Downs, L Anyi GEOLOGICAL TECHNICIAN-C Unavailable Unavailable Downs, L Anyi GEOLOGICAL TECHNICIAN-C Unavailable Unavailable Downs, L Anyi GEOLOGICAL TECHNICIAN-C Unavailable Unavailable Re-disclosure Warning The records that [...] is protected by Article 27-F of the [facility] Public Health law. If you continue you may have access to information: Regarding HIV / AIDS; Provided by facilities licensed or operated by the [facility] Office of Mental Health; or Provided by the [facility] Office for People With Developmental Disabilities. If such information is present, then the following [facility] mandated warning applies: This information has been [...] law may result in a fine or longterm sentence or both. A general authorization for the release of medical or other information is NOT sufficient authorization for further disc losure. Allergies and Adverse Reactions Type Description Substance Reaction Status Data Source(s ) Food allergy No Known Food Allergies No Known Food Allergies [facility] Propensity to adverse reactions NO KNOWN ALLERGIES NO KNOWN ALLERGIES [facility] Propensity to adverse reactions FLUOXETINE Fluoxetine Headache Low [facility] Propensity to adverse reactions NO KNOWN ALLERGIES NO KNOWN ALLERGIES [facility] Family History Family Member Name Family Member Gender Family Member Status Date o f Status Description Data Source(s) Unknown Male Condition [facility] Unknown Male Problem [facility] ([facility]) Unknown Female Encounters Encounter Providers Location Date Indications Data Source(s ) Outpatient Attender: Karen Baca FNPAttender: Anyi SCHULTZ 5F-BA 07/15/2021 07:29:20 AM EST - 07/15/2021 01:46:30 PM EST [facility] Outpatient Attender: BULL PARRA MD Main office - [facility] 07/11/2021 12:00:00 PM EST [facility] ([facility] [place] ) 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 07/04/2021 12:00:[address] [facility] PPD OUTPATIENT 5F-BA 06/29/2021 04:25:19 PM EDT [facility] Outpatient Attender: ENIO HELLER FUR DRY CLEANER-CReferrer: Anyi SCHULTZ 06/27/2021 02:26:00 PM EDT - 06/27/2021 03:28:[address] 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 06/27/2021 01:33:0 0 [address] pre employ [facility] pre employ OUTPATIENT Attender: Anyi SCHULTZ 5F-BA 08:26:01 AM EDT - 06/22/2021 01:43:42 PM EDT [facility] OUTPATIENT 5F-BA 06/22/2021 08:18:46 AM EDT [facility] OUTPATIENT 5F-BA 04/27/2021 03:51:06 PM EDT [facility] OUTPATIENT 5F-BA 04/26/2021 10:47:02 AM EDT [facility] EMERGENCY Attender: HEDY ROGEL MD 2E-ED 01:33:00 PM EDT - 04/22/2021 05:23:00 PM EDT [facility] Patient discharged. OUTPATIENT 5F-BA 04/22/2021 10:51:50 AM EDT [facility] OUTPATIENT 5F-BA 04/20/2021 02:42:28 PM EDT [facility] OUTPATIENT 5F-BA 04/20/2021 09:07:58 AM EDT [facility] OUTPATIENT 5F-BA 04/18/2021 04:15:15 PM EDT [facility] Outpatient Attender: Anyi SCHULTZ 5F-BA 07/2021 07:48:06 AM EDT - 04/13/2021 03:29:35 PM EDT [facility] OUTPATIENT 5F-MO 04/11/2021 03:08:49 PM EDT [facility] Outpatient Referrer: Raul Abreu 5F-MOXR 04/11/2021 11:34:01 AM EDT - 04/11/2021 11:59:00 PM EDT [facility] Patient discharged. OUTPATIENT 5F-MO 04/11/2021 10:44:39 AM EDT - 021 12:12:27 PM EDT [facility] OUTPATIENT 5F-BA 03/11/2021 11:37:55 AM EDT [facility] Outpatient Attender: Anyi SCHULTZ 5F-BA 01/05/2021 06:54:5 2 AM EDT [facility] Admission cancelled. Disregard status an d admitted date. Outpatient Attender: Anyi SCHULTZ 5F-BA 12/28/2020 07:02:2 0 AM EDT [facility] Admission cancelled. Disregard status an d admitted date. OUTPATIENT Attender: Anyi Barroso GEOLOGICAL TECHNICIAN-C 5F-BA 01:47:35 PM EDT - 11/23/2020 03:20:09 PM EDT [facility] OUTPATIENT 5F-BA 08/19/2020 08:43:34 AM EST [facility] Immunizations Vaccine Date Status Description Data Source(s) COVID-19 VACCINE Pfizer 05/25/2021 12:00:00 AM EDT completed [facility] Vaccine Series Complete: NOThis Data was Submitted to [facility] Via [employer]. Medications Medication Brand Name Start Date Product Form Dose Route Admi nistrative Instructions Pharmacy Instructions Status Indications Reaction Description Data Source(s) 50 mg 07/12/2021 12:00:00 AM EST capsule 60 TAKE ONE CAPSULE BY MOUTH TWICE A DAY TAKE ONE CAPSULE BY MOUTH TWICE A DAY SOLD: 07/16/2021 [facility] zonisamide 50 MG Oral Capsule zonisamide (ZONEGRAN) 50 mg capsule zonisamide (ZONEGRAN) 50 mg capsule 07/11/2021 12:00:00 AM EST active [facility] zonisamide 25 MG Oral Capsule zonisamide (ZONEGRAN) 25 mg capsule zonisamide (ZONEGRAN) 25 mg capsule 07/11/2021 12:00:00 AM EST active [facility] Aspirin 81 MG Delayed Release Oral Tablet Aspirin Adult Low Dose 07/11/2021 12:00:00 AM EST ORAL active [facility] ([facility]) zonisamide 50 MG Oral Capsule Zonisamide 07/11/2021 12:00:00 AM EST ORAL active [facility] ([facility]) 25 mg [...] AND 2 CAPSULES EVERY EVENING SOLD: 07/16/2021 [facility] zonisamide 25 MG Oral Capsule Zonisamide 07/11/2021 12:00:00 AM EST ORAL active [facility] ([facility] ) NITROFURANTOIN, MACROCRYSTALS [...] each day. Do not crush or chew. [facility] 30 mg 06/22/2021 12:00:00 AM EDT capsule,delayed release (DR/EC) 30 TAKE 1 CAPSULE BY MOUTH ONCE DAILY . DO NOT CRUSH OR CHEW TAKE 1 CAPSULE BY MOUTH ONCE DAILY . DO NOT CRUSH OR CHEW SOLD: 06/30/2021 [facility] Amitriptyline Hydrochloride 10 MG Oral T ablet amitriptyline (ELAVIL) 10 mg tablet amitriptyline (ELAVIL) 10 mg tablet 04/28/2021 12:00:00 AM EDT 10 mg oral aborted Take 1 tablet (10 mg total) by mouth 1 (one) time each day at night. [facility] 4 mg 04/22/2021 12:00:00 AM EDT tablets,dose pack 21 TAKE DIRECTED PER PACKAGE INSTRUCTIONS TAKE DIRECTED PER PACKAGE INSTRUCTIONS SOLD: 04/22/2021 [facility] methylPREDNISolone (Medrol, Danny,) 4 mg tablet 5410-7218-16 04/22/2021 12:00:00 AM EDT active Follow schedule o n package instructions [facility] Magnesium Oxide 400 MG Oral Tablet magnesium oxide (MA G-OX) 400 mg tablet magnesium oxide (MAG-OX) 400 mg tablet 04/22/2021 12:00:00 AM EDT 4 00 mg oral active Take 1 tablet ( 400 mg total) by mouth 1 (one) time each day for 7 days. [facility] Hydrochlorothiazide 12.5 MG Oral Tablet hydroCHLOROthiazide (HYDRODIURIL) 12.5 mg tablet hydroCHLOROthiazide (HYDRODIURIL) 12.5 mg tablet 04/22 12:00:00 AM EDT 12.5 mg oral aborted Take 1 t ablet (12.5 mg total) by mouth 1 (one) time each day. [facility] Hydrochlorothiazide 12.5 MG Oral Tablet HYDROCHLOROTHIAZIDE 04/22/2021 [...] by mouth 1 (one) time each day. [facility] Diclofenac Sodium 20 MG/ML Topical Solut ion [Pennsaid] diclofenac sodium (Pennsaid) 20 mg/gram /actuation(2 %) solution in metered-dose pump diclofenac sodium (Pennsaid) 20 mg/gram /actuation(2 %) solution in metered-dose pump 04/11/2021 12:00:00 AM EDT 40 mg Apply externally abor luis Apply 40 mg topically 2 (two) times a day. [facility] Escitalopram 10 MG Oral Tablet ESCITALOPRAM OXALATE 11/23/2020 1 2:00:00 AM EDT tablet 30 TAKE ONE TABLET BY MOUTH ONCE DA ARAVIND TAKE ONE TABLET BY MOUTH ONCE DAILY SOLD: 11/23/2020 [facility] albuterol HFA (VENTOLIN HFA) 90 mcg/actuation inhaler 33511- 019-68 11/23/2020 12:00:00 AM EDT 2 {puff} inhalation aborted Inhale 2 puffs every 6 (six) hours if needed for wheezing. [facility] 10 mg 11/23/2020 12:00:00 AM EDT tablet [...] times a day if needed for anxiety. [facility] 100 mg 11/23/2020 12:00:00 AM EDT tablet 120 TAKE TWO TABLETS BY MOUTH TWICE A DAY TAKE TWO TABLETS BY MOUTH TWICE A DAY SOLD: 11/23/2020 [facility] albuterol HFA (VENTOLIN HFA) 90 mcg/actuation inhaler [id number] 019-68 11/23/2020 12:00:00 AM EDT 2 {puff} inhalation aborted Inhale 2 puffs every 6 (six) hours if needed for wheezing. [facility] Escitalopram 10 MG Oral Tablet escitalopram oxalate (L EXAPRO) 10 mg tablet escitalopram oxalate (LEXAPRO) 10 mg tablet 11/23/2020 12:00:00 AM EDT 10 mg oral aborted Take 1 tablet (10 mg total) by mouth 1 (one) time each day. [facility] Labetalol hydrochloride 100 MG Oral Tablet labetaloL ( NORMODYNE) 100 mg tablet labetaloL (NORMODYNE) 100 mg tablet 11/23/2020 12:00:00 AM EDT 200 mg oral aborted Take 2 tablets (200 mg total ) by mouth 2 (two) times a day. [facility] [email or web address] 90 mcg/actuation 11/23/2020 12:00:00 AM EDT HFA [...] mouth 2 (tw o) times a day. [facility] Cephalexin 500 MG Oral Capsule CEPHALEXIN 08/05/2020 [...] times a day if needed for anxiety. [facility] Escitalopram 10 MG Oral Tablet escitalopram oxalate (L EXAPRO) 10 mg tablet escitalopram oxalate (LEXAPRO) 10 mg tablet 12/17/2019 12:00:00 AM EDT 10 mg oral aborted Take 1 tablet (10 mg total) by mouth 1 (one) time each day. [facility] Acetaminophen 500 MG Oral Tablet acetaminophen (TYLENO L) 500 mg tablet acetaminophen (TYLENOL) 500 mg tablet 08/15/2017 12:00:00 AM EST 10 00 mg oral aborted Take 1,000 mg by mouth ev augusta 8 hours. [facility] cetirizine hydrochloride 10 MG Oral Tablet cetirizine (ZyrTEC) 10 mg tablet cetirizine (ZyrTEC) 10 mg tablet 10 mg oral abort ed Take 10 mg by mouth at bed time. [facility] fluticasone propionate (FLONASE) 50 mcg/actuation nasal spray [id number] 3270-99 2 {spray} Each Nostril aborted Adminis ter 2 sprays into each nostril 1 (one) time each day. Shake gently. Before first use, prime pump. After use, clean tip and replace cap. [facility] albuterol HFA (VENTOLIN HFA) 90 mcg/actuation inhaler [id number] 2 {puff} inhalation aborted Inhale 2 puffs every 6 (six) hours if needed for wheezing. [facility] Insurance Providers Payer name Policy type / Coverage type Policy ID Covered republican ID Covered republican's relationship to burnette Policy Burnette Plan Information [facility] [id number] Patient [id number] [employer] [id number] MOTHER [id number] [employer] [id number] PARENT [id number] BLUE CROSS OUT OF STATE [id number] Child [id number] BLUE CROSS OUT OF STATE [id number] Child [id number] Spouse [id number] Spouse [id number] Spouse [id number] HUMANA [id number] Spouse 01 [id number] HUMANA [id number] Spouse 01 [id number] [facility] [id number] [facility] MEDICAID [id number] [facility] MEDICAID [id number] Self [id number] BLUE CROSS BLUE SHIELD CO [id number] Blue Cross Blue Shield Commercial [id number] Family Dependent H [id number] BLUE CROSS BLUE SHIELD -PHYSICIAN [id number] 19 [id number] BLUE CROSS BLUE SHIELD -O/P [id number] BLUE CROSS BLUE SHIELD -O/P UNAVAILABLE UNAVAILABLE AETNA -O/P [id number] BC/BS PPO/EPO (28) [id number] [employer] Hmo Health Maintenance Organization (HMO) [id number] Fa ned Dependent AETNA-CLINIC [id number] 19 [id number] MEDICAID - CLINIC [id number] [facility] COMMUNITY PLAN MCDO [id number] SP [id number] [place] [id number] SP [id number] E [facility](MCAID) O [id number] S [id number] EMEDNY [id number] SP [id number] SELF PAY ONLY [id number] SP [id number] MEDICAID M [id number] S [id number] [facility] [id number] [facility] [id number] SELF PAY O UNAVAILABLE [id number] S UNAVAILA BLE [facility] O [id number] S [id number] [facility] [id number] [facility] [id number] CONTRACT CLAIMS SERVICES [id number] SP [id number] AAFES SP AAFES [id number] Problems, Conditions, and Diagnoses Code Display Name Description Problem Type Effective Dates Data Source(s) Headache Headache Diagnosis 07/15/2021 07:29:20 AM [facility] Anxiety Anxiety Diagnosis 07/15/2021 07:29:20 AM [facility] R51.9 Headache, unspecified Headache, unspecified Diagnosis 06/22/2021 08:26:01 AM EDT [facility] Follow-up Follow-up Diagnosis 06/22/2021 08:26:01 AM ED T [facility] G43.909 Migraine, unspecified, not intractable, without status migrainosus Migraine, unspecified, not intractable, without status migrainosus Diagnosis 04/22/2021 01:33:00 PM EDT [facility] Hypertension Hypertension Diagnosis 04/13/2021 07:48:06 A M EDT [facility] M25.562 Pain in left knee Pain in left knee Diagnosis 04/11 11:34:01 AM EDT [facility] F41.9 Anxiety disorder, unspecified Anxiety disorder, unspec ified Diagnosis 11/23/2020 04:29:20 PM EDT [facility] Ear Fullness Ear Fullness Diagnosis 11/23/2020 01:47:35 P M EDT [facility] Care Care Diagnosis 11/23/2020 01:4 7:35 PM EDT [facility] Contraception Contraception Diagnosis 11/23/2020 01:47:35 PM EDT [facility] Obesity Obesity Diagnosis 11/23/2020 01:47:35 PM ED T [facility] Annual Exam Annual Exam Diagnosis 11/23/2020 01:47:35 PM EDT [facility] Surgeries/Procedures Procedure Description Date Indications Data Source(s) NON-INVASIVE PHYSIOLOGIC STUDY EXTREMITY 3 LEVLS 07/18 12:00:00 AM EST [facility] ([facility] ) TSTG ANS FUNCJ CARDIOVAGAL INNERVAJ PARASYMP 12:00:00 AM EST [facility] ([facility] ) TESTING AUTONOMIC NERVOUS SYSTEM FUNCTION 07/18/2021 1 2:00:00 AM EST [facility] ([facility] ) Magnetic Resonance Angiogtaphy Head W/O Contrast Material(S) 07/13/2021 12:00:00 AM EST [facility] ([facility] Magnetic Resonance Angiogtaphy Head W/O Contrast Material(S) 07/13/2021 12:00:00 AM EST [facility] ([facility] Magnetic Resonance Angiography Neck W/O Contrast Materials 07/13/2021 12:00:00 AM EST [facility] ([facility] Magnetic Resonance Angiography Neck W/O Contrast Materials 07/13/2021 12:00:00 AM EST [facility] ([facility] ) MRI BRAIN BRAIN STEM W/O CONTRAST MATERIAL 07/13/2021 12:00:00 AM EST [facility] ([facility] ) MRI BRAIN BRAIN STEM W/O CONTRAST MATERIAL 07/13/2021 12:00:00 AM EST [facility] ([facility] ) OFFICE OUTPATIENT NEW 45 MINUTES 07/11/2021 12:00:00 A M EST [facility] ([facility] ) OFFICE CONSULTATION NEW/ESTAB PATIENT 60 MIN 12:00:00 AM EST [facility] ([facility] ) CBC AND DIFFERENTIAL <td>CBC AND DIFFERENTIAL</td ><td>STAT</td><td>04/22/2021 4:03 PM EDT</td><td></td><td> </td> 04/22/2021 04:03:00 PM EDT [facility] C-REACTIVE PROTEIN <td>C-REACTIVE PROTEIN</td>< td>STAT</td><td>04/22/2021 4:03 PM EDT</td><td></td><td> </td> 04/22/2021 04:03:00 PM EDT [facility] MAGNESIUM <td>MAGNESIUM</td><td>STAT</ td><td>04/22/2021 4:03 PM EDT</td><td></td><td> </td> 04/22/2021 04:03:00 PM EDT [facility] COMPREHENSIVE METABOLIC PANEL <td>COMPREHENSIVE METABO LIC PANEL</td><td>STAT</td><td>04/22/2021 4:03 PM EDT</td><td></td><td> </td> 04/22/2021 04:03:00 PM EDT [facility] RADIOLOGIC EXAMINATION KNEE 3 VIEWS <td>XR KNEE 3 VIEW S BILATERAL</td><td>Routine</td><td>04/11/2021 11:45 AM EDT</td><td> Left knee pain, unspecified chronicity</td><td> </td> 04/11/2021 11:45:23 AM EDT Left knee pain, unspecified chronicity [facility] Left knee pain, unspecified chronicity Results ID Date Data Source [id number] 07/15/2021 01:15:46 PM EST [facility] Name Value Range Interpretation Code Description Data Katlyn rce(s) Supporting Document(s) Progress Notes [facility] PPOKQh5fCsAQNkQh46/RABjiXMTgv6VvOSykCVc6PCbsUKJqK4ZfVGC9aK0pVBX2RKoIOtWaPlViSWWf lbm [file] DnBpJfJKB7HgWfUQ9SMx4AFrM3PAK8qGQpNk0WZrz5WfFSAmXlHY7FBVs= ID Date Data Source [id number] 07/15/2021 01:13:00 PM EST [facility] Name Value Range Interpretation Code Description Data Katlyn rce(s) Supporting Document(s) Assessment & Plan Note [facility] PKHQTv1rCoLLGjRy92/LVWfxPZMrv6TpPFylOXz0PFiiVEUhE6TrJLK7oA3cROK4KSxTKyKbMbToUDKv lbm [file] AgICAgICAgICAgICAgICAgICAgICAgICAgICAgICAg ICAgICAgICAgICAgICAgICAgICAgICAgICAgICAgICAgICAgICAgICAgICAgICAgICAgICAgICAgICAg DQogICAgICAgICAgICAgICAgICAgICAgICAgICAgICAgICAgICAgICAgICAgICAgICAgICAgICAgICAg ICAgICAgICAgICAgICAgICAgICAgICAgICAgICAgIC AgICAgICAgICAgDQogICAgICAgICAgICAgICAgICAgICAgICAgICAgICAgICAgICAgICAgICAgICAgIC AgICAgICAgICAgICAgICAgICAgICAgICAgICAgICAgICAgICAgICAgICAgICAgICAgICAgDQogICAgIC AgICAgICAgICAgICAgICAgICAgICAgICAgICAgICAg ICAgICAgICAgICAgICAgICAgICAgICAgICAgICAgICAgICAgICAgICAgICAgICAgICAgICAgICAgICAg ICAgDQogICAgICAgICAgICAgICAgICAgICAgICAgICAgICAgICAgICAgICAgICAgICAgICAgICAgICAg ICAgICAgICAgICAgICAgICAgICAgICAgICAgICAgIC AgICAgICAgICAgICAgDQogICAgICAgICAgICAgICAgICAgICAgICAgICAgICAgICAgICAgICAgICAgIC AgICAgICAgICAgICAgICAgICAgICAgICAgICAgICAgICAgICAgICAgICAgICAgICAgICAgICAgDQogIC AgICAgICAgICAgICAgICAgICAgICAgICAgICAgICAg ICAgICAgICAgICAgICAgICAgICAgICAgICAgICAgICAgICAgICAgICAgICAgICAgICAgICAgICAgICAg ICAgICAgDQogICAgICAgICAgICAgICAgICAgICAgICAgICAgICAgICAgICAgICAgICAgICAgICAgICAg ICAgICAgICAgICAgICAgICAgICAgICAgICAgICAgIC AgICAgICAgICAgICAgICAgDQogICAgICAgICAgICAgICAgICAgICAgICAgICAgICAgICAgICAgICAgIC AgICAgICAgICAgICAgICAgICAgICAgICAgICAgICAgICAgICAgICAgICAgICAgICAgICAgICAgICAgDQ ogICAgICAgICAgICAgICAgICAgICAgICAgICAgICAg ICAgICAgICAgICAgICAgICAgICAgICAgICAgICAgICAgICAgICAgICAgICAgICAgICAgICAgICAgICAg YQDnGGKtFABxXSn3V3gtANEgNPFmAK4uTMy0Co7+GMsZHuYyPMR2wcUetO6AYA5ee0NnXOqhCHKat6Tm OGv5XB0IODLaXRfbTC4JGMyqnd3CCNIdLJAavTEXu4 fiOoElFUY9KFJqTyayCI4NPVWfN1iunuFxTIVqCVNUEA5JXrKpD5WggS20SPGGAx8+DQplbmRvYmoNCj ZbRWQua2VgKDi7DU8YRNGbRmrsk5BeMbStOOAKWFvxTE7JTBB2ULYwLZApRs0VMQBcQ876mkMoIN9OPi 4IWrLbEI0nom1EWkWrYTJsTqwNQhr6MAiyJC8ZvONt YWwZn1Tko0QdBO54ZOByQAskdzNOn3NsZTC1WFXoqdMbBTXgvmE1KMPLGODekTArAI5rJj5qIEIoMSEd YtGwRBPGLA9RCLLhONPcgKJxCWGtKMUCHZ1WTRdbAEV4LrgeuyYnyJHtEMktYE9APJDwjdYnAmGaEKFP DQo+Tm9UOQ0lb4GaWDvtKRYbGA7lqv2ERRtDToNqU8 I3aAZqW8T4PVgdSf1IDWTdCOJoYtQpEHYAIHewKB7SVZ7ffmO9ZO4IpNYuIXCoDCRxpIYcRKj4D39ccB QxNGqxDM0SLYJ+Eddie+Jf8ZPYKcWHJxTJDbPnCfYPKQAkNwA1LeG3XQp4PiV0JdAU24kSzvocEeMKtbFI 8PLG0wLCKgLVTBVX7ItSTloL8cplXeZmQpKERGTiBm J26muIOoNLMlLYVsGVEfTy3XQMQhC9UprrAbyOoydwPxTHMrDOITBW2JAOqjcqSqxXKitRhcVE22yUoc PA7JRr5VJsRyKF1hce0TgWKhPa2XJVChKH3UUSCzTQWaJYHbAFO3VAOoSiEvYPngTJReEFGvDBC9IGXr BRBfEN8LUbTlUGKnRAjuMuuqCZNzJNObdu4MAGNkZX JcRFDsGYIgCLMxDLJjZKinISIkYRTjQTH7TBLeAKAsDH7XYmBhXTLrYUB4JAqyRIYdWZVvoj5IUBGwCU PcBZXpRhQaMCKuGRZxZQitLZZnLGUhEKwgUZVlATZpIJ9KXwEpSKYtDZNaWkKtEVSnJGRlto7DSCVwVG PeXsN5HjMrBFAbJDRbZPlwTDOvISRvGAH2DFLbKNVk US9GWlDxBUDnJKA0GJAaDEJzZQUlcf4HQUMsJFCkRtj6OMZdKVKjKIGqDUymDKMgPTW8GSV6KNExZNHl OJ7EOnRhWSBpHIW0GwFyWRWsDJJxhx6XJEAgDNTcZiE2ZHFhYSMeGJLqDEewLRIoUZH3XOE3DKRcTJGp WC8YLuPaUGIbYQphSAVpDXLsIHUxjo1SWZUtACGdYd w6ZmAsZZXrLWVvIEffBZKkGGS9JRqjDKLfGMDqBR5KVlRzIIXfDJwjDEZdXJZtRHQouy9LQBMkTPNyQA j5QUTnQFDtDKClEAeuGRGhWUCuWiX5FSWoVFElQP8EQfPiWWQeAhAaNQLtEAIwFXVctt6DGCLrPPXiDB MmLISqJMWhCWCyQRq1uvZvjWGaDQq3UU0BV1QgfxHz EqVUMi4Zh137TOS3UCWkLf6AQ2vpXn4tSIVlUGUNKc9RGVg6VkJkQnF1LSc3P2R3CbXjPZZ9QvxcFIQ2 Vsd3CnLeXoU+ZMymKwHjRdukEyG3VmidR1S1ELDcNLE7CnljXKo7PIS5YP1iISDSTe9+DQpzdGFydHhy GBEFGkHgHns8DQyoATPFHm7P ID Date Data Source [id number] 07/15/2021 01:12:45 PM EST [facility] Name Value Range Interpretation Code Description Data Katlyn rce(s) Supporting Document(s) Patient Instructions [facility] HAFDYu4bHzZQDyZz99/NFMuuWXQaq9GsDHjrWKv5ATjrFLIsU1AcHOK1nF3yALF7PDmNQcDeYpPeIZQy lbm [file] a6SataP8gvZpOGfoPRXkBS1BVTUOQ2FZWq== ID Date Data Source [id number] 07/12/2021 03:48:00 PM EST [facility] ([facility]) Name Value Range Interpretation Code Description Data Katlyn rce(s) Supporting Document(s) Rheumatoid factor [Units/volume] in Serum or Plasma Laboratory test result [facility]) ID Date Data Source [id number] 07/12/2021 03:48:00 PM EST [facility]) Name Value Range Interpretation Code Description Data Katlyn rce(s) Supporting Document(s) Folate 12.0 ng/mL [facility]) FOLATE NORMAL RANGE NORMAL GREATER THAN 5.4 NG/ML INDETERMINATE 3.4-5.4 NG/ML DEFICIENT LESS THAN 3.4 NG/ML Vitamin B12 Level 648 pg/mL [facility]) VITAMIN B12 NORMAL RANGE NORMAL 247 - 911 PG/ML INDETERMINATE 211 - 246 PG/ML DEFICIENT LESS THAN 211 PG/ML ID Date Data Source [id number] 07/12/2021 03:48:00 PM EST [facility]) Name Value Range Interpretation Code Description Data Katlyn rce(s) Supporting Document(s) Thyrotropin [Units/volume] in Serum or Plasma 2.000 uIU/ML 0.358-3.74 0 [facility] ([facility]) ID Date Data Source [id number] 07/12/2021 03:48:00 PM EST [facility] ([facility]) Name Value Range Interpretation Code Description Data Katlyn rce(s) Supporting Document(s) Albumin % 56.2 % 55.8-66.1 [facility] ([facility]) Bzyeg-1-Wbdoqzxx % 3.9 % 2.9-4.9 [facility] ([facility]) Icia-0-Ipzdlklmc % 6.8 % 4.7-7.2 [facility] ([facility]) Hemsc-0-Llpkcscmh % 12.2 % 7.1-11.8 [facility] ([facility]) Gamma Globulin % 14.4 % 11.1-18.8 [facility] ([facility]) Xfmm-6-Xhylzpxpp % 6.5 % 3.2-6.5 [facility] ([facility]) Noazj-2-Kchfacoqq 0.30 GM/DL 0.17-0.41 [facility] ([facility]) Albumin 4.27 GM/DL 3.29-5.55 [facility] ([facility]) Grpqp-8-Qxxkkifrq 0.93 GM/DL 0.42-0.99 [facility] ([facility]) Xgap-1-Odktsyvys 0.52 GM/DL 0.28-0.60 [facility] ([facility]) Gamma Globulins 1.09 GM/DL 0.65-1.58 [facility] ([facility]) Tsnd-2-Fdypfnkkv 0.49 GM/DL 0.19-0.55 [facility] ([facility]) Total Protein 7.6 GM/DL 6.4-8.2 [facility] ([facility]) Spep Interpretation Laboratory test result [facility] ([facility]) NO M-SPIKE(S)NOTED. Laboratory test finding (navigational concept) Laboratory test result [facility] ([facility]) REV'D BY O ADJAPONG ID Date Data Source [id number] 07/12/2021 03:48:00 PM EST [facility] ([facility]) Name Value Range Interpretation Code Description Data Katlyn rce(s) Supporting Document(s) Blood Urea Nitrogen 15 mg/dL 7-18 [facility] ([facility]) Glucose, Fasting 91 mg/dL 70-100 [facility] ([facility]) Creatinine For GFR 0.72 mg/dL 0.55-1.30 [facility] ([facility]) Glomerular Filtration Rate [facility] <content>Units are mL/min/1.73 m2</content>
<content></content>
<content>Chronic Kidney Disease Staging per NKF:</content>
<content></content>
<content>Stage I & II GFR >=60 Normal to Mildly Decreased</content>
<content>Stage III GFR 30- 59 Moderately Decreased</content>
<content>Stage IV GFR 15-29 Severely Decreased</content>
<content>Stage V GFR <15 Very Little GFR Left</content>
<content>ESRD GFR <15 on MATHS TUTOR</content>
<content></content> Sodium Level 139 meq/L 136-145 [facility] ([facility]) Potassium Serum 4.5 meq/L 3.5-5.1 [facility] ([facility]) Chloride Level 108 meq/L 98-107 [facility] ([facility]) Carbon Dioxide Level 29 meq/L 21-32 [facility] ([facility]) Anion Gap 2 meq/L 8-16 [facility] ([facility]) Ast/Sgot 14 U/L 7-37 [facility] ([facility]) Calcium Level 9.2 mg/dL 8.5-10.1 [facility] ([facility]) Alkaline Phosphatase 96 U/L 45-117 [facility] ([facility]) Alt/SGPT 37 U/L 12-78 [facility] ([facility]) Total Protein 7.6 GM/DL 6.4-8.2 [facility] ([facility]) Bilirubin,Total 0.2 mg/dL 0.2-1.0 [facility] ([facility]) Albumin/Globulin Ratio 0.9 1.2-2.2 [facility] ([facility]) Albumin 3.7 GM/DL 3.2-5.2 [facility] ([facility]) ID Date Data Source [id number] 07/12/2021 03:48:00 PM EST [facility] ([facility]) Name Value Range Interpretation Code Description Data Katlyn rce(s) Supporting Document(s) Estimated Average Glucose 100 mg/dL 60-110 [facility] ([facility]) Hemoglobin A1c 5.1 % [facility] ([facility]) <content>REFERENCE RANGES:</content><br/ ><content></content>
<content><=5.6% NORMAL</content>
<content>5.7-6.4% SUGGESTS IMPAIRED GLUCOSE METABOLISM/PREDIABETIC</content>
<content>>= 6.5% ABNORMAL</content>
<content></content> ID Date Data Source [id number] 07/12/2021 03:48:00 PM EST [facility] ([facility]) Name Value Range Interpretation Code Description Data Katlyn rce(s) Supporting Document(s) Erythrocyte sedimentation rate by 2H Westergren method 41 mm/hr 0-2 0 [facility] ID Date Data Source [id number] 07/12/2021 03:48:00 PM EST [facility] ([facility]) Name Value Range Interpretation Code Description Data Katlyn rce(s) Supporting Document(s) White Blood Count 12.4 10 4.0-10.0 [facility] ([facility]) Red Blood Count 4.78 10 4.00-5.40 [facility] ([facility]) Hemoglobin 13.6 g/dL 12.0-15.5 [facility] ([facility]) Hematocrit 41.5 % 36.0-47.0 [facility] ([facility]) Mean Corpuscular Volume 86.8 fl 80.0-96.0 M [facility] ([facility]) Mean Corpuscular Hemoglobin 28.5 pg 27.0-33.0 [facility] ([facility]) Mean Corpuscular HGB Conc 32.8 g/dL 32.0-36.5 [facility] ([facility]) Red Cell Distribution Width 13.0 % 11.5-14.5 [facility] ([facility]) Neutrophils % 61.7 % 36.0-66.0 [facility] ([facility]) Platelet Count, Automated 409 10 150-450 [facility] ([facility]) Lymph % 28.8 % 24.0-44.0 [facility] ([facility]) [place] % 6.9 % 2.0-8.0 [facility] ([facility]) Eos % 2.0 % 0.0-3.0 [facility] ([facility]) Baso % 0.3 % 0.0-1.0 [facility] ([facility]) Immature Granulocyte % 0.3 % 0-3.0 [facility] ([facility]) Nucleated Red Blood Cell % 0.0 % 0-0 [facility] ([facility]) Lymph # 3.6 10 1.5-5.0 [facility] ([facility]) Neutrophils # 7.6 10 1.5-8.5 [facility] ([facility]) [place] # 0.9 10 0.0-0.8 [facility] ([facility]) Eos # 0.3 10 0.0-0.5 [facility] ([facility]) Baso # 0.0 10 0.0-0.2 [facility] ([facility]) ID Date Data Source [id number] 06/29/2021 05:31:49 PM EDT [facility] Name Value Range Interpretation Code Description Data Katlyn rce(s) Supporting Document(s) Telephone Encounter [facility] YAWSWm4oBsWYUzTt52/YFYaeKTHid0OcUJgaVYu0GJitTNTbW7FlBAZ8rO7hNXJ1DScORlGsXiJpIAT8 [facility] [file] 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/VbYra/82QxBY0yyok9kiPPOnQKW7VPhByw3l6rAotnn/BvRC0+w7ey17zf2uSz6sz9bC/DPMscSF [file] 5LQLQFM0DFNp== ID Date Data Source [id number] 06/29/2021 05:13:50 PM EDT [facility] Name Value Range Interpretation Code Description Data Katlyn rce(s) Supporting Document(s) Telephone Encounter [facility] WJXHPx0jUyKSHvBc93/PIRswXARmo0WaHYwyKSe0TButKHHpG0WnGFI7yV4sBQC3ZFcYBjDqDvZcKQF7 lbm [file] ID Date Data Source [id number] 06/29/2021 05:11:50 PM EDT [facility] Name Value Range Interpretation Code Description Data Katlyn rce(s) Supporting Document(s) Telephone Encounter [facility] BQDRPv3mQjOAEyKx08/XKIniTWXhf7BaOZotRKl4UHngGEWwQ7QbDWI3aJ3nOFW2EIvDLhYtCaGcOAG1 lbm [file] ID Date Data Source [id number] 06/29/2021 04:25:19 PM EDT [facility] Name Value Range Interpretation Code Description Data Katlyn rce(s) Supporting Document(s) Telephone Encounter [facility] PUDWAf7rUkEDLiDh12/ARNmwJSTrq7JxIJzpWNm3ATqkGRJuX7ReHUG2dT6oHOD8NUfSTtZeYmLtBJG1 lbm [file] AgICAgICAgICAgICAgICAgICAgICAgICAgICAgICAg ICAgICAgICAgICAgICAgICAgICAgICAgICAgICAgICAgICAgICAgICAgICAgICAgICAgICAgICAgICAg ICAgICAgDQogICAgICAgICAgICAgICAgICAgICAgICAgICAgICAgICAgICAgICAgICAgICAgICAgICAg ICAgICAgICAgICAgICAgICAgICAgICAgICAgICAgIC AgICAgICAgICAgICAgICAgDQogICAgICAgICAgICAgICAgICAgICAgICAgICAgICAgICAgICAgICAgIC AgICAgICAgICAgICAgICAgICAgICAgICAgICAgICAgICAgICAgICAgICAgICAgICAgICAgICAgICAgDQ ogICAgICAgICAgICAgICAgICAgICAgICAgICAgICAg ICAgICAgICAgICAgICAgICAgICAgICAgICAgICAgICAgICAgICAgICAgICAgICAgICAgICAgICAgICAg ICAgICAgICAgDQogICAgICAgICAgICAgICAgICAgICAgICAgICAgICAgICAgICAgICAgICAgICAgICAg ICAgICAgICAgICAgICAgICAgICAgICAgICAgICAgIC AgICAgICAgICAgICAgICAgICAgDQogICAgICAgICAgICAgICAgICAgICAgICAgICAgICAgICAgICAgIC AgICAgICAgICAgICAgICAgICAgICAgICAgICAgICAgICAgICAgICAgICAgICAgICAgICAgICAgICAgIC AgDQogICAgICAgICAgICAgICAgICAgICAgICAgICAg ICAgICAgICAgICAgICAgICAgICAgICAgICAgICAgICAgICAgICAgICAgICAgICAgICAgICAgICAgICAg ICAgICAgICAgICAgDQogICAgICAgICAgICAgICAgICAgICAgICAgICAgICAgICAgICAgICAgICAgICAg ICAgICAgICAgICAgICAgICAgICAgICAgICAgICAgIC AgICAgICAgICAgICAgICAgICAgICAgDQogICAgICAgICAgICAgICAgICAgICAgICAgICAgICAgICAgIC AgICAgICAgICAgICAgICAgICAgICAgICAgICAgICAgICAgICAgICAgICAgICAgICAgICAgICAgICAgIC AgICAgDQogICAgICAgICAgICAgICAgICAgICAgICAg ICAgICAgICAgICAgICAgICAgICAgICAgICAgICAgICAgICAgICAgICAgICAgICAgICAgICAgICAgICAg MCCwUQGaWEHjHROuLBXeRYh7N0rsBUZsYFAmED1pQDe8Iz2+EIzOYiYbOLF3gmKfbG2CNA0fu0GiYFis JIXea1RwHMl9UM2VYMEwGSdcDZ9YXRvpek7PQBXjGE CkdVVDy3jiNwMxWTV7DVDuKdgyYI2CTDCwQ7mpniBaDPTxFVDNZK7XSnDhF4UhzE54XNUTEf6+DQplbm GhGxkYNwJuINXfr8DzROm9HH4QWANgKqvba3LaAyIqUCVDKJemXW4XFYP8HQSzJGCqMp3UIXOkJ980dn UkKV5BPp8ANvRdCN5hgw5ZQhEzJTLfHicXLzz4ALyc BT2JkZFrUSqMBWwvtCwnlnTvOQ2li4WfyKBtLKR3WI0aG73eEUWPQNM5OZE7GJGsaXKhLU4kCf1ySECw UTB7RuG5HXNPIY5UYRSsELZksAJxRTGhMWLCBO4HWEsjPIM1RkhznnXduDKtXHenUF4PUZAwkqApMqTc MCBSDQo+Ba5UEP0zg2ZbKZtaNDUnEG2fyc3GMWlLJo WnJ2P7rUIvH1O2GRqtMl4ZSOMgAAOuGhTcJUTEZOtkKC7IOR5jqeN0XR8BoTMzWUHiWVJanGZiZEz0T8 2fdHQlJTnvJF8BOEM+Eddie+Ln8FQIQxQUPfHIXuFsNxQFOOXiYfZ6KdI0PAm7JdW9FhDW33gMsegnFvEQ qnXR1HRP9pEWMdXDRFDC6HzSLeuI2osxMxZeHfOIRZ MiLuR77cvOGoSXAnESLyLILgEf8SDLAlH6EibeUuxZrewrXbFVWsTOIFLX7PYRjxshErzWJgqXlrTZ22 lUlfQM8JNh7FNiYzTJ2xrm6SeWIyTf3LYTMwAF0HBELbFJHkGNNiUHL6ABPlStHqAIdiOYGbQDHnCVN1 MUXqQUDvZW3CPxQqEAVmAPf7YUuyYJOdRFSwhe9EEZ OjVIGpGYjmLzKoEYMtMWNvJVzdJWVjNSVrTRI2IFXsXMVyQA4QGnChZGVsUJX3DzRyMEBfIHQajn0QQN GgTCLgYVfcOURiZBVnDMFdDOjcTQUdHOTzIobmTIWbNKEzEY6PQuIzHDQkDNW7EOSnNUQfQGGiox8JVR UzPXGsOnV5TZMvLRYgNQQdNDggVUWlUJX1VRX7HPBm GZFvHW4EGtMrNLSnBNJeQrEiKAUiOQKslq6FSACuNIImIGQuKqIdJAJxVGYeNJgnCAFjBOK0YsJ1IKCf GXErAT9CBdWyQDCuLMixYzRlSNEiHUXxju9XFHBeHNMdFcG6OSQcWZYaPLNhJLlbSKCtVZU7TDJwOMZl LDIvRA3JJkLmLOSnMCv3IilwPFVaHZEpxb0HHOIaDI YyLKNbNLOqOYObCSLbPAuqOADcAPE6Uzb6NBCoLDVwRE3WAjNiRWBrGFi6IuhkCEUcWGLkcp3TZGQrOW DySKV5KjKaGBMaJPKbIGezEUTnJACyJKSyFFKfACSeTY2NAtZrXSCnYyF4LACnVCJqFSMqdz8CFKFbWA CjUFQ2AKPqJURgGOKuWBd5rdLmwCIgIKg0ID2KB5Yc rqNdOoZENo4Fr946XWT6QKMcOj0DY3tvWx8dUEGtUMWIIk4RUPg4VcJ9UKJ7UJJbTmR1BIUeWlGmYko2 NXCuIWN2AkS1HpI+SYrcAOK4SJIrHVOiTia7SbDxDJPkWmC9QdN6MAZ4FcRnJF8gXDFPFs5+DQpzdGFy dAbmOZYBIxMvCgf9CGxuZRCTUs6J ID Date Data Source [id number] 06/27/2021 03:39:[address] [facility] @06/27/21 1532: UA W/ MICRO added. RFLXG = UMIC.Method of Collection:: Voided @06/27/21 1532: UA W/ MICRO added. RFLXG = UMIC.Method of Collection:: Voided Name Value Range Interpretation Code Description Data Katlyn rce(s) Supporting Document(s) Hemoglobin [Moles/volume] in Blood 13.4 g/dL 10.7-15.[address] [facility] Hematocrit [Volume Fraction] of Blood by Automated count 39.4 % 3 7-[address] [facility] ID Date Data Source [id number] 06/27/2021 04:02:[address] [facility] @06/27/21 1532: UA W/ MICRO added. RFLXG = UMIC.Method of Collection:: Voided @06/27/21 1532: UA W/ MICRO added. RFLXG = UMIC.Method of Collection:: Voided Name Value Range Interpretation Code Description Data Katlyn rce(s) Supporting Document(s) Glucose [Mass/volume] in Serum or Plasma 89 mg/dL 74-[address] [facility] ID Date Data Source [id number] 06/27/2021 03:55:[address] [facility] @06/27/21 1532: UA W/ MICRO added. RFLXG = UMIC.Method of Collection:: Voided @06/27/21 1532: UA W/ MICRO added. RFLXG = UMIC.Method of Collection:: Voided Name Value Range Interpretation Code Description Data Katlyn rce(s) Supporting Document(s) Color of Urine [facility] Appearance of Urine CLEAR [facility] pH of Urine by Test strip 6.0 5-8 [facility] Specific gravity of Urine by Refractometry 1.026 1.005-1.030 [facility] Leukocyte esterase [Presence] in Urine by Test strip NEGATIVE Above high normal [facility] @DO MICRO!!!! Nitrite [Presence] in Urine by Test strip NEGATIVE [facility] Protein [Presence] in Urine by Test strip NEGATIVE [facility] Glucose [Mass/volume] in Urine by Automated test strip NEGATIVE NEG ATIVE [facility] Ketones [Presence] in Urine by Test strip NEGATIVE [facility] Urobilinogen [Presence] in Urine 0.2-1 EU/dl [facility] Bilirubin.total [Presence] in Urine by Automated test strip NEGATIVE [facility] Erythrocytes [#/volume] in Urine by Test strip NEGATIVE NEGATIVE [facility] URINE MICROSCOPIC ADDED Microscopic Added [facility] ID Date Data Source [id number] 06/27/2021 03:55:[address] [facility] @06/27/21 1532: UA W/ MICRO added. RFLXG = UMIC.Method of Collection:: Voided @06/27/21 1532: UA W/ MICRO added. RFLXG = UMIC.Method of Collection:: Voided Name Value Range Interpretation Code Description Data Katlyn rce(s) Supporting Document(s) Erythrocytes [#/volume] in Urine by Manual count 1-2 /hpf 0-5 [facility] Leukocytes [#/volume] in Urine by Manual count 3-5 /hpf 0-5 [facility] Cells [Type] in Urine sediment by Light microscopy [facility] Bacteria [Presence] in Urine sediment by Light microscopy NEGATIVE Above high normal [facility] ID Date Data Source [id number] 06/27/2021 02:28:[address] 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 Individual Fit [...] No ([id number]) <Electronically signed by ENIO HELLER [facility]> 06/27/21 1528 Name Value Range Interpretation Code Description Data Katlyn rce(s) Supporting Document(s) ID Date Data Source [id number] 06/22/2021 01:30:33 PM EDT [facility] Name Value Range Interpretation Code Description Data Katlyn rce(s) Supporting Document(s) Progress Notes [facility] KJIZFp8yVaQQVnTq77/WUVfaUOUae5IrGRqlLDc0WMzwBBGhF1DwAIJ4mN3pDXI1TQnRXzOrTjHpHFAo lbm OdDrkPMbStMQKuInkNEvDrMEknHkirpVDxJX4HuSC3LOPuL04qWCMbGDJiK4NvBGByNNG+Zu4LNZZuzU YgPD5ZWwxI6R0AomwPDW2ZiL/El9rCHtWsv/XxQARcmkaMvE2pQjMT1CnP2adxQ2WxFiXI3MsujCZbXZ 72FrFRuY00xIMJpk8o9ko7vwme7s1pvtZHullw/O/+ 9gmi8vPT/rxF9dFYM/rnb77OJ/CE1nmHrx7gz/r6/xxbnD1KfQ9udbKPGqM7Vg7H2LGjdqysy8pNtJjr cnyrTT2+dN14ST9V1MgcS7JwQCAevY5oQi23cpjhj8kvjcNhs2+peOerfY5xS9kebzIph4uavUhW7cnw Bko9CA5eFOvUxGdVRjlMmQyoiyJlhGwvofLiMhsp0g 8aeXg5rsZm9iBWmHufVOMeOzlJnKwy+bAeggVGTP5H9gyUIGcrovtF3tAAc+CgKIEt8oNwKbazgRAyNj nUYuRPaI4wP/MgUDoQI+CZDtXs0r1VbL5aauuKLMpvtvPpIbCWcs0Lxg+T4TflRfoEv49MH/n4i8jeci 3pgqihj35uX+AEFbZRxTjfNM2q2c/Ui/Gwcwsiaw+w R8IQLeT6RrrvllIZm0xQixElVeh6RugDKJS7bl5ZFUItWKHtN6f//t3z3ph//EtNfhyOftboiPOGmuze sL9IGAw7oTLpYhdur2szxiuzcnswH+rkKYtgGWX078N0vaSD+2MvOAyvvTOT/cWkTW3wi4iiVAg0IANE +WjJ9AU50AKj7Cn1zfvFseZY7gNMvR1RuaCT15kuCc a8BNsih/Gurwinder/ZzHKw75TXvpCMStLjluyIDxDZkTXWlneBLbEpX828m2rFgWcOKJtt/VyL066Z5cZNuAxZ vawt4Me+8uYZ5v5QurzOnA7IuUL+Kfj5qcEuD4W8tJ6AaSeUaufIluxXJhXO/Dz7GOfVxr77Y8KgGNpZ fpGkKMgnLNFDd5Kpf6efMOZacigBJ2xqTnS0iFtxXF ISnWiJCcEmN3eA8tBWyLBsZjexGJeNPBLgBjCiteoDGKQyn87oYc6JMQkxB/UWTioNQINpvTHmA/VRAe M2Km8wnok8yn4QuJWKXkvcFj3RDgetR+IEXg6UGmblM4NTbD+/ZxjdY895aDkRetofqrDRjsjgLT8rBX 5r703dDPe5Hw1ukbWFbm83ViFh6AvWYPbg9dQzZbRS BNqMozVEWYkCiFyr2+DhtS29gHBP12yFjvqpvbCB0O4wGs+HOhNDSR4eEQj3NhAaALHK4tjCeCMoG5sK 9t9KbTtESaN9Toi9VpDZ/dxp2DLQqGLuVSMwIbivuIGvJqimdV7DIirpMk9g7tKHsSFmYdNmjg3+MfHI rcMOjJMyOFsiq4eJ/HKahXpEVI4czgjrI2WKLeDTjb ztARR/Chiqui/u1of6EKmkKqMcQqdkv+jxHQjKfMOWcqXoQUp3AYC4URgl2aTwHncSPUtAkFSnLeYp04YY9 [file] O8LRGgYhHlGvLrXGF2Hd3aRZTBRs3+ZXuqxSEceVndRPNQLpK8MZj2VWssOULELq5D ID Date Data Source [id number] 06/22/2021 01:29:33 PM EDT [facility] Name Value Range Interpretation Code Description Data Katlyn rce(s) Supporting Document(s) Assessment & Plan Note [facility] XXJTLw8bMzKFVmYs09/DFOilZQFrd0TdGLydAGq0IKpzFMEpK8XiEOT0mR6mDRX6IQiMCpDyPjTyPAWa lbm [file] ulZ2qsVaDHcoLIt1Gn2FIUVFJ2BXIp== ID Date Data Source [id number] 06/22/2021 01:24:56 PM EDT [facility] Name Value Range Interpretation Code Description Data Katlyn rce(s) Supporting Document(s) Patient Instructions [facility] TGNMUo3uXpAVXvDl94/MMGukKJPnv9ZeRSmaDBt4BDsqZERaQ5RaCVY0qL2fSSJ7HOvWXjRiEhPqWPGu lbm [file] UZAYRn8J ID Date Data Source [id number] 06/22/2021 08:18:46 AM EDT [facility] Name Value Range Interpretation Code Description Data Katlyn rce(s) Supporting Document(s) Telephone Encounter [facility] STRBTp6rFfAQBdLn24/EZPejYNPhu0BdEGvqKUr2FFplEZLxX8CdOSR2eS1gXBH3MTaVZgBoStLqTOQg lbm [file] ZsPJRzOiXI4RTTv= ID Date Data Source [id number] 06/09/2021 11:00:42 AM EDT [facility] Name Value Range Interpretation Code Description Data Katlyn rce(s) Supporting Document(s) Telephone Encounter [facility] EPPXBj4iSsPSZnHz82/WXNvyORRvm8CmRPltUGv6UCutOPGzW3CnGHD9kL9aWWE2YJmVQcBtEcTcNAQ7 lbm [file] ICAgICAgICAgICAgICAgICAgICAgICAgICAgICAgICAgICAgICAgICAgICAgICAgICAgICAgICAgICAg LBNsLPMqGFXvYRShYYAkJX8UBZBjOOZzBDAnIHCuJQRrIBKcCTXfMGJkRSGxGNJpPKLiGALrEJGaFNMl ICAgICAgICAgICAgICAgICAgICAgICAgICAgICAgIC OhKAQwHUHeBKFpPRYqZQWhQPIhMHCaBQLdFA3WCWDxFCVuCIOpSARtVQKlAFKwMZLkUNBxIJRaCKQoYU AgICAgICAgICAgICAgICAgICAgICAgICAgICAgICAgICAgICAgICAgICAgICAgICAgICAgICAgICAgIC WoHPEhEFCzRY3IVAHpSZZnZQSsYCJnBSTzZDQwLTNq ICAgICAgICAgICAgICAgICAgICAgICAgICAgICAgICAgICAgICAgICAgICAgICAgICAgICAgICAgICAg EGCnZWEsLCVvCAFwKOMaBDPtXF5SGRCpQNNsLFVrKUJsLRKnPBSiDNErGLAxOSToXWFeOPYkQZDaOWAa ICAgICAgICAgICAgICAgICAgICAgICAgICAgICAgIC ScUNBaALBxDMBoLXHfSTGgRPOhNQNkNJTbWXDbEW5OIJXvDYKtTZZlOFYvWMIbYXOfYPNyIJWbZUUnRU AgICAgICAgICAgICAgICAgICAgICAgICAgICAgICAgICAgICAgICAgICAgICAgICAgICAgICAgICAgIC YeEGRsLZTkNHYvHU9JSLVwKZWjEFAkSZRmKDZfPOVq ICAgICAgICAgICAgICAgICAgICAgICAgICAgICAgICAgICAgICAgICAgICAgICAgICAgICAgICAgICAg FABvDJSkUNZcUUXiCNFuLCAnNAAiCQ8AVVGcYYXpTITjWQTaSEMnYSKjPHUoSLFjXSXvCYQzOQItHBOs ICAgICAgICAgICAgICAgICAgICAgICAgICAgICAgIC AgXJOtMSSqOPIvPBGfZUNwWIGeRUNuXVOyGCSrRJJyUM7GIGLaMLGvQTFnEBKwWGKqKVOcOGJkWPXsPQ AgICAgICAgICAgICAgICAgICAgICAgICAgICAgICAgICAgICAgICAgICAgICAgICAgICAgICAgICAgIC KdCCXoIXIdDRPhERLpDT1PXGVaNPKeKDAeXXPvDXDe ICAgICAgICAgICAgICAgICAgICAgICAgICAgICAgICAgICAgICAgICAgICAgICAgICAgICAgICAgICAg VCQqJIBrLZRlDAMaTABfZYUuAKAzNCPnLK8LXH15sIGim0R7FVJbQW6tasq/Qw3ICBgbqiPvlABaKF0R PsUlGU8ppt7DYuHmFJ0jbl7DZLqNZvKyH1M9nMAyHA SfELRKHoDeF04oSMvkPw12ECscBDGkNwSqRTn7Gi6UNhMcN0cyAZVxKtE4CWQpCcLaRXnbVQ1Qi4TsxN AxDQo+Li0EPA0xe7RtTQurLvIcYM4cvu2ZAEoDNvIyO7BsljU5DZJeMZQaIm7NVOEaFTVzxUSzMrDxIR OOAnLbA3GfwB39LIQCVe6+DQplbmRvYmoNCjIzIDAg u0AvMBh7DS5KAATlCSq3vVPjTBSsEBEnh45kOIDbL185kjFaxvIxxDWMHB5ieGJYo0HyNA7wNDAcOGBt Yb0qEIGgQQOxAkV1BTIEYT1OYGFyWUVfsTYuZULiFHVNQD2NUIdsYJE9BhhwdtXvdGMzDNtwWQ5QXCHx bnQgMjIgMCBSDQo+Ri4CHM8ix4XbEOlbDMAwWV6ulo 2HUZfJDfKgF8W2iGPtJ8C7FUfaDp2BKJSpADDePyXcNLTVYAipSR5ISD1ijcN5BH2OvMGlUFVfBNSzvB KmLHj3N12yrOSqEYvgFL5CQUP+Eddie+Sh0WGTHqCFTtEUVkIzIhUYDEJnWsF2XfR0TAs6DwJ1ZtAZ48wT unerRwDDjvQF7XQT5tVYLlDLXCWF0TiXKciQ7cssKe PzMaZBBEKgYhY57ppILlDWDbLGZjZCDnJh7ZZEQkW1QmzjVdsVpopfDjECScEWKQSI5NIYfobiJrcPKl wZtjKH29nLnxUT9MZt4HJwEuAA9zbm3NqWIaIi8CSEWxSX5NSUVcRKJkWOXgLNA7QHIdLnLwOMguATGl ENEyFFS3JBIqHDAlPU1YJfRlAYDyADn0FDRbYNGlKD Lohb1LULTxNJGkGWVgUKInYIZgCGSjQCsoFOKbOSLgAQP5QUWqNFMkCR9THoHtWHIlTTBcCcjjMUVkBZ Jhws9KIHGdDTOtVYPqReAhNAWgBETmWXdyFYJiDYTkSghnSYHwBRZdGE2VEhHhNGNjVUX8XKExWHIiQQ Vfqi7XVWYeTFAqOtz4KvEqPNLrEHOsTTaoARSkLMFb TxC7QYQsQZEbNW3ZAyVvKTOjFNT7TwQkIJAmDIUdlh0SVFLvIRKfMNBkGZHcXHGhZAAtRGdhYYHwWUQ3 HQQdHHIyQWEkYO0BRbZrJHIrLQI9RsfeUKVlAEPrjo0PNHZsUGLvBty5VWKaRXMkDIIjORrsPGJyQYB6 QfZ6UGRxDHOmJZ4UXvGmAXWjQFmiMzGqZLNtNWRwag 1GJRLpLYWyVIBqSaWiSDDlSMBeMOkoCHAiKXB1QPPeJKHvKNQsII0SXmLnIBEbAJc3OvWbAJEdHIYhms 5BPXWhBYFfWQA0JQBzMPNcXHCeMBynHJSmRXEcTTL0TRSzUVNqHK3XXdMsSCSwLcO0MUuiHNYoCIKvkb 5ALWNpMFQqRKn0GsDwYKViGEGkTXq4rwQymVBnBSw1 LD2PP6XqaqKjVaYAPz4Ct840UII4ZYYaIy3OU6ttUj5hQQQdLSMUVl3SQJr1IyUaG3Q1TrprFyUcXBnx PUU3MLS3HzTzMWKnZVUmDeW+RBuaQSF4SwKpEUYoYEC4LEIbRcH5KEAyFBMzBRJqAZY1HT1bCVYIWz5+ SGgpeKChcPlbSWJAHrQvXTxjKNrqWJTQLt5M ID Date Data Source [id number] 04/28/2021 05:50:23 PM EDT [facility] Name Value Range Interpretation Code Description Data Katlyn rce(s) Supporting Document(s) Telephone Encounter [facility] YQMZXj1wMdNOViTa25/HDVwuFPXfb1OdWUmzGPv0XClnLBZvO5IpDEF7qH9fYNG2QDxDQkCoQjXhJDB1 lbm MxGurOHwUaCLKlQokFQzHrFHjmWgzlwCQbCB4FuJC7NNHaY41dYBKjRUPtA1PeOQbjSE9+AZcpXON0em QrnG7LNSX7ZL3J2fSIct+0/+HsPiHjhby1MSSC6w+TGQlPQkIzhc8WVpVjcBLyHnx/xr6iCoxkG9uG+5 Yc5xg0m9/GdnWD2boGSAbXAWIhk166JpyMP4b4Wsjp v69X7cwcWZ0dCIN/WqBvPXp/wSDwfCaMSzoDJTkc+WlK6FMSDxL1sSKSjCGpzcYqwCuY5EfyTbOhWAXd K0BICmhQKFNzTadMTXVcqx4cVqnKAERtW6rAOQAcaMcCHTBdvNXZo2N6nbhQvYNW17mlcm805YBoVWcj E75TjzG5WiKGpt4bHV8pcsEfTVOLDsW9TvuK3UNogA JybnOOsNOQYeKUG+gKNUvq1K1R5fftbTBiELjmpFPOlq4Nf3SdfJEywayjmz0pnJ8LUg8ESMj3bAr9EG nQn2T6Imdw01ZE6jCx4MLV615P/WFAzlYLZWt6sRRb9qfTwR0RYS/z9ZjTJjxUHBZXyuQg/tbKXtzU7Y tCiIs6F5AbT5ntz9h38LAho07yisJ+88kXytj1vIts P1tipj7tyYeuPwDmotj1wZexpc6yRIXdxfsp9Pm1J8nUwsdm7HmvweBFgEieweaH9NupJWeMq7llgtEv [file] UxUGxwVZhzZA0ACYMZE8SYOu== ID Date Data Source [id number] 04/28/2021 05:34:10 PM EDT [facility] Name Value Range Interpretation Code Description Data Katlyn rce(s) Supporting Document(s) Telephone Encounter [facility] JGGVUq9zYkUHKnKq94/PVEpfWRIhp2FbBUenHZr0JOqnATTdV8JwPCH9rW1hITC2LYeJXlOsFbQvSSI9 lbm [file] A0BglkHTR0WkS+YF3fBIm+Ar6Ii3HsqvK6keRvMQcnIUw4Mi4JALOPG2GAAk== ID Date Data Source [id number] 04/28/2021 05:28:49 PM EDT [facility] Name Value Range Interpretation Code Description Data Katlyn rce(s) Supporting Document(s) Telephone Encounter [facility] RKWZPi0fAeZJTfLd70/BOIadLNRpv1XzVLhxQQy6YDrrISUjK0AtGUP6zS0rYGW4UFoTYxAoTuQtAHT7 lbm [file] x0SasuS5bbRgXScxFAMhDw8NMAKNX2IPLf== ID Date Data Source [id number] 04/28/2021 11:28:53 AM EDT [facility] Name Value Range Interpretation Code Description Data Katlyn rce(s) Supporting Document(s) Addendum Note [facility] PGKXGq0bWmIIMgPy67/LKRkyHHKay0PzEPdbLMy3ZRhqERAbH9RcAGV6dM2uLQL6ZIfLZwGsQzLyOGT3 lbm [file] FlReulKIZeCgn5DTN1SqtmQlg5O8WkDTP+IF0gDQ o+Ht9Py3QeljR9kdBpWJvpERItEj6TJEWHL1MIVp== ID Date Data Source [id number] 04/28/2021 11:28:28 AM EDT [facility] Name Value Range Interpretation Code Description Data Katlyn rce(s) Supporting Document(s) Telephone Encounter [facility] SEFTKd2qVnSANnUb55/KXUxwICBzr6ZlYXpdNRd9GSrcFYVnY6MaHNR2dO2sCAU3AMqOAiNqTuEfRAS2 lbm [file] SEN6QrVjMLcbRXR1TBU+LT3zAGq+Rk6Hp2YiqxR4eiXpYIdcBIB1VM0XZMJTQ6LDDc== ID Date Data Source [id number] 04/28/2021 11:03:07 AM EDT [facility] Name Value Range Interpretation Code Description Data Katlyn rce(s) Supporting Document(s) Telephone Encounter [facility] ARORBe8xJwLSPzDi59/WMBuvHWRtl7XdDCsbOVe1BUapBXOuW0PpVZT2eV8lWEX7CUnMNtBsFbYfHBN1 lbm [file] ICAgICAgICAgICAgICAgICAgICAgICAgICAgICAgIC RyIRIdLXEuQJOzUVCfMHPwHNZiMYOxDK9KLPXiSCHwCPFnNVUtYPGiYYRfOIDtVFZuHLUfWAJjLQKwPV AgICAgICAgICAgICAgICAgICAgICAgICAgICAgICAgICAgICAgICAgICAgICAgICAgICAgICAgICAgIC DiZZTnSF1QYRDoATLnODSmGFHyOIJnKJMcBIGzCZOw ICAgICAgICAgICAgICAgICAgICAgICAgICAgICAgICAgICAgICAgICAgICAgICAgICAgICAgICAgICAg YDNnZGRwKQWgQTMpJMZuPA9KYLNnDCWmOBUmGGArVOVqAWUoCZDxRQBlLSKuMMQdFZGdMDOrMBFjZKPe ICAgICAgICAgICAgICAgICAgICAgICAgICAgICAgIC BbOQIhPUYiWHThNUYiVNIiWQAgJYUbQIQnME2UTWVpIPAsYEXgHGLqGHAxFAXdQWYaWZArZLKtPVVrYH AgICAgICAgICAgICAgICAgICAgICAgICAgICAgICAgICAgICAgICAgICAgICAgICAgICAgICAgICAgIC MtGMAfYDFyGP1JCUXbOLGbZXYuEUQqQRKwNVSdRXMd ICAgICAgICAgICAgICAgICAgICAgICAgICAgICAgICAgICAgICAgICAgICAgICAgICAgICAgICAgICAg BEVqNPUtHREdWSEsCBSeEOAcHQ8ZOAWdKXAcGZLyBMXkXNYmTATzMTRuXUWqQWBvAJGsGCFtSRFoPBRl ICAgICAgICAgICAgICAgICAgICAgICAgICAgICAgIC ItDWQbHAMsRGEeUOPyXUEqCWRwPBPoUFIhRBNlLS8ZIWHjUJAhWLWgAQJjPXLbZOHqCWLaRFDnVYOmWN AgICAgICAgICAgICAgICAgICAgICAgICAgICAgICAgICAgICAgICAgICAgICAgICAgICAgICAgICAgIC UbCFQeBJVsNTJbSU0AODFiYLVyTGUuZVSxCIAfTEAu ICAgICAgICAgICAgICAgICAgICAgICAgICAgICAgICAgICAgICAgICAgICAgICAgICAgICAgICAgICAg HURyYZXwNPDoGIZnVAQxVCLiBYVwHK0HDWArBMIoWHHhBDEdTOJjXMQzMTApRITfWGCyUWIxVMUaJFCu ICAgICAgICAgICAgICAgICAgICAgICAgICAgICAgIC EnZLPxCBSaGLQhWFIdYFXqOKGcNZMnWVWoVLWlVXWxRX0OVC54lSVqa5P6ZPGkGH6wkkr/Ka7TXXoolb WslOJsCG4FXfOrOA4njp8YNtApSI3jkl1PFImPZqBjF7D8hPSdAKTpVCNAJfJcI90kSIstQk42RPjiFV NqFcYcNGm4Sn2INqJjA1raYPWgOdU7AWTbYtFtQNqs GG8Nu4CntGBcTVl+Cy5MUN3qi0NyBUzeMoQtIZ3tus4LLOoPLaWpP3WajhL3JZFgEHOxBs8RTOPyCVUw zHGxHuUnGDGVEeFnJ7KvnC37OPUWHr1+VRjxidNbBnmRQkXdTUCck6IdAQq4WA1FZKMtFJd3gTNjTADr MBUoo99qXGAgO307brRpouQlgAVIDMKbJRysNx8qEG Z7lumwXv2pSDQgYF7mSf1oBCDyNQUcUuF1PXNLYM9SEVEgSJAogCRdMGWcHIUTEM3CKMbvMQT3Itzraz GgoSErPEazOH4JTDWlcmOpWoRyHDWEXYm+Wh3FUB0if3FjIKzgGEQfCM1rxn6ECKgGHsErE3W8pFRbA8 S4XYvdAr7ZRPXnAQObUbUtFTZYLSshDA0IEH7mhnX3 VL4IsSCgGLDaXYPtnOMpYIh1Y77dgWHgPOhpFF1CDMF+Eddie+Wg7YKJNsQBSfUYKnYxPkDKXSYbAjR6Pg I9UPr2FpM2VtYK64gMhhatPqRLnoUV6THI0kPKPwONMLGA6ZfLDyeY9kbpJaSeVaZXOBZtYuW60xlMGi JEKcUTMrHOYpAb8KTGRhD8VhhxLfiQqxdrWjFYEmTF GBIQ0YVTzdncVgrJEovPyaOI34pCjtRB5ASp2BRpTfKI2ckw2QzJRfZz4FAXVvTB7FJPXjXNJuPXGoJL V2XVGuEzNpFDpoQRDlCFWtBKW8AOHeQZAdAY5ARmFkNQPiAXs8DLQhNCDrWHDbkn7SDKTjUCEyYGZlNI OrSKLrOTMkJQwoRWGlMTYdLAO9IARoHXSpFZ6JVoKs SQZnNSH7MoOtGWKzASKevv1ACLLkKZRzWfBdGpLeILFgNZGqVHhxXOJlQTIaXYk5NLQmOLPkHB4EVsYk JSFtRQKkKZUeMWUiCSAwpn1PQMRzOWLtDoC5AMKtGEGzLTWmUNywIAZkCPR8OTHkTNXdHOSoWX7RHaVj WKUyLFW9NfonGHJqKIOepd9SLYCbAAPnMHpyNCYwTP IuIBWvOGgyQOIyVSL1YOM3DPVaWBAwFI9LRpJpHXKtEYh5VSMoIAJwLRRvsh2QLCXuZIRfDnD7FoQcBQ JrGFSyOGzqGQZcHJF3XDSrPOHrFTLyBF0TDbAeMFGqNMyxUepbOESnPZQdao5VJGQhBTKoZASxRVAfYD BfHHGhZXrfECYtHGF2WaK4SKSrMAOhUQ3SZoMpKYIi ZKavAvksANLnIIOhru9JYITnSDNjALp7DTPyDNLaXGLdFCuxQMHqWIWvJiXiKKKyKHQaMX5THhNtHTUo SgOaGFPlZIWrUFJzwx7DUJDkXVZeYJB4BLPfRQRoPSIdEKv9psNlhIQrLKa2CV3PM4IpxoLbFeCZXr5T t016INC8ZCSjEf7WC2ywBd5dOEPrTVXQYi9KQSb5Ut D3IDR9JOWoJSLrUYh5JDE3NcT5XVN2KXTnIOO8TIM+VTnzLmtrQtGaIbVfTwViPQU0YEx9ELK2Hob9DB M1EQAfOR5wEGJPZj8+JRhaqKVatSdtNGWQFcVxXeQsNCbbDJLIMs2K ID Date Data Source [id number] 04/27/2021 05:32:24 PM EDT [facility] Name Value Range Interpretation Code Description Data Katlyn rce(s) Supporting Document(s) Telephone Encounter [facility] KOCTYr8iKmAEDaTh45/UNIpfJFVvw6SxGOepWXs7GYaqFFPtC5CiAHV8jU6lUEV8JBmKUyNfFoErRHD6 lbm UlSfeWBdNeEHGfHhyBUcMyZQqyHgvijDPuIT7SqAV7NCXkC66bZVXpANPwS1WaQJOgYEY+Pd6RKGDihS IxYO8MFxvBfYyZb5SXJP0j1H/bYiO7qxv10mqXgJF5ZFChoxyeBXzglUnUaEjySvi7p1wmBXkE6IN9am X6aOu0kgqm0p1p6YnL/whLs6LTDnLdr5vUFfRXW4p4 UzkonuyNfs4LXHNIIomN3xv14nS/96NckeIX8IVgczt41GoESLv9LNWJcqIO2OkB+zVhmXk0OnE9WQaS Ct4FYD4MdFs4IlCbbrgQtTDZOROn5/MEmT7FBjV5og9MkhKgw1rrUcMP6xEsg9M3h+oMuBWIt7iRWj08 6xDfSnAWLGxWmkHoXERamqFxLekK+2svZ6KjjZNT9K bWGJbcHNYagXRl9N2gLb/V1PeNji8V2ApBCmeUsdvKz6ZtukIr52luzUR62TGUv8hJDYYLGdx44EKKwC 0bTDfONHtvpX8rzpQ2P0IVHnvCiKPCqjtoRvdqlRvYCL3+3zowKRTLCol3FKH0lyKfmDE8zhTGFSMVBM M/GsbBLFpO79fW/ZoruR1kkI5fRND0oHjDMARbPgab DoTRl2Pllg2H1DJoIoJGI7pJ2VmY7u+SKGOy7zgoyz9+sKg15wabOcPKKqKl10Y+YDV6NejRLnbbsGBi zCwtICcFu4F9AhOaRJZ10UOfbUuWq61ReXafp/AfEyzM2R4KrVwQMxDL/Rlkl7ZckNZVuaOBTypqArcR QxfouHelUbRClKzXOKpt3evHPYXi5y0Mr9XCv7iV2S Bvro8fIc+hBEb9cv5jwwMnmSiin/6Z8oZuEkBQ/lSFQq/8ewLOXX1gp0yyvlAERM3CAPL32t0BYljbxv 4KIB9JqcYQGa2d0gFFly5W9nLKiVkasYn9qpGtTNcnZUJdG7zOCwKYv4Ps8meqH/ESCpjwZ2uX5rDGCw AzsHjjErEXXVFycAmkjWCYGPJ2QZDYTwLbUTLCYvvx [file] 3B0jco5L+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 [file] AgICAgICAgICAgICAgICAgICAgICAgICAgICAgICAgICAgICAgICAgICAgICAgICAgICAgICAgICAgIC AgICAgICAgICAgDQogICAgICAgICAgICAgICAgICAg ICAgICAgICAgICAgICAgICAgICAgICAgICAgICAgICAgICAgICAgICAgICAgICAgICAgICAgICAgICAg ICAgICAgICAgICAgICAgICAgICAgDQogICAgICAgICAgICAgICAgICAgICAgICAgICAgICAgICAgICAg ICAgICAgICAgICAgICAgICAgICAgICAgICAgICAgIC AgICAgICAgICAgICAgICAgICAgICAgICAgICAgICAgDQogICAgICAgICAgICAgICAgICAgICAgICAgIC AgICAgICAgICAgICAgICAgICAgICAgICAgICAgICAgICAgICAgICAgICAgICAgICAgICAgICAgICAgIC AgICAgICAgICAgICAgDQogICAgICAgICAgICAgICAg ICAgICAgICAgICAgICAgICAgICAgICAgICAgICAgICAgICAgICAgICAgICAgICAgICAgICAgICAgICAg ICAgICAgICAgICAgICAgICAgICAgICAgDQogICAgICAgICAgICAgICAgICAgICAgICAgICAgICAgICAg ICAgICAgICAgICAgICAgICAgICAgICAgICAgICAgIC AgICAgICAgICAgICAgICAgICAgICAgICAgICAgICAgICAgDQogICAgICAgICAgICAgICAgICAgICAgIC AgICAgICAgICAgICAgICAgICAgICAgICAgICAgICAgICAgICAgICAgICAgICAgICAgICAgICAgICAgIC AgICAgICAgICAgICAgICAgDQogICAgICAgICAgICAg ICAgICAgICAgICAgICAgICAgICAgICAgICAgICAgICAgICAgICAgICAgICAgICAgICAgICAgICAgICAg ICAgICAgICAgICAgICAgICAgICAgICAgICAgDQogICAgICAgICAgICAgICAgICAgICAgICAgICAgICAg ICAgICAgICAgICAgICAgICAgICAgICAgICAgICAgIC AgICAgICAgICAgICAgICAgICAgICAgICAgICAgICAgICAgICAgDQogICAgICAgICAgICAgICAgICAgIC AgICAgICAgICAgICAgICAgICAgICAgICAgICAgICAgICAgICAgICAgICAgICAgICAgICAgICAgICAgIC TzJYCwHKInFPDoKBRlJJIrIEQwQAp5J2ymQSAvOMNy XW6oOKm1Ru8+EUkRPqGfIOW5izRkqW6JFD3dp4FbMVzeINTtw1FlAFo0NJ8IHPJiMSyeSJ0PSUxmoh5P TMOvUUCveQQDr4qeWzVxUKS1YNYzOnrkCV3BRXKrV0sgspYrHYBfDMIKPI4CItUgI4TrkC74VDDJDi1+ HGaohgTqExtTTeBmFOOul5NfXXm9XS5ICLQoBnhwv9 StSvPkDMQZNHugSE5DGLR9OVMrPCPtSf8TLSLcP886cyBvQT5ZQt5ADcIoIF2kbz3BOmHySKEhFupMVw b6WEytDA5JmJDqXKwFRVcvzOfabuVdQH2jv0XpqGBsIYC0FRLxPRGitLJNc2ffcbtbWqOyAEGgLY7aOV 0iXCVwPHH2VvMmIXXGKP3RULZwSEWpbKWyRLXqDXIU DL4SOSflDKC6PjrudkTtgADdKHdfAL4JPCOdgjGsElRsSZTHRGf+Pr6DWS7zc3GxPBysNAMcSV4pgm0K XNsJXzCcC2K8dDAhI2Z0HTrmSn0KWYAmQDBjLqOhDHUZFAdpMS6ZBJ4ojtI9CL5QnMXbIFJkNPRilGIo UZm3K32noPRkEXoeXN1ZHXK+Eddie+Xh6PYHQeNDJcUW TlVgFjSXSIQlDtX6WkT7SFu6RxB9SpSP43eBtcyiYwVXpeVI9BXU9aIZHbBZNQRV4WrVWhwB1tbdBbRe FbVWFJXzLoR69fsRYxNKQwMTVoKVOmYe4PWAMvQ1VdofFxuOzwkmAtDRTnJSWCFT3NYTlkwwWczSIxoZ xrKU89cByiCE0VEt5ICiWcIW3rrh4MoTYqVo3PMAPs RX9KRUXgXMQtGWNyZFT3FUIeOcCqGXvzETEdKTUmDKE2QRYwCNRpYZ1ZLjPnTUZfDTr9FOImRFBrQICr rh4FYLQwCPPdBUErQbKgVEUeFIBrNTqxXIPjIIVvGFM4UYLlGWYnMS9QKaFcFQSfPKN9KuNyAOGySHFp rd7KNGMyZMXsMKErGBLqTAKsNQUqNXpgOJTaMGNcNB e1HQJqVIPrTC2TBeUfPJZnVVD7BXmtIGRaGBKjbk1FWHAdLTWlQho0DzYrLBSkGEQdZFcuOAOlVIMxUE NbRUJgBQEyIG9QUcYrTGMzJRJkDklqFOVqWPHpnz6CHPCtQZTvMEXgCVPwJYGvSJYvPTssHFNhUYZ3Qg H1JKDyGUFpVC2RPsJhQFFpRBI9NPAjYZHbHEBmqv9G BQDbXDNaYvW9GKAcCCPiIULoUWarZSHwZNO2ZIO0WVCtUSCfYN4ZTlLrRPNfYCy6HAAtIPUdZTTown3D NADpALPmKIVjOpBoCDLwMSCcTKqkSORlWXT1LlB0UOJhVWAnGG4QRfQtXRIgJIt9JMHqCZEwCDAprh0X LJEeLYZeJSM2PpNuQCLgONZuQCdiJARcHRKjUoB1FJ WcJJGqIW9AMtSmIZZtDrT5VQGlYFYqJGQoop6FUHBhQBEyQVs3GrHeINGfQLFzLXr0diGiuYQmGRh3MY 4LT7UbdlDePyDITa3Gl309TQO2IKWwLw5QP6eeTq1bKSWoOHPAWf4DTXm8VJysFjJsHOSiKBBvFQKqXD RwTYTwHrvcPjd0YirmGvJ+DKxaLIBeHfO8NWXvPTHr I6VpPZH7BrRnRZQaYYRsG6S5OJ0jXZPOTk4+QUlzbDWusCndZNKMPvBlYmAjBEebYTVSJw2W ID Date Data Source [id number] 04/27/2021 05:16:01 PM EDT [facility] Name Value Range Interpretation Code Description Data Katlyn rce(s) Supporting Document(s) Telephone Encounter [facility] FROHNc0oSjVRUgHc13/SHYcfRIQix7EaBFdsPPx4RTbgDHFiL0AaQNC6vG2dKHT8LHnXBvVsOrPcFVI0 lbm QbWfhDBwBbXLOoCydDYtOjLBojIrvhpOPsGR4NpOH8OMOiZ58mWEBxKFBqF6CpNZf8PG9+RPhlSWE4ut XckT2TGEJDJE9V86MPv8+0/9RrWkL7d1qyU2E1kQ2vVgwP1wb3VEcfUlyaXnaUqFb//H3D6jWiyEwyNH 0emp/s88/73S0anGNmM6N7XUkT/f949XYM7H66sFB5 [file] IBR2MPApMXI2WNT8PPl5RVc+CS4jRMd+Tt5Cc9DucyR5pqYnMRkrUTz2Wc6CAHQQJ5UOJd== ID Date Data Source [id number] 04/27/2021 03:51:06 PM EDT [facility] Name Value Range Interpretation Code Description Data Katlyn rce(s) Supporting Document(s) Telephone Encounter [facility] WRIQPp5tKfGUEpXh13/EXEwgSORms3IzYQcmBDo5YGkqLVIgF2CyHTH2oO4bYRS2FTkGVlGcWcWhQAY0 lbm ZtNgzXTtOrBTGaQzaPWlWxRZefZnbfyHLdSZ6GeFQ9MIBvG52xIWRqZOJdW0OwPVUhKEL+Dq8QHYZmlV ImDW7OMobI6NrDX0hXIL6R1q+GG3gi4R398wOaQiBUkWAwBjBCK5ZFBMqHpiTEf7S/Xz/jzLAasLOhPQ CHeLTz+FR7PdpYfEi5wbGZCdlj/nwKAcFwltGCW2Kc X0CJtP3nOUnNYStNSMS/BvK+xJGXhHKaF0FYAgvzibyJPbywDXyMr2gsPQ225swNUjoKIm6YlC0y89UF 2j7NwwI/vZsV6yONl8XyEQd/Sb8HdymYhFvIBvBUEHXABnmQB96ZB9p9UuWcJX7JE0Oi3XnGImDQJWQQ JbkFpf2IVgQMHMjIPKDA2KQzednYIdk3w7MCHJeJQ7 JTy9e7zo8zRQeZYc033dKyXJdR5IMHGSL1DBjJEBjOxpHYviXjsETJfQg3IHYFpE/tGjUQinCWwA3H/a RhQuslcMYw70jy98Ha+TW2UBoOJb79wNJjchgBNSHXFWm7dG7liy1MYdgRRZyXBu+XyWg+YxCtnK5Moj ql4yrLkIjL6Cw+E3oSuKTzd955Sp01v9Ks7hBVGTE8 9uczNI17PtdXbJlV7hpLjIu3NgF21H8/sWGUSD6Q5p0gI7TV6qVnAxT574dsNi2BeG7DhxyFr6CkWonh 5r7Vu9bjHCIgvVVXsswZZuUyF6+igkqCJLEo7LSn2/JWkX1KTieqazvnsiJyHixDKnLacy9BINvdVw3M 02b2doflb1QE6RZES9qk9banbCWqe/oGoFTruGLUVE rcmckwrhFsbsi7uvulwytnigaIevPZX6N7IV4E8YxBlLxwqcrYslxedTLPRdmMNEPxh0B9K5fKBJ5cyW [file] F2V3F0YdA8AzSxSTngMEXiCMMdWsCkKI9VJq9ZPoM1UTO6iGEeDn6QXzRnTFOZAlOkYK7BZXr= ID Date Data Source [id number] 04/26/2021 02:30:39 PM EDT [facility] Name Value Range Interpretation Code Description Data Katlyn rce(s) Supporting Document(s) Telephone Encounter [facility] AHWTNp2rYdVVSdHe45/BZQhnLITea2CnRRttRJe2WBqtOTCrT5DkAOO5yY0bXDL1ADaQVtZgVyHmJJB7 lbm PsKzgDYrXiRUOsLdlUXrCqFWvxPirjsICwWO4CmYI4JNJtL64eXJRyERTjB1DrFHs9TV7+ECkiSFJ1ii JboV1PRAIfNAoe43LNxkeeq6tkdxJm9RZ71IQBGbvqORhIhF5OHfJ9bEEpm1VhZ9teqz++YLvq2nmy7k MKUqAlG6zNmH232z3TwH89vEDlZZFs/t+87apN8X69 2LD0jIWgyOzEKhMRuJBfdupe00V+y6Imu9le8VT3WqXH1ykXWXutNESBIzRr5BzJzhDftRl5ZxRqS/Db uXxRAIXgnFISQQjrnMOOVv9gVjO2+Hn8jsZ/krNc1aBIpRDspESpUYPbFL9o3BymE1gXnylGLQkTgTZC i2e9kGAmg6HfddH49EucO+NmXOFZ0ll7fKZo6CJGXY yEkdzgzNcCZzM34jQACLw7VuXRfMawnHZthlBqryHYLEgUhVQDobHvbPJsMYfdtjmvS76R38XDjrGy/N CQh+LzfpuaC1NBUOlhia3lgEdDq0p6CBhL0f4QtyyhHl27FeI+sztBFHaApngjvMcCDm23ZN+gbIy4ar SL1/Jb0cV5oQdRpMUxf2Kbd15p8P/AtscukVmGqgkL 71oddb2Xb2AcyIx//YMSjqb1Y74RMt4+QzxO79TRn9dkbYFuP9c0DJwgiyxvh0Y39J2l1UUIMwKJia5L Tm8YMreuIccDvc0J6QkXWwCFHk/RD+eXi/Z6FT0aIBZoBAv5xvm8BlnFtud9wDjdxceoLHsc+sG1UmCh Tb6P98nC/MwTDWRsp01ejzj71NU59cU7Wp84pn495k [file] 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+9D9OT7//+KVMUltj0UIcuDuicJZ5cY6W5y1fdUhnNqo+s4lFmVeWKKmbvPn1VJCmVNjo92b5EGqs [file] AgICAgICAgICAgICAgICAgICAgICAgICAgICAgICAg ICAgICAgICAgICAgICAgICAgICAgICAgICAgICAgICAgICAgICAgICAgICAgICAgICAgICAgICAgICAg AOGvKA8EUQFkUUTeOLXaLTRwHPMtXAUgPJOvZRTbAPLvDIUnNFFvOZUjTOCpDCKfMSGxLEGmZLYkBIOz ICAgICAgICAgICAgICAgICAgICAgICAgICAgICAgIC LuIXFqTBOoOGNxCNXrBK6MEOToMYZzPLRaBFYwNFTuLLFbYLLfOKGcPLAlKVBvFJKqFNYgSONwRAXtVV VsYXWjQNSvMYBkISHeHYOmCVWhKXXwIRZfAQWxDQIwEEMcRODfFQFyPEAzAYBcQNKxHPFiQLIjGH8QUI AgICAgICAgICAgICAgICAgICAgICAgICAgICAgICAg ICAgICAgICAgICAgICAgICAgICAgICAgICAgICAgICAgICAgICAgICAgICAgICAgICAgICAgICAgICAg LWPnSRBhLM9RTTVfXRCeAKUtVDAgBUJiHTUcXURuYFPdWUKgJHQnMPWdGMYdKOZmQTYgZYEfRUQkKQAq ICAgICAgICAgICAgICAgICAgICAgICAgICAgICAgIC ObJZGyTXCsQUEqWAIvUCZxGJ8LNPSdOHVuJYWyYJKwIMOhSJRvHYSyDHNgXJYwOEKsESGsHXDpVPRkQV AgICAgICAgICAgICAgICAgICAgICAgICAgICAgICAgICAgICAgICAgICAgICAgICAgICAgICAgICAgIA 0KICAgICAgICAgICAgICAgICAgICAgICAgICAgICAg ICAgICAgICAgICAgICAgICAgICAgICAgICAgICAgICAgICAgICAgICAgICAgICAgICAgICAgICAgICAg WZFdYKYxPUNkOK9TQOAfOUZuDZAwRRJtVVPkDVQfFMMeFXGdIDBkSLLdRRWdHKIhURRmLZRvEBFxXLQj ICAgICAgICAgICAgICAgICAgICAgICAgICAgICAgIC UcMHEcCFIzWMRjOHOxYWJoTPQkPQ9PASHbZLHyEQIfZJFkARTeUVYsPTYdCQLdTDFpPTTsOUCoFOMjDO AgICAgICAgICAgICAgICAgICAgICAgICAgICAgICAgICAgICAgICAgICAgICAgICAgICAgICAgICAgIC AaFG4VNQQsWRXzGCMuIMIwFJNgPMGpXCEoBAUaPKWe ICAgICAgICAgICAgICAgICAgICAgICAgICAgICAgICAgICAgICAgICAgICAgICAgICAgICAgICAgICAg MFSmSKWrLHHbZYCtEK3GDN62bXXpq7R6WAIbKO2whqq/Un4IHOghdaJbbSKnFD4MRvVqMF2zmc5KMjGw SN5pwo4MSZlSFrRsR8Y9tBUwGVHzDZXPTgUaL85xIK krBx24GZkuZODmGdWhHPr1Uf5LSnQqK1ukVGYgZjP6TBKtYwRjPMfeXU2Ur2EdlZWsGHx+Nl4MZV7vb5 WaMVzmMtVyKP0lnq6ZAGfZJmEsG4XmapL7AREpGRZcJb1CQPMeWFVapSUqBrKrIQZHVgBwY0AwnV57FM ENCj4+JKlyhjBiEjqMExDdWGPbt0IfLQi1SQ2MNRGo ONz4iVAqNMGpJSErp68hWLWiC335lsZqzjYlrQPAKN2rpJMGh8BeSI2xMNFmRM1eOE6wXRNpDALiFdY3 NKNWQA6CVAXtSUZwsPSdDZSjMTSCAF2AMCqjGSX9WyeejnZhxMTwFNwuLS5FBDTkpkQeMkNaQMFRJIz+ Gn5NEH5qh7XjSYhqRQBjIB2yib6LQKfFAuVjU9X2mG ZuS2R8GQncAj2LPZRmQBYnBdIuVWUQFRybPA1QRB9igzZ9VN5RkGVxQOKqLUVzqIBrCKl4D46pkOXbZJ drEZ1YWFL+Eddie+Mz0RNLPdVVWtTZNtZoIhEHGACxKeS7VrN8LKu5BxF9ZvXC26mGixylBzRQjzYV7DWC 8mFIVaJKYDKQ1QkJFryA6gbxUtArNkQOPTWmUfF30x rSZfOPLrBUGfQJDtGl5JCXNkI1TjsaDwcTehovQkELAgZMOJGP6KGIogptHrrJMdiXzsZQ81sQotPE4F Jl1SWhNyAL3nqn4ZoPBtPq6APLUbQF2SAJLnEQAcWFGcSXX3LFIhBaIyQVtlCGXzEZZnRQI1HIPlWYMi DI2BYxPzCRBfCZq4KTTpAUSuAIOpsv8EVCJoIMTtHX VbKDEcWLQlFJBqKPtaSENsWVRbKCL4ABKoDAZyQV7TVbDrNHPaCRHiIYLkWSPrHTUutn8NUPJvRDRcZP RaVFCmKCWlYDGtKRzwCKZlVMQoRlc1WHVzRVBaSE4JNzLeTNLpHYT6XiybNKJtRTQakq0QYVGgTIOwKg y3RNOfGWUjPHLpIQhmWINwLSPhApErDCAoDVGwRH5E EoCjYUZpCBL1SjBnULAfSBQfqq9SDKCeCSWuZHSjCyWdXZUuIJJnKCgiIBPeYSJ4RIYrGCQhWGPeKU7R QsVbKFGyJCY2SaadZLVcJNYkjm7VLXVtYPQhSrv4YlZdAULeMXRdSNdiPYIyNYF5LpH8KBKiMPMuXD6B MrGiEZInCBcrOnHoHUVmWSPllg3WAHSxYVDuSGMpJN CjKYKkBEDcSPbwEKOtCDC1QIa6QYUsWCCkMT5AUgEsJYDkPYx4HlJhCISfRGAwkt6XYVKtTPHeVWO0EW UxJZKoUXUtGDyhIKUfYRYgIQM9OGRfEQFeIE3BCwMsRWHiPlB2XEslXLVlGDExgy4YTNAgKKOcTYuqYV TtRTXvYNZcCKv5ljHtzNQsTSy0XF7QK7BbcjXvKuXD Ic5Vb253EYN5QUQuSw5II4smYb3jGLFyGAQDJg0UQCq5Lkx2JhozTmCoGbHwNXGcQgOkOvv8DpDmVVx2 FjN9BOy+RLxyYTaiGKVkNlSqYCJySnLqCfO7VfTiUtVfVDqlVFXiOs4kXVXPYx8+DQpzdGFydHhyZWYN JiMlSAn1XAvsKDKJYv6Z ID Date Data Source [id number] 04/26/2021 10:47:02 AM EDT [facility] Name Value Range Interpretation Code Description Data Katlyn rce(s) Supporting Document(s) Telephone Encounter [facility] NLHQBd3hSkUJMdKf53/SLNjiTQGao8RyTHklXBq2HCxlSZMqC1OrVNM1oJ8vTQS2VRzNSpWsCoDdWWO0 lbm [file] ICAgICAgICAgICAgICAgICAgICAgICAgICAgICAgICAgICAgICAgICAgICAgICAgICAgICAgICAgICAg ICAgICAgICAgICAgICANCiAgICAgICAgICAgICAgIC AgICAgICAgICAgICAgICAgICAgICAgICAgICAgICAgICAgICAgICAgICAgICAgICAgICAgICAgICAgIC AgICAgICAgICAgICAgICAgICAgICAgICANCiAgICAgICAgICAgICAgICAgICAgICAgICAgICAgICAgIC AgICAgICAgICAgICAgICAgICAgICAgICAgICAgICAg ICAgICAgICAgICAgICAgICAgICAgICAgICAgICAgICAgICANCiAgICAgICAgICAgICAgICAgICAgICAg ICAgICAgICAgICAgICAgICAgICAgICAgICAgICAgICAgICAgICAgICAgICAgICAgICAgICAgICAgICAg ICAgICAgICAgICAgICAgICANCiAgICAgICAgICAgIC AgICAgICAgICAgICAgICAgICAgICAgICAgICAgICAgICAgICAgICAgICAgICAgICAgICAgICAgICAgIC AgICAgICAgICAgICAgICAgICAgICAgICAgICANCiAgICAgICAgICAgICAgICAgICAgICAgICAgICAgIC AgICAgICAgICAgICAgICAgICAgICAgICAgICAgICAg ICAgICAgICAgICAgICAgICAgICAgICAgICAgICAgICAgICAgICANCiAgICAgICAgICAgICAgICAgICAg ICAgICAgICAgICAgICAgICAgICAgICAgICAgICAgICAgICAgICAgICAgICAgICAgICAgICAgICAgICAg ICAgICAgICAgICAgICAgICAgICANCiAgICAgICAgIC AgICAgICAgICAgICAgICAgICAgICAgICAgICAgICAgICAgICAgICAgICAgICAgICAgICAgICAgICAgIC AgICAgICAgICAgICAgICAgICAgICAgICAgICAgICANCiAgICAgICAgICAgICAgICAgICAgICAgICAgIC AgICAgICAgICAgICAgICAgICAgICAgICAgICAgICAg ICAgICAgICAgICAgICAgICAgICAgICAgICAgICAgICAgICAgICAgICANCiAgICAgICAgICAgICAgICAg ICAgICAgICAgICAgICAgICAgICAgICAgICAgICAgICAgICAgICAgICAgICAgICAgICAgICAgICAgICAg ICAgICAgICAgICAgICAgICAgICAgICANCjw/eHBhY2 jfvSPkebV6K3sfZx5DIf7IKS0sb1BcYPNbWGfwzvYbLirNEjJcDZGbHugDOfo4JGwvXA6VyGBaK5SwN6 DeIAneTC3MALPrULUqoPBeBIElUHMxVgK0PPTzJEztYZ6IwFAwJKrrRZJhDARaWN8IVFRdX481ebGhMF 6RGd6LNzJrJO5igg5YQhSzKRAyQhvDMzw6LHhzCB6N iFWdlPMsIzNdTJIBZgVwL9gsb9KtEsXnRCNPNMucYW1Fi5NvoCEiDBl+Kj2YMZ9zz8RsMOftCtZpTC8j zq4BWChBOoAjB3SsyDhzWPWccNMicY1aUSUPruUkkR76CMOkVclmFxGgu0jiRGS5qT3uv2nfZMUgSM6v XQ9qDRQtPYEqMxR2QBPKHU0TYNCcVMGqpNEvHUYaCW RCAB7HKVvrSVB2PjliynRjmBZgQZpkUT2LXEXuojCdXsNcRILKCUj+Rk6PXQ3bb4OyMReeFCBbAU5ezu 8JKKuCFuUmN8S1eLMdF5R6SSnxNe7PNDUkOIXdMtPzGNYUKZksYX0WRC9arvD7KY7GsHAqFIXdQXOmwW GcMWx3Z97itPVbXAapJR8LXBT+Eddie+Eh5CMLUjHPLx SIXsHxAyXWPYRtXkP1JkF9PSu0QqU2XmPX15yUnbiaSxRMsqDQ8EIZ2wKLAyOQGJQM8HsJFxuP5wloUk IcNuAMSCXyRzA30nzOSeGGQfGCFaHMLyNf7YYICfP6KkukVqzQqyreUwBQXcVYCZRK5GOYnrstKleMTk kSqkHP19cPklUZ3ISf6LLwKePE7zsp9UePUvQt4UPS KsJG4KVVXrQUSmVIHcUUT3RSHrRbNyDYulDRPnPUEtREB2IWXfLEVqMU9VZyUqTPMjSLb1JLAvICKpXH Wjug0CCGQbHTNyIFW8ECPcHRUkKNOfRHrfRDTjSPVpAMB2MZCyGJPxRR0QPgZjGRNpBLT0WXXjAUFoCB Army7MQNVkEYOkZQB5UrKrXTHbQVOgUZxiVNXxWYRa GKR0PZAbWMTvGB1WVhXhKSAdQHJiJWRzLZIiXFGvlv3AAJOuDWOiAvRrLULiSHXyDSJiLCbkKIIrFCWk RVvjRRQxVPArAU5KOmBlRQCoYPF7NUsuYHEqWYHzjh3IJIMsTGTnSaz9AGGjBYAdIDUdLLsqCLEcGYN5 FaE7QGBtKKDxYE8ZXrVjAJOlHBK0PaBfBIHrGSLcpv 7ZGGGpKDNbVnp8HsShHEOrNGWdARlfYXLkSDT2YBtuGJMoNFZsUN2YQoTcGLFgGCnjGdvaXOZxKVPuxq 2RFGNwOHBuNZG2ZKMiXYJoZRXaXVscITRsZMW3KkH8RBYsVSWqEU8HXrWfJMUmIBm1EkarTQPlAHUodh 2CXSAiUOFdUOv5FQQjIZZlKPWpWEjtOAHxMMNyNfht GIOfCPBtKR9OYbZmEUXxWuHeIXJdQRBySMKqge7EBMKhJIPvAXGzFZPxESTrCMUbRAu3apDhgVHcZSw8 TM6OU8ZbcrDdNvGSAp7Eq115BEX9TVSyRd2UA6akIl8vRJDpOGNMTr2BRPa1MZQtGRK9BMNoEuAlJMA0 MaMyX3GvJ3Y9GAN5ZGvgPhG+WCzbNuP8RFR1Q7X6PU E1UeRqJEZwPdXdYhu7BqmxUJI5MA4xDWJQEo5+EItndZUloItbUDZZExHmHfX3AVyzVOYUTb0T ID Date Data Source [id number] 04/24/2021 07:01:58 AM EDT [facility] Name Value Range Interpretation Code Description Data Katlyn rce(s) Supporting Document(s) ED Provider Notes [facility] LPSAZt2lAkZQEsMh67/SBFyoZQYke4NpZWkvTZj5VIfpFXRiM4XuAPL7oN3oNYZ4GAdGGxEjAzQfQDYa lbm [file] O1TgX1VgVoHFLhKr1wYVHRYw5+LTirvZCqzElrWMAFKlUxEVV9DEcaWNETMd1D ID Date Data Source [id number] 04/22/2021 04:39:00 PM EDT [facility] Name Value Range Interpretation Code Description Data Katlyn rce(s) Supporting Document(s) AST 14 IU/L 15-37 Below low normal [facility] Sulfasalazine and sulfapyridine have the potential to falsely depressAspartate Aminotransferase results. Baseline values before medication administration are recommended. ALT 28 IU/L 13-56 Normal (applies to non-numeric resul ts) [facility] Sulfasalazine and sulfapyridine have the potential to falsely depressAlanine Aminotransferase results. Baseline values before medication administration are recommended. Alkaline Phosphatase 91 mIU/ml 50-136 Normal (applies to non-num donaldo results) [facility] Total Bilirubin 0.50 mg/dl 0.20-1.00 Normal (applies to non-numeric results) [facility] Blood Urea Nitrogen 13 mg/dl 7-18 Normal (applies to non-nume marilu results) [facility] Creatinine 0.65 mg/dl 0.51-0.95 Normal (applies to non-numeric resul ts) [facility] N-Acetylcysteine (NAC) and Metamizole lambert ve the potential to falselydepress Creatinine results. Baseline values before medication adminstration are recommended. Patients undergoing treatment with phenindione will have falselydepressed results. Patients on phenindione therapy should be tested with an alternativeCREA method.Toxic levels of acetaminophen may lead to falsely depressed results forpatient samples. Glomerular Filtration Rate >90.00 mL/min/1.73m2 [facility] GFR Reference Ranges:Normal Function or Mild Renal [...] of Health and the [employer]. The [place] method used in calculating this result is traceable to IDMS standards. Glucose 100 mg/dl 70-110 Normal (applies to non-numeric resul ts) [facility] Sulfasalazine has the potential to false ly depress Glucose results. Sulfapyridine has the potential to falsely elevate Glucose results. Baseline values before medication administration are recommended. Calcium 8.9 mg/dl 8.5-10.1 Normal (applies to non-numeric resul ts) [facility] Total Protein 7.8 g/dl 6.4-8.2 Normal (applies to non-numeric re sults) [facility] Albumin 3.6 g/dl 3.4-5.0 Normal (applies to non-numeric resul ts) [facility] Sodium 140 mEq/L 136-145 Normal (applies to non-numeric resul ts) [facility] Potassium 3.7 mEq/L 3.5-5.1 Normal (applies to non-numeric resul ts) [facility] Chloride 109.0 mEq/L 98.0-107.0 Above high normal [facility] Carbon Dioxide 25.7 mMol/L 21.0-32.0 Normal (applies to non-numeric results) [facility] Anion Gap 9.0 7.0-15.0 Normal (applies to non-numeric resul ts) [facility] The above 16 analytes were performed by [facility] [id number] [place] [address], ,[place] [address] ID Date Data Source [id number] 04/22/2021 04:39:00 PM EDT [facility] Name Value Range Interpretation Code Description Data Katlyn rce(s) Supporting Document(s) Magnesium 2.0 mg/dl 1.6-2.6 Normal (applies to non-numeric resul ts) [facility] The above 1 analytes were performed by [facility] [id number] [place] [address], ,[place] [address] ID Date Data Source [id number] 04/22/2021 04:39:00 PM EDT [facility] Name Value Range Interpretation Code Description Data Katlyn rce(s) Supporting Document(s) C-Reactive Protein (Non-Cardiac) 8.90 mg/L 0.00-3.00 Above high nor mal [facility] The above 1 analytes were performed by [facility] [id number] [place] [address], ,[place] [address] ID Date Data Source [id number] 04/22/2021 04:25:00 PM EDT [facility] Name Value Range Interpretation Code Description Data Katlyn rce(s) Supporting Document(s) WBC 9.70 x1000/ul 4.80-10.00 Normal (applies to non-numeric re sults) [facility] RBC 4.86 x1Mil/ul 4.20-5.40 Normal (applies to non-numeric re sults) [facility] Hemoglobin 13.5 g/dl 12.0-16.0 Normal (applies to non-numeric resul ts) [facility] Hematocrit 41.3 % 37.0-47.0 Normal (applies to non-numeric resul ts) [facility] MCV 85.0 fL 81.0-99.0 Normal (applies to non-numeric resul ts) [facility] MCH 27.8 pg 27.0-31.0 Normal (applies to non-numeric resul ts) [facility] MCHC 32.7 g/dl 32.2-37.0 Normal (applies to non-numeric resul ts) [facility] RDW 13.3 % 11.5-14.5 Normal (applies to non-numeric resul ts) [facility] Platelet Count 419 x1000/ul 130-400 Above high normal [facility] MPV 8.9 fL 9.4-12.4 Below low normal [facility] Neutrophils 67.1 % 40.0-74.0 Normal (applies to non-numeric resu lts) [facility] Lymphocytes 26.6 % 19.0-48.0 Normal (applies to non-numeric resu lts) [facility] Monocytes 4.4 % 3.4-9.0 Normal (applies to non-numeric resul ts) [facility] Eosinophils 1.2 % 0.0-7.0 Normal (applies to non-numeric resu lts) [facility] Basophils 0.3 % 0.0-2.0 Normal (applies to non-numeric resul ts) [facility] Immature Granulocytes 0.4 % 0.0-0.5 Normal (applies to non-nu meric results) [facility] Nucleated RBCs 0.00 % 0.00-0.20 Normal (applies to non-numeric r esults) [facility] Abs. Neutrophils 6.50 x1000/ul 1.92-8.31 Normal (applies to non-numeric results) [facility] Abs. Lymphocyte 2.58 x1000/ul 1.20-3.70 Normal (applies to non-n umeric results) [facility] Abs. Monocytes 0.43 x1000/ul 0.14-0.97 Normal (applies to non-nu meric results) [facility] Abs. Eosinophils 0.12 x1000/ul 0.00-0.76 Normal (applie s to non-numeric results) [facility] Abs. Basophils 0.03 x1000/ul 0.00-0.22 Normal (applies to non-n umeric results) [facility] Abs. Immature Gran. 0.04 x1000/ul 0.00-0.02 Above high normal [facility] Abs. Nucleated RBCs 0.00 x1000/ul 0.00-0.02 Normal (appl ies to non-numeric results) [facility] The above 24 analytes were performed by [facility] [address],[facility]#: [id number],[place] [id number] ID Date Data Source [id number] 04/22/2021 01:29:23 PM EDT [facility] Name Value Range Interpretation Code Description Data Katlyn rce(s) Supporting Document(s) Telephone Encounter [facility] HEFFFw3hLbHAOlDh65/WSEftZHSje6MjJZoeOCj9JFitXGUzQ1SkLDH2zG1eRZM4KNfGOdPnVbXtODMl lbm [file] ID Date Data Source [id number] 04/22/2021 01:19:54 PM EDT [facility] Name Value Range Interpretation Code Description Data Katlyn rce(s) Supporting Document(s) Telephone Encounter [facility] HEJHLp8aCzPNYeYt64/IRGapYDGug4XmKPxfVYw6GHdgNHNrP3BdJAI9vG5qLFT0WBiAAcWbGySjMLYg lbm [file] Legislative Aide+cEG6uxXr3FHppCg7Tfe8yMop4j9yP/HqE6cgl4xuC7I7mTi9PTc3xJR3M19wHO/YEwlp3BluHV+NE h2cVcTFqf1DMIAXy9pc2OQNiujg/0ifGeQebLUE84l zKMNidxtmiYZ23FsWghcfdJyhYIo3s8Yl98bIS2cpQUy+/4gzC3Acz0KbW4FKnV9nOs5oKRGMwxx9a5s Qsb8yUM0aDDenfo27KOmH8UkzTn5Lp6jrJ31kJC6fr4yr6FsqzWxwX7lzXDkBiUBXZL/Isw6nGYVbY0N N4oYo759wAN4rIOW0XrghEBnB1sVnltiSoPz2wKVMA 0iD1gGapRcKpPmnYR77L6cCPsRc/5rS5lSnD4zAuf9qhFTjULfi+QWjGPWw6/ZWWmec9piQfF+5Mx96G B02iJWLsLwB72a3wLxohssOhD5RtVHC6HfQkGvgSAZxvShsdmGNxnbUjricMOO5jz79V2jv50bU0U3Nh CZS2Qty4nMR+d68TDe6eObRlQ7UqxhrUptwfABoC4g fMMIupmWzkLabY9oWwL1rqiW9M17K95CC9dr3l2vCU6jw9qt2ZTPJhK9S0IG6yYpFZJOou5s46FuH8ZV 0wSl5pxkV4oMoh+2vYq754JdCaTV/SHwxFM0+GxpPnvWb7koaOw4mMWSHx5Y5nGFqoAX64tfNpOsIEo1 9bwsuvXRVvFemA3EPK91Kt/pipo/nKkGHXyLS8tuzmN [file] ICAgICAgICAgICAgICAgICAgICAgICAgICAgICAgICAgICAgICAgICAgICAgICAgICAgICAgICAgICAg ICAgICAgICAgICAgICAgICAgICAgICAgICAgICAgIC AgICAgDQogICAgICAgICAgICAgICAgICAgICAgICAgICAgICAgICAgICAgICAgICAgICAgICAgICAgIC AgICAgICAgICAgICAgICAgICAgICAgICAgICAgICAgICAgICAgICAgICAgICAgDQogICAgICAgICAgIC AgICAgICAgICAgICAgICAgICAgICAgICAgICAgICAg ICAgICAgICAgICAgICAgICAgICAgICAgICAgICAgICAgICAgICAgICAgICAgICAgICAgICAgICAgDQog ICAgICAgICAgICAgICAgICAgICAgICAgICAgICAgICAgICAgICAgICAgICAgICAgICAgICAgICAgICAg ICAgICAgICAgICAgICAgICAgICAgICAgICAgICAgIC AgICAgICAgDQogICAgICAgICAgICAgICAgICAgICAgICAgICAgICAgICAgICAgICAgICAgICAgICAgIC AgICAgICAgICAgICAgICAgICAgICAgICAgICAgICAgICAgICAgICAgICAgICAgICAgDQogICAgICAgIC AgICAgICAgICAgICAgICAgICAgICAgICAgICAgICAg ICAgICAgICAgICAgICAgICAgICAgICAgICAgICAgICAgICAgICAgICAgICAgICAgICAgICAgICAgICAg DQogICAgICAgICAgICAgICAgICAgICAgICAgICAgICAgICAgICAgICAgICAgICAgICAgICAgICAgICAg ICAgICAgICAgICAgICAgICAgICAgICAgICAgICAgIC AgICAgICAgICAgDQogICAgICAgICAgICAgICAgICAgICAgICAgICAgICAgICAgICAgICAgICAgICAgIC AgICAgICAgICAgICAgICAgICAgICAgICAgICAgICAgICAgICAgICAgICAgICAgICAgICAgDQogICAgIC AgICAgICAgICAgICAgICAgICAgICAgICAgICAgICAg ICAgICAgICAgICAgICAgICAgICAgICAgICAgICAgICAgICAgICAgICAgICAgICAgICAgICAgICAgICAg ICAgDQogICAgICAgICAgICAgICAgICAgICAgICAgICAgICAgICAgICAgICAgICAgICAgICAgICAgICAg ICAgICAgICAgICAgICAgICAgICAgICAgICAgICAgIC NbZHShAIJnYQFvFGCcJXw4Y5aeIDUePHItHX2iWHp5Ln9+OWlGPlDvHYL3cbRalL2DNE0xe1KvJHizNL Xnl1SpFBy4QS6TTXDtONpjHJ2SACtmru2OXKAsXXJcuZPPz4mfWqVeKJH7AIBlUzyuTG7BCKVzA0frwr KuEJAyMUOUNG0RAlAcS8EumZ62YHIWBb6+DQplbmRv LwyGWgFeDCLca1SdCQu2UB5KUYQrLckem3SuRzEiCYFGWMbuKV6TOZT5GQUqBYLpJa0HYBAjD184iwGo DH7MYr0IBoGyGL8jce7ZUkAcLOYdSqrEJwt4ZYlkEK6RkINpIXdEVIgprMwuvxEgXJ9ad6OyeTEfNZU0 UHijrg2oXRGCTO7yLIG7EYIRCeVhXWPmGX5xOW0pNU GfGTPbCuC5KMSZGG9ZKDWhQTEguBDpZAQjRTGHJS0MUQvqPLT9LuwauaKadEZgMKveON9KZOKauvIdSn IgMCBSDQo+Oh1QBQ0id9McXZqhBIGvZI9zve6FLDfVOyWhV9U8vLAbV1W6GKbeBh6LXGXpQDAfJbFcPH MMACpwAJ6VDW5isxF6PB1SjACzEMNeUQFawGXyDNe5 M98zfFXjIBtrFE8HCBR+Eddie+Vs8GZSAnSJTuUYKvDxXrQYOZPxLgF8MwN2EBz6IiT0IdYF87lPxyjfYo RRmiGO2DCE0dIHJoUJBBEK6PmTBauP2mpnZtHvCmOZGDArNaS19gfMDsTJZaRSXvXKFoXi9BNFWgM6Rn qeQgyMaszvKiDNFaPAXZHJ9HFDvgogEarGGrhUkqDF 52sDpzQP7ODj0IZtIwYY8she3RfVIwKa4HBBClJP6LZKNwGOAxCAGzCHC9IGNpBdNvRMlpBJIlLYFeLI U6VURqLVRbWS8DMmMcVUDaSIg5YcYiUQGiVFCzfs2FJOOeDFRmCRKkJrRiWUIqJEVjLVesTWUuXVPfQC U2SDHyIVFzCD6AFxGoKBRpTJCwTBMpHGFlVBHidj8A EWCuZELbPGGyZNXhJYUiWHAuXQooXHUkPKObVTG2MWAoISTnST8NOsWmWBEgNZIuOyepNWGiCEMqqc1R GJZrMPOuBoO4BnFyBNSyDYYzRQxnDBUpOLDnPFIbADLeUMYtMH6CMrGcMMPdEUC2WHzvXUQdKCIkur6R MTJsLIAeNqp0IAWsMJOkYSIkTUwaHADiOOV5UwUqDR XcEWLhSC7LWjTaOQTtNJQ2APVbQZCgWXJmag8PDILkAQOfZgc8NSVjZCMuJUBpQRpbFPIcYCH9RJS3QU KaGHCqTE8QZdHyYJFtWActIEWoBOPfICWtrt7TLHIgOOBzKGZ3AjTzLVCeUXQhAJpnWLXmKQQ3Ufu7LE JxLQHcEK6DNvLmGBThAQi7DVXxUKDdVEDrcp5BBWYo KHOqTKi7NvDwAYZuWBZcBQorHHCoQACoNbS2JYYuJKCwUI8NJoUdFGBeReSyUrOgXTRrVBWjkk5GVXEb LIBsIOPeAVCcBRQjSQYkCOj2ttNadTZoQRl4JQ1PH9WpsxGgZlJIIj2Vo542UDH6WPIzUj8ES4okXv2e WDIlXNWEUu0ZRIp1BIMpRvL3JKJ6VRSoFIDgNbjlDt ByY5KsNInzDil8ZiS+RAuxUqX5CGJ6BWj6OwRsX9GpOZPcLeB8SDWjFCUfXMD7PP9bGLMKCf2+DQpzdG NxeZkjWNNGQhUvRhz7AHnpEVTUJi4B ID Date Data Source [id number] 04/22/2021 12:42:22 PM EDT [facility] Name Value Range Interpretation Code Description Data Katlyn rce(s) Supporting Document(s) ED Triage Notes [facility] KYWVFq4nSwMDAuOd15/YKGtfFJBcf5JfWLoxWGy2XGzfQIEjH3CbOXC0bE9dNHT5DFkSSeQgEbJbEROm lbm [file] n7W6J5LWI0GEWoSH3nGVBFAh7+RZdqmDHnnJzfZYYRUqv3MXMHPnMqBN9YDLq= ID Date Data Source [id number] 04/22/2021 12:32:20 PM EDT [facility] Name Value Range Interpretation Code Description Data Katlyn rce(s) Supporting Document(s) Telephone Encounter [facility] VMKWVw8vSyRDNqDo00/CHImxBRTeg2PqJPzmMHm4GSwkWNSgK2PpTUV2gX4lAXJ5AWcBVdVnXnIcUQDy lbm [file] jdc95M179mnG700Lo1Kz4LmRHgYz9Wz2klek012uDF QYEwVNLYeWSDU7HkPrjiXQOW1XUvQeeASTN3FzKH0ooJhFzdq0QHCutqdCwgPJwglJmu2Y6cP/V99K3+ YEt3FMajPvxOh+RDqsFQMGI6RTwqGb79TUnD4sM+OV56HkmMhvhfxPwyDL3cOaFn6PTGYJJqs8Zk4wAe XelM6sOBX/DpyFyvFcRFW7zWLvDdkEWMuwSn9qC1WF pxrwsAfkN8Qd7/Dxn0TNLC8RPT1wv4XvFev1QF2cWAAv/KLSeWcC83lMRiQf72yF8OS0gF8uO2xa97FA 1JW7IDZKqw4z1M1Lddw8cv/yyjBokKUWvFezAK63o6zLeYNuCvPAYFFMQ/GT78iSjoL2WpT29nCXobR0 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 [file] 7VPzX0YlyEOcXuHU6WICe= ID Date Data Source [id number] 04/22/2021 11:49:06 AM EDT [facility] Name Value Range Interpretation Code Description Data Katlyn rce(s) Supporting Document(s) Telephone Encounter [facility] ZRCRAe9yRbIQSvFu35/GDVxvMEZpm7QtWYprXMn4BFtaOGIiY2ThSTF8yI2nZIA2PFcMDrHnXtRtARXc lbm [file] 0gDQo+Uh3Um6QgsqC5baFiEMksQFg9CJ9HMUUBB6KESf== ID Date Data Source [id number] 04/22/2021 11:11:48 AM EDT [facility] Name Value Range Interpretation Code Description Data Katlyn rce(s) Supporting Document(s) Telephone Encounter [facility] GLLCWf0iNqERSpAv17/KMHlzDTZfe2MwXHhnWYg1CXnnJFMwF2DsVHQ6gA1jZQB2IQtNJoQrHhBvKWGe lbm [file] TeASLyOjPhPW5FNf5IUjK2JZG9pBKdTc5WJzD8KCZFDoUtKE0VKZy= ID Date Data Source [id number] 04/22/2021 10:51:50 AM EDT [facility] Name Value Range Interpretation Code Description Data Katlyn rce(s) Supporting Document(s) Telephone Encounter [facility] TXZNOs3oNiBHSsNz83/YZVxkASInb9AuLFncWPa9SRewVXTmN3ObZLI9xP2vRCB4XZzZRcZrTbZdRVQe lbm [file] E2KPVkWmTyZH4JFh3VUbK1QDM8jQYoQq5TCaMfCaEBGkExHU2PKPw= ID Date Data Source [id number] 04/21/2021 05:20:43 PM EDT [facility] Name Value Range Interpretation Code Description Data Katlyn rce(s) Supporting Document(s) Telephone Encounter [facility] JLQCSf7kUeAYBfZl78/AEEgySGWtf7DnOJcaDQa7DDbtDDNdC6BnQES7kH5qGTK3JQcMJcBxAyPjZDT5 lbm [file] g3BSN8IzIsPuRqOYLiXQptUVBzVWY+HX7mDTl+We5Sf4HauaI2swAcJRzoCSHiYg5BNDBVG1CKHn== ID Date Data Source [id number] 04/21/2021 03:26:13 PM EDT [facility] Name Value Range Interpretation Code Description Data Katlyn rce(s) Supporting Document(s) Addendum Note [facility] JSYYDg1jUjQCWfEq51/CKQkzPMDxr5DuJFddMLj6TLcvVAMhW4UoVXK9zS9jQGD1EKgZRfCzXiRvBTT2 lbm [file] 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+9D9OT7//+DDDJnus5BYvsWgnoBP1mW8R9j3qjMaeLwv+s8eLtFxAGVpnnLi8PEPfGZez56u7KFnq [file] S9U7I0UqJiNXQ5VtG7TVH5GKD4TNPlEFLqJwBaJS 8EDw8EQlW0LLZ7hBAtYk1MWAa2FTnQOuSyZA2MQGg= ID Date Data Source [id number] 04/21/2021 03:26:08 PM EDT [facility] Name Value Range Interpretation Code Description Data Katlyn rce(s) Supporting Document(s) Telephone Encounter [facility] HMTIBt9yOoQMFkBl47/WPOguWUSwo1JnULjsSCc9VXcpHQToQ3HcNYX5zV3wXZL1UHtPBiCoHuKvICB0 lbm [file] ICAgICAgICAgICAgICAgICAgICAgICAgICAgICAgIC AgICAgICAgICAgICAgICAgICAgICAgICAgICAgICAgICAgICAgICAgICAgICAgDQogICAgICAgICAgIC AgICAgICAgICAgICAgICAgICAgICAgICAgICAgICAgICAgICAgICAgICAgICAgICAgICAgICAgICAgIC AgICAgICAgICAgICAgICAgICAgICAgICAgICAgDQog ICAgICAgICAgICAgICAgICAgICAgICAgICAgICAgICAgICAgICAgICAgICAgICAgICAgICAgICAgICAg ICAgICAgICAgICAgICAgICAgICAgICAgICAgICAgICAgICAgICAgDQogICAgICAgICAgICAgICAgICAg ICAgICAgICAgICAgICAgICAgICAgICAgICAgICAgIC AgICAgICAgICAgICAgICAgICAgICAgICAgICAgICAgICAgICAgICAgICAgICAgICAgDQogICAgICAgIC AgICAgICAgICAgICAgICAgICAgICAgICAgICAgICAgICAgICAgICAgICAgICAgICAgICAgICAgICAgIC AgICAgICAgICAgICAgICAgICAgICAgICAgICAgICAg DQogICAgICAgICAgICAgICAgICAgICAgICAgICAgICAgICAgICAgICAgICAgICAgICAgICAgICAgICAg ICAgICAgICAgICAgICAgICAgICAgICAgICAgICAgICAgICAgICAgICAgDQogICAgICAgICAgICAgICAg ICAgICAgICAgICAgICAgICAgICAgICAgICAgICAgIC AgICAgICAgICAgICAgICAgICAgICAgICAgICAgICAgICAgICAgICAgICAgICAgICAgICAgDQogICAgIC AgICAgICAgICAgICAgICAgICAgICAgICAgICAgICAgICAgICAgICAgICAgICAgICAgICAgICAgICAgIC AgICAgICAgICAgICAgICAgICAgICAgICAgICAgICAg ICAgDQogICAgICAgICAgICAgICAgICAgICAgICAgICAgICAgICAgICAgICAgICAgICAgICAgICAgICAg ICAgICAgICAgICAgICAgICAgICAgICAgICAgICAgICAgICAgICAgICAgICAgDQogICAgICAgICAgICAg ICAgICAgICAgICAgICAgICAgICAgICAgICAgICAgIC VhZHMzNDGgKZMoZNLaSTRkXNQoBBSnRHXbDDUmCQTiZNVpBAMeAPJiSODyAMIfOZHcWJDuZVQbSTa9J1 eyTTPjOLAyDG3vNGx3Tw9+SHgGWnUxGZI8gjLdrT6FKK5se2IuLYjwVRRzb3LoXGg7ZS6KCWYrOYwzIO 6XIFcpog9MOJQyOLMpaPHYk1wmRfJySZV0SXOrManz TH9ZMAVyQ7ipqbXpAQKxSKXEWV6YUaVtV6YpkY86OKVYEa4+LVrbtbUcWumJNaSvLNZwp7LoJYo9JC2G UXUiWjzpv6YvNmDpMYCUWQzhRN3MLLJ7VWOvGSPgQw5ASLOjW435ggUfMH0YWf0VMjNpXD6egc9QTeDc IVLnFjkNGes6BAhuCM3JcCBlGDtVHKckvNquysOnPJ 8gc3ZndYTwYJB7TCIeQCKjtYJNk3duslvjFiBqMYQnFQ4zEW0hNNEpLGDyNlW4MQGNMD7KAMNkVNXozO YoXRDiYQQNNH5KOSkdXFJ8XaghshIenTKkEHmbHY1AGLRixzMlRiDaXXWGTHb+Wh0HYD7ej4EcOOndEH JfKY9bga8EXDmJMjXrP9J9iQGnA4F6DMrkOr4EJCSd VKFsKgTvKBLOJDqwIX6TEG4xqmY4BF8XqTPxAWLbVBBvfNZrLHh3H39hjAMqYBytHZ9UCWX+Eddie+Pg0K INThXVUlCRKeEoVhSRYORpNrM7GvM4VKf5IcL8DkAK09iBkymiGlUAvjCR8NUZ1tHWNgHZAKQK8RdZJd aM9nubDePhDbZFELHpPeG89ymTRdVJPwYRIfQKVjFc 9WBMJrQ1EubqSjwWrkvnKuTVKmXAFOCR5NRAwxczIweTQucExxXT86aHtlXJ4NLj4FRcMtJF6xmh5XbY OgEa6FXLXdME5GMIBlJZBoVQUwQED0VYMdGdTmXKydSAQdJDJiLFN0WUSeXOGaFF7ZImCjQDGwVSa4HO CcHQJfRTLmqz0ERJWeRVCkRQR2DAYuOADqDIRqYPaw PFOlNKChZQB4JRUoIQDgRC2ZRzYeTAZoTTLxOJmvNJAbXXTxwx9KYWEcAKPbQOB3ZXYfEVSyXJAdUHhd HFLqLSChSsJ1QNEbUQJrEA1NObGyERCdCOD5CLVbIDWhOABhkv3ENYDbZFDkZwF5PYLlCWHrTXEaCSrp UQPrWNAwCXC0KDVfRSGjQA6DAnGcBSEfTZV1CRQzGH IePHCmll1GIJSkHLSaDggtWdXsFZGnMMJbZZnyYFRzPYP5OkjdBRNiPMXyAD2ILiNbRXNrKNL6NGsqNX YgBTCibl1XKQAoISYvGvfvCxUjGGTbTCWvNBrhKDVdHYO0EXW5BUPmOILrSD6SUyDrSJAoBJhsTGHuTN XbPFJblh4GZNDwADQfFMIyHIIgOZOpQTKwAMpeZRXh PQM4SeOaOMQaMGArUD8AAwIbFOBeSVb7APJyGCBrIXZskv0ACEKzFDTcQYfuYARbQIPbSWFrTEywXACy MTQwSqK4CRKwREDeXI5WWbPaNTKnDiH9SFctAUUeVMYzxd9BISChBYSgSXQ4LNQrCYHxPWUnMPl0tyCk iUSqJPu7SN7VW9MrpeUmIwNRZt7Tb180SUT7ARQiDy 1QP0fuBu1jGDPrMBXEIx9VBIt3ISY3UPJ4WKSnXJUwJqkaQNR6FPuzJIZxIZVwMNA2ZrE+IDxkYTdkMD fwSiT4DvMhOWJ5CUM9UUC8DYD5QgF2FWs6BL5yZRYLTz6+YFnbxXWclXrbPCISNbUkEBU1QJxcTAJEUa 0K ID Date Data Source [id number] 04/21/2021 03:10:01 PM EDT [facility] Name Value Range Interpretation Code Description Data Katlyn rce(s) Supporting Document(s) Telephone Encounter [facility] XLLKMi7iFxOQYeXx09/COUmdHJLhd3KaKPnsDSl0NEwxYWUcK5NaZXY6jE1jOSG7OAzTEgPsNgSuXYQ8 lbm [file] ID Date Data Source [id number] 04/21/2021 03:07:15 PM EDT [facility] Name Value Range Interpretation Code Description Data Katlyn rce(s) Supporting Document(s) Telephone Encounter [facility] DDRZHw4tHvOQKsJp94/DAOimBTYdb9BwRTsiRRc0MQceLTCrB3EtPRX8tA4bCII5JDpZUaFaHlMeLOI4 lbm [file] KPYlZWBbXlP7INbkL8RbPIr+UW3oFXq+Ad0Cg8OcxxL8jxXtLSlrTLD0Wt0AIDPHO5ZXSg== ID Date Data Source [id number] 04/20/2021 04:33:45 PM EDT [facility] Name Value Range Interpretation Code Description Data Katlyn rce(s) Supporting Document(s) Telephone Encounter [facility] LPBSHz3fYwLNPrHx92/TQLipPQMtp7HsOEslCVb1VWbhFDFvC1LeDWP5hN0dSHR5LZvGCrOjErAqVKU4 lbm [file] DQogICAgICAgICAgICAgICAgICAgICAgICAgICAgICAgICAgICAgICAgICAgICAgICAgICAgICAgICAg ICAgICAgICAgICAgICAgICAgICAgICAgICAgICAgICAgICAgICAgICAgDQogICAgICAgICAgICAgICAg ICAgICAgICAgICAgICAgICAgICAgICAgICAgICAgIC AgICAgICAgICAgICAgICAgICAgICAgICAgICAgICAgICAgICAgICAgICAgICAgICAgICAgDQogICAgIC AgICAgICAgICAgICAgICAgICAgICAgICAgICAgICAgICAgICAgICAgICAgICAgICAgICAgICAgICAgIC AgICAgICAgICAgICAgICAgICAgICAgICAgICAgICAg ICAgDQogICAgICAgICAgICAgICAgICAgICAgICAgICAgICAgICAgICAgICAgICAgICAgICAgICAgICAg ICAgICAgICAgICAgICAgICAgICAgICAgICAgICAgICAgICAgICAgICAgICAgDQogICAgICAgICAgICAg ICAgICAgICAgICAgICAgICAgICAgICAgICAgICAgIC AgICAgICAgICAgICAgICAgICAgICAgICAgICAgICAgICAgICAgICAgICAgICAgICAgICAgICAgDQogIC AgICAgICAgICAgICAgICAgICAgICAgICAgICAgICAgICAgICAgICAgICAgICAgICAgICAgICAgICAgIC AgICAgICAgICAgICAgICAgICAgICAgICAgICAgICAg ICAgICAgDQogICAgICAgICAgICAgICAgICAgICAgICAgICAgICAgICAgICAgICAgICAgICAgICAgICAg ICAgICAgICAgICAgICAgICAgICAgICAgICAgICAgICAgICAgICAgICAgICAgICAgDQogICAgICAgICAg ICAgICAgICAgICAgICAgICAgICAgICAgICAgICAgIC AgICAgICAgICAgICAgICAgICAgICAgICAgICAgICAgICAgICAgICAgICAgICAgICAgICAgICAgICAgDQ ogICAgICAgICAgICAgICAgICAgICAgICAgICAgICAgICAgICAgICAgICAgICAgICAgICAgICAgICAgIC AgICAgICAgICAgICAgICAgICAgICAgICAgICAgICAg ICAgICAgICAgDQogICAgICAgICAgICAgICAgICAgICAgICAgICAgICAgICAgICAgICAgICAgICAgICAg TQEyMSInDVCvQDKiCWHmISAaQYSkQGVvDVFiPFFdDCNlOZDnUINyONLxQFYuKOQxRBDfRPs5X5tmVKIc DAGcDN7hVKk0Od5+LLsSOqWeDPS2rfEheC6YYH5jf1 CdXYhnBJWwh9PbWJd4ZH0PKXTyABeqDU0QOOguqe9RUWTdYURfuUTQe8okIuWoDFX2KYFyCiavFE5HWE FhI6fqidJrLZPrUWDNLX3ABgDnB6WkuU44BCYZAz7+TPkmphHgEoiKUvObMZEsw6DhYWn2IW7JECAmAq pel7LuDvFgXOWLROpsSI6AHSN0WEPzFKSiQs3UDMYg W086obBcIH4ATp3GMhUaJG2mts8APfOkCLSfMobFKzq6ONwdZC8VgWFwLVzKFCfgpXvdewAtXQ9ox2Tu eBNsLAH7HWKsIBHnmDKAz9ygugsePuJvIKZhYD9xBO0lBUVtEWP1ImOxKVXPZL2FIEExEZLpnPIzKMSe CFOYJC2YDXhpYHK6YuslcbQvdIQlAMfeJA1IIXZuvs QgMjIgMCBSDQo+Up3RIT8xj5WnDKyiSRDzTS5qog4SOPuDBzGoV6D5gSIwI5L9JTleIz9KIIAhXZUhIa StZPRXSNrwBR8BZM0akmP4TC7UzGMqKOCzWGNnxFBuOSd5S75yfIHhFEykSQ4LWNV+Eddie+Nt5GPJQiMJ BhOKIjDxIrODLVSnDaU2WfA6KKx9ZdM0BbPC21bOqq uwKyNHzqTN8BBV3rQYGxEHJAWY5IrQHrgH3aoyIrCrGbVVFLXeXyF76oaTUdRHMyCVOrKEPcVm7UPPJa G1MifwUyxAelewPvGXTmHXAVNQ6CRSjhwnXxmKAdcWadIP76mIehAH5XWy0ZYcCvQA0rfm9IwSEvIl4B XEYtSG8NZCZkXECeCQBaJMP4GUHtGlDwJJsqREXoPZ IhJSY6OTEfRTSbSO2AGmXnMKLaTMp6FMcgNYRlNVUxkw4HKHZrQTCrJGH4FjNyGIEnEPBxHOvpGVOlXO DaQPA8VBKrGLPsFD0BCdUjSTAsAAH4FNYhMAOmIOTsre1AIJSrKSNgKSA8QCWwZZWeFLPhNQrlNIPmUZ XnPVTkILWrJCKdJC8HFjTdYZVvNWJoSSZqTUOlKAUw fr0QZRDxZEVoTaL0WGUzBOChHFYeYDwxQXRaPMJpMFF7JNOvAKKdCQ2XBmVqUWEeVAL4BJObYLBgLMMd lu7VEUYkQYHpYwshIwWuOBVhHOJrHOztJXLnZED8APm9TOPuYDWlNQ0TCcUhBWLpFOT9GYUiFXBaOOHw gq3WDNHuISRdEgugWUTtHMSuBXAkAFfyJBSqXGQ3EV YaAPZbRTMgFF0KPzHlKAUvCBkgAJybLFHjBFNkmz2PHPAqOUPyUHOpVLCaNILjFWYbZTboQZKuGFD8Gc L0DZJoMPTlKO7DFfQfQDXvHPplOKdnHTQiFVGexk8KLSEjGFLdNAzwDsSaQNClVPNxTRbrSKTmISIjXa HhVNOaBAIuBD0MSaDlHNWpKfDwNxXyXXYxBQTyzw8P YAUiZSOuIDX2DDElWYLiKUHzOQi9aeKunCQmUKd7EV9TW6AqpjGsHdYJFn3Kz547GZS5PYFhLy3UY3on Du9bPJWuPWUACk0OASf0Pva2WZV7KYLjIZXtOkVwEJHoHTTlVSE1VkJhSAPnNGY+GGy4KzphIBIjJHU1 KgC6JDOnCKKfXAQ9GcBdHyV3QZGbBF5xZCOPSs5+GOhchMDfxAyyESYKUtHsTzX0PYmnKTGXKm8M ID Date Data Source [id number] 04/20/2021 04:17:24 PM EDT [facility] Name Value Range Interpretation Code Description Data Katlyn rce(s) Supporting Document(s) Telephone Encounter [facility] CERKFc9dHzQIDwPx03/OQQpzFHCdg9DnTJyfTBm3HCjoCVInF2NrNAO7zS5oTAZ4UAqSOeInEdCoYNN1 lbm [file] Y2NfCuDmLIXvKmHnAVHkQjKtEA8EHd6SRxZ7WHY5lJWdOu5WYzWgVJfOHaPqWY4OLLo= ID Date Data Source [id number] 04/20/2021 03:51:45 PM EDT [facility] Name Value Range Interpretation Code Description Data Katlyn rce(s) Supporting Document(s) Telephone Encounter [facility] ZAVDPq1uMwBTKmLh51/MWLhmLSLwh0YxRTubHZp2AVqzNPMiE6WiYWB3sY2mFRK2DKtJEcVmPnNbSXW6 lbm [file] LqL6VMV6FHsgIBE8VSJmSgX5VmEvOK9WEl8VQnZ7OLO2rAOiHw3XMuSnKvPIRjBgAF8SYXd= ID Date Data Source [id number] 04/20/2021 03:51:14 PM EDT [facility] Name Value Range Interpretation Code Description Data Katlyn rce(s) Supporting Document(s) Telephone Encounter [facility] FTWIIj8eBhOIGqXn92/JYLudZHSnk8FoKQudPJo9SObrSNXoI5XjADB8iD1rMHE3JMjCWrCyKfMxGBD3 lbm [file] ICAgICAgICAgICAgICAgICAgICAgICAgICAgICAgICAgICAgICAgICAgICAgICAgICAgICAgICAgICAg JSRoKBQlNKEpZBUuVNWbJZFqJZOwJGThXR4RAGCpLSIuINAmEQJwFHMoJKRhIOGgUVUcTWUvYPKgMUEh ICAgICAgICAgICAgICAgICAgICAgICAgICAgICAgIC JqMSJtSKPgSAXgULUiMDIfYFIsKXEdNNMuCRZtCOKdACSlHS6THJNqPXFbVCRiKCHgOIDwLUBaLCDwVW AgICAgICAgICAgICAgICAgICAgICAgICAgICAgICAgICAgICAgICAgICAgICAgICAgICAgICAgICAgIC DmEKQpMEHhHYUmTYExOJVmEM6AMXWrIFOpQZVqUTRv ICAgICAgICAgICAgICAgICAgICAgICAgICAgICAgICAgICAgICAgICAgICAgICAgICAgICAgICAgICAg NJEbJNRkLAMcQMGpBZYaBNIlDVKzWDZoNXTrYC5DZJWyGSWnAIPtEGExRZLgEQGqKEIdSTBvEVVhAWLe ICAgICAgICAgICAgICAgICAgICAgICAgICAgICAgIC XeJTGzBSOsJRVlWRRuJMIlPYLyVGRaRWDkDMSbRPZlANSiBJAbPA2KPTYdJEXoALXwETCvFYAfBJMlPR AgICAgICAgICAgICAgICAgICAgICAgICAgICAgICAgICAgICAgICAgICAgICAgICAgICAgICAgICAgIC ExZSJtJZVnIYItAGCkUUXjOEMcZV4YRLJiHUFtRFCa ICAgICAgICAgICAgICAgICAgICAgICAgICAgICAgICAgICAgICAgICAgICAgICAgICAgICAgICAgICAg CCJbYPAbOPBuSECvGAIzQYKdDFPwOQRkFMHlMOUhSL7RFUEcFTItSACjVEGeJQDfGIPsRCXtLLXwVMWr ICAgICAgICAgICAgICAgICAgICAgICAgICAgICAgIC WeVLHeCFJsPBJaQACwUSVyAAAmLEReTSHqLLTdJAVqFEJiSCZtYDUdUI8LCSPwLOGpJDNfBBOuJLNpFK AgICAgICAgICAgICAgICAgICAgICAgICAgICAgICAgICAgICAgICAgICAgICAgICAgICAgICAgICAgIC SyFEBeHMGySLSvXXPuRWJcAAFaHMArQY6BVFKqSFXp ICAgICAgICAgICAgICAgICAgICAgICAgICAgICAgICAgICAgICAgICAgICAgICAgICAgICAgICAgICAg PFMvUDKkREKySJKfXPCmTIMfNNVpUGJyMIAlROGrBHImRV8GWA29sQXdm0W9YCIkQR0mzqg/Vt4IJFal tvRouIKgVA1OHhXwSB6itf0SToQmXK3ker8ECCiKCe ZnU9K6nJLlWZRfTFRZQfDiX80vCNfgXn57QVcyEXQuWvXySPr6Df0XZzYtP9qsBVJjOfF5TPZyQsQuPM lpMY9Mq7MvwGWgUDf+Kh8LLG9ob0EhIGduMlGxKW9jdb1FUKlIDiNyX2DimjU7QUEvQWAiQz9LSCSvSG QkySZrWhRfMYKOHhNqK1OppX36FRRPIv3+DQplbmRv KelYNxPjLWIfy4OfJQa3FQ5YHHMkDXw9pAAmXFFgGFXqn64nUNMlE710uiSduuNotFFZCU9mvGPCu9Qp OY2yFSTjHA3oWc6tIOGdSXOcZjX5CMTQZR5OUOHjWOIqcVUeWLKbXSKFCV5SGIzoLXH8ZnvjjrGhsMOl ZQyxUS2QLYVxiaArFmCmSJBGAQo+Ko8CQR6ca0UnYX lhNBXqBV9dqg4AMZnDYrVmZ7M2hOBcA2A6YUsoZu1UYISkWUPpTlXjEWBPKLieVZ9CWC9dhsC3RT8ZtG ObPDShPQBaePRuBSi7E78vlLEiAKoaTO6VVPE+Eddie+Nj1ONRAdYSFrJSFmGyFuTAMKYpPxC8IqB4FXf9 SbY3WyAW62eIsjxeClQMzfVH3TFT5nBDGtLJLFMI0B zMXjiV2mclArPsHwEYXHAfEhM00mzZOsQYPwCYYpRCUyCz8IVOTkI8BqkvPxrUrdmwBwYKPkDXKWQZ6H KFrhcbKciTSnvXlyDP41jHnxQL4EAe7BQeZpZM5nss1EjSRzMv1LMFCrLZ7ROSWwRPIhGUSdTXB1DRZa IwGgKCiaXNSgCMYdXEO3EEOrGRIsYY8LMsWgNPFlXG zdQKyyQZFhHCOrpe1LGOUeCVLfZFg4ZlLgYEUjAPOiDPscJKIoRCLtAHU4WVNySHVtCN8WReTxEBTwMD F1MAPjDHNuFBPsbo8ERGPoTXExRVd3SRDeHWIjWMCzFHzoPSGnPOQdHjQnAQSfWYZxEP3HSfXmMSGnQT M5YMTnKUVqCFCrnf2FJVYcSKLqHlC3JJRpTSEiYYKf NEqwFMNrOCM7ANW0OYXhZVPgQE5SPnBfFUIsQLUaWMHdUFDxQZUubz7NJDObYPFtFGEyGoIsDETjIDFl FOlvOETlKMN4Xuj0EKSiIAGoYX4XNsOrXZSbJLmnLRZtCHKcFTFvxx7JMJLvJVUxXrKjDLPuGHOeENFj NNzsHCTcXVL0HEBfQKLcLTBjBO6QAwFvRPWiKFf6MD MuKSKkWOZyqr4CXHOsYQOoZBNqWKPkRMDdTVKkYErfGHGlFWS6IAQpICWnJUYsMV1BNqKrEHBdACz8MI DlCJDdNDAvsb0YONLkRPCiOYGmAjYcZBJlHNAkEHsqGIZeHBLtGDHmTECfQYWlGT2EJfWtIFHhByK3CO NkKESjNNFhyt0LUUTiOSDdPTT1COXwCGCmTGGdVHk1 lbVetMRfAEz0DF1QN0HlhdMkJkRZAv1Wq543NZI0IMIiBa1XQ8zgQo9oXOTcNETFYs3ZFHk8RrTtRlU0 JCh9TDF3JfIgGVjhTDkhLfAdHwHsVYVsEJU+JLkiQOOqRlBtMYSnQCjeXyN8FWI6UAWtVMHqBYKgTNB2 HH5kIRRQWr8+VMufwQEyuTmzFBWEShZxKoSgIPkiWUGIXl6V ID Date Data Source [id number] 04/20/2021 02:42:28 PM EDT [facility] Name Value Range Interpretation Code Description Data Katlyn rce(s) Supporting Document(s) Telephone Encounter [facility] GEQDGe9tDoFVSjOi65/CKLeqUCWct2RqBOzxUXy5TGxhFFXaD1TfCYW7dT7kYIN5GZyHBnJyBiLpJUS1 lbm [file] 3DZAB8FNAoOn2SYDBxYX9CGJLgVQCwBGJXFeAcZMMp XxFuNJXyBVGYZXqaVYTvI4OrNYF7JRGjCd9+JLucGK3HG3AiVMP2HTa3RY6+DUcwVM9HrHLAM2OewLGl TWtqE2NQAH5QJXN9OH7GbAXfKQ4RrLUYK0KchNXhFv3oIPPbj0AgAn5gR1JXYNTSEXCrNLmvZGywIQCt CEo5B4Q3WCYeF9AFM067hWRqwYa5Ld8xM1PDFMqPSd YhTGorSCiaILYyFCp5V3U2OSMiL7GMU6WjJxWfjlLsZ6K+DzNsZVFTBS9LSIDXGLy7M4B4pHOgK0G5gS eDjRP1TU1YKE7CfZYqpPQrs37+NdEYIaVyP1ZQJ0GNRM9WGQb8U3Y7lVAhZ7A8aMdXrCK9IC2UQO9EbP vqlKAoNo0gVFlzQUC+Cg0DSz4RBsUlAU6vis5LOlSm ZQMmAgbXNge1M2ziokc1sVTbEyP4X8F2XwJ9zSQhCT0PI7Q0wSXmNOP5KLVogEU+Ym2Pw6EwWTJxTWg7 O0udHTZaLOUsJjTilV49U++0dycqgXO2W9z1VCLFeORhnXmNexBsU4oPJEI6l4U3EYv/Ka7MMON7wZk2 dAWuWSVtNBt9gJ9gzIo7OvOuKD07KMVqGGtbcO1bLc v5D9Kdq7DpEw4pWh2luRZqOy0TLmNqGQL5grKyUdAYSqF6qLrkpzbvBWA9T9c5gJS5To23j6damsOhx0 DyNpG3JJzzTEJsHrMmeuDgMMG1aySazE3mksTwPv7TOBWkYXraxdTwCqPJYr9FIgUlJZ62AnyqoM5ziI E+DQogICAgICAgICAgICAgICAgICAgICAgICAgICAg ICAgICAgICAgICAgICAgICAgICAgICAgICAgICAgICAgICAgICAgICAgICAgICAgICAgICAgICAgICAg ICAgICAgICAgICAgDQogICAgICAgICAgICAgICAgICAgICAgICAgICAgICAgICAgICAgICAgICAgICAg ICAgICAgICAgICAgICAgICAgICAgICAgICAgICAgIC AgICAgICAgICAgICAgICAgICAgICAgDQogICAgICAgICAgICAgICAgICAgICAgICAgICAgICAgICAgIC AgICAgICAgICAgICAgICAgICAgICAgICAgICAgICAgICAgICAgICAgICAgICAgICAgICAgICAgICAgIC AgICAgDQogICAgICAgICAgICAgICAgICAgICAgICAg ICAgICAgICAgICAgICAgICAgICAgICAgICAgICAgICAgICAgICAgICAgICAgICAgICAgICAgICAgICAg ICAgICAgICAgICAgICAgDQogICAgICAgICAgICAgICAgICAgICAgICAgICAgICAgICAgICAgICAgICAg ICAgICAgICAgICAgICAgICAgICAgICAgICAgICAgIC AgICAgICAgICAgICAgICAgICAgICAgICAgDQogICAgICAgICAgICAgICAgICAgICAgICAgICAgICAgIC AgICAgICAgICAgICAgICAgICAgICAgICAgICAgICAgICAgICAgICAgICAgICAgICAgICAgICAgICAgIC AgICAgICAgDQogICAgICAgICAgICAgICAgICAgICAg ICAgICAgICAgICAgICAgICAgICAgICAgICAgICAgICAgICAgICAgICAgICAgICAgICAgICAgICAgICAg ICAgICAgICAgICAgICAgICAgDQogICAgICAgICAgICAgICAgICAgICAgICAgICAgICAgICAgICAgICAg ICAgICAgICAgICAgICAgICAgICAgICAgICAgICAgIC AgICAgICAgICAgICAgICAgICAgICAgICAgICAgDQogICAgICAgICAgICAgICAgICAgICAgICAgICAgIC AgICAgICAgICAgICAgICAgICAgICAgICAgICAgICAgICAgICAgICAgICAgICAgICAgICAgICAgICAgIC AgICAgICAgICAgDQogICAgICAgICAgICAgICAgICAg ICAgICAgICAgICAgICAgICAgICAgICAgICAgICAgICAgICAgICAgICAgICAgICAgICAgICAgICAgICAg SELiJPLfZBIiRRMzMHTgBLPzPHRmFSi4D6zvSLIwPWOqCN5mSCx0Fd1+PCgTAgElAZK6ghVsoB5ZTH6i h5XcCKmhJGXfc7BiSXs7SE9FZMShKVbuBL5BEQngot 8YGCIlGEQspOVOy6wsZqYcUXD2BOYsByfaVD5DZPTlY4ntqxWcRLDyQJLPWA2YOdIrI5TfhM83HUJUZy 4+DFwujeZnGrzHVmJdWVNpc5WxHDp2XX9EJSQeLanhw5GrDjOsUSGYCKiyKO3CNAN7HWNlTNWiBr2RFR ZuX730jvFoYN7VLd5NWhFoNI5sve2KXhUzJWMcOjjK Niu6PVipRL8QtOMnSPjPIMuloTztaqUkPN1sw8MkzKGhYMS5HDTecgmidQEgNALcxfxaybjnCFKbWR4h TU1hCTMlXTYqKmSzBAGVBC8WFAYyVHLwgCQsTAPlFGUEFI6YSAmxTJJ1XlnlthCxvPAfGJhyUX2IDCLu bnQgMjIgMCBSDQo+Qu7MJY7wk9YbNYtqPEEiZG7lyc 3IEHlOByScV9L7hJIbY9G3RGauQh3YVLAaBTLkNqMuRHCZLVbuWF9SGR8wevO5GM6GbVFuMCAtPYTqdI XvXHz2S93mzNPdVMagHU6JMCD+Eddie+Us9NWGYaHPTxRBTzInTtURDYOhOwO3SeV2WBb8ZgT1AgUG24iR xqbdFqARkqKH5PMO0kFMFqKEWAFQ9KiWLojW9lgdQt KgAvLPYBIuBvZ82baZNhWAMoQFLrKOItDe4OKLSfI6LhpaIwfCplsnSlATYtJFYDOE1AEToaafIvjZHt cUmqJZ66bOstUA4VHd3OHhKySN5rgs1EvSHmBo8XDKWpNK4CWOXaRSBfHWTkLBC1AUTvNlOxAKsuSZGa LCSiZIB7QOCjQOBiME8GOfFoKTXrMSe4NFVjJCVrTK Pynl0BPKXwTVGbHSYrOiExTZGlAVEeWLxuRUYaBDQpAOW6SMWvVOWjOV1GCaIlOOClRMEjUwKfRLBzGB Ieno1IVDMiWFYwMISjNRZjTUTcZVLkPTikGETnGMPvXlh2WQDyWQWzPM8AUjUsKUUsFFN5NAjjTMVzUV Zsfy3PKVMpXWVuRrj4ZgWwPRBqNZKuFQcxAIOrAEAc AfHuONCaVKSxNB9TZhMkBZHfBVY5AwkvTJGgZKSaln5MALEnDMBeBNHkNMFnEALgUGLxIImmYZKxALK6 YRH0XFRlUAXsUT2WAwRbJQWeMSJ4XwKrJSDiXNNjme0VBNVlHLHkFmy9SAWlXJCsOSSmZPghVHUyDQD2 SwK5LETqQSGwMH4SQnJlYHLfEIbkFlNmINBoXISlcb 2ZNFJgYPQqBCEoXcNmQGYrWAJuDZzvGEEkLDB1MCx2PYHfZWFqDG1HKoLfIUQqJTp9QxGgGINnOPRzqe 3CACLzZXNdUAN7RtHnPOTwEQIvKZkgLASgZDWrBXA1QMJkKYYqFZ3XMbXbYJHbAmO9OKTgXMKzINNhjd 7KHFIzBLAyDAw1SzNbZGWtZTNeVDd3krBqmMKuCUs2 VV7AX5QdqbQuGpUSHc9Bg732RWE0LPMtMc2YI1oeBb2yGRErKXIJYi6JIIk3AwY7EPQiQMXiVXG5Rdtm G6MaIhReVME0WPC4F8Q7GqC+HTppWaJmKfC7YiVgMTVvEhY8AZI2HnU5LHg9BjU4CFhhWT7yWXQEEa1+ NUfyvXRjlLloCAUHLwThSRxpPTefUFJQPp7Y ID Date Data Source [id number] 04/20/2021 12:38:26 PM EDT [facility] Name Value Range Interpretation Code Description Data Katlyn rce(s) Supporting Document(s) Telephone Encounter [facility] FUELWw5vXgQXMhFc47/LUIejTTDbk4EeYXhsEQp4QSscZTRjC7MdFRQ4eN9tRIE1FIzPLsWuZeXzEBA8 lbm XcMvhROrDpNJQoMtzOEqBeOXdlTujboZIgND3RyIP4YVNaL23jBUQfMEUeW4IcPZXbHrJ+Uc6JCZKsjS IqQK8YTagNrVuEh6eLPG5I6D+XDrR55n1ONW1zPNj5fmmEhHhXPwLmyiYk8bXlGsgD6OE/fUktKepNFx NLoZMcpMHOzpvPtyMThX9/02GeKaWo/b/3iwkYn2z2 +qhh4VNwLAd+TgA0KLGEubqKnF04/y8c+iH6AdgjhhnPdR1rYkVtISx29ZlMZGYFX2Asx5y89q4Z+wH8 PBVyM7fwkFFyxgaD7x1unu9Ol2xIES3I6WDG/hYqJARnBGswpl3Ov4WP0yvrN6n5s+NIqPFNHrN2SHxF Rj97u2vDStYY9kdR7dEmqcXAa6rJI5xqIMeTn3MSJw HsFDFZMMwjEeYkHKZpNA+TRekmIN5VwFUSuoQiBAUUgYpgf4VCcHKwZ3IvHEF6GKahUKOdwqGcbMLCvi DRjxtyNKYjymV3nnZUE/Mendoza+1wP7XM6grtITHaXDNSWM7b5RLvRj7oq626I0kM5fJsfh9OnoLrowToC/ [file] DAk8TXcpmR6P6UJV2yJzov6I+xesg+EZEpynsiG1WoCPbGoEqlPNeEusT4MpmB7AnPc+SV7IWi+nK+[employer] [file] MvGF6PNe2QUeR4SHH9sMFqBz8OKjYePjpDXuCjGM6XXQm= ID Date Data Source [id number] 04/20/2021 10:50:27 AM EDT [facility] Name Value Range Interpretation Code Description Data Katlyn rce(s) Supporting Document(s) Telephone Encounter [facility] MYLTLr5kYjPUWuOd02/VUNazDAElu7QxEFdiYRj0EIynXWShX8LpJSY7pP2wEPI3SDoOHgFnWwXqKLM1 lbm [file] ID Date Data Source [id number] 04/20/2021 09:07:58 AM EDT [facility] Name Value Range Interpretation Code Description Data Katlyn rce(s) Supporting Document(s) Telephone Encounter [facility] HRCGGj8hTuGVOiIr06/SBNspBWWbz8CeDExjSBf4VMfzKCEcM0SnDFD2pP6rROC2XLdXQoPoFgEqBYG9 lbm [file] qiYkDNqbQGDaXm4JOXRAC1XKBq== ID Date Data Source [id number] 04/19/2021 06:32:00 PM EDT [facility] Name Value Range Interpretation Code Description Data Katlyn rce(s) Supporting Document(s) SARS COVID ANTIGEN NEGATIVE [facility] This lab was ordered by DAVI king nd reported by [facility]. ID Date Data Source [id number] 04/19/2021 03:00:10 PM EDT [facility] Name Value Range Interpretation Code Description Data Katlyn rce(s) Supporting Document(s) Telephone Encounter [facility] BNUVAa0zKlPUQwAj04/DEMzuSYHht7HiINafSEj6OUgxPABkU0MkHTE6bW1gRFE8MYiZKsMkEeWbQOO3 lbm [file] 9CCix46+5wH0wpYBKqZe9b529IzLw1O3+z7RF46X4Q OQ+op24e/G3dzqnaZMvOj8q9x+vsGqkMbS7Era4HRO+d3rE1bUa5YE8w1AB8Se3g/V5LnBoGPldq6H5o F7zIC2918dDMixq0gsflNzubVNK1dJ79fr3E3lgOOKvpuBzQwoeZu5VnZ1eIoSdJ2rdCmZljHvathirq A90upodsrSKJukBwIR4nHF9bqUUe0PUTrOEcgg0RQB z+pSwsS1MNOrHw7bH/d/gfCTur+tSY9by0l+1C8y9L5aUvuBn1MY3kX7Q/6LdC6kToxOmAG/5IejvoTN office support assistant+5TtEYivXBUqY3oCDm7+33/1YLCqiFYIcz0M269umKazvJ4sHBdX/uqD4pmYi08+f6OE065cBs1yF [file] EcA2XDmRIvRgOR1SFFf= ID Date Data Source [id number] 04/19/2021 02:24:59 PM EDT [facility] Name Value Range Interpretation Code Description Data Katlyn rce(s) Supporting Document(s) Telephone Encounter [facility] FTPANa4uEpAJKdXj18/IHLkvMDPsw7ScFFcrBYu1XYtnVHYdC5YgWBJ4eW5hDRY6KUgXOdGuRtEwGGC1 lbm [file] RKT1KRRlCUUjPBL2DLJ9OaQmBV5OSn7ZCyW1VCH8gJIcTf8GHpK2SPOFEwYbCQ5WEGd= ID Date Data Source [id number] 04/19/2021 02:11:49 PM EDT [facility] Name Value Range Interpretation Code Description Data Katlyn rce(s) Supporting Document(s) Telephone Encounter [facility] YRLPIx1eNjHQQlLa89/DQBqwXCOxv4CmSLulOOk7JXuiGHIsF9VvXWP6zK1mFNP2CYbMClZbKlUuVNX4 lbm [file] EAF4YMO6QKHdSwZdWdGsAK7DAa7IKjS1AFG3yBLrCf3OXpV8CRCZSgRmFR6LTBu= ID Date Data Source [id number] 04/19/2021 01:33:22 PM EDT [facility] Name Value Range Interpretation Code Description Data Katlyn rce(s) Supporting Document(s) Telephone Encounter [facility] VIVYQp0nZrCGFmLp81/IPUjqLGCam1CwAAgsXFh4IDqnXBBeJ4OqPLJ9fR8xQDO4FZeXYjRdLcFdJLU1 lbm [file] 4IOcL2EGK3tLSzWt5DVmX2CWKBSjMjBW6ZJVd= ID Date Data Source [id number] 04/19/2021 11:06:20 AM EDT [facility] Name Value Range Interpretation Code Description Data Katlyn rce(s) Supporting Document(s) Telephone Encounter [facility] GSXDWl9qPcUYIhCd56/OBGmcPUQeo8ReBTskOUh9BDxfROAnJ1MoXIV2mE4qXBM9INpGFuNmNwAoWKQ3 lbm [file] g4VA5WJUS2GDKkWw9BSKZxDL6IPEVgJDRhYDPSNyGu RBXpHmLiYFLzXEEBWVinWWCyK7NtJIH4MBHcTc3+QJpcEN9UF8UaBFQ1CSr3SX9+HLtkGM5GzNQEF9Wt oHUhTPixU8ZDWT4GBZP0ZD7LxXItKY3QjDHUL9UnoASfFh1rYPPgw9EqDo9fK9JGQOIEDYLrUWskZZzn PTNaALl2M7C6HWNpQ4DEQ940tLQgaLt6Wo4hG2MTOC aBYrGqIWycGEnzFTBtBGe9H5M8MUZyC9MLC0YiZsJtxiJcL2T+DvXiLQSNOS7CCNIPHTx5P0Z5pFOkP0 D8uDtYmQY1AY7YET0MmKDmtROpq36+WyVBShRiE2BYK6LOWH5MBIj5T6Z7qVEeI3X6jZbJwFI1SK6ALY 2EhJfnqJGuVh9cMBfwNMR+Zj7MOf6VLxNpDD0bzg3B TrGuPVBqSojBEif3E5eezxc3jCFoLcU4B4R5YuX1mLEhUC8LL5L1pOVnYAP3NVSepHY+Xg1Dc2PeAOXd SWr7P9voKSKzQSRqKyWewF81M++5xcpjxGR7C7s3UXFVbPIecBdGfaVfM8vFWKB3c2V6ISm/Xu1GLVO9 oJw2dOAmGMCcCXh3pE8jwIn3AjCxOA91RZPrHGeqcX 9qQid5R2Gff5BkTm3wOp1icARjXy0WShJrPCS2skBzXzGFBnV6fUrsxpqfJLQ9H5n9pFN9Ko56t0fbtv Dbn4ZoEuY1VQjkIABoPaCvcbErYEJ0euOjaD7zblCjOj2CPUTjJUdemaSfLeHUGo1BCkSyNN92AznfdC 1ldGE+DQogICAgICAgICAgICAgICAgICAgICAgICAg ICAgICAgICAgICAgICAgICAgICAgICAgICAgICAgICAgICAgICAgICAgICAgICAgICAgICAgICAgICAg ICAgICAgICAgICAgICAgDQogICAgICAgICAgICAgICAgICAgICAgICAgICAgICAgICAgICAgICAgICAg ICAgICAgICAgICAgICAgICAgICAgICAgICAgICAgIC AgICAgICAgICAgICAgICAgICAgICAgICAgDQogICAgICAgICAgICAgICAgICAgICAgICAgICAgICAgIC AgICAgICAgICAgICAgICAgICAgICAgICAgICAgICAgICAgICAgICAgICAgICAgICAgICAgICAgICAgIC AgICAgICAgDQogICAgICAgICAgICAgICAgICAgICAg ICAgICAgICAgICAgICAgICAgICAgICAgICAgICAgICAgICAgICAgICAgICAgICAgICAgICAgICAgICAg ICAgICAgICAgICAgICAgICAgDQogICAgICAgICAgICAgICAgICAgICAgICAgICAgICAgICAgICAgICAg ICAgICAgICAgICAgICAgICAgICAgICAgICAgICAgIC AgICAgICAgICAgICAgICAgICAgICAgICAgICAgDQogICAgICAgICAgICAgICAgICAgICAgICAgICAgIC AgICAgICAgICAgICAgICAgICAgICAgICAgICAgICAgICAgICAgICAgICAgICAgICAgICAgICAgICAgIC AgICAgICAgICAgDQogICAgICAgICAgICAgICAgICAg ICAgICAgICAgICAgICAgICAgICAgICAgICAgICAgICAgICAgICAgICAgICAgICAgICAgICAgICAgICAg ICAgICAgICAgICAgICAgICAgICAgDQogICAgICAgICAgICAgICAgICAgICAgICAgICAgICAgICAgICAg ICAgICAgICAgICAgICAgICAgICAgICAgICAgICAgIC AgICAgICAgICAgICAgICAgICAgICAgICAgICAgICAgDQogICAgICAgICAgICAgICAgICAgICAgICAgIC AgICAgICAgICAgICAgICAgICAgICAgICAgICAgICAgICAgICAgICAgICAgICAgICAgICAgICAgICAgIC AgICAgICAgICAgICAgDQogICAgICAgICAgICAgICAg ICAgICAgICAgICAgICAgICAgICAgICAgICAgICAgICAgICAgICAgICAgICAgICAgICAgICAgICAgICAg AZCbWNVaPLXyUHInKIYvDGXtMFEjGYLwGCn2A9fwLCNlDKPwCI2bCCx1Yv5+OBxPGhGwRBQ8lwYzsL8E QW8wu5DgHHbyAAMcs4FjCIt0SQ7FTUDbCNpjKP3LCU zbzc6BBGUuIOJdtZDKz9urBqUyIQJ8ZQGxWzsuDN3KTFRjV0kitnCsEHEoXEDASD2ZPcRtG1LckX51WD ENCj4+OTmwheSmNisAJiWjJOJvp5UbPYu3ME4RIYVqTqvsr3YvKmHtTOQBMXudCK2GZVU9EPHeKVAwUi 9UTIHhC566gnRhWN4YSb9JNsNiKT2vin5JNtWrSCSf GnwLAki4GBpeAM9AxCVwJMzBVEwmqJjzliZjZU6wt7LsyTCjLQM0GTDaWTEvnOLEs1ikmvksRlWlTBNi HV9bKm0uLZKiZOOqMlK5SOOOVG0SSXDiACUyzNLxJVSyHFOOGR1HYZppSCJ1AcaozmLcvVHcYDeyOG8B YXJlbnQgMjIgMCBSDQo+Mj4JGQ3lw8XmSTifNIGlHT 9ygk8GLQtSBmQeW4O8rMSiR5J4ENgnBb6HICErAWKqWkHgOMDKKRrpLY9SRM7njzU4OR4NqVPkXCSrXB StdLQwDMs8X42riVIeIFgeAM2TLQL+Eddie+Ig8ZBSMnPXNjVTNcWgYsFQNXUkSzK4ZpV1SOw3NtZ4UoQG 77bHbbwxLePYvoSY1IMZ9dUCOrRLHDXE8NgQYwuA0f ceQyLbJlVGZODrBgC15itACcXWNoFGNlBQGpWh8BYFAfN8IhgyQvoXlrboNlIYBkYWJUHK4WQUrnitZx vOYiwGhwAS54nJklUQ8VJx2NVgCqWK9ucu4GySKlVj2EMXPzDY2WSTTrYSSrMYIbHSX2YUCoWwRfOTkb KUFkGHKnECT9DRHaBHRkQQ7IJcEoXWMbOZi4BVWjYO OjQYNziw4ORPWcTKEgZEWlFGVjJLCzIXXjSCgtOTZlDRXtQVR8FYGjDQUjED2IVcGbHKKeNPKxFwdvZQ PzUBJuva4TULZvAXXjODCgLVGaGCRdDJGrWEqgVVUoEUCiUml1ZFUeHLDuBL9SHcPxJWQuBUI3RXCaYW AhSDCgsp8OUSOqLPXiJoq2WVTbQLRkKRRoUBnaWYKe EYPqMoR4ZXQbRIAqCJ5ZBvQwFKKnJQG9XpIjVMMwZUBetc9PWGMhKWQvVTDmDsImGIBsWDWmJDddZMKd OXK8UUJdRGJsSZXhFT2HMvEzXPOuGHF6RktgDPZjHKZebk7JOZSaZKGxWqk4PqYsOBUvDTKjBIooGTTo IGD6UxK3NTPbNKRdOW1HQcUnECDbKUlfHvFzLNUfCJ Yxps3WLHHuBYFaZQRnXYMvJGWbHPWcUSuyCYQkCEG6QGJjHHKyCRSeCG1UOhRpDXOaPBc0IqUuQZYqEG Knzf4CSZGzSUVvMKU2DHLaVLNvTWBjQXuoRAVoINFzIBR6XZQdTMNcPI3RCqIdCBOkWsA5ANmzOZZjTO Dcrw1LMQKiBRVoDSv8QTIxBDImYKMmFXk0egLcsZCg SWj8AR9RV0IlgpLtWlKIBm1Mo705RBU0QIJoHe7DO0lmUc9uOSCmCWLUXs0PBNx2EOEwWIFuG0H4NMA8 HxU4ZpGbPQRzT3M2YWKlYMznGTE+DRd2R1JoIJMbVfc6DjipVJebICEwO9AuHFelZ1C6S8X9RG9aGNKK Cj4+AQnjvBRkuRupGLVIWzImJWp1AVzjIOZWCr2S ID Date Data Source [id number] 04/19/2021 10:53:08 AM EDT [facility] Name Value Range Interpretation Code Description Data Katlyn rce(s) Supporting Document(s) Telephone Encounter [facility] AQHRHx1mEuPZEnXc37/ZNGppMAQsy4OoHXtvBIo0QSowYBPrW6CuLTW9fA6mYXJ7GEvUIvRzVtKpHNO4 lbm [file] GXr9U3MdZJU2YFVxZLJnJGVhSxJ+CA0aDUs+Us6Zy5GzvmZ6giBkVTcjOGM6Gi8EUIXQD9WNWn== ID Date Data Source [id number] 04/18/2021 04:15:15 PM EDT [facility] Name Value Range Interpretation Code Description Data Katlyn rce(s) Supporting Document(s) Telephone Encounter [facility] YLARFn0jRcGEBdQo00/RTZlmOBHvg3UdFHwqRDq8JJbfTPZxQ6UqDRV3iW5tNUZ9MRlZTuQgHfFlTRG4 lbm [file] AgICAgICAgICAgICAgICAgICAgICAgICAgICAgICAgICAgICAgICAgICAgICAgICAgICAgICAgICAgIC AgICAgICAgICAgICAgICANCiAgICAgICAgICAgICAgICAgICAgICAgICAgICAgICAgICAgICAgICAgIC AgICAgICAgICAgICAgICAgICAgICAgICAgICAgICAg ICAgICAgICAgICAgICAgICAgICAgICAgICANCiAgICAgICAgICAgICAgICAgICAgICAgICAgICAgICAg ICAgICAgICAgICAgICAgICAgICAgICAgICAgICAgICAgICAgICAgICAgICAgICAgICAgICAgICAgICAg ICAgICAgICANCiAgICAgICAgICAgICAgICAgICAgIC AgICAgICAgICAgICAgICAgICAgICAgICAgICAgICAgICAgICAgICAgICAgICAgICAgICAgICAgICAgIC AgICAgICAgICAgICAgICAgICANCiAgICAgICAgICAgICAgICAgICAgICAgICAgICAgICAgICAgICAgIC AgICAgICAgICAgICAgICAgICAgICAgICAgICAgICAg ICAgICAgICAgICAgICAgICAgICAgICAgICAgICANCiAgICAgICAgICAgICAgICAgICAgICAgICAgICAg ICAgICAgICAgICAgICAgICAgICAgICAgICAgICAgICAgICAgICAgICAgICAgICAgICAgICAgICAgICAg ICAgICAgICAgICANCiAgICAgICAgICAgICAgICAgIC AgICAgICAgICAgICAgICAgICAgICAgICAgICAgICAgICAgICAgICAgICAgICAgICAgICAgICAgICAgIC AgICAgICAgICAgICAgICAgICAgICANCiAgICAgICAgICAgICAgICAgICAgICAgICAgICAgICAgICAgIC AgICAgICAgICAgICAgICAgICAgICAgICAgICAgICAg ICAgICAgICAgICAgICAgICAgICAgICAgICAgICAgICANCiAgICAgICAgICAgICAgICAgICAgICAgICAg ICAgICAgICAgICAgICAgICAgICAgICAgICAgICAgICAgICAgICAgICAgICAgICAgICAgICAgICAgICAg ICAgICAgICAgICAgICANCiAgICAgICAgICAgICAgIC AgICAgICAgICAgICAgICAgICAgICAgICAgICAgICAgICAgICAgICAgICAgICAgICAgICAgICAgICAgIC AgICAgICAgICAgICAgICAgICAgICAgICANCjw/zQVtH2pwdPSpcbW6F5hcLc7GVs4HFW8lk4MnAHTwGE jnxzMrVxjSCjOeBOVcXpqUIvc7BVwpJI7AuDJyW6Ir I7DjUGkuKQ1GKCSyQAGfnMJxFMEyGRWdNiD9KDHlAHlgHH2HuFTsPHghFCGgYPDgRG8CFJJuK518mfDf TN9ZNb1EIeVdYK1jfh3IPnAjGNQmZwpIAqe7CUzfIC5QsZMyjXKsQcIcKHUQQnReP3esr6DzScUkORLA FOpgPS5Cp5SymHUiIRm+To9EMD7ca2LuMBvxBlCjLD 2iov2XDFpYFuUxW0AbaTxfMVAqqQUojT2tFQFFwwPqfE67IDVfJhkwGU3rRX0hD7wppFewqFHyBJFeWW 5xTy6kKNUkYRI0TgVoPZVUVE2WINLuIBUfuPJxHIBtJARWZB0PJHjpDRW0TlholhTcdEJdSGbpXY8OLP JlbnQgMjIgMCBSDQo+Lh0OUF1gl7AhYDvpYTXgJO6w ih4ZPZyFXnTbA5B8xHXrG0P9JAgtBg4UFKMrNWKsJuYgEXEITHleHE5FEU8acbY6JX0DgRKzLTBcPWHb oXZlVVg2K06qkCGiQXhgOF3YOLJ+Eddie+Vd4GFFDwLRGrCGGgXmJpDEQHWtWhN3FcI5IBj6McA8QfOV32 kFwufeAlLDtrNJ5BJD6xFULpVOECHR1EqOGhoZ7fkv DzBwAlAVVKCrCvE61jyCZoQTApQWUrPEBhPi9XLTYkF2JbliPrgKusymVaTURiZQBLQK7ACQtxyoOlwE LgxHlyZH62zRhwIB9UEm0ZKuQdNM2xqd2FhPAkQe8YAIRmJW4WJSRcDNEmDWCrTXE3KUQfDgVfDCoeAJ GrVISgRBJ8ROQkWYDwRI7ANnRvZAGcVPn7VHBgHTRd NPWyfd6YXVVuGBItTCW1GIQqKRJvSQUfIYqzLFUkYHXrKJJ0OKIsRRJxRB9VMfYpHLMpZNDaBdSuAYRk KNTapv4MBPDhGEQuHPI9BVIiGXIzOHGcJVhsOZRcEOMsXaR5WFBiLKDwBM7EBdSmKZYtJFV9PajlYRNn IHTqxi8WRHWxTLTzCwJqABXgKMKrUEFpKTggBXEaKQ ElWZieRASyYRQxSW4TCeDcDSVqIUY8VFOrQADmSVHgml2TOENuKSSuJkz1UkSkWPSsNDHiQWcuMVWuLG V8DbPlZTDmFKAbXF7LCzJxGMKcJEO0OdznKLUuOVRybp5FKPQkMJLpXonoByBcTULyRTZrPWaoFDZjLP O1BRp6NJOmNHDhYG9DGdNyTHIkERguBfQuSRHiGCGa bn3VQCSsGCSpGLZ4EGIvFTGyCKGrHRooXVIgCPK8OrR3LITwKQScJG6STuSpOPPbKQp5BiPfNAKnQCIk gc8REEWqHNXfIQtaINBsKBLfFJLjQKdhZNGhYQFaMpz8EQZzULTrJP9SQwCmSYWwOaU0OQheQYZlFQIx ht4GXMXuOYIjMXQ6IoTbGEAsURXwKMf3izAnsCHwGR b5CF9BV9HpsoUpMjVMLx8Gc422BDO3EBQhPk1PO3bsGh1yXFVaJSRSGb0QXYx5ToihZ2GzTYInTMJpBD AzQFPkI7XbKfZ7KAJwLwvkFRW+OScnG6CuWmZhCWScTcL6FANzItFbLaLzOakwEPSyHBMtXW5sSBMDGc 4+LHgsmXXugQzaKVKHTlLlTWPnCOzgWOGQXp6Z ID Date Data Source [id number] 04/13/2021 02:47:06 PM EDT [facility] Name Value Range Interpretation Code Description Data Katlyn rce(s) Supporting Document(s) Progress Notes [facility] CYBNSu8iRxERIyZs88/STAviCIOrl7IxTGruFDk2UEnfVTDbG1BsNCN6wE7ePSL4CHyNWbMiPaRrPKEz lbm [file] ID Date Data Source [id number] 04/13/2021 02:46:36 PM EDT [facility] Name Value Range Interpretation Code Description Data Katlyn rce(s) Supporting Document(s) Patient Instructions [facility] FNBJOd8wHaVICvBx67/YFLroOTHlf6XiIEzeWLf0HPvlVBJbE5OtOXV1sW0jRQX1ITgLDzGtIeYwIOOe lbm [file] UE2FSi4TTyM0ALI3bJClBl4MQxB7BELTMsOxWM0CTNk= ID Date Data Source [id number] 04/13/2021 02:45:51 PM EDT [facility] Name Value Range Interpretation Code Description Data Katlyn rce(s) Supporting Document(s) Assessment & Plan Note [facility] ICSHZs1yCsCCXuAt80/IODjxOLPin9QkQYpbUOt9DAbsYZYfC4CcTOS1oH8gTKX0KQmKMnCqSbDaHPZz lbm [file] R7BqMtUU6GFf8FPdK2IDB6oZDuLr2JBrE6BQjYMiVdJC0DYIi= ID Date Data Source [id number] 04/11/2021 03:08:49 PM EDT [facility] Name Value Range Interpretation Code Description Data Katlyn rce(s) Supporting Document(s) Telephone Encounter [facility] INQDGv4eZmURZpRn80/TNFzbNCIpc4LiWSzuLAb0OPzrPWWmR2UiAPI9cM0iNES7AQrZLeKrXoQiGYK0 lbm [file] AgICAgICAgICAgICAgICAgICAgICAgICAgICAgICAg ICAgICAgICAgICAgICAgICAgICAgICAgICAgICAgICAgICAgICAgICAgICAgICAgICAgICANCiAgICAg ICAgICAgICAgICAgICAgICAgICAgICAgICAgICAgICAgICAgICAgICAgICAgICAgICAgICAgICAgICAg ICAgICAgICAgICAgICAgICAgICAgICAgICAgICAgIC AgICANCiAgICAgICAgICAgICAgICAgICAgICAgICAgICAgICAgICAgICAgICAgICAgICAgICAgICAgIC AgICAgICAgICAgICAgICAgICAgICAgICAgICAgICAgICAgICAgICAgICAgICANCiAgICAgICAgICAgIC AgICAgICAgICAgICAgICAgICAgICAgICAgICAgICAg ICAgICAgICAgICAgICAgICAgICAgICAgICAgICAgICAgICAgICAgICAgICAgICAgICAgICAgICANCiAg ICAgICAgICAgICAgICAgICAgICAgICAgICAgICAgICAgICAgICAgICAgICAgICAgICAgICAgICAgICAg ICAgICAgICAgICAgICAgICAgICAgICAgICAgICAgIC AgICAgICANCiAgICAgICAgICAgICAgICAgICAgICAgICAgICAgICAgICAgICAgICAgICAgICAgICAgIC AgICAgICAgICAgICAgICAgICAgICAgICAgICAgICAgICAgICAgICAgICAgICAgICANCiAgICAgICAgIC AgICAgICAgICAgICAgICAgICAgICAgICAgICAgICAg ICAgICAgICAgICAgICAgICAgICAgICAgICAgICAgICAgICAgICAgICAgICAgICAgICAgICAgICAgICAN CiAgICAgICAgICAgICAgICAgICAgICAgICAgICAgICAgICAgICAgICAgICAgICAgICAgICAgICAgICAg ICAgICAgICAgICAgICAgICAgICAgICAgICAgICAgIC AgICAgICAgICANCiAgICAgICAgICAgICAgICAgICAgICAgICAgICAgICAgICAgICAgICAgICAgICAgIC AgICAgICAgICAgICAgICAgICAgICAgICAgICAgICAgICAgICAgICAgICAgICAgICAgICANCiAgICAgIC AgICAgICAgICAgICAgICAgICAgICAgICAgICAgICAg ICAgICAgICAgICAgICAgICAgICAgICAgICAgICAgICAgICAgICAgICAgICAgICAgICAgICAgICAgICAg ICANCjw/vFIvR3qwoSXthjR1X5fdEf6EEk8HYP9zm3FbIEZjVNdvmpIaCmxOZuXuDPJtRplBGoo2OHre BK5XoDWpU5DyW0ZxYVmsPT4UVZSeVLEdyNXwFKZgRE LdHbN2QEAiOOvuFB4WrZBwTQmoFJVqGUYcKC9NFIEzJ912zxQdFH5RZi4QNnWsNH0mll3GAzYwDRRpYm iZBxi4EXrgJZ1SkBLfyTEhRlJrTDAORjHyX7spy3ThWhKgTOMMHJcrOP9Ze2LcrGWbFEt+Km3USH4tq7 LiJNsfZeTxLX3udl4YXOqHMkQrI1HbvMioARPsnEEb tP3vOSTLwrVbhO89CWMlMvetQ3JrSRmbTd2wWPAqBMJ9RNmcWF3dLSKzCLLiVyI5ECEBVH8JUUNtHOHd rVPcPSRpGRGDRT9KZChnOKC5JuivzsSmuPUqNVsoKZ7ZGMGkduCpUyUvZQPRIEm+Rf2MJX8fb0MuPHgb HZFfUX8kbo0DROfYFqUkM5I3wXRyO3U6THebEv2CQG RaCTTzZyXiOFQWEUyjME2ZAI6mweJ2AX6DvYTtDKLrBQIjxCDsURz2L45rsYAjPRuoXY2OLLV+Eddie+Pg 7IQWLpWWLpEAJaEyTqHWCNDzGsT4AhV0IZw5MwS1HnIE75hGaxubWdDHlbJS2PZJ7xHUWaDZNFLX6IyW XxiC3qqbHuPjOdHQKUHmZxS79ngXWxEOFnGMVsMFMk Rk2CLGRaK9YfzkRsiDazskRyEYYiZJFTMC2JMGyoawSqcSMmhVwtJM44pUcbMY9NRy1MZaCpCQ4ulx1Z sSPnBp7QFOYxEN7OZOAoRXIwXQRuWAH7STAfZzEiYBrzWTDgLICqBYV8TJIoZVCnBH7GHxHiAXTzZMx3 RaLdSEKtWEFtij6VFNQnAXUgSOAuIhUtDINrADNzNI ktYDIyDTXjNME8XEXmZFCbCT2ZLiHrGJJhAOEzNMRbNWYfUWKphk2BLHUcWHCpLXQvDMSvJCMhCZXoVE hcIUGbUGYkZaC1POZuKTYqMY9WBgFdFFKeITA3ZkegABPkLJNhjd9FRJJoHIRqRpp0ObLiBOIxYPKwZS noZEXrKVZdGvXePJQoLGLnZA1CYpPxNXRkGJA4LTku MOOiEGQqzr4MLPMdHTQeKVI0MSJwHKBhMPPjFXkjKDDpIRD7ZRKlSBYvGHNdHI3PMfMlVMLlHCI8XJQe VIMbFDSksq6MHEEqDCVrStj8JOAxWBHwXTQuRXseNCLhEXR5NmY1PFDjLVCzDT4CZcRqEKBtPBqwTLQy DBMdUPIxpa7IWXAcISNhXFR7QhCsAQVhCCGxJOdcMV VoQIR4QPc5YMAoFFYpRR6CXgXfDKZdYTl1TBZmYMGyGRCzsa4UFGNxZLXtXON4IaPmKJInLZYnSQbuPN VwHMFrUZA4CYSwZZBeXX1IAqItAIZyMaC4MnCaNVUcRWZjlu8KCYAvJDAzYZzdReLcEVBdMWYpPPm0qh QcnJUrAXz3WN1NQ9GwzcJtHdRVPu3Xk044KOB8VSKx Zr4LR0caBt5lLIMrDVMGEw8UZOo5LQQkJQblLqYkE0WzTmWeGVLrUoMmLHTgRHZ1VNKvGak+MYf0LdH2 ZFGmNwFzCzWjUbQ7HdDzVrIfN8G9GbXkEBK1XL1yLFYBWz5+ZSmvlUXndBzmRUQJMwZvTZJ9AUfwISDC Rg0K ID Date Data Source [id number] 04/11/2021 02:03:43 PM EDT [facility] Name Value Range Interpretation Code Description Data Katlyn rce(s) Supporting Document(s) Progress Notes [facility] NEMLVf9cPnIQIySh09/MDYsoQYCgs0TwOTjsASz7KRcjJGZdY5EwIRI9fO7vZVZ4KYeENhXaUaGhOPB2 lbm ClFcvRJpYnQCXkVksIDtAgRElaRsbihQVfSC0YmPX0JDKjJ67wJCSkBLGxM0KoBIVgWFL+Jd8LNFKplJ PhNA0FHypH0Y5vf8dJUF9o5G1gpFOPyt1ndPiBCcc63MuwmA4bnXwyF6dCfogEyYoW3dngu1MDo1GKjO WWB3xDthWZPrT2606rVVoP1+9/4iLwpJRi+d/6zyCy xehO/PlPYjPNsdfTNn+uMuPFG1QiwC5VpssY3nthOG3gx+jqyJxMm9T8IPuheAKjHJeSSQk8Gt4Vqb3m 4jq7S8B4FRl9YK2lEMGXCw8pAX0zWIz7ejXdlw7yiwdnw88N1a+C2KynIEBu5gCDLrN1rJsalWCBd9Xc 0xz3yETDzjRra57shU21P199L2gSN/7bLtH93If87X [file] [id number]== ID Date Data Source [id number] 04/11/2021 11:58:02 AM EDT [facility] Patient: DELONTE WOODARD : [birth year] [facility]ACS [facility]: [facility] KNEE 3 VIEWS BILATERAL Provider: RAUL COXBilateral knee x-rayHISTORY left knee pain unspecified chronicity.3 upright views performed.FINDINGS: No joint space narrowing is seen. No fracture or dislocation is seen. No effusion is seen.IMPRESSION: Unremarkable bilateral knee x-ray.Electronically Signed by Dr Marino Mack MD 04/11/2021 11:58 AM Name Value Range Interpretation Code Description Data Katlyn rce(s) Supporting Document(s) ID Date Data Source [id number] 03/15/2021 12:06:07 PM EDT [facility] Name Value Range Interpretation Code Description Data Aktlyn rce(s) Supporting Document(s) Telephone Encounter [facility] RLPGOb1zJsNWBrHi93/ZEGtuIGKvv2JlHAdiAJu5AZygISDoE8LgCLN9bZ8lTMF1UWxOEoVtQnFyQdDr [facility] ExYvgIQaExLRYpDigAJhYfBAvoYlbzjFIsTZ3EjVB5MKTyS10lGURgAYTzP6ClIAl0OF6+OMrgTPJ3kf NnbN1QWHI4UDxc7EZDepDyP1zz5cY1zfRYAkNOdG+yDzogmkFPjxm830QlHmdASYv2qeiXM0rMAeBffn 7fsfpn07b0VI1S+/auWtgfmWA5d5kOmAIPKdf1Hn4A IDZi/MkUUabPvnLuEeEo3T2ZEtHkZQZvUG9efaMdCFxgoAOg8fvVSeJW28Ow29dV+3Ff3WpaLqW7BQLS Cnd1zKeVOLYXZ8sTJIHI5lT1lPoTSdOiATRCTy1njCdwRZ5D70k3YaPHcfCXMvXDxLhVRD3TJBRvPJzz jaLAgPlEsM1D3rRWUyjs3HCGt2CB81OatXUpA/EmGH aTLryY9MUVXxlLOfyXVlSkbh24WAvj0MJnkghS+NRJDsEYxxUiwdx2ja4aIRqY6PP7vfc7AdYAp+1uNr i1b7VYPpajs7HitaCEKNYj1uFqh8Ut6uGTmdxK8o5ag3H9MBXzROfDkoo0O4NrkNEEPmztXOKdTicgZR WmiR6uaOmqigoFf54IgRNfiKmhok4wZ9fTFgsyc0ZD lYtJvxCCbquUYFc8PeF3jbw2yoHb9T3JRp+zMRskDrkaNMgyK2+synTd3BArJTgTkTFTYnfrzmigI1lW VV6T9hLCnJcDhWnOe8bcf2IyjA0dwUX5mYe4jwCliJyo9HL4cBP09hmvWbQsqD0FBjux34ahf6NL9po6 IcYGpkWu58M29eJNcomy/3awcG5WIWw5lh3JrudBpv 8z5R4zDRczftkDiptSlEAerHUTQd6daY+8a0ZfIsEa99c1odbBITU7wQgNJqLa9ik7hZPlx239HixQIJ XleO5H9pcdO5Z+8XLcwglhyKcWTiZqy6hORilFThZ3fORxPfd29mPxhmqQEfAoxOjEXn/MXS02LTfRW2 zcbPafnHPREzC1pIrPEpyfw5uPORXR6pWHwyk+/ARINA [file] BQm9QG0BLME6AWLsNs1QEHLgLW1RMPAzWSOpUNDAHg EhLHDmOqCwWFCqEMOLBXdvQFWyZ5EeRWU9PYCgJz7+VIwpPG1UP9EkKGT0UYr3LB1+BOvmGF5TxSUAQ3 QceJLbMQfkH4TNIK4ADDF4BE6XyAWzPL6CpHEKB9HfwINzVa0zKTAdo3TbHj8kF7DJRJYXLXUcGBrtAO hgLLXhDLq3F6Z9BWVjZ2IXV957fUBybOt2Zu8mZ9WX MIwVQeUkRFemUQkpLICgBCh1M8K2CSLqD2XMZ4LsEsKkreOuU8J+MtStENLZXY9ISTGLRPh5V2S5mOXm G4U9cLvNsQJ3OO2PZS8AfQWfpGIsr01+SdXJZfMlG5AMU6IRMS8QFFr2Q6Q2wZPwH7S2nYmUlWN0HR1P IM7PhUjimZCmOw8uABfwHNN+Np7FJq3CTkShVA0kmv 9LFxPzHGGeZpiKQtw5F7nhsjp4cLHcImL8R8P7IhN9mKEdYR7OK7H3uPSuQHF3PHCvpMT+Dq9Rx3TqKJ HpCVm0A3kzESVuCUThKrTfaP10S++9obpnlUE2Y4r5WXWFwKYsnHwFqxWvI2aPKUJ6l8P6EWn/Pg0KIC H3sUl8aPVyIUHhHEp0tQ9efFn8AqDfNW55LKJaLTdt oC8tOyd4E3Ypq5NhBm6sRd3skGOlRs2HOrBhQCF6bpBiBbCKAfV9oRycavrlQLT7K3s8vKG7Ac53r0zb iyIxc6BdAvT0WFjdBJNgZaNuwqRkFLV5ruNiuC5kqdPlMr9ARBSoNLdaijLnUyAPKv9WEyGiPR58Lwsg oX9gmVF+DQogICAgICAgICAgICAgICAgICAgICAgIC AgICAgICAgICAgICAgICAgICAgICAgICAgICAgICAgICAgICAgICAgICAgICAgICAgICAgICAgICAgIC AgICAgICAgICAgICAgICAgDQogICAgICAgICAgICAgICAgICAgICAgICAgICAgICAgICAgICAgICAgIC AgICAgICAgICAgICAgICAgICAgICAgICAgICAgICAg ICAgICAgICAgICAgICAgICAgICAgICAgICAgDQogICAgICAgICAgICAgICAgICAgICAgICAgICAgICAg ICAgICAgICAgICAgICAgICAgICAgICAgICAgICAgICAgICAgICAgICAgICAgICAgICAgICAgICAgICAg ICAgICAgICAgDQogICAgICAgICAgICAgICAgICAgIC AgICAgICAgICAgICAgICAgICAgICAgICAgICAgICAgICAgICAgICAgICAgICAgICAgICAgICAgICAgIC AgICAgICAgICAgICAgICAgICAgDQogICAgICAgICAgICAgICAgICAgICAgICAgICAgICAgICAgICAgIC AgICAgICAgICAgICAgICAgICAgICAgICAgICAgICAg ICAgICAgICAgICAgICAgICAgICAgICAgICAgICAgDQogICAgICAgICAgICAgICAgICAgICAgICAgICAg ICAgICAgICAgICAgICAgICAgICAgICAgICAgICAgICAgICAgICAgICAgICAgICAgICAgICAgICAgICAg ICAgICAgICAgICAgDQogICAgICAgICAgICAgICAgIC AgICAgICAgICAgICAgICAgICAgICAgICAgICAgICAgICAgICAgICAgICAgICAgICAgICAgICAgICAgIC AgICAgICAgICAgICAgICAgICAgICAgDQogICAgICAgICAgICAgICAgICAgICAgICAgICAgICAgICAgIC AgICAgICAgICAgICAgICAgICAgICAgICAgICAgICAg ICAgICAgICAgICAgICAgICAgICAgICAgICAgICAgICAgDQogICAgICAgICAgICAgICAgICAgICAgICAg ICAgICAgICAgICAgICAgICAgICAgICAgICAgICAgICAgICAgICAgICAgICAgICAgICAgICAgICAgICAg ICAgICAgICAgICAgICAgDQogICAgICAgICAgICAgIC AgICAgICAgICAgICAgICAgICAgICAgICAgICAgICAgICAgICAgICAgICAgICAgICAgICAgICAgICAgIC OgYOPmWXTeQZZyWKHjIZZzMOAvDTLcSHJyQLr9G2jaUTQjGZVnTQ4uQXd3Od5+EExRWmEqVGZ7dyXyxD 2KBY9zp9CiWFdnKXTta3IzWQh1LF5ZZZQtWHgmDX2P CRcjcr3UVHCaQYXtgSNGh1vvQhQmKTG1HLIzQfqaHV3FOKDdT4detyKwWFFdQSJWLC5TZrAmG1FwnT59 IDENCj4+SOesdwZbWsqHAqYwTMYuq7WlEAu3EI1LUMVkIbsdl3FjIeLeKQMYZEvbWT3THGE3KZOdOQOc Ko3IKLLzV317twUzVE2TVu2HDnDiUB9nbc0UUgRzNB EuEooJObs7SMxcGN4KfODrHHeBHOlulIbwgfKuBH5pf2EkbWRgHVO6PKXokzdcqQTqNYLxevxrtlwfZY FiCv1eAn6vDZBdHTBrDrS3VDIOBZ0GQKIiRCWmqNPiIZRoRYOUYY2WEVceMJZ8GxegxpUmsPDiHXxbAR 9QYXJlbnQgMjIgMCBSDQo+Fz4BMF9cp4XsAEgrFBWf IE1vjj4NNQrNNyNdL6G7iAXqU0G1JXvtPd3IRLAkPVUjHyEsOYTHZAfcIV0POK0muvO6YW2MrTZcCFKy OWIdkOVzXHw6I68rcSUcYGfkKM8JWRF+Eddie+Xv5NLHXkLCCoJSDlEsWaFBSXDvXhA0UmX8XRu2EjJ6Mu AA22hJqhlqAiRKjrJU6LCG4mABZpAQZXBS0BfRXwnT 1llgGfNeLbPATIOeVbS01ciWZyPJFpQECeMXCpSd7THABsW2VkzbZhoFjaofUbBXEfOOANVP0EQFkaqg PviLMdzMmbEB53jSxnBB3AUp8EPeMcIA2iad1WfFUjSo8GATShOA0ZIOOiEHSmRFBkSJF2JVOfAaTbKJ weABLfSLLdOCR0WOLzWWHeYR9IUiKfRSHmHVx5QAOn UEHbLJNgsq6JILTxHRHgNXF1RGQmLWHoTEFmJFeeSOZkHLVbKZX1LNOzCRFaOM2MHbGoGTKtUDSxLthi YLIcEBHvfr1BGRVyFKHmNWL7SFXhCHInGOThREesQTBtTMImThJ9PWHtSNBrSN5SVjSjTMPfNOB1JAFq ZHXuYKBgss7INOAuEOImAkWmIDEuFXCoQAJqSZlbIW OaFTQjNKr2ICGlFDWqXF6ZVsPhNJVbHPG6YLPaYCZjTEUgrc6WBYXpPKUbTuo5AlZyFCFsEQMpIGbjCV YlDAQ2VkPkDZJoAQEmOQ0UEaSkYWSqPOA8QupxKSLsBQUcai8GRIQrBIGrCoqfNtDeRGGxVWGcFGffAJ WeCOV7ZQh1WWKsFSJaTD1KBgTjUUWeCDsrGuDuYJDk RRQblr3MCSVkLMTxSXR8AOKbHHPnGJNaXPxvVOLgUPD4JmZiJNNtWBDsLV8BLgSgKUIyVBk4WpPhUEZw QECaux6EKMHfNWTqBEndMRXtFMVgQBNoZCegFNKgLWUvJuo9QGPtBBRkGA2ZWzXpOHHuBnQ8XLljXVJj BLCefw5UWUJqZKYzQXQmHBRfUAVvHLOvRYg3vxVlyO RqKMw2SL7AS9RqivCvVkILEx3Uq076BJL0NYXvFt3CN8evXf2eKIJiEQRPVh5QEQt7IRNdEGw0OfomOR D0SvI8MjqiSIMiGFNoGOV1WfJiYSA+KNn6XiPqWoYcZEQeIjWmUEE2QQGiEOH8EdQ5MfenU4EgYu5eBY ANCj4+XCkwhWZliLckRTNQUbMqCDL6KExmARHSBv5J ID Date Data Source [id number] 03/15/2021 11:11:10 AM EDT [facility] Name Value Range Interpretation Code Description Data Katlyn rce(s) Supporting Document(s) Telephone Encounter [facility] GJFZNj3tFxYLUrMw91/PXZkpQFGup7EzXVvgMVp5TXduNPHxG4RuQJE7aH7dMVO1GSzYXvXhCbCwQkPx lbm [file] ICAgICAgICAgICAgICAgICAgICAgICAgICAgICAgIC AgICAgICAgICAgICAgICAgICAgICAgICAgICAgICAgICAgICAgICAgICAgICAgICAgICAgICAgICAgIC WyIBFoSD9PGPNeUYDqMMPfXJPdJZQbQFErQBNeGFZeMIXbXDUcBVGzAGGkTYZbMWDhJSLiGXRxNHTuXP AgICAgICAgICAgICAgICAgICAgICAgICAgICAgICAg NZEeKDHeLEAjPINiRHTqTP9EBPLaEVGbWRHyLHDdJNAjZQVrWJEhRVMzPMFdEENjTQJnSQMxVYMwVOBj ECKjQODxCUQhRIPqYDGbLAFqHOUoJKMbURBhBTUqTTTqSHTcHJCfSUMrCBSjNWTgVTHwOMTdRVPdTT6L ICAgICAgICAgICAgICAgICAgICAgICAgICAgICAgIC AgICAgICAgICAgICAgICAgICAgICAgICAgICAgICAgICAgICAgICAgICAgICAgICAgICAgICAgICAgIC UjEWWhDLQoDG8IVYCjUMKaLLWqAAYiJNPfKCLcTOCrRDLhUCCiOIBrVKNgHYWeGSQsPGMiNNCmRDEaHP AgICAgICAgICAgICAgICAgICAgICAgICAgICAgICAg JKDbADWlSUWxLBYgMYSoGCPsHW8OFMCyDLBoTGIxGYGtHRLzPIOkPPLbEGVbWNBrTVHcHFGuJSBtZAXs ICAgICAgICAgICAgICAgICAgICAgICAgICAgICAgICAgICAgICAgICAgICAgICAgICAgICAgICAgICAg UU0RRCZuRFDlCUUhQXUeNDObVCKuKDNaZPMaOTGvAN AgICAgICAgICAgICAgICAgICAgICAgICAgICAgICAgICAgICAgICAgICAgICAgICAgICAgICAgICAgIC NaPNJrCIVlWGSyIG0DUZIuYPXkCMMyCHEvMEVuSLTlUWGkCDVrBRDpUUSsAQSeBCToMRLlFPZrBUKoNT AgICAgICAgICAgICAgICAgICAgICAgICAgICAgICAg CRQiRMTwLKWqFKIcUDChIUYvQTHhSI0ENAFiZFUiUYAiFHCgJSQdCZVbKZYmADDbVIIeFCGhZSAxKMQy ICAgICAgICAgICAgICAgICAgICAgICAgICAgICAgICAgICAgICAgICAgICAgICAgICAgICAgICAgICAg HUKtQL6KMXDwKYYeGYDdJOIpPRNoICSqRXUhAPZuZA AgICAgICAgICAgICAgICAgICAgICAgICAgICAgICAgICAgICAgICAgICAgICAgICAgICAgICAgICAgIC GlMCFiZKSgSWMfHBTaSM1OBS99fJSht4F6UMAtGU5ksye/Ok0ZTZhwpnWrdRZcGC5UHkLqBC4fnv2OJn JkER0mih6JUXrABmNnP9B2bSTsQEDxVATGXzHmL07f XIgzHu89UZjdDLFmWcEtKNb1Hb7SXvGxA6rtJOPgPvH7MWCfOnGkWUosEF1Ry0GpdITsBRe+Pw4XWG9n y0DlGKnqTcJeZS3dze5JLCsUYiPuB7UsaoR5TSYeZIPrTw4QOFDoPLYbrMZbCcMzBJMAZrOwB8XsyP23 IDENCj4+UIuxlqRkVrzOVdDhTLYiq9YfBHn2VK7QNH QxLAq6xRXzGZEjNRNwn23jDAMjX330vtZggkBodAACdQEwqEPvDPAobQG4fHVoBRQxTg4xCp0lXCRdJB KjEzZ0MBHEUW8NZLLgWEMaaDSvLCDwYJEHLL3PLCbrQUF7MmnlonDtqMPnOQcsAS4EFNYvfyNnBxMqYU BSDQo+Bk4PJP2hm1VgQXdrESVaKY8fzl1FFAjVTpEa J2B4aSBlC8O7PZufHj6QVGEaMUIiHyNmONRUKTfcEY5CGG6hgbJ6WS7UaXYwAYIpOUDoqACyEJl3M55s rIRkYKcnYQ4YYAV+Eddie+Qg7HULJlVSHyLXLxKcCvXTYCKwMqV7WqN2VYh3IsC1AuKJ95oXfnlyImWThp KH3OLE8wSDIxNNMVRQ4QhKCgkV8uqjFaYaDjMYGKVj LfL10stUXxCXTwNODkKNSmOh0BASItT8FlafUcrTwcltVfAGWgGEAZGY5KCJtbfcTlzHSnbNnzTG99rY fcHA3DAc3TCyYpFJ2hql7VpCTlXh4UIYNmFM4CKIAhCHBjKBHsHTO9WPSrAfWmMTeuOELcEZBtUIY4BI MxNKSnWL8EXuThLFVwTRg3AkSeRXBiXUStzo0BMHRh WEKvWNL3ESExTQVlDJMbTPyeAREkZDKtNVC9YKUhHMGjYK3LZfStGOLzEQJbElRmWMPeCKBuql7YTAIz SULpLAD6TVZbGEJqKXTzGRlzIUNeZQCjPfU7AFBmVBAiOP3JEgMiQAGjPKX4IpkdICElZDRfle2VTIKc MDAwMjYxNCAwMDAwMCBuDQowMDAwMDAzNTczIDAwMD FlSG3PIxLbTSAfBDB7JmGsPIVmPGPbht3OPDDdTMMzMpx9IsNzSKVmLSAiJBgzZKLpCIN5ZxLzEASsKW TzZR3NCtQjBBKzZQB3UVvrBPApFJBmpj1GANTxIHZvKwrqJwYfPEDvLWIcFDzlZMNvTIU1TNG9HEIdUX XoRY6VCtYcCQVlQIamBVRyIFTjSDCqer8GAWDxUNWr UUT1IKKmTAAnOWHfQJuyDNVzFJC1SqN2RXPdFSWlGY6TWvXtQYWoWHc3MYFqMIBePTHdrj9IBXSmWXQm XTkbRYEnHDZoMMNzELeoFMEtFCNrTwD4PSBiSOTwAE2JMfJbPZUzJdO1EodeKBTqVALqzz1RPRTzTFHw UXR1NTNuXFVcCVKiTRq0bsLjwPUfAIw5NK6NP0Xhmf CeCbKAVc5Gf302GDR3GNTlQm2CY5vzLy5yVKTqEQXFZt2AYBm3WmC6ALc9GbQtMEbaKmD9HlQ6CvKxEH a9TZcpTgOpQUW+CYzkMVk8FFIePoCeHJKxRsj5Lzt9ERQ2IHEqAnCdMsNxSv4yCUWQFg4+DQpzdGFydH foQYESShJhDRLuYUrmUMESDt8R ID Date Data Source [id number] 03/14/2021 02:54:22 PM EDT [facility] Name Value Range Interpretation Code Description Data Katlyn rce(s) Supporting Document(s) Addendum Note [facility] CHJNNu3lXjSBNvFe44/NIScjZSDmo1SgMQdjBHj9NMpvUALhV3MfJDR7wP0qKYE7BHwQRbCvCmDzAwUi lbm [file] f0A9IdKFFcNdFzZRElUoylCKR2OXt+AF1wGWn+Wa5Bf7BllrK4ffMiSXqiWYXcLK7QWZSPD8FUKh== ID Date Data Source [id number] 03/14/2021 02:54:17 PM EDT [facility] Name Value Range Interpretation Code Description Data Katlyn rce(s) Supporting Document(s) Telephone Encounter [facility] GTHJCe0vRpDZXkZh99/QGJdbTYDha4CrPJozLJe3AXswEXJzW5GxQDO3uR3uDSZ0OZbHEbWhFcIdVyJl lbm [file] ZDZiZWExMjBkZmMyZjUxNWM+YW6jCBc+Ba1Gt2BonsO1ljAeZTstLHm3Nx9EJOJDE1WEVy== ID Date Data Source [id number] 03/11/2021 11:37:55 AM EDT [facility] Name Value Range Interpretation Code Description Data Katlyn rce(s) Supporting Document(s) Telephone Encounter [facility] YVIBVq5wCmFSAkIc09/KSLubFCIpz7YcZAnjOBk6CYhjAQKcU4IrNLK4yD1mYZH7HKqTWuGjXvGwPhZ9 lbm [file] NzlmZjkwYmUxMzExMGMxNjEwYjI+NX9zDTu+Rm7Df9KeoxH9vrAuZNvzYIa5ZI0QASEKJ9XPYp== ID Date Data Source [id number] 11/23/2020 04:45:05 PM EDT [facility] Name Value Range Interpretation Code Description Data Katlyn rce(s) Supporting Document(s) Progress Notes [facility] LJBDSu8fXzRHIlXl96/LCXlxKIFeo1KxMIefCEa7ZBnfFNWaC7CrDOQ6vP9lUYR9IWbZGtGzTcOdEoWc lbm [file] [place]/c/mlQn2dc+NVTVnNXNOGla0+un4sADAJ9Wqtvw [file] AgICAgICAgICAgICAgICAgICAgICAgICAgICAgICAg ICAgICAgICAgICAgICAgICAgICAgICAgICAgICAgICAgICAgICAgICAgICAgICAgICAgICAgICAgICAg OMEsEF0AVPYhXKBzCMXlNVEzLNEpOQGxSJZvMLGcDOMgEWLfHQCdVNImATAwIUMuPJNuYQFiWUGbRMJe ICAgICAgICAgICAgICAgICAgICAgICAgICAgICAgIC OfMXIzDFMdVIMyUYEtMZ6FYGGfZZGiYVVaEABjAIQqZZIpVWDiMHVrDEEpEUSaFLAmCXPjLDNaCMHxEJ HhUWKtTXWrRVSjVYEcBGJfSLKmHZYjZYOiVJEhHXUhEWMqXNPaUBBfFUYrKJOqXZXhQKOpPQXfXZ8ADX AgICAgICAgICAgICAgICAgICAgICAgICAgICAgICAg ICAgICAgICAgICAgICAgICAgICAgICAgICAgICAgICAgICAgICAgICAgICAgICAgICAgICAgICAgICAg ZXZyDJBeWO4THAPvUJNbRIRiSAIeVQPvODPcPYXfGVHoKNQwVACsHXEfULMhSECvKHRoDYSaNTYfDEEn ICAgICAgICAgICAgICAgICAgICAgICAgICAgICAgIC OeWZBlLFCjHEMdHXTgWDNyTU5FAHTcRIYrOPEjEWGdFGGjMURsQAOjXFCcNLWzRQTjLOAmVUNcZHTfMO AgICAgICAgICAgICAgICAgICAgICAgICAgICAgICAgICAgICAgICAgICAgICAgICAgICAgICAgICAgIA 0KICAgICAgICAgICAgICAgICAgICAgICAgICAgICAg ICAgICAgICAgICAgICAgICAgICAgICAgICAgICAgICAgICAgICAgICAgICAgICAgICAgICAgICAgICAg VDUeMVKtHVClKH9UPZUkVNWkOKEzGYNeSLIdZJZoPXYoPRNtQYZsPVJeVBMqJEGmEDHrRUBjZUPpJOKl ICAgICAgICAgICAgICAgICAgICAgICAgICAgICAgIC KdFHTzINSaWUGvRZWyDRQxQODuOT8ZJMEjPWXmLZVuGYZzEWPzDVLbMYLdXCElCWJzFRNlYCSbGVGzYX AgICAgICAgICAgICAgICAgICAgICAgICAgICAgICAgICAgICAgICAgICAgICAgICAgICAgICAgICAgIC YdBK9UCRGzDTBpKPGjTXSrNCTmELSuFCBfJCKlCRAe ICAgICAgICAgICAgICAgICAgICAgICAgICAgICAgICAgICAgICAgICAgICAgICAgICAgICAgICAgICAg VPBtYWDsUKImHKStQY5FPI02qMDyq3V3PKArBW1szxd/Yi3GFXleyyNcwRIcOM8GUqIuWA6ecg5AQzFp VQ1tbo3GRDeXGlAgR8U8oZYtOVTqGLGGQhTzW52wPJ lcAm81DTtoJBSjCzDmTXe9Ro7UKgZvM1kzKYQiYhO6TCPqKfQ2OTNeFkE6WTQpElJzTBNpSUQaDA1RSS BgR515zaIcKS1LHb6GYxTsUN4zbb7EBlgmQHEnFipUCip5KDmtGP0OwGEfsSV3DNHxLAFBHgZjQ5ujt6 VjPVIqMVBCMChqGX8Hr9RnoMCqRAc+Mr1BAQ3yl3Ao VTs7CIEgFD3muo1XTLdRRkEkX9JnxYpiSAQzc8qkTNNyLK8cfVCaJNZ5IBCmVCExxKOQr2wdyruuPsIi RPZzBy4xAx8eWVCqONJtZgXjITHMLS0MWJWmPYDttADnWHSuASTAXH0SQAegQIN3DefbxbRxxPQbNJym LO3AJDNfqrSkZgulRZVUTHf+Qq7BGA3ak8EgBWy2MV HaOV4laa3IYBbVXeJtA8H6fLQvN9H9BHpjLi0TQIJhHDChNcniGPINAXkxEL3FIH7clqB7LI7QgYQrNC GbNPQdiKLuXYt6L11dqRQhOYymZI4HATA+Eddie+Sr2WIRKzZWQhJARvCrKrYZJKLbZeQ2VqA0DLk2EfY6 VzEO63bVrhpkXfOBzfPD4JVS3wNAKoYDQFKN0UrBTg lN3eduAdHUJiOHWCVnUdZ44jcXMmVOFbRBC8DDDvMe2MNPEbT1ErexHpiWglyiGiSBNgEPVRMJ0DYTeh hwMqjNPqwCbeJT40aBaaOW1QCq4MLwHyWT2cxs3WsWYjXd2VSQX2Fe3SESYdBPZbZQYxJRD8ZRVjYvDo UFqwZACjMTSpOSW8BFYyOZSxGK6IPzFuLINgCNO5RR BoUEPdUWJqtc1FNYEmWHK5OBG9CGTwKQEhGAKzGZheJGPnNWWeNOE0QQXsXYBgBT4SObItTWSjLMA2Nl CvIVZsIUNrey9PFIMcEWJyIhG0CJMeLVRmVRQjGJtjFMJaGQG5GMyjACBrJWUoPG5SKvJsCTWbLCyaSs OtEUDnGFShwm0DFTPnUETgFWGfLDEgVWBdVBXiRYam UIUwRNLcFbB6UXCjJDCrDL0TFxSmDHTzFQKyZwVhPVTfQWSink0HOTFeSJDnIzJ0DVFuBCTiNXNiNLwl JPTiTOYfJnOgXBSmFQDxIA8UPbFlHYLoOBV4NyEaUHFkLQZfvy1HTKUaYKArYnolSERoMTXaAAQoTTkr HWQqMFH3KkznGJKyAALbPH5FTzJuMHZcTCA5QlhvIU HiYEUbea2TRRSfFSKlMOY2RLWrVTNpDEQbHSiyUBByNXA2FLY3LFLnJIHjFL4RHiYxZVBmZsy9SvCrFV QcPFAqns8KJCFxULQmAkejRNOoBJYgGUJjRMdwJBNrZOG4YKb4UOIsTJJtID6KMxLdNUZjDwlyVxEgZR KqYDXxfp3CQGRvBSKuCFU8MpTzKRLdVCZnPTeqRSPu KND1DHS7USShZPZxEX8XBoRjJPVcPas6FdJgRCKsZQWcto3JLDLyFMSiVRJ0DFYlWMBiSOEpJFudBKUi DBOfHgW5NAHvXBHrLC1VHaEgQGGcYsI8SjXtXYDrEPOwzj4YKAFzMJG8XRX7GpKlOTBtFTWuEVozJAMq SPZ4DMmrUTZdLHAmPX8TMrRqKNVyOTZ0UVDjUYLeWA Pwtq1HYYGrDMH0CWAcGzTeRIYpNAYnNNxsXLTlQBH0SNs1WPRoICAsWY0IXpFaKYQwOXIzZEpsNLEqMS Lgmw5HHUAwJOY4JqVoFPIkYIUrEDZyLFghSUExSJZ2VJm3ZVMpVYZeVV4HRpZuFDZlPJA1BSPxQNElGO Bvgu2KWBAtIKA9FKNoVOKgUJVpFDVrXObuVPZzDEB7 JAgcFPDqHTIbOM4MTqRaNZKrWTi6BesxYGHkIIOnxy3LyIPxdPupvk3GVLqFTi6NhDxpDIWhFHomWu9c wAZ1FCRkBBZTBy9RskHhFERmGVZMHAjdFWZdNUGrFDXoV9J5YmuzKKPyMCZ2JjO2IeG3MJZ7ZHHrX5Ca KaL8UmDtIBKuNMezJBJ0RnPuZMj7HfYbUZPlAzKgJm EzZmE+JQ2xUMz+Rn8Hm1UlkqE2jsLrNIi5QYi3Qz3NPCRUX3HNJl== ID Date Data Source [id number] 11/23/2020 04:43:55 PM EDT [facility] Name Value Range Interpretation Code Description Data Katlyn rce(s) Supporting Document(s) Assessment & Plan Note [facility] FGITLj9nCpGVIwPf29/HVIeaAZTeq0XsRTzkORh4WBkgPYUbH9GfFFG0vQ9pGOP6TPwROdGhJiAxHkJm lbm [file] PkW6JHX3bUEoJx9POvD4DbRYUqFlUX4RHRt= ID Date Data Source [id number] 11/23/2020 04:33:51 PM EDT [facility] Name Value Range Interpretation Code Description Data Katlyn rce(s) Supporting Document(s) Patient Instructions [facility] GSTUDe6kAjJWHoXk72/WIVmeGEQeo2SoRUfdQTl6OYmpXBGpO6LbXER0nO1iABU0YVwEXnUoWlOzQcDo lbm [file] [employer] ADJUSTER+Oq0OXSDpADc2Q7E1WQDpVVq4O5CNH4AMIUWaDYciSBebKLZmZPl3B5W1IGWuC3ZBW4Mjwwtflt3+ WK8LK43EZIFsHCp8N9X6hARnT3M5mDlQgKL6EN0TTS 0ZpKt9vCCsmH6+UZ8NG7WFEsCxPFm0Z7W3xRUkK3H1jZkMgCZ3JY8QIH5AaXMmKRXvteWnEp0oK3RSGC rBMsKVZLG8YA7LgTYyUW0ZaEKDA6TduJUpQv7zVXghcFGxuH4pQs2tVFekMG8ZGgPIWIaYFNA5YO7BbC XkJO9BhSZEP2VctPUkPg8gLYflpJDjjq6+DE6TCBYk Ho9LYe5+JZkwtuAmQbtROaXqZNIaz1QyZNb2BO2IZC2klPpfMMZ8Eu8UlOU0nKTbW1zYSN9QnCJuU66b yMWvLXHdMi3HOrX4bzPgfY1VMM03bVXbs9H5WTGxU9hqCXrse77iWEynSAdUJF1sVNGEISeeTWkmNMJ6 KjShzvfaZBClXt3SQtWvOJg3zA7ngLM8TZK6KllfeU DpCBlsZlFjXnYuJnJ8nUqwpsz5DZjhJU9dUCtuyaluUOYrRfn+BRsqIOJqGILfKgpQRVOmiT9fanN3bz XdKAoxrGQiTf8wv8y9WdodNe9aRb5rVFy2QfKsNyGlQVGpNt8etE38AGhrfwPcYq3JKfPcCJW5T8CjLx pSREY+RLrvQZtlrPz1hFNgRCBtDp4CRQOpVPAfXZEh ICAgICAgICAgICAgICAgICAgICAgICAgICAgICAgICAgICAgICAgICAgICAgICAgICAgICAgICAgICAg ZMHrWWHmAOQnQREqLIWbHGXbJCXfAWSrIWSkQVAwRR3RNTDzHVZmGCMbFUCmRDPzOTWmRXAyMXHsOOYs ICAgICAgICAgICAgICAgICAgICAgICAgICAgICAgIC KgXHQjZHFvRUHdVOZqZPUzTGXeZJKzHZLhZEUxIYEoAPQnOTOmZIFiQX2QHNOhGXAcPKPpTJUoXTCwVU AgICAgICAgICAgICAgICAgICAgICAgICAgICAgICAgICAgICAgICAgICAgICAgICAgICAgICAgICAgIC RwTKFsPZBsDEBxJGXvZBBkKACxUFSnNV5WDKCkDBHj ICAgICAgICAgICAgICAgICAgICAgICAgICAgICAgICAgICAgICAgICAgICAgICAgICAgICAgICAgICAg MZGfTGTuNATdPKGuMWVmIVSpIKJvPAEmYCCkMVFgAVYxYL9BPNSaKGUvPEDhIHEbHITkBKCuYNJrYPCg ICAgICAgICAgICAgICAgICAgICAgICAgICAgICAgIC LeVLYzZICqGLPsEESaKNEgMDZaGAKfNVEsYJJbYRGeUXWvAZAuFXNnWELpRV9TKSPaMRToTAJpSQNvYV AgICAgICAgICAgICAgICAgICAgICAgICAgICAgICAgICAgICAgICAgICAgICAgICAgICAgICAgICAgIC RnIHHzKSSqEZOaWWIoBPOcETReQUFbFATgFC7ZMRKl ICAgICAgICAgICAgICAgICAgICAgICAgICAgICAgICAgICAgICAgICAgICAgICAgICAgICAgICAgICAg HCLqWFExPQYeFDKlDTFeZNQdNPFxIKJnSAAjQFQfJLOyDZVsZB4NMKJlDZJaXRQnFEGeOBGhJASoXWMo ICAgICAgICAgICAgICAgICAgICAgICAgICAgICAgIC KbXKCwFTBpHEOvLROmYWQaSNMlCANgWXDjGMXbXMFrXNTcWIGtKSJpVNFsONRuPD8NNLZrENPzMWJwDV AgICAgICAgICAgICAgICAgICAgICAgICAgICAgICAgICAgICAgICAgICAgICAgICAgICAgICAgICAgIC RvTXYbZTUlPOVdIJGxNWFiFUIkNRXjQYNlRGHqPO7F ICAgICAgICAgICAgICAgICAgICAgICAgICAgICAgICAgICAgICAgICAgICAgICAgICAgICAgICAgICAg TXObUCYyHKAfUVFsYIFdNYLxRNRpGOEuWYZnNUPuQFVbCOUbJMAoIO7VJK18bGRui2P4PBQnEC1ftqj/ Eo2FTXktltGhhKUfBQ1XXuGaDZ6xgq8NLjNwME5ntd 1GUHrLYyDpD8L9bTBgWBUvAGBRLsTtZ13eGJiaHh39HVmrGGXoVyGjVPk7At4OKcCmZ1qeZIYfVmH0FE ZpIdDiHNfjHA8Kz6UelXHpZSn+Lv4SOM6ah6RrDRceKyXaFB6wxv8XJTtKCcLbC3RszaT4IEBnACGlUs 8QLSPrCNNqcXEiVhImYPQFPhLbG4XlwO13SBHRCp9+ ZXbwvsZcThjREuOiYXJji5RlYOf2EB9IWUXvNEy1pNSyINW0mOEjxDCJcpM5tiEerYamezKvOcqpUVTu R3V5EEUfc52fDXQVDXFemNTiGcGuGaPkGmZbGBA3JNBaHC8oUUgcOK0VKXI6GYqpCAFoIKDrB6gIPkYy ZKlkDUJdvNckQJ0ICjWpL9ExnpBinUQePcVcIANWYz 4+LLncxuApOfgJBaG4BGBqw5OeHFs1OQ3QKBAtUBrzAJ3EMJJgdY7qYGeuKO2JVjMpERLoQIGSQfRlE7 2vkHNrITi8B6LsRhMqONZkLfabHBFlSCrnQsOiATBhTdFjYHzwLR6+ID4+CLtnBV2VHTkamuOiSNXnMr 9VZQZgTQUtDQ3xMYVzLNIjD6S3rZypNEIRGrNwF4ve jfobWG1tGDSyU591nCoraqUpXWSlJUUsVh4CGEWjEZR1FNKotDUrTgThVYSMTTifTH5DwSQjZOV3cK8p XBucSIEhZDVyO0tJXdQacMqvWK09zJruckWgvBYdZYj+Zc7RET9fz1BrHZq9khIdPSwtYXN9LQheNKBf JREpYGApNAI1CCG8HYMKQgQkJHNuXVCoHFiyNYZmRI Mlfi5SGIGaNTIyLCaxBoLpRBJvGUPgLKewMVYnOKNrZqI4ULUgOELqGY6VUnYzWBZnJGTuMBpbACPmOS Kapq8SVXBcXTIrTbX5FXSgLJSjHKNqKIboBAIjBZTeUtT9AKYzSKFxRC2NRbDdDXJyDBQ4FCquDYHqHU Zwia2DAQFtZPAiQhuyYXVlJTApZEYwMBeuYURgEFS2 DRNnSDMmAAYnAI6IUfPiJQSxWHJ6TcCmDJZjDJPdya8LANGtAZFiJNM8EMTyXCIzVMBsCQspCOCzHQX0 UvAkZXGtVSZuWL1PSqPfDESvXZw5UNGsUXKrHUYlmy1BENFgPCUhLHPpBsDwTSIeUGRuTEmxPGKtBPG9 UlX9VDNiRSGvMC7RLqVqCSTjSFq2XBSaWVPdUTXxln 2XDHXrGYMxKBAiOGEvORTwCDQpRZdkCBAqWMY5TXXqPNGoIFBrCU5SJyJvSLKpKMm5KxcdKWNrHYXuru 4JOZYhDJWtOAyjIQVvOZKsIEAbDHakSKAgRUYjPxV0JFTpIHEjHL8MOjPeEYKrPqL5SBZqCULvCFAytr 9BVPIsPMTuFWctNnLrCPWkZEOvPYoiEVBuHNKcTXr3 FYAgQNGgIX5IQkDiBSreJBRIAoh3NJjbX2x3CGRhZO1IL8Ekc3PaLyDhOFHRVOznMD4btxPiSYUxEl5N I5zZAebwPJFxBRO9IDVoIGWwDSQ7CHQ7HTL0HNBgVYX1UfSzEg0hFEN1KNQcPml9NCB7IfF0SkO4Buw5 SbVpKyGiGDsiSuHwEvFrLS0NRr1DXuM1CUQ2xRWqWy3XUqGhLyUNXvZuCJ7PIEf= ID Date Data Source [id number] 11/23/2020 04:29:40 PM EDT [facility] Name Value Range Interpretation Code Description Data Katlyn rce(s) Supporting Document(s) Assessment & Plan Note [facility] KSBRMl1iZjHSIxKa59/TVDziJUTsx6RbILblYZd7XRrxYTBrC8HwLFS7cQ8aLEY5IRoXEjRjQnMdJfQd lbm [file] ogICAgICAgICAgICAgICAgICAgICAgICAgICAgICAg ICAgICAgICAgICAgICAgICAgICAgICAgICAgICAgICAgICAgICAgICAgICAgICAgICAgICAgICAgICAg ICAgICAgICAgDQogICAgICAgICAgICAgICAgICAgICAgICAgICAgICAgICAgICAgICAgICAgICAgICAg ICAgICAgICAgICAgICAgICAgICAgICAgICAgICAgIC AgICAgICAgICAgICAgICAgICAgDQogICAgICAgICAgICAgICAgICAgICAgICAgICAgICAgICAgICAgIC AgICAgICAgICAgICAgICAgICAgICAgICAgICAgICAgICAgICAgICAgICAgICAgICAgICAgICAgICAgIC AgDQogICAgICAgICAgICAgICAgICAgICAgICAgICAg ICAgICAgICAgICAgICAgICAgICAgICAgICAgICAgICAgICAgICAgICAgICAgICAgICAgICAgICAgICAg ICAgICAgICAgICAgDQogICAgICAgICAgICAgICAgICAgICAgICAgICAgICAgICAgICAgICAgICAgICAg ICAgICAgICAgICAgICAgICAgICAgICAgICAgICAgIC AgICAgICAgICAgICAgICAgICAgICAgDQogICAgICAgICAgICAgICAgICAgICAgICAgICAgICAgICAgIC AgICAgICAgICAgICAgICAgICAgICAgICAgICAgICAgICAgICAgICAgICAgICAgICAgICAgICAgICAgIC AgICAgDQogICAgICAgICAgICAgICAgICAgICAgICAg ICAgICAgICAgICAgICAgICAgICAgICAgICAgICAgICAgICAgICAgICAgICAgICAgICAgICAgICAgICAg ICAgICAgICAgICAgICAgDQogICAgICAgICAgICAgICAgICAgICAgICAgICAgICAgICAgICAgICAgICAg ICAgICAgICAgICAgICAgICAgICAgICAgICAgICAgIC AgICAgICAgICAgICAgICAgICAgICAgICAgDQogICAgICAgICAgICAgICAgICAgICAgICAgICAgICAgIC AgICAgICAgICAgICAgICAgICAgICAgICAgICAgICAgICAgICAgICAgICAgICAgICAgICAgICAgICAgIC AgICAgICAgDQogICAgICAgICAgICAgICAgICAgICAg ICAgICAgICAgICAgICAgICAgICAgICAgICAgICAgICAgICAgICAgICAgICAgICAgICAgICAgICAgICAg FFPeOYWeZCBmWSIaZQVmQMCiIHw1Y6xkGQOvIMIiPF0zUUm1Mw1+NFfLMqDrHMV8trUseD1BIQ8ur0Bv ZGjsNWIhu7GrLTf8LC1GOFPwVZxvMR4OBTjxvl4MCK GlSITqwMLWm3rvGcVxYPJ5RATcEptgRQ5KBPBuB6nbioCcREBvMBTIAX7IIzDvS2ZfcW01ZIMMRv2+DQ hiorCbWhyHRwAyILNrm4KvRAs4TI2OWPHqZnusz6JzHmEdTZESQBibAD1YTHC5QSYtYSHcLx0CKOQxX2 43jlKiSP6RNs9QRfReUZ5ioj5CGcOaGOHgGiaLCwm6 TNjmNX9DpXRoPLzKf1Ssf9UuIK39DZKlUFlwoiSOk9ErZTK0ELJuXNCueJWMz5ogeilgDpOcRXFwWu7n Mg0bCDCgJKW1JqF7AINYTI1FFAQnHCJlmCOuDSGaYKTTPN6IRZncWOC1QlkqhuVljWQjYWarIG1LNEGk bnQgMjIgMCBSDQo+Mk7KKQ5nd7PjGHnuUZHoWG4tvs 2BLWyGGgGqZ8B3xNRbI7K3RDwaGa8BUVIuAAZtIyXtTIIJAPdgEO5MRP3jgiQ1OI7SlZEqJPLcFTUmtM WuHBs0G54gdLIlJXvlRE6CEAL+Eddie+Sr4KPVWoGOPgMOMgPeJaTAGNFtVbW8RfO6ZIl2LeR8HiAJ94pV obslSoIInlFE4DGF4pYYTxAUVETV7IgPCjbX4ghdOn WzWyTWDNFxUyR27dtVMxPEPnSYKqCHJdJt2GCVUhZ6FlbfBcrVipihEhFTYjCSIWPS4GCGrjecDkiPVr pSxyUK56xNojCU2IUw8DSeGiXW6vfy2WtMGlPl6MZJUdDH8CEVLbINVaTUKaUNW6SZCxStEnCTpiITHk BEXzDQI1CPLoEFAqFX0LDbWhVTJbBJimGVFqWKIzAI Fobb0WSWJiGFMhCJXcBLFxLFOvJDEjVHbuOEGtBAStBUQ1QYFdVVUxGR1OEdAxIXRgVIT3RZarPMYgEW Oagy8SQZNpQNEiBIHcRjQwOFFtSMXnKEscCTStOUWxGEgqWTHqAHZiXL5VMlTaSGPjINLvWLBgDHHjMZ Ygwl2XCPSgJPHeFuL7NjMnCSYyFXVhHYhsACJrOGMb BNL2MOFeMQXoIH6JJzLnDAEhBID2KiOwISOaYBOxzu5JLXUgGJTnEgwbJYGmHIKjOBChWIqqWJTeOTH2 UYYoTBBsTEHnWJ3PRvCiECDaYGR0YmphACJxODPbzd4KCZVjJAFlSbD5ITBpINMyRSFiDWauTVKsVKI7 ZZR8BFElYRDdSN1MHsApLZEfHTxtLlOfAOOsNZGwry 0PTXPjPVTiWYGbGzLfIQKiGQPvFKqqYDAhXON1YLuuKVDfBKQsRA7ZRmNmILNiOPjyIkKiXNQgHRBpxr 3SVTKsCHGuLNm8ZNShNBZaCPHvAZlqRVEoGPEnPmZ4MLCxGHMeRP8BIcKiEAVbVdQrHFduNMJuXUKonv 2DSGJyIAGnXVB7OKDsZEUaQRDiDCh0mfPxtWVsXVe9 AY7VU0LoitXwCdQXZn2Jw073OXY0AIYuYp5HO1xfQf4bAOEzXBWLFz2MGPe2OOsxJABcKZP5ZLP3GCHm SAOnOvB5ABCeHIRwRBUxBdY+NTv0RRL9V2U9OOItGKR2OdHwKdGuHjdeYcXnASGaINIjTO5sBYNQEy8+ QEjlnCHfvEarDDZSKdCzKky9ILonTFICHh5G ID Date Data Source [id number] 11/23/2020 04:29:09 PM EDT [facility] Name Value Range Interpretation Code Description Data Katlyn rce(s) Supporting Document(s) Assessment & Plan Note [facility] ZLVKQo4iQeAHYbCs43/MUHbpDMCvi4CmRNdhZWr6ECapOQOfE4FyNAT0bK3uGZN2WCoIApVsVlJqWbFe lbm [file] ICAgICAgICAgICAgICAgICAgICAgICAgICAgICAgICAgICAgICAgICAgICAgICAgICAgICAgICAgICAg ICAgICAgDQogICAgICAgICAgICAgICAgICAgICAgIC AgICAgICAgICAgICAgICAgICAgICAgICAgICAgICAgICAgICAgICAgICAgICAgICAgICAgICAgICAgIC AgICAgICAgICAgICAgICAgDQogICAgICAgICAgICAgICAgICAgICAgICAgICAgICAgICAgICAgICAgIC AgICAgICAgICAgICAgICAgICAgICAgICAgICAgICAg ICAgICAgICAgICAgICAgICAgICAgICAgICAgDQogICAgICAgICAgICAgICAgICAgICAgICAgICAgICAg ICAgICAgICAgICAgICAgICAgICAgICAgICAgICAgICAgICAgICAgICAgICAgICAgICAgICAgICAgICAg ICAgICAgICAgDQogICAgICAgICAgICAgICAgICAgIC AgICAgICAgICAgICAgICAgICAgICAgICAgICAgICAgICAgICAgICAgICAgICAgICAgICAgICAgICAgIC AgICAgICAgICAgICAgICAgICAgDQogICAgICAgICAgICAgICAgICAgICAgICAgICAgICAgICAgICAgIC AgICAgICAgICAgICAgICAgICAgICAgICAgICAgICAg ICAgICAgICAgICAgICAgICAgICAgICAgICAgICAgDQogICAgICAgICAgICAgICAgICAgICAgICAgICAg ICAgICAgICAgICAgICAgICAgICAgICAgICAgICAgICAgICAgICAgICAgICAgICAgICAgICAgICAgICAg ICAgICAgICAgICAgDQogICAgICAgICAgICAgICAgIC AgICAgICAgICAgICAgICAgICAgICAgICAgICAgICAgICAgICAgICAgICAgICAgICAgICAgICAgICAgIC AgICAgICAgICAgICAgICAgICAgICAgDQogICAgICAgICAgICAgICAgICAgICAgICAgICAgICAgICAgIC AgICAgICAgICAgICAgICAgICAgICAgICAgICAgICAg ICAgICAgICAgICAgICAgICAgICAgICAgICAgICAgICAgDQogICAgICAgICAgICAgICAgICAgICAgICAg ICAgICAgICAgICAgICAgICAgICAgICAgICAgICAgICAgICAgICAgICAgICAgICAgICAgICAgICAgICAg NVPiZVFvYODnWWUlUQGzLGa3G5vfNNUjWLOmIL9eNW d3Jz8+VLsHQhNkEYC6ieXvaR8FID1hq8MkVTqkNYCib1MzOCg0XG9MTJDoODklUU0AYVsebi0TLMTeFA AdwMPRq8ggUaKpKRN4PCRsLwcuCE4EPWSjT9nhvcTiRWOuXSAGBI1VVpDqH5SeaW21XTPHIq5+DQplbm YzEbgKBhJdHFOmn9JeXWh9JY3EHAObDrnkc2DzUdGm OGTJHLkiXG6VHNX0NIGkVXTiDo8ZCZSpN561klSwJR6ZGb1QBvRgSQ7dch4HAhOcWEVnTbwBAal7ZDqr WV6EkZLoDVmEn0Rtw2PdLN97PVTjTDqkbbHUc0XgDJL1OGZtGPJkoCRLb6cghhmvXqDoOBQhZr4nAw8o HMWnKBB4JdU8FRQLPX7DLHJtHKTtgXDyOIZeZEWPDZ 3MBQgdVUA0YzwaadFizUJrGWkePK0LXAMwcnBmQyRkIQOXRZe+Cq6ABJ4yg9YuFPuxPJFiZY8jgz2ADW jYTaQkB4S1kKVxI4S6RUwbTx1UJSDzNFWlLyVpXGZOPUpaST6WOB7sjhM1JD2IkCFdLJLmZGIlkXSbKV p1T53xcSQjAClnMI0KAFO+Eddie+Cb7JUPCtXGYwIWVt QxDaGSSDYsLfZ7ZpE0XGs4EjE9BtZP94hEkfksSiLYziPX2NVW8qKKFgNVUJXN2HtITdhT6jceSxYhNc WQDVLdLxM15isPXpYNYfYLAqBZLgJv2NKMCrS7QmnqTctFijljNoCTVnPAKBSL5DAJtghcJjqIZnzQpx QG70cZmeKO9KZb2DUhKuNU6myb2PdYVvDz0VGPNuIE 0RSJSjCDZlGSQbSYM6ZHZdItUsWZymSBVdFUSsARS9BATdUIAhGF0OZcOqEDBtFMb3BJFqWPClFWIeox 8RDLUjKOMfPRQ0HmBkEWMrCDYyYRqoZLDqYTEoKCK6CRIvIDXbCW2WFyAqDBHjJIF5NhAjPFOtWPIikl 9HXWLlHTQmUFV3MKFaRRDfKHHzWIxqRMNoMKIoOTJ1 PMGuEXDrNK7IUqSrWWFdMRHrNalgBYUoCDPvql7XIGAhIKXrYcCmXgIxHQFpFTJaAZsyPGWkMEVzYSsi ONXmZRXsAS0JCmUwNLOpHOL1NzuxXFIcXYTmpv0ADNYzPBQsDfv8CKHyLSBoLODuWStpJSDeJQF1WxZy XDDlPMVeJT6OUlFzWUDnVGY5KxGcDFHnUZKvla0VYO JiZMLbOnowSVCeQQQaKDKdTBzsTYMsNKL7KNd0WTVcMYBhAU1ZExCsXBLuPEsuFbHyUIZhZBTvea6UBH HaIUUsKQA8BhTkDGQlUGMrVPoqSQArXKG8VnE0JSQyDWTkRZ4ZYnKlGNChCNr7MrOaXRTgGSBrwx7GJT GdDAAiALvaLmMuEZCgTQBdFQvbBMIvEVEdFcj5KJSd PDGsIP1UHwHkYPDnDrIwSELzNIMbZRQraj7FCLJaWFQiXINqJLZkPUTwWLErVLr7ekQupQDcBUk8YT1W K2ImquRbRxUSCe5Sg914FJB6FWCkMu6MG9nvBf1iKPThIAXBSd4FSMg8Yvi8AWM1B2VuRxEvAAH4Juhb CWz7Evu0J3NmWBPeDbO+PLlwYawqOxw2QXG7PuBbRK AcRtTgPKAqEjhhQIZ8VSK6GM8eKAZNWq4+QHoklYNqgXzkKQQQGwHzDsT7OAssVXJGQc8T ID Date Data Source [id number] 09/16/2020 01:00:00 PM EST [facility] Name Value Range Interpretation Code Description Data Katlyn rce(s) Supporting Document(s) SARS coronavirus 2 RNA Not Detected [facility] [place] This lab was ordered by [facility] and reported by [facility]. ID Date Data Source [id number] 09/07/2020 01:00:00 PM EST [facility] Name Value Range Interpretation Code Description Data Katlyn rce(s) Supporting Document(s) SARS coronavirus 2 RNA Not Detected [facility] [place] This lab was ordered by [facility] and reported by [facility] ID Date Data Source [id number] 09/02/2020 03:30:00 PM EST [facility] Name Value Range Interpretation Code Description Data Katlyn rce(s) Supporting Document(s) SARS coronavirus 2 RNA [facility] This lab was ordered by [facility] and reported by [facility]. ID Date Data Source [id number] 08/24/2020 09:00:00 AM EST [facility] Name Value Range Interpretation Code Description Data Katlyn rce(s) Supporting Document(s) SARS coronavirus 2 RNA [facility] This lab was ordered by [facility] and reported by [facility]. ID Date Data Source [id number] 08/19/2020 10:48:38 AM EST [facility] Name Value Range Interpretation Code Description Data Katlyn rce(s) Supporting Document(s) Telephone Encounter [facility] QXATYn7xAeNQZyJd07/RQSiuLETma1ZqORxqTYu8UTmlGOHqE1KjMWA3tU9hXPB0KQqZGfWdHhCoUnT7 lbm [file] [id number]= ID Date Data Source [id number] 08/19/2020 10:42:31 AM EST [facility] Name Value Range Interpretation Code Description Data Katlyn rce(s) Supporting Document(s) Telephone Encounter [facility] TVYUZy1kOpSECoQk55/UWWafWKRzm8LvGQugQHs0WPouHYFvC8JvVBK9iE4dIHA2JDbJExQqCfOkQtP3 lbm [file] ICAgICAgICAgICAgICAgICAgICAgICAgICAgICAgICAgICAgICAgICAgICAgICAgICAgICAgICAgICAg ICAgICAgICAgICAgICAgICAgICAgICAgICAgICANCiAgICAgICAgICAgICAgICAgICAgICAgICAgICAg ICAgICAgICAgICAgICAgICAgICAgICAgICAgICAgIC AgICAgICAgICAgICAgICAgICAgICAgICAgICAgICAgICAgICAgICANCiAgICAgICAgICAgICAgICAgIC AgICAgICAgICAgICAgICAgICAgICAgICAgICAgICAgICAgICAgICAgICAgICAgICAgICAgICAgICAgIC AgICAgICAgICAgICAgICAgICAgICANCiAgICAgICAg ICAgICAgICAgICAgICAgICAgICAgICAgICAgICAgICAgICAgICAgICAgICAgICAgICAgICAgICAgICAg ICAgICAgICAgICAgICAgICAgICAgICAgICAgICAgICANCiAgICAgICAgICAgICAgICAgICAgICAgICAg ICAgICAgICAgICAgICAgICAgICAgICAgICAgICAgIC AgICAgICAgICAgICAgICAgICAgICAgICAgICAgICAgICAgICAgICAgICANCiAgICAgICAgICAgICAgIC AgICAgICAgICAgICAgICAgICAgICAgICAgICAgICAgICAgICAgICAgICAgICAgICAgICAgICAgICAgIC AgICAgICAgICAgICAgICAgICAgICAgICANCiAgICAg ICAgICAgICAgICAgICAgICAgICAgICAgICAgICAgICAgICAgICAgICAgICAgICAgICAgICAgICAgICAg ICAgICAgICAgICAgICAgICAgICAgICAgICAgICAgICAgICANCiAgICAgICAgICAgICAgICAgICAgICAg ICAgICAgICAgICAgICAgICAgICAgICAgICAgICAgIC AgICAgICAgICAgICAgICAgICAgICAgICAgICAgICAgICAgICAgICAgICAgICANCiAgICAgICAgICAgIC AgICAgICAgICAgICAgICAgICAgICAgICAgICAgICAgICAgICAgICAgICAgICAgICAgICAgICAgICAgIC AgICAgICAgICAgICAgICAgICAgICAgICAgICANCiAg ICAgICAgICAgICAgICAgICAgICAgICAgICAgICAgICAgICAgICAgICAgICAgICAgICAgICAgICAgICAg ICAgICAgICAgICAgICAgICAgICAgICAgICAgICAgICAgICAgICANCjw/vYDgG8bhdVGtkbF1W1ihNr3G Qj4FZA2hu4YxGAXyDGnzawXyLvzIAbAwFWQyXpcEBx w8NZwbMD6GqDYkM6ZkS6YlPMljRX9THUGhHZOjlNRiATRuGSWsAqR7CASuKVfaNC7ViZRaFUagCDHsJE FnIX1GXCQdI879nrDpXJ4EWd1KGyGxLS8pft7MJeWgZHGrLndHAnx6QUsaYV7CrSKsoMTxNiYiTIUEUx OaV6jjw0KjRrFaGXOCCNanHU2Hk2CuwVVsWWq+Pg0K HB2dw3IySUdlFbIbHU7zqp4CFBkWJdNeP6CmfDibCXCafKPxpM6sNGLPnwRifH96CRLtFdzfEQZcS5L5 QRYja59eIEHMBULaaHCnKw1tCa4rILPpPRTjVfMkXOQYLQ6KTFHkVRZjkKDsFBFoHQHJIZ5YSBwbNCE0 WwvggvOlzKAdJDcqCJ8XMVKdntCtHgYdQVVHZFg+Pg 9HYD2pv8MzMCdaNXCaMR8dpp2EQCqHPaCnT3K5aJCfT1V0NJdsAn7OXAQjRCTgXaAgQTRHPTwsEB1KTB 3zbpF8KG3WxKJnOMRpKRPrlIJyVFj2H26qsYZsOJjqXV2ZJCH+Eddie+Bp1AUDKnPQHnKXNrKtBkNVGYFb KgD3RoD9MTg5HuC3LcVR48wJinemAoYRqfUJ0ZRF6s FMIzBDUIDA9PvOXcpB9jppCoMyTwBDKSBnJsR47uzYDoHSUeYNSpDJGhJg4PFPBdE0XtchZhaNjharOr KSHmNEOYPD3XXZpsigZnmTKgsTtrPN50gTbaZL7JVu3RDxIqWX6jrs7OdNKhUe8TSGBaTV0LNTIuXQAu QFEcUMJ0JGGmMbUgLDodAVLwGFKwXWK5GFXcWHFmUN 3AXoKiQFOsUUs6JMddHIVcWQKjuz2IJUReULHzCSD6BdHoKBRtVHOrTLmeNBQyNBNjOOX6SHKlSMCsEJ 8PVpYwWGFvVSZzWVCpFYVrUIZfjc9NTDBtOTGrSSI1HLJeHZBhGBVvPFioCJTqTWRtIAEwUWWwISGrEP 0MLvJjCXYmZYB9ZTWjCNUwPONsqq2FZOVnVTTzCdp9 VUAfDKLsPOSwKSadJUKdRVAwKbY8XYIvJBTbDV4CJnAtQBPbAJO5BCCuGWHzTSTezm7VXTOtQTElGEBm GlLyMAChYJMdCXlyKBPoUYY3WVn8KLFnPMFzKR6FMfAmYWEqDVQ8NEIaBATqDUZcbq9DVIEoKCNcYiMm CQGeYLJzUGIsASaiGDEwYLB2TvLeREJzLZLtHI7UZv UjDLZzBKzeOEftDCChMWHzpn0XQQQoJDTqXEPnMYKuPFKiIQDuSXqgZIIsKJR1EFB5FFGlDWUcFH1XPo HsFZPbKYn0SElbVIXpWGSvos6PWIHrYPWaYSXnBvTaOQAgPCTmIZyeAUTlWORtKCLtPRIjTGZrSV8DTh YqIVSjYaW3NPLzFRGqEZQtxk8DYTEoAWQrYQg1LRCr XPQgFBZkNBu4bsNfvUYvRYj3VX3BS2MkgmMmGbUSPn8Cn206OPJ2PAYzPv4JH8wfBb3dWNMaREVGFc5C AEq0M4E0O9O6QvZ2PBieFuR2ByBfXpU4DRDyNqE2AQFeH3T+QWxoWRU5ANQnWLC2TTHbQOg2QDRtQwh4 A9C2BAPmVME0Ct8mCYVSWt8+GAabhBFqcSteYQOVMmChPTC7QIkpJQPSCz1Z ID Date Data Source [id number] 08/19/2020 09:07:12 AM EST [facility] Name Value Range Interpretation Code Description Data Katlyn rce(s) Supporting Document(s) Telephone Encounter [facility] CLCGVl5gYaZRXqXu14/CKZijIQBmn2HwYYjyBYc1CGcbXTDiE4MuKDC7zB0qSRD9FMlHXsLbMyCeCyH2 lbm [file] ICAgICAgICAgICAgICAgICAgICAgICAgICAgICAgICAgICAgICAgICAgICAgICAgICAgICAgICAgICAg OECrGKEsTIJvKDLjOZHyOJCsSUUoMWHwLLZbTYPhWKLjWUYlBPPeNX9IBBFgGNNwMACaRTGqHWRtNLVj ICAgICAgICAgICAgICAgICAgICAgICAgICAgICAgIC HfHUIeUEApQXKfQEHxMKRpFPBlBHRaGPItFYIjMCPiFWKpFBHyKJKxFCEnILCfVIDfFN2BVNFtPXSeDS AgICAgICAgICAgICAgICAgICAgICAgICAgICAgICAgICAgICAgICAgICAgICAgICAgICAgICAgICAgIC AgICAgICAgICAgICAgICAgICAgICAgICAgICAgICAg PW6UTMVxRWEfOOXnUGMxQCAhFAEzWWAvFWNlCHYnCYHmESYqVQChOSRyJTPtXZJkIBGaVHAoGDGnNMXx WFLyEINkINTeNSDeVYAgKWYnYEYrYSNpRNUzWWWgYVTqBPIzLXNjLCJuQN2AFNPmKMWwBXKxXQJjRHYc ICAgICAgICAgICAgICAgICAgICAgICAgICAgICAgIC StGKZpFRLdDNUbVMEzPXYcMHQkGOWzGAQuUFZiWYQoWFUfMQCcLKWzCGRpWJZnDBZyFYBvBS3DPESeJF AgICAgICAgICAgICAgICAgICAgICAgICAgICAgICAgICAgICAgICAgICAgICAgICAgICAgICAgICAgIC AgICAgICAgICAgICAgICAgICAgICAgICAgICAgICAg SWBtSC5GQQAdDGZbVZXbLZHuWEAoYBAkTWZsKZGdQBXvWTJuSVIzOKVtJNYhRDNfZLWyTZYuTBOaCSUv BCRdJPCjIPWeOCHdMCBfJDWsBTYvZZUcHFWgBILmIQTaGPWiQBGvADIgFVPwHB4MGISuPVRxMMFhUZTs ICAgICAgICAgICAgICAgICAgICAgICAgICAgICAgIC KhEFHsQJSuJXXqIZAoAIToQEEoZNQlDJGpAPJrGNOoBYLiCGRiGIHoOIMzUOCfRXBcBEZkGTGtLE3FNH AgICAgICAgICAgICAgICAgICAgICAgICAgICAgICAgICAgICAgICAgICAgICAgICAgICAgICAgICAgIC AgICAgICAgICAgICAgICAgICAgICAgICAgICAgICAg OCMlAPCqNR3AKORtQVMqGCAoIWHgWGYwBFBiNCMrIHEbKXLhJESqEZMeQYJsVSJlZMUbNYJnGIZgVWRa GCOxLGNqVYBkKYDoFLHiRVCsAHXcHGJxSROgYKOqZYMmNQNqTHPjIDZvRCTeTHEcMB6OWT79aUGwq0J5 TZNxNR0mumx/Hf4QIYaobpYlyJYpJN5GIsAtCP0xvb 8GFmJdLB2zkj9AAItJLeEcZ6H0qYHzMABeSPEWXrQsU75vEKexEb19YFvgLAGiAxLuTPt7Pz6XMtYoE7 xpRIZaJrW3QWKgLgLcDDtjCK2Uq8XmdVVfCUl+Eh3NOH6vh4DsHPqwIpNkVX0pzb2DQCnXUwEhH7Hpmw X7GKQoHZSpTt4ULRXaIYHmtULdPaEtCFHGDiCqA8Qz xQ66UAKXUt9+TJzztkIpCabQBgStCAUfi6LcNQo2AS7RMHAvRBv9mMApFAWmKOSvd06bTWRwJ538etUu ciMipAENmMccVDSBVJF8lUciFGNNHDW6HEJzGkJ3QbNuDmNyGWh6FTKwZJ9qCYvoGX7GNIE4BYgjVRWk XJLyN8jQPzOlACqdTPGcbScrOE7DVaDfD0BpdmGjbX AyMiAwIFINCj4+RFcasyNmPfrKKkE9BYMpz0TkAYr3LL8GQJNfKDczNR7HCSZavG3aURsjSC3HJsNsPC YgANSXMpTbQ67asYKfMTp3H7MgXdIkWULiGqfzZEEnBVcwYlQjGNVvGoEpQNslJD7+ID4+AVkrZC7TZG lyqdFjGJGaSc4GVIZmVQEpOF5bZRSmHDSdF6E1hHxj HIMVTwMaL7bqipqyXK4jUTSxT163eKkhxuNpGGSyBEUqHe1BMPFvNNA4NMPuqDGvDcCcPBOLVWohFM4C dCPcIOC0lN1zSYrcSFSeQRSgU1wMQjJqfXbkNI80dIsmkoVfmJEwZOc+Ad8XMT0vs2XuEHx8hjVuOYrh LIJ3OYiaVUQeGHPwPJMzXFP9IOY1AKWUViTeHTZlKO HqNLllAWVcMSFmcg9AVUSmTJAiIGiwPLRrDCQcERNlHKdnFHCqQAIzFZV8XYVqMWAfYI8DHuWmJTSsPU LkYUqtDJArDGZapw5WXMEsQMIrFNO7OuOqISSxWYJhFQngKTMpCSFoLYJ5OTNaKDKuGT2ZHdRnDFIqTY J1BNQiBZBqQUQrsg2ZSVTgXKFrUpUoSGFdSYBuUKGh KKojKAIiVFCeIDUoVSBxUYZoOX6SDlYpSGWaXIZ6KNymYVOaXDYwcw1OJRHdERLpLxc4KeZgRVVsZEFy KJjkPHFkTXX3OOB7RBOwTHPkKW4ECuShERRbANS2TSkcICKlGLRqku4IRSGhCFByTincFzZgCNFiSXDg ZEfhPOQsRBY1CXZaRIUiVWOmTZ2IOdFzBGScMRtqVX UlXWCoYFLonq6KNGMyCWEzUqN9RSMrHJBdGZXhYLdbPVQrXXL9RmWdBVAdWAQxYN7BIeJcVYSrKSk2Uq BqPEPzEWFdgf5ZURAlWCBwENR1AIZzMWReOKMdUStuMMVbXTO0SEK0WWZqAFPeAF9UFuBpEBSmDdO1QR QqRQCoGVRrzx3QYXTuASXbJRLuJeMuMFMxNOQuECqb PRQvRYHfRgf4SYQzILVgRT6MQpJaOTmdDAATNes3QJldB2i4RVMiQG2WL3Feb8WnCeOsRLXWDOatHE6o oeXjYVTrIk3BN4rIUhjgUAD3PQByHaM6KHBiSnk3WJQ7D0RwWMGeTEPoXSCbNZ4oLWKqNKW1RaTjQKjm HUTfQRcoXCfqDAGfMTU7JnBmOkDfApHkCU5WEd4VMhI0BRI8kMHaZh9ZAzDfEiFUXsKaSP3QJIg= ID Date Data Source [id number] 08/19/2020 08:50:31 AM EST [facility] Name Value Range Interpretation Code Description Data Katlyn rce(s) Supporting Document(s) Telephone Encounter [facility] WYGBSu2qGxMKVnNb72/GXDgrRACho8ZhAKixWAq2SSfcCZIgH4FiVII1tQ9wTDX1ERdNJsNoXvFkZbZ5 lbm [file] ICAgICAgICAgICAgICAgICAgICAgICAgICAgICAgIC AgICAgICAgICAgICAgICAgDQogICAgICAgICAgICAgICAgICAgICAgICAgICAgICAgICAgICAgICAgIC AgICAgICAgICAgICAgICAgICAgICAgICAgICAgICAgICAgICAgICAgICAgICAgICAgICAgICAgICAgDQ ogICAgICAgICAgICAgICAgICAgICAgICAgICAgICAg ICAgICAgICAgICAgICAgICAgICAgICAgICAgICAgICAgICAgICAgICAgICAgICAgICAgICAgICAgICAg ICAgICAgICAgDQogICAgICAgICAgICAgICAgICAgICAgICAgICAgICAgICAgICAgICAgICAgICAgICAg ICAgICAgICAgICAgICAgICAgICAgICAgICAgICAgIC AgICAgICAgICAgICAgICAgICAgDQogICAgICAgICAgICAgICAgICAgICAgICAgICAgICAgICAgICAgIC AgICAgICAgICAgICAgICAgICAgICAgICAgICAgICAgICAgICAgICAgICAgICAgICAgICAgICAgICAgIC AgDQogICAgICAgICAgICAgICAgICAgICAgICAgICAg ICAgICAgICAgICAgICAgICAgICAgICAgICAgICAgICAgICAgICAgICAgICAgICAgICAgICAgICAgICAg ICAgICAgICAgICAgDQogICAgICAgICAgICAgICAgICAgICAgICAgICAgICAgICAgICAgICAgICAgICAg ICAgICAgICAgICAgICAgICAgICAgICAgICAgICAgIC AgICAgICAgICAgICAgICAgICAgICAgDQogICAgICAgICAgICAgICAgICAgICAgICAgICAgICAgICAgIC AgICAgICAgICAgICAgICAgICAgICAgICAgICAgICAgICAgICAgICAgICAgICAgICAgICAgICAgICAgIC AgICAgDQogICAgICAgICAgICAgICAgICAgICAgICAg ICAgICAgICAgICAgICAgICAgICAgICAgICAgICAgICAgICAgICAgICAgICAgICAgICAgICAgICAgICAg ICAgICAgICAgICAgICAgDQogICAgICAgICAgICAgICAgICAgICAgICAgICAgICAgICAgICAgICAgICAg ICAgICAgICAgICAgICAgICAgICAgICAgICAgICAgIC DnTPOtTNWaDVGtPVBpWPJgPVJyXPBkBYErLCs5E5rvPFUgAWIoHG8fZVe5Co9+AYeHXdYcRAQ2ltXrzW 2IOH9zl8DoGLxgZRKwi3PaRZv6AM7MCCSxRKypIW7DSUnmkw5RLCMsKWKzrWTGl5ioHgOtEDC8QZAbJr dmXN9NFJAaX6vkxgOgQLEbWIANRE9WOcBsV6ZynZ75 IDENCj4+ATullySmFzgEZzJdNYFjw6IoBSk9QT8XBIKcJxith6LrUrHrCITEIJbvDG2KUDT2QTItYCZb Lv0IVICaN231uiRaUQ7YKd0GNeDvPY7oca0EGbCtAYWuMwoOAvi8XIttLI1RsBHcWTyBSNhdgEsougTk MW3wk7AroZUzIQL9CU4rM65tIGNTGVI8KFO3CEHfgN WhEc2hJv2vVRBmXYU7WnKnXSBMHX1VQKLkSWCneEMoNSIpBTNCXJ5HIXwwVHB2HkuthtUarNHpNEdsAV 9QYXJlbnQgMjIgMCBSDQo+Fm0EMH3bs4VwNCtpNRCzHF3hci0WCTvSTlGsK9N9qYQvP7D8SPdqSy4CAQ PnIKOjOuMoHFNKNNcuSK9YDI1wgxK8QH1YmPCcTZXe OLFayRPjFQs0F03frMDqVMaaYE3FDEF+Eddie+Iv9OFRBpTZJfCUIyTsSuUVMWRlDsQ9KhE6DLn5ZmW6Se EC00yJiplkQqWNdlRW6PHL5uBRDkAORJYE4QxGSusA4uzwGkCzEwGINGAqZrS77sfNDhVCGeNLHjZAVx Tf3JVYOkW9XfmkWhrRfwbcCkVPWuBIRESX4ACMqxnj OnlMIgoJymID16qUegGR3IGm5EUoRdTN6fdz2DoGKjBr5SWZKqZT0LTFPbELCsPVGbTRX7CDLmLiPhZX adMQPcUFHoWTG4ONHuGBBcOL7EVtDdJSLvJTf8WAhfLOPmAJQeqb2UPKWbVNIsAYRcVaHsZQDiSWUxLB qaVLDpIHZkWZJ3EXGrZLYvEN5QYxHjOEApPQLhDbGq COCvSXUxkz3LDBMhAFMcIEXjCLKdYWWhMQYoVCtzYESmKRMcUPtcQEQeSLNyWH8ZEyFnXRJbSKY2OQLk QWDlAURwwy2XTVDoXAXyQac0UUKjWVRiMHVxYHezMYOtJDLcUMS3KBJyBYEyKO5TRxKpZNFxPBQzKeXw PHBaUGRmaa5VHMUzOGSfOUKyFvBqVKIrCBXfWIgxRR LvJKS0JEQ7TYKoTRZaTT0ONcImAUTiHQO3ZzFvFOQrAXAzel8XHPMzNVUtEgI4FPYlSSKrJJFrIBkcXZ JxORL9DlBoFLMgJPInVG0LHdXmAJLzOOm7QiGiERNvGZTkgl5WQZAjZQUyZKMaJBVaTVHtMZAxKYjdZZ YwXQX9SMrqOQUrRVKlOX7QNkEnXDVeRFb8JhGxVWHy QJHrnp3PHSCjWDYiEKW7GtJxTSXlFEQzFFapQWXyNHMfTmMwEIZeGHXlVF9MZfEyNNUiPqX7KSLrAJIt EJJxcm2VTHYyHNTnHTq9BmAkJWSyVDVqDQf8sqHluEKsPSz2IH2NB5RlalMtPxWQVl6Rc187YNI3IYMu Jf5HS9qmJo3bCHUnKAIVJj4CSJq4UqNyXKJqBLWrVs ReLgH6HTk2BubhXOO7XzNiFnRoDpX+BJbwOgAsRWT4KgPkVKLlLEkcOdU6UkJ0UgJpJxXvOOBhKO6hYT ANCj4+YNfeaUMcqUjbVUZCVlMnCBz8JQchQQEMUs0F ID Date Data Source [id number] 08/17/2020 11:00:00 AM EST [facility] Name Value Range Interpretation Code Description Data Katlyn rce(s) Supporting Document(s) SARS coronavirus 2 RNA [facility] This lab was ordered by [facility] and reported by [facility]. ID Date Data Source [id number] 08/10/2020 10:03:00 AM EST [facility] Name Value Range Interpretation Code Description Data Katlyn rce(s) Supporting Document(s) SARS coronavirus 2 RNA [facility] This lab was ordered by [facility] and reported by [facility]. ID Date Data Source [id number] 08/02/2020 12:00:00 AM EST [facility] Name Value Range Interpretation Code Description Data Katlyn rce(s) Supporting Document(s) 2019-nCoV RNA XXX GALILEA+probe-Imp [facility] This lab was ordered by [facility] and reported by [facility] ID Date Data Source [id number] 07/27/2020 02:00:00 PM EST [facility] Name Value Range Interpretation Code Description Data Katlyn rce(s) Supporting Document(s) SARS coronavirus 2 RNA [facility] This lab was ordered by [facility] and reported by [facility]. ID Date Data Source [id number] 07/20/2020 07:30:00 AM EST [facility] Name Value Range Interpretation Code Description Data Katlyn rce(s) Supporting Document(s) SARS coronavirus 2 RNA [facility] This lab was ordered by [facility] and reported by [facility]. ID Date Data Source [id number] 07/13/2020 10:30:00 AM EST [facility] Name Value Range Interpretation Code Description Data Katlyn rce(s) Supporting Document(s) SARS coronavirus 2 RNA [facility] This lab was ordered by [facility] and reported by [facility]. ID Date Data Source [id number] 07/06/2020 09:20:00 AM EST [facility] Name Value Range Interpretation Code Description Data Katlyn rce(s) Supporting Document(s) SARS coronavirus 2 RNA [facility] This lab was ordered by [facility] and reported by [facility] ID Date Data Source [id number] 07/01/2020 12:41:00 PM EDT [facility] Name Value Range Interpretation Code Description Data Katlyn rce(s) Supporting Document(s) SARS coronavirus 2 RNA [facility] This lab was ordered by [facility] and reported by [facility]. ID Date Data Source [id number] 06/22/2020 03:30:00 PM EDT [facility] Name Value Range Interpretation Code Description Data Katlyn rce(s) Supporting Document(s) SARS coronavirus 2 RNA [facility] This lab was ordered by [facility] and reported by [facility]. ID Date Data Source [id number] 06/17/2020 02:53:00 PM EDT [facility] Name Value Range Interpretation Code Description Data Katlyn rce(s) Supporting Document(s) SARS coronavirus 2 RNA [facility] This lab was ordered by [facility] and reported by [facility] ID Date Data Source [id number] 06/10/2020 12:00:00 PM EDT [facility] Name Value Range Interpretation Code Description Data Katlyn rce(s) Supporting Document(s) SARS coronavirus 2 RNA [facility] This lab was ordered by [facility] and reported by [facility] ID Date Data Source [id number] 06/01/2020 06:00:00 AM EDT [facility] Name Value Range Interpretation Code Description Data Katlyn rce(s) Supporting Document(s) SARS coronavirus 2 RNA [facility] This lab was ordered by [facility] and reported by [facility]. ID Date Data Source [id number] 05/25/2020 02:14:00 PM EDT [facility] Name Value Range Interpretation Code Description Data Katlyn rce(s) Supporting Document(s) SARS coronavirus 2 RNA [facility] This lab was ordered by [facility] and reported by [facility]. Procedure Social History Code Duration Value Status Description Data Source(s ) Alcohol intake 07/15/2021 12:00:00 AM EST Ex-drinker (finding) comp leted Ex- drinker (finding) [facility] Tobacco use and exposure 07/15/2021 12:00:00 AM EST Never used co mpleted Never used [facility] Smoking 07/15/2021 12:00:00 AM EST Never smoker completed Never s moker [facility] Alcohol intake 06/22/2021 12:00:00 AM EDT Ex-drinker (finding) comp leted Ex- drinker (finding) [facility] Alcohol intake 04/13/2021 12:00:00 AM EDT Ex-drinker (finding) comp leted Ex- drinker (finding) [facility] Alcohol intake 11/23/2020 12:00:00 AM EDT Ex-drinker (finding) comp leted Ex- drinker (finding) [facility] Vital Signs ID Date Data Source UNK Name Value Range Interpretation Code Description Data Source(s) Systolic blood pressure 135 mm[Hg] 135 mm[Hg] [facility] Diastolic blood pressure 83 mm[Hg] 83 mm[Hg] [facility] Heart rate 70 /min 70 /min [facility] Body temperature 36.11 Jena 36.11 Jena [facility] Respiratory rate 18 /min 18 /min [facility] Oxygen saturation in Arterial blood by Pulse oximetry 100 % 100 % [facility] Body height 175.3 cm 175.3 cm [facility] Body weight 129.275 kg 129.275 kg [facility] Body mass index (BMI) [Ratio] 42.09 kg/m2 42.09 kg/m2 [facility] Systolic blood pressure 123 mm[Hg] 123 mm[Hg] [facility] Diastolic blood pressure 84 mm[Hg] 84 mm[Hg] [facility] Heart rate 87 /min 87 /min [facility] Body height 175.3 cm 175.3 cm [facility] Body weight 129.275 kg 129.275 kg [facility] Body mass index (BMI) [Ratio] 42.09 kg/m2 42.09 kg/m2 [facility] Systolic blood pressure 128 mm[Hg] 128 mm[Hg] [facility] Diastolic blood pressure 76 mm[Hg] 76 mm[Hg] [facility] Body mass index (BMI) [Ratio] 42.83 kg/m2 42.83 kg/m2 [facility] Oxygen saturation in Arterial blood by Pulse oximetry 99 % 99 % [facility] Heart rate 84 /min 84 /min [facility] Body temperature 36.78 Jena 36.78 Jena [facility] Respiratory rate 18 /min 18 /min [facility] Body height 175.3 cm 175.3 cm [facility] Body weight 131.543 kg 131.543 kg [facility] Patient Treatment Plan of Care Planned Activity Planned Date Details Description Data Source (s) zonisamide 50 MG Oral Capsule 07/11/2021 12:00:00 AM EST [facility] zonisamide 25 MG Oral Capsule 07/11/2021 12:00:00 AM EST [facility] duloxetine 30 MG Delayed Release Oral Capsule 06/22/2021 12:00:00 A M EDT [facility] Amitriptyline Hydrochloride 10 MG Oral Tablet 04/28/2021 12:00:00 A M EDT [facility] Hydrochlorothiazide 12.5 MG Oral Tablet 04/22/2021 12:00:00 AM EDT [facility] Magnesium Oxide 400 MG Oral Tablet 04/22/2021 12:00:00 AM EDT [facility] methylPREDNISolone (Medrol, Danny,) 4 mg tablet 04/22/2021 12:00:00 A M EDT [facility] Fluoxetine 20 MG Oral Capsule 04/13/2021 12:00:00 AM EDT [facility] Diclofenac Sodium 20 MG/ML Topical Solution [Pennsaid] 04/11/2021 12:00:00 AM EDT [facility] Hydroxyzine Hydrochloride 10 MG Oral Tablet 11/23/2020 12:00:00 AM EDT [facility] albuterol HFA (VENTOLIN HFA) 90 mcg/actuation inhaler 11/23/2020 12:00:00 AM EDT [facility] Labetalol hydrochloride 100 MG Oral Tablet 11/23/2020 12:00:00 AM E DT [facility] Escitalopram 10 MG Oral Tablet 11/23/2020 12:00:00 AM EDT [facility] albuterol HFA (VENTOLIN HFA) 90 mcg/actuation inhaler 11/23/2020 12:00:00 AM EDT [facility] Labetalol hydrochloride 300 MG Oral Tablet 10/14/2020 12:00:[address] [facility] Hydroxyzine Hydrochloride 10 MG Oral Tablet 12/17/2019 12:00:00 AM EDT [facility] Escitalopram 10 MG Oral Tablet 12/17/2019 12:00:00 AM EDT [facility] Acetaminophen 500 MG Oral Tablet 08/15/2017 12:00:00 AM EST [facility] fluticasone propionate (FLONASE) 50 mcg/actuation nasal spray [facility] cetirizine hydrochloride 10 MG Oral Tablet [facility] albuterol HFA (VENTOLIN HFA) 90 mcg/actuation inhaler [facility]
== END 2021-07-20 20:48 | disposition home or self-care (01) ==
LOC: M ED 15:45
DX: R51.9 Headache, unspecified (principal); R53.83 Other fatigue; R53.1 Weakness; H53.10 Unspecified subjective visual disturbances; I10 Essential (primary) hypertension; J45.909 Unspecified asthma, uncomplicated; E28.2 Polycystic ovarian syndrome; Z79.82 Long term (current) use of aspirin; Z79.899 Other long term (current) drug therapy
CPT/HCPCS: 70450; 80047; 83735; 84702; 85025; 85652; 86140; 96361; 96374; 96375; 99284; J1200; J1885; J2765